=== PATIENT | male | born 1950 | race African-American/Black ===

== ENCOUNTER 2019-10-22 22:23 | Emergency (ER) | payer MEDICARE, OTHER ==
[~2019-10-22] VITALS: Ht 188 cm; Wt 74.8 kg
[2019-10-22 22:50] VITALS: BP 155/96
[2019-10-22] MEDS ORDERED: metFORMIN 500mg tab ORAL ONE (23:45)
[2019-10-22] MEDS ORDERED: Phenytoin 100mg cap ORAL ONE (23:45)
[2019-10-22 23:58] LABS: BASOPHILS % (AUTO) 1.6 % (0.0-2.0); EOSINOPHILS % (AUTO) 0.2 % (0.0-3.0); HEMATOCRIT 40.6 % (42.0-52.0); HEMOGLOBIN 14.1 G/DL (14.2-18.0); LYMPHOCYTES % (AUTO) 37.8 % (20.0-45.0); MEAN CORPUSCULAR VOLUME 85 FL (80-99); MONOCYTES % (AUTO) 6.7 % (1.0-10.0); NEUTROPHILS % (AUTO) 53.9 % (45.0-75.0); PLATELET COUNT 260 K/UL (150-450); RED BLOOD COUNT 4.79 M/UL (4.70-6.10); RED CELL DISTRIBUTION WIDTH 13.4 % (11.6-14.8); WHITE BLOOD COUNT 9.5 K/UL (4.8-10.8)
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
[2019-10-23 00:09] LABS: ANION GAP 9 mmol/L (5-15); BLOOD UREA NITROGEN 21 mg/dL (7-18); CALCIUM 9.2 MG/DL (8.5-10.1); CARBON DIOXIDE 27 MMOL/L (21-32); CHLORIDE 100 MMOL/L (98-107); CREATININE 1.1 MG/DL (0.55-1.30); POTASSIUM 4.9 MMOL/L (3.5-5.1); SODIUM 136 MMOL/L (136-145)
[2019-10-23 00:13] LABS: ALANINE AMINOTRANSFERASE 80 U/L (12-78); ALBUMIN 2.9 G/DL (3.4-5.0); ALBUMIN/GLOBULIN RATIO 0.5 (1.0-2.7); ALKALINE PHOSPHATASE 147 U/L (46-116); ASPARTATE AMINO TRANSFERASE 65 U/L (15-37); BILIRUBIN,TOTAL 0.2 MG/DL (0.2-1.0)
[2019-10-23 00:15] VITALS: BP 158/98
[2019-10-23] MEDS ORDERED: HYDROXYZINE HCL10 M1 PO (00:30)
[2019-10-23] MEDS ORDERED: TRAZODONE HCL50 MG ORAL (00:30)
[2019-10-23] MEDS ORDERED: AMLODIPINE BESY10 MG ORAL (00:30)
[2019-10-23] MEDS ORDERED: PROAIR HFA8.5 GM INH (00:30)
[2019-10-23] MEDS ORDERED: NOVOLIN R100 UNIT/1 SUBQ (00:30)
[2019-10-23] MEDS ORDERED: JANUVIA25 MG ORAL (00:30)
[2019-10-23] MEDS ORDERED: ATORVASTATIN CA20 MG ORAL (00:30)
[2019-10-23] MEDS ORDERED: METFORMIN HCL1000 M1 ORAL (00:30)
[2019-10-23] MEDS ORDERED: KEPPRA500 M4 ORAL (00:30)
[2019-10-23] MEDS ORDERED: BENAZEPRIL HCL20 MG ORAL (00:30)
[2019-10-23] MEDS ORDERED: HALOPERIDOL2 MG/1 ML PO (00:30)
[2019-10-23] MEDS ORDERED: BACLOFEN10 MG ORAL (00:30)
[2019-10-23] MEDS ORDERED: GLIPIZIDE5 MG ORAL (00:30)
[2019-10-23] MEDS ORDERED: DILANTIN100 MG ORAL (00:30)
[2019-10-23] MEDS ORDERED: FLOMAX0.4 MG ORAL (00:30)
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
[2019-10-23 02:33] VITALS: BP 157/89
[2019-10-23 03:34] VITALS: BP 165/88
--- NOTE | 2019-10-23 16:29 | Diagnostic Imaging Report ---
Indication: Right leg pain after falling Technique: 2 views of the right tibia and fibula Comparison: none Findings: No acute fractures. No dislocations. Joint spaces are preserved. There are vascular and superficial calcification Impression: No acute process
== END 2019-10-23 03:34 | disposition home or self-care (01) ==
LOC: EMR 23:01
DX: S80.811A Abrasion, right lower leg, initial encounter (principal); I10 Essential (primary) hypertension; J44.9 Chronic obstructive pulmonary disease, unspecified; E11.9 Type 2 diabetes mellitus without complications; F32.9 Major depressive disorder, single episode, unspecified; F03.90 Unspecified dementia, unspecified severity, without behavioral disturbance, psychotic disturbance, mood disturbance, and anxiety; Z88.6 Allergy status to analgesic agent; W19.XXXA Unspecified fall, initial encounter; Y92.9 Unspecified place or not applicable
CPT/HCPCS: 36415; 74176; 80053; 80185; 80299; 85025; 99284

== ENCOUNTER 2019-11-07 22:43 | Inpatient (IN) | payer MEDICARE, OTHER ==
[~2019-11-07] VITALS: Ht 180.3 cm; Wt 70.3 kg
[~2019-11-07 22:43] MED LIST: AMLODIPINE BESY10 MG ORAL; ATORVASTATIN CA20 MG ORAL; BACLOFEN10 MG ORAL; BENAZEPRIL HCL20 MG ORAL; DILANTIN100 MG ORAL; FLOMAX0.4 MG ORAL; GLIPIZIDE5 MG ORAL; HALOPERIDOL2 MG/1 ML PO; HYDROXYZINE HCL10 M1 PO; JANUVIA25 MG ORAL; KEPPRA500 M4 ORAL; METFORMIN HCL1000 M1 ORAL; NOVOLIN R100 UNIT/1 SUBQ; PROAIR HFA8.5 GM INH; TRAZODONE HCL50 MG ORAL
--- NOTE | 2019-11-07 22:50 | NUR ---
ED Nurse Note: PT CHARLES Coy[A 216 FROM [facility] C/P LRQ ABD PAIN [id number] BUT WORSE TODAY. PT DENIES NVD, VSS, NAD, ABD NON DISTENDED. ERMD AT BEDSIDE. WILL CONTINUE TO MONITOR PATIENT.
--- NOTE | 2019-11-07 22:55 | NUR ---
ED Nurse Note: BLOOD AND URINE COLLECTED AND SENT TO LAB.
[2019-11-07] MEDS ORDERED: Omnipaque-300 100ml vial INJ PRN (23:00)
[2019-11-07 23:18] LABS: BASOPHILS % (AUTO) 2.8 % (0.0-2.0); EOSINOPHILS % (AUTO) 0.7 % (0.0-3.0); HEMATOCRIT 37.1 % (42.0-52.0); HEMOGLOBIN 12.5 G/DL (14.2-18.0); LYMPHOCYTES % (AUTO) 51.1 % (20.0-45.0); MEAN CORPUSCULAR VOLUME 87 FL (80-99); MONOCYTES % (AUTO) 13.8 % (1.0-10.0); NEUTROPHILS % (AUTO) 31.6 % (45.0-75.0); PLATELET COUNT 196 K/UL (150-450); RED BLOOD COUNT 4.29 M/UL (4.70-6.10); WHITE BLOOD COUNT 6.7 K/UL (4.8-10.8)
[2019-11-07 23:40] LABS: ANION GAP 8 mmol/L (5-15); BLOOD UREA NITROGEN 14 mg/dL (7-18); CALCIUM 8.7 MG/DL (8.5-10.1); CARBON DIOXIDE 27 MMOL/L (21-32); CHLORIDE 104 MMOL/L (98-107); CREATININE 0.9 MG/DL (0.55-1.30); POTASSIUM 3.7 MMOL/L (3.5-5.1); SODIUM 139 MMOL/L (136-145)
[2019-11-07 23:46] LABS: ALANINE AMINOTRANSFERASE 72 U/L (12-78); ALBUMIN 2.3 G/DL (3.4-5.0); ALBUMIN/GLOBULIN RATIO 0.5 (1.0-2.7); ALKALINE PHOSPHATASE 127 U/L (46-116); ASPARTATE AMINO TRANSFERASE 47 U/L (15-37); BILIRUBIN,TOTAL 0.1 MG/DL (0.2-1.0)
[2019-11-07 23:54] VITALS: BP 168/82
[2019-11-07 23:57] LABS: APPEARANCE,URINE CLEAR; BILIRUBIN, URINE NEGATIVE (NEGATIVE); GLUCOSE, URINE (UA) NEGATIVE (NEGATIVE); KETONES,URINE NEGATIVE (NEGATIVE); LEUKOCYTE ESTERASE ,URINE NEGATIVE (NEGATIVE); NITRITE,URINE NEGATIVE (NEGATIVE); PH,URINE 6.5 (4.5-8.0); PROTEIN,URINE 4+ (NEGATIVE); UROBILINOGEN,URINE NORMAL MG/DL (0.0-1.0)
[2019-11-07 23:58] LABS: COLOR,URINE YELLOW
[2019-11-08] VITALS (7 sets, daily range): BP systolic 140–166; BP diastolic 68–98
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
[2019-11-08] MEDS ORDERED: ACETAMINOPHEN325 M1 ORAL (01:38)
[2019-11-08] MEDS ORDERED: ROBITUSSIN COU118 M1 ORAL (01:38)
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
--- NOTE | 2019-11-08 03:15 | NUR ---
ED Nurse Note: GAVE REPORT TO ANGELINE DUBON
--- NOTE | 2019-11-08 03:40 | NUR ---
NURSE NOTES: Patient arrived on unit. Patient is a/o x 2-3 and NO c/o pain or any distress at this time. Breathing is even and unlabored on room air. IV site is intact and patent. Belonging checked with patient and signed by patient. Patient refused his theodore to send to hospital's safe and signed on belonging paper. Patient refused side rail pads for seizures. he stated I had seizure long time ago and I don't want seizure pads. Bed is on alarm, locked, and lowest position. Call light within reach. Will continue to monitor.
--- NOTE | 2019-11-08 03:40 | NUR ---
TRANSFER TO FLOOR: Patient transferred to [facility] via gurney accompanied by rn in stable condition as ordered, per dr. Bronson . Report given to Sandra DUBON. Belongings sent with patient.
--- NOTE | 2019-11-08 04:44 | NUR ---
NURSE NOTES: Called to Dr. Bronson and left message regarding admission order.
--- NOTE | 2019-11-08 04:50 | NUR ---
NURSE NOTES: Dr. Marrero is covering Dr. Bronson. Called to Dr. Marrero regarding admission order.
--- NOTE | 2019-11-08 05:20 | NUR ---
NURSE NOTES: Called to Dr. Marrero 2nd regarding admission order and left message.
--- NOTE | 2019-11-08 06:32 | NUR ---
NURSE NOTES: Called to Dr. Marrero 3rd regarding admission order and left message. Notified to Charge nurse, Moshe DUBON.
--- NOTE | 2019-11-08 07:30 | NUR ---
NURSE NOTES: Received patient A/A/Ox3 in bed. appeared villagomez/grumpy. NPO. No c/o pain or any distress at this time. Breathing is even and unlabored on room air. IV site is intact and patent. patient is able to ambulate with assistance. call light is within reach. bed is in the lowest position. Bed is on alarm, locked, and lowest position.Will continue to monitor.
--- NOTE | 2019-11-08 07:30 | NUR ---
HAND-OFF: Report given to Niharika FIRE APPARATUS SPRINKLER INSPECTOR. Patient in stable condition.
[2019-11-08] MEDS: Tamsulosin 0.4mg cap ORAL SCH (09:05)
--- NOTE | 2019-11-08 09:30 | NUR ---
NURSE NOTES: diet ordered received and patient consumed 100%. tolerating food intake well. will cont to monitor.
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
--- NOTE | 2019-11-08 12:28 | NUR ---
NURSE NOTES: sent urine sample for drug screen.
--- NOTE | 2019-11-08 12:36 | NUR ---
NURSE NOTES: patient refused to keep his money in the safe and refused for me to count. Able to pad his siderails for seizure precautions. will cont to monitor.
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
[2019-11-08] MEDS: Acetaminophen 500mg (ES) tab ORAL PRN ×2 (16:09→23:17)
[2019-11-08] MEDS ORDERED: 1/2 NS 1000ml IV ONE (16:13)
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
--- NOTE | 2019-11-08 19:03 | NUR ---
HAND-OFF: Report given to Daly.
[2019-11-08] MEDS: TraZODone 50mg tab ORAL SCH (21:05)
[2019-11-08] MEDS: Phenytoin 100mg cap ORAL SCH (21:06)
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
[2019-11-09] VITALS (8 sets, daily range): BP systolic 125–191; BP diastolic 58–110
--- NOTE | 2019-11-09 06:34 | NUR ---
nurse's notes: at 0327 am patient slipped and fell on his buttocks after slipping on his own urine; patient was trying to get out the room however, eloisa morriosn for 303-2 tried to stop mr. jane from getting out of the room as he is considered a fall risk. DIRECTOR OF DESIGN called for a witnessed fall; fall protocol; no loss of consciousness or any visible s/s of pain, shortness of breath or distress. patient was verbally aggressive, and uncooperative to the female nurses. vital signs was taken and BP noted to be 191/110 and was rechecked with a SBP 213. catapres 0.01 mg given as ordered. dr. oglesby informed of fall at 0405 but was advised that dr. moore is ironmolder for him until this evening. daughter kaleb jane was also called around 0410 but did not continuous pickling line pickler; left voice mail. by this time patient has gone back to bed. Dr. Venegas came at around 0422 and was informed of his confusion and fall; risperdal was ordered. at this time patient is calmer, in bed, does not complain of any pain or distress; fall protocol initiated; will continue to monitor.
[2019-11-09 07:35] LABS: ALANINE AMINOTRANSFERASE 79 U/L (12-78); ALBUMIN 2.2 G/DL (3.4-5.0); ALBUMIN/GLOBULIN RATIO 0.5 (1.0-2.7); ALKALINE PHOSPHATASE 122 U/L (46-116); AMYLASE 312 U/L (25-115); ANION GAP 4 mmol/L (5-15); ASPARTATE AMINO TRANSFERASE 51 U/L (15-37); BILIRUBIN,TOTAL 0.1 MG/DL (0.2-1.0); BLOOD UREA NITROGEN 19 mg/dL (7-18); CALCIUM 8.7 MG/DL (8.5-10.1); CARBON DIOXIDE 29 MMOL/L (21-32); CHLORIDE 102 MMOL/L (98-107); CREATININE 1.1 MG/DL (0.55-1.30); POTASSIUM 4.1 MMOL/L (3.5-5.1); SODIUM 135 MMOL/L (136-145)
--- NOTE | 2019-11-09 07:37 | NUR ---
NURSE'S NOTES: LEFT VOICE MAIL FOR DR. GOODRICH WHO IS COVERING FOR DR. DIAMOND UNTIL THIS EVENING.
[2019-11-09 07:41] LABS: BASOPHILS % (AUTO) 1.2 % (0.0-2.0); EOSINOPHILS % (AUTO) 0.7 % (0.0-3.0); HEMATOCRIT 36.1 % (42.0-52.0); HEMOGLOBIN 12.4 G/DL (14.2-18.0); IRON 93 ug/dL (50-175); LYMPHOCYTES % (AUTO) 47.2 % (20.0-45.0); MEAN CORPUSCULAR VOLUME 86 FL (80-99); MONOCYTES % (AUTO) 17.8 % (1.0-10.0); NEUTROPHILS % (AUTO) 33.1 % (45.0-75.0); PLATELET COUNT 179 K/UL (150-450); RED BLOOD COUNT 4.21 M/UL (4.70-6.10); RED CELL DISTRIBUTION WIDTH 13.9 % (11.6-14.8); TOTAL IRON BINDING CAPACITY 209 ug/dL (250-450); WHITE BLOOD COUNT 5.9 K/UL (4.8-10.8)
--- NOTE | 2019-11-09 07:45 | NUR ---
NURSE NOTES: Pt lying in bed w/bed in lowest position and call light within reach. Pt A&Ox2, VSS, and in no apparent distress. IV site intact/asymptomatic & H/L'd and skin intact. Pt has no complaints of abdominal pain at this time. Pt NPO in preparation for abdominal US this morning. Will continue to monitor.
[2019-11-09 07:52] LABS: % IRON SATURATION 44 % (15-50)
[2019-11-09] MEDS: DULoxetine 30mg cap ORAL SCH (08:56)
[2019-11-09] MEDS: Tamsulosin 0.4mg cap ORAL SCH (08:56)
--- NOTE | 2019-11-09 11:00 | General Progress Note ---
Assessment/Plan Problem List: (1) Pancreatitis ICD Codes: K85.90 - Acute pancreatitis without necrosis or infection, unspecified SNOMED: 05765896 (2) Abdominal pain ICD Codes: R10.9 - Unspecified abdominal pain SNOMED: 79154368 (3) Seizure disorder ICD Codes: G40.909 - Epilepsy, unspecified, not intractable, without status epilepticus SNOMED: 540492929, 163628300 Status: progressing Assessment/Plan: abdominal pain w/u per gi dr afebrile pain is improving reviewed chart Subjective ROS Limited/Unobtainable: Yes Allergies: Coded Allergies: IBUPROFEN (Verified Allergy, Unknown, 10/22/19) Uncoded Allergies: PCN (Allergy, Unknown, 11/07/19) Objective Last 24 Hour Vital Signs Date Time Temp Pulse Resp B/P (MAP) Pulse Ox O2 Delivery O2 Flow Rate FiO2 11/09/19 09:00 Room Air 11/09/19 08:56 78 154/58 11/09/19 08:00 97.5 78 18 154/58 (90) 95 11/09/19 06:48 97.4 82 17 125/78 (94) 97 11/09/19 04:00 20 191/110 (137) 11/09/19 03:30 97.8 95 Room Air 11/09/19 00:00 97.3 78 18 162/93 (116) 98 11/08/19 21:00 Room Air 11/08/19 20:00 98.0 86 20 159/95 (116) 97 11/08/19 16:39 97.9 11/08/19 16:05 149/68 (95) 11/08/19 16:00 98.4 88 22 166/98 (120) 93 11/08/19 12:00 97.9 84 20 140/81 (100) 93 Intake and Output 11/08/19 11/09/19 19:00 07:00 Intake Total 1035 ml 990 ml Output Total 900 ml 500 ml Balance 135 ml 490 ml Intake Oral 360 ml 240 ml IV Total 675 ml 750 ml Output Urine Total 900 ml 500 ml Laboratory Tests 11/08/19 11:30: Urine Opiates Screen Negative, Urine Barbiturates Screen Negative, Phencyclidine (PCP) Screen Negative, Urine Amphetamines Screen Negative, Urine Benzodiazepines Screen Negative, Urine Cocaine Screen Negative, Urine Marijuana (THC) Screen Negative 11/09/19 04:50: White Blood Count 5.9, Red Blood Count 4.21L, Hemoglobin 12.4L, Hematocrit 36.1L , Mean Corpuscular Volume 86, Mean Corpuscular Hemoglobin 29.5, Mean Corpuscular Hemoglobin Concent 34.4, Red Cell Distribution Width 13.9, Platelet Count 179, Mean Platelet Volume 8.3, Neutrophils (%) (Auto) 33.1L, Lymphocytes ( %) (Auto) 47.2H, Monocytes (%) (Auto) 17.8H, Eosinophils (%) (Auto) 0.7, Basophils (%) (Auto) 1.2, Sodium Level 135L, Potassium Level 4.1, Chloride Level 102, Carbon Dioxide Level 29, Anion Gap 4L, Blood Urea Nitrogen 19H, Creatinine 1.1, Estimat Glomerular Filtration Rate > 60, Glucose Level 154H, Calcium Level 8.7, Iron Level 93, Total Iron Binding Capacity 209L, Percent Iron Saturation 44, Unsaturated Iron Binding 116, Total Bilirubin 0.1L, Aspartate Amino Transf (AST/SGOT) 51H, Alanine Aminotransferase (ALT/SGPT) 79H, Alkaline Phosphatase 122H, Total Protein 6.6, Albumin 2.2L, Globulin 4.4, Albumin/Globulin Ratio 0.5L, Amylase Level 312H, Lipase 683H, Hepatitis A IgM Antibody [Pending], Hepatitis B Surface Antigen [Pending], Hepatitis B Core IgM Antibody [Pending], Hepatitis C Antibody [Pending] Height (Feet): 5 Height (Inches): 11.00 Weight (Pounds): 165 Cardiovascular: regular rhythm Respiratory/Chest: lungs clear Abdomen: soft Dulce Marrero MD Nov 09, 2019 11:00
--- NOTE | 2019-11-09 11:19 | Diagnostic Imaging Report ---
Indication: Abdominal pain Technique: Grayscale and duplex Doppler imaging of the abdomen performed. Comparison: None Findings: The liver is unremarkable. Doppler interrogation of the main portal vein shows patency with hepatopedal, monophasic flow. There is no biliary ductal dilatation identified. Gallbladder is unremarkable. CBD is 5.8 mm in diameter. There demonstrated part of the pancreas and IVC show no definite abnormalities. Aorta is calcified and partially obscured. There are echogenic lesions within the spleen nonspecific. These could be vascular or parenchymal calcifications. Both kidneys notable for multiple small bilateral renal cysts. There is no hydronephrosis. IMPRESSION: No acute findings. Bilateral renal cysts. Echogenic lesions within the spleen probably calcifications such as granulomata.
--- NOTE | 2019-11-09 11:21 | GI Progress Note ---
Assessment/Plan Problems: (1) Abdominal pain ICD Codes: R10.9 - Unspecified abdominal pain SNOMED: 68686303 (2) Pancreatitis ICD Codes: K85.90 - Acute pancreatitis without necrosis or infection, unspecified SNOMED: 32472595 Status: unchanged Status Narrative Discussed with Dr. Washington Assessment/Plan Elevated lipase levels, pending abdominal ultrasound History of pancreatitis Follow-up abdominal ultrasound Advance diet as tolerated Anemia work-up -No iron deficiency Occult blood stool to rule out any GI bleed PPI GI procedures if needed repeat labs The patient was seen and examined at bedside and all new and available data was reviewed in the patients chart. I agree with the above findings, impression and plan. (Patient seen earlier today. Signature stamp does not reflect patient encounter time.). - Chris Washington MD Subjective Subjective Still has complaints of abdominal pain Denies any diarrhea Objective Last 24 Hour Vital Signs Date Time Temp Pulse Resp B/P (MAP) Pulse Ox O2 Delivery O2 Flow Rate FiO2 11/09/19 09:00 Room Air 11/09/19 08:56 78 154/58 11/09/19 08:00 97.5 78 18 154/58 (90) 95 11/09/19 06:48 97.4 82 17 125/78 (94) 97 11/09/19 04:00 20 191/110 (137) 11/09/19 03:30 97.8 95 Room Air 11/09/19 00:00 97.3 78 18 162/93 (116) 98 11/08/19 21:00 Room Air 11/08/19 20:00 98.0 86 20 159/95 (116) 97 11/08/19 16:39 97.9 11/08/19 16:05 149/68 (95) 11/08/19 16:00 98.4 88 22 166/98 (120) 93 11/08/19 12:00 97.9 84 20 140/81 (100) 93 Intake and Output 11/08/19 11/09/19 19:00 07:00 Intake Total 1035 ml 990 ml Output Total 900 ml 500 ml Balance 135 ml 490 ml Intake Oral 360 ml 240 ml IV Total 675 ml 750 ml Output Urine Total 900 ml 500 ml Laboratory Tests Test 11/08/19 11:30 11/09/19 04:50 Urine Opiates Screen Negative (NEGATIVE) Urine Barbiturates Screen Negative (NEGATIVE) Phencyclidine (PCP) Screen Negative (NEGATIVE) Urine Amphetamines Screen Negative (NEGATIVE) Urine Benzodiazepines Screen Negative (NEGATIVE) Urine Cocaine Screen Negative (NEGATIVE) Urine Marijuana (THC) Screen Negative (NEGATIVE) White Blood Count 5.9 K/UL (4.8-10.8) Red Blood Count 4.21 M/UL (4.70-6.10) L Hemoglobin 12.4 G/DL (14.2-18.0) L Hematocrit 36.1 % (42.0-52.0) L Mean Corpuscular Volume 86 FL (80-99) Mean Corpuscular Hemoglobin 29.5 PG (27.0-31.0) Mean Corpuscular Hemoglobin Concent 34.4 G/DL (32.0-36.0) Red Cell Distribution Width 13.9 % (11.6-14.8) Platelet Count 179 K/UL (150-450) Mean Platelet Volume 8.3 FL (6.5-10.1) Neutrophils (%) (Auto) 33.1 % (45.0-75.0) L Lymphocytes (%) (Auto) 47.2 % (20.0-45.0) H Monocytes (%) (Auto) 17.8 % (1.0-10.0) H Eosinophils (%) (Auto) 0.7 % (0.0-3.0) Basophils (%) (Auto) 1.2 % (0.0-2.0) Sodium Level 135 MMOL/L (136-145) L Potassium Level 4.1 MMOL/L (3.5-5.1) Chloride Level 102 MMOL/L (98-107) Carbon Dioxide Level 29 MMOL/L (21-32) Anion Gap 4 mmol/L (5-15) L Blood Urea Nitrogen 19 mg/dL (7-18) H Creatinine 1.1 MG/DL (0.55-1.30) Estimat Glomerular Filtration Rate > 60 mL/min (>60) Glucose Level 154 MG/DL (74-106) H Calcium Level 8.7 MG/DL (8.5-10.1) Iron Level 93 ug/dL (50-175) Total Iron Binding Capacity 209 ug/dL (250-450) L Percent Iron Saturation 44 % (15-50) Unsaturated Iron Binding 116 ug/dL (112-346) Total Bilirubin 0.1 MG/DL (0.2-1.0) L Aspartate Amino Transf (AST/SGOT) 51 U/L (15-37) H Alanine Aminotransferase (ALT/SGPT) 79 U/L (12-78) H Alkaline Phosphatase 122 U/L (46-116) H Total Protein 6.6 G/DL (6.4-8.2) Albumin 2.2 G/DL (3.4-5.0) L Globulin 4.4 g/dL Albumin/Globulin Ratio 0.5 (1.0-2.7) L Amylase Level 312 U/L (25-115) H Lipase 683 U/L (73-393) H Hepatitis A IgM Antibody Pending Hepatitis B Surface Antigen Pending Hepatitis B Core IgM Antibody Pending Hepatitis C Antibody Pending Height (Feet): 5 Height (Inches): 11.00 Weight (Pounds): 165 General Appearance: WD/WN, no apparent distress, alert Cardiovascular: normal rate Respiratory/Chest: normal breath sounds, no respiratory distress Abdominal Exam: normal bowel sounds, non tender, soft Extremities: normal range of motion, non-tender Jonny Carroll YARN WEIGHER Nov 09, 2019 11:21
--- NOTE | 2019-11-09 12:30 | NUR ---
NURSE NOTES: Pt pulled out IV access and is refusing another IV; will attempt to start new IV at a later time.
[2019-11-09] MEDS ORDERED: 1/2 NS 1000ml IV ONE (15:18)
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
--- NOTE | 2019-11-09 17:01 | NUR ---
*-* INSURANCE *-* ALL AVAILABLE CLINICALS HAVE BEEN FAXED TO: [facility] rf# yet # [phone]
--- NOTE | 2019-11-09 20:00 | NUR ---
nurse's notes; received patient awake, alert, oriented to self and place only, confused and disoriented; re-oriented patient to purpose and time; denies any pain, shortness of breath or any distress; bed alarm on at all times; 2 upper rails padded secondary to a hx of seizures; plan of care discussed with patient but no evidence of learning; needs constant reinforcement. will continue to monitor
[2019-11-09] MEDS: TraZODone 50mg tab ORAL SCH (20:42)
[2019-11-09] MEDS: Phenytoin 100mg cap ORAL SCH (20:43)
[2019-11-09] MEDS: Acetaminophen 500mg (ES) tab ORAL PRN (20:46)
[2019-11-09] MEDS: NovoLOG Insulin Flexpen SUBQ SCH (20:48)
[2019-11-09] MEDS: LORazepam 1mg tab ORAL PRN (23:22)
[2019-11-10] VITALS: BP 178/89
[2019-11-10] MEDS: Acetaminophen 500mg (ES) tab ORAL PRN ×2 (03:37→17:48)
[2019-11-10 04:00] VITALS: BP 169/95
[2019-11-10] MEDS: NovoLOG Insulin Flexpen SUBQ SCH ×4 (05:52→22:30)
--- NOTE | 2019-11-10 06:20 | NUR ---
nurse's notes: no significant changes noted this shift; continues to be confused and forgetful but more easily redirected and re-oriented today; more cooperative to staff; pain managed well with ordered medication with good results; no incidents of falls, injuries, trauma or skin issues noted; bed alarm on at all times; no s/s of hyper or hypoglycemia; VS noted; SBP between 160s-170s; clonidine PRN parameter noted at SBP >180; AM sponge bath done; soiled clothes in bedside cabinet; patient has $26 in notes inside his white sock; coins in the pocket of his jacket; slept well during the night; will continue to monitor.
[2019-11-10 06:34] LABS: BASOPHILS % (AUTO) 1.4 % (0.0-2.0); EOSINOPHILS % (AUTO) 0.6 % (0.0-3.0); HEMATOCRIT 34.9 % (42.0-52.0); HEMOGLOBIN 11.9 G/DL (14.2-18.0); MEAN CORPUSCULAR VOLUME 86 FL (80-99); MONOCYTES % (AUTO) 19.8 % (1.0-10.0); NEUTROPHILS % (AUTO) 31.3 % (45.0-75.0); PLATELET COUNT 180 K/UL (150-450); RED BLOOD COUNT 4.06 M/UL (4.70-6.10); RED CELL DISTRIBUTION WIDTH 13.7 % (11.6-14.8); WHITE BLOOD COUNT 6.4 K/UL (4.8-10.8)
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
--- NOTE | 2019-11-10 07:45 | NUR ---
NURSE NOTES: Pt lying in bed w/bed in lowest position, bed alarm on, and call light within reach. Pt A&Ox2, VSS, and in no apparent distress. IV site intact/asymptomatic & H/L'd and skin intact. Pt resting and has no concerns or complaints at this time. Will continue to monitor.
[2019-11-10 07:52] LABS: ANION GAP 9 mmol/L (5-15); BLOOD UREA NITROGEN 17 mg/dL (7-18); CALCIUM 8.4 MG/DL (8.5-10.1); CARBON DIOXIDE 27 MMOL/L (21-32); CHLORIDE 102 MMOL/L (98-107); CREATININE 0.9 MG/DL (0.55-1.30); SODIUM 137 MMOL/L (136-145)
[2019-11-10 08:00] VITALS: BP 121/66
[2019-11-10] MEDS: DULoxetine 30mg cap ORAL SCH (08:39)
[2019-11-10] MEDS: Tamsulosin 0.4mg cap ORAL SCH (08:40)
--- NOTE | 2019-11-10 10:30 | NUR ---
*-* INSURANCE *-* UDPATED CLINICALS HAVE BEEN FAXED TO: [facility] rf# yet # [phone]
--- NOTE | 2019-11-10 11:56 | General Progress Note ---
Assessment/Plan Assessment/Plan: 1. History of seizure disorder. 2. Hypertension. 3. COPD. 4. GERD. 5. Pancreatitis. 6. Diabetes. 7. Schizophrenia. 8. Depression. 9. Anemia abd us reviewed elevated lipase but asymptomatic tolerating diet needs out patient fu for EGD and colonoscopy Subjective ROS Limited/Unobtainable: Yes Allergies: Coded Allergies: IBUPROFEN (Verified Allergy, Unknown, 10/22/19) Uncoded Allergies: PCN (Allergy, Unknown, 11/07/19) Objective Last 24 Hour Vital Signs Date Time Temp Pulse Resp B/P (MAP) Pulse Ox O2 Delivery O2 Flow Rate FiO2 11/10/19 09:00 Room Air 11/10/19 08:39 76 121/66 11/10/19 08:00 97.1 76 18 121/66 (84) 95 11/10/19 04:00 97.7 83 16 169/95 (119) 95 11/10/19 00:00 98.1 88 15 178/89 (118) 95 11/09/19 21:00 Room Air 11/09/19 20:00 97.3 87 18 168/91 (116) 95 11/09/19 16:00 97.6 85 18 166/78 (107) 98 11/09/19 12:00 97.3 83 18 138/77 (97) 97 Intake and Output 11/09/19 11/10/19 19:00 07:00 Intake Total 1050 ml Balance 1050 ml Intake Oral 300 ml IV Total 750 ml # Voids 3 Laboratory Tests 11/10/19 04:50: White Blood Count 6.4, Red Blood Count 4.06L, Hemoglobin 11.9L, Hematocrit 34.9L , Mean Corpuscular Volume 86, Mean Corpuscular Hemoglobin 29.3, Mean Corpuscular Hemoglobin Concent 34.1, Red Cell Distribution Width 13.7, Platelet Count 180, Mean Platelet Volume 8.0, Neutrophils (%) (Auto) 31.3L, Lymphocytes ( %) (Auto) 47.0H, Monocytes (%) (Auto) 19.8H, Eosinophils (%) (Auto) 0.6, Basophils (%) (Auto) 1.4, Sodium Level 137, Potassium Level 4.0, Chloride Level 102, Carbon Dioxide Level 27, Anion Gap 9, Blood Urea Nitrogen 17, Creatinine 0.9, Estimat Glomerular Filtration Rate > 60, Glucose Level 202H, Hemoglobin A1c 7.9H, Calcium Level 8.4L, Lipase 534H Height (Feet): 5 Height (Inches): 11.00 Weight (Pounds): 165 General Appearance: no apparent distress EENT: normal ENT inspection Neck: supple Cardiovascular: normal rate Respiratory/Chest: decreased breath sounds Abdomen: normal bowel sounds, non tender, soft Extremities: non-tender Chris Washington MD Nov 10, 2019 11:56
[2019-11-10 12:00] VITALS: BP 150/88
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
--- NOTE | 2019-11-10 14:46 | General Progress Note ---
Assessment/Plan Problem List: (1) COPD (chronic obstructive pulmonary disease) ICD Codes: J44.9 - Chronic obstructive pulmonary disease, unspecified SNOMED: 57708327 (2) HTN (hypertension) ICD Codes: I10 - Essential (primary) hypertension SNOMED: 62088688 (3) Fall ICD Codes: W19.XXXA - Unspecified fall, initial encounter SNOMED: 6471765, 184194184 (4) Leg abrasion ICD Codes: S80.819A - Abrasion, unspecified lower leg, initial encounter SNOMED: 051879403, 272346961 (5) Seizure disorder ICD Codes: G40.909 - Epilepsy, unspecified, not intractable, without status epilepticus SNOMED: 067867242, 296948858 (6) Abdominal pain ICD Codes: R10.9 - Unspecified abdominal pain SNOMED: 10083092 Status: stable, progressing Assessment/Plan: pt diet cbc bmp am dc if clear Subjective Constitutional: Reports: weakness Allergies: Coded Allergies: IBUPROFEN (Verified Allergy, Unknown, 10/22/19) Uncoded Allergies: PCN (Allergy, Unknown, 11/07/19) All Systems: reviewed and negative except above Subjective calm in bed Objective Last 24 Hour Vital Signs Date Time Temp Pulse Resp B/P (MAP) Pulse Ox O2 Delivery O2 Flow Rate FiO2 11/10/19 12:00 98.2 86 20 150/88 (108) 95 11/10/19 09:00 Room Air 11/10/19 08:39 76 121/66 11/10/19 08:00 97.1 76 18 121/66 (84) 95 11/10/19 04:00 97.7 83 16 169/95 (119) 95 11/10/19 00:00 98.1 88 15 178/89 (118) 95 11/09/19 21:00 Room Air 11/09/19 20:00 97.3 87 18 168/91 (116) 95 11/09/19 16:00 97.6 85 18 166/78 (107) 98 Intake and Output 11/09/19 11/10/19 19:00 07:00 Intake Total 1050 ml Balance 1050 ml Intake Oral 300 ml IV Total 750 ml # Voids 3 Laboratory Tests 11/10/19 04:50: White Blood Count 6.4, Red Blood Count 4.06L, Hemoglobin 11.9L, Hematocrit 34.9L , Mean Corpuscular Volume 86, Mean Corpuscular Hemoglobin 29.3, Mean Corpuscular Hemoglobin Concent 34.1, Red Cell Distribution Width 13.7, Platelet Count 180, Mean Platelet Volume 8.0, Neutrophils (%) (Auto) 31.3L, Lymphocytes ( %) (Auto) 47.0H, Monocytes (%) (Auto) 19.8H, Eosinophils (%) (Auto) 0.6, Basophils (%) (Auto) 1.4, Sodium Level 137, Potassium Level 4.0, Chloride Level 102, Carbon Dioxide Level 27, Anion Gap 9, Blood Urea Nitrogen 17, Creatinine 0.9, Estimat Glomerular Filtration Rate > 60, Glucose Level 202H, Hemoglobin A1c 7.9H, Calcium Level 8.4L, Lipase 534H Height (Feet): 5 Height (Inches): 11.00 Weight (Pounds): 165 General Appearance: lethargic EENT: normal ENT inspection Neck: normal alignment Cardiovascular: normal peripheral pulses, normal rate, regular rhythm Respiratory/Chest: chest wall non-tender, lungs clear, normal breath sounds Abdomen: normal bowel sounds, non tender, soft Extremities: normal inspection Edema: no edema noted Arm (L), no edema noted Arm (R), no edema noted Leg (L), no edema noted Leg (R), no edema noted Pedal (L), no edema noted Pedal (R), no edema noted Generalized Neurologic: motor weakness Skin: normal pigmentation, warm/dry Keyur Bronson DO Nov 10, 2019 14:45
[2019-11-10] MEDS ORDERED: 1/2 NS 1000ml IV ONE (15:19)
[2019-11-10] MEDS ORDERED: Bisacodyl EC 5mg tab ORAL PRN (15:59)
[2019-11-10 16:00] VITALS: BP 161/97
--- NOTE | 2019-11-10 16:45 | Progress Note ---
DATE: 11/10/2019 SUBJECTIVE: This is a 69-year-old male patient who came into the hospital. The patient continues to have some confusion, disorganized thought process, and mood lability. He is currently in the hospital because of abdominal pain, but he still has some mood lability, confused, and disorganized thought process. That is why attending has requested daily psychiatric consultation. MENTAL STATUS EXAMINATION: This is a 69-year-old male. Appearance is disheveled. Attitude, irritable and agitated. Affect, guarded and restricted. Intellect, poor. Mood, depressed and anxious. Motor activity, psychomotor agitation. Attention span is poor. Orientation x2. Speech is pressured. Thought process is disorganized and illogical. Insight and judgment is poor. DIAGNOSIS: Major depressive disorder, severe, recurrent; rule out dementia with psychosis. PLAN: Plan for this patient is to treat him with a medication regimen consisting of trazodone 50 mg nightly, Risperdal 0.5 mg twice a day, Ativan 1 mg every 6 hours p.r.n. anxiety and agitation, and Neurontin 100 mg three times a day. Chart reviewed. Discussed with staff. Seen and assessed at bedside. Ariela Venegas M.D. DR: IGOR JOB#: [id number] CC:
[2019-11-10] MEDS: Docusate 100mg cap ORAL SCH (17:44)
[2019-11-10] MEDS: Benazepril 10mg tab ORAL SCH (17:46)
--- NOTE | 2019-11-10 19:37 | NUR ---
HAND-OFF: Report given to JAGDISH Soriano.
--- NOTE | 2019-11-10 20:08 | NUR ---
NURSES NOTE: Pt in bed, A/OX2, denies pain at this time. Hand rails padded. No outward s/s of distress noted. Breathing pattern is even and unlabored on RA. No fluids running. Stool to be collected. Bed at lowest level, call light within reach. Pt will continue to be monitored.
[2019-11-10] MEDS ORDERED: Miralax 17gm pkt ORAL SCH (21:00)
[2019-11-10] MEDS: Phenytoin 100mg cap ORAL SCH (22:31)
[2019-11-10] MEDS: TraZODone 50mg tab ORAL SCH (22:31)
[2019-11-11] VITALS: BP 159/89
[2019-11-11] MEDS: LORazepam 1mg tab ORAL PRN (01:13)
[2019-11-11 04:00] VITALS: BP 154/95
[2019-11-11] MEDS: NovoLOG Insulin Flexpen SUBQ SCH ×3 (07:01→17:10)
[2019-11-11 08:00] VITALS: BP 159/85
--- NOTE | 2019-11-11 08:00 | NUR ---
NURSE NOTES: Received report from Sarah DUBON. Patient is asleep during rounds, no acute distress noted, RR even and unlabored, no IV access noted, per report from supervisor ski production nurse MD is aware patient has no IV access. Seizure and fall precautions maintained, side rails padded x2, side rails upx3, bed low and locked, call light within reach, bed alarm is armed.
--- NOTE | 2019-11-11 08:03 | NUR ---
HAND OFF: Report given to JAGDISH Dean. Patient in stable condition.
[2019-11-11 08:32] LABS: BASOPHILS % (AUTO) 2.2 % (0.0-2.0); EOSINOPHILS % (AUTO) 0.6 % (0.0-3.0); HEMATOCRIT 35.6 % (42.0-52.0); HEMOGLOBIN 12.2 G/DL (14.2-18.0); LYMPHOCYTES % (AUTO) 52.6 % (20.0-45.0); MEAN CORPUSCULAR VOLUME 86 FL (80-99); NEUTROPHILS % (AUTO) 29.7 % (45.0-75.0); PLATELET COUNT 171 K/UL (150-450); RED BLOOD COUNT 4.12 M/UL (4.70-6.10); RED CELL DISTRIBUTION WIDTH 13.8 % (11.6-14.8); WHITE BLOOD COUNT 5.6 K/UL (4.8-10.8)
[2019-11-11 08:43] LABS: AMYLASE 254 U/L (25-115); ANION GAP 9 mmol/L (5-15); BLOOD UREA NITROGEN 20 mg/dL (7-18); CALCIUM 8.7 MG/DL (8.5-10.1); CARBON DIOXIDE 26 MMOL/L (21-32); CHLORIDE 104 MMOL/L (98-107); CREATININE 0.9 MG/DL (0.55-1.30); POTASSIUM 4.1 MMOL/L (3.5-5.1); SODIUM 139 MMOL/L (136-145)
[2019-11-11 08:45] LABS: % IRON SATURATION 53 % (15-50); IRON 115 ug/dL (50-175); TOTAL IRON BINDING CAPACITY 218 ug/dL (250-450)
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
[2019-11-11] MEDS: Benazepril 10mg tab ORAL SCH ×2 (09:31→17:35)
[2019-11-11] MEDS: Docusate 100mg cap ORAL SCH ×3 (09:31→17:34)
[2019-11-11] MEDS: Tamsulosin 0.4mg cap ORAL SCH (09:31)
[2019-11-11] MEDS: DULoxetine 30mg cap ORAL SCH (09:31)
--- NOTE | 2019-11-11 09:57 | NUR ---
DISCHARGE PLANNING PATIENT REFERRED BACK TO [facility] T:[id number] F:[phone]
--- NOTE | 2019-11-11 10:38 | GI Progress Note ---
Assessment/Plan Problems: (1) Abdominal pain ICD Codes: R10.9 - Unspecified abdominal pain SNOMED: 45084995 (2) Pancreatitis ICD Codes: K85.90 - Acute pancreatitis without necrosis or infection, unspecified SNOMED: 03523921 Status: stable, unchanged Status Narrative Discussed with Dr. Washingtno. Assessment/Plan 1. History of seizure disorder. 2. Hypertension. 3. COPD. 4. GERD. 5. Pancreatitis. 6. Diabetes. 7. Schizophrenia. 8. Depression. 9. Anemia abd us reviewed elevated lipase but asymptomatic tolerating diet needs out patient fu for EGD and colonoscopy dc planning The patient was seen and examined at bedside and all new and available data was reviewed in the patients chart. I agree with the above findings, impression and plan. (Patient seen earlier today. Signature stamp does not reflect patient encounter time.). - Chris Washington MD Subjective Gastrointestinal/Abdominal: Reports: no symptoms Objective Last 24 Hour Vital Signs Date Time Temp Pulse Resp B/P (MAP) Pulse Ox O2 Delivery O2 Flow Rate FiO2 11/11/19 09:31 159/85 11/11/19 09:31 94 159/85 11/11/19 08:00 99.2 94 20 159/85 (109) 96 11/11/19 04:00 97.9 78 20 154/95 (114) 98 11/11/19 00:00 98.2 78 16 159/89 (112) 97 11/10/19 22:41 164/95 11/10/19 21:00 Room Air 11/10/19 17:46 161/97 11/10/19 16:00 98.6 71 20 161/97 (118) 97 11/10/19 12:00 98.2 86 20 150/88 (108) 95 Intake and Output 11/10/19 11/11/19 19:00 07:00 Intake Total 720 ml 780 ml Output Total 800 ml Balance -80 ml 780 ml Intake Oral 720 ml 780 ml Output Urine Total 800 ml # Voids 2 5 Laboratory Tests Test 11/11/19 08:00 White Blood Count 5.6 K/UL (4.8-10.8) Red Blood Count 4.12 M/UL (4.70-6.10) L Hemoglobin 12.2 G/DL (14.2-18.0) L Hematocrit 35.6 % (42.0-52.0) L Mean Corpuscular Volume 86 FL (80-99) Mean Corpuscular Hemoglobin 29.5 PG (27.0-31.0) Mean Corpuscular Hemoglobin Concent 34.2 G/DL (32.0-36.0) Red Cell Distribution Width 13.8 % (11.6-14.8) Platelet Count 171 K/UL (150-450) Mean Platelet Volume 7.5 FL (6.5-10.1) Neutrophils (%) (Auto) 29.7 % (45.0-75.0) L Lymphocytes (%) (Auto) 52.6 % (20.0-45.0) H Monocytes (%) (Auto) 15.0 % (1.0-10.0) H Eosinophils (%) (Auto) 0.6 % (0.0-3.0) Basophils (%) (Auto) 2.2 % (0.0-2.0) H Sodium Level 139 MMOL/L (136-145) Potassium Level 4.1 MMOL/L (3.5-5.1) Chloride Level 104 MMOL/L (98-107) Carbon Dioxide Level 26 MMOL/L (21-32) Anion Gap 9 mmol/L (5-15) Blood Urea Nitrogen 20 mg/dL (7-18) H Creatinine 0.9 MG/DL (0.55-1.30) Estimat Glomerular Filtration Rate > 60 mL/min (>60) Glucose Level 237 MG/DL (74-106) H Calcium Level 8.7 MG/DL (8.5-10.1) Iron Level 115 ug/dL (50-175) Total Iron Binding Capacity 218 ug/dL (250-450) L Percent Iron Saturation 53 % (15-50) H Unsaturated Iron Binding 103 ug/dL (112-346) L Amylase Level 254 U/L (25-115) H Lipase 463 U/L (73-393) H Height (Feet): 5 Height (Inches): 11.00 Weight (Pounds): 155 General Appearance: WD/WN, no apparent distress, alert Cardiovascular: normal rate Respiratory/Chest: normal breath sounds, no respiratory distress Abdominal Exam: normal bowel sounds, non tender, soft Extremities: normal range of motion, non-tender Jonny Carroll [employer] Nov 11, 2019 10:38
--- NOTE | 2019-11-11 13:59 | General Progress Note ---
Assessment/Plan Problem List: (1) COPD (chronic obstructive pulmonary disease) ICD Codes: J44.9 - Chronic obstructive pulmonary disease, unspecified SNOMED: 82018842 (2) HTN (hypertension) ICD Codes: I10 - Essential (primary) hypertension SNOMED: 60365225 (3) Fall ICD Codes: W19.XXXA - Unspecified fall, initial encounter SNOMED: 4579904, 294475025 (4) Leg abrasion ICD Codes: S80.819A - Abrasion, unspecified lower leg, initial encounter SNOMED: 695710607, 452780152 (5) Seizure disorder ICD Codes: G40.909 - Epilepsy, unspecified, not intractable, without status epilepticus SNOMED: 139686730, 300003012 (6) Abdominal pain ICD Codes: R10.9 - Unspecified abdominal pain SNOMED: 31638652 Status: stable, progressing Assessment/Plan: pt diet cbc bmp am dc if clear by gi Subjective Allergies: Coded Allergies: IBUPROFEN (Verified Allergy, Unknown, 10/22/19) Uncoded Allergies: PCN (Allergy, Unknown, 11/07/19) All Systems: reviewed and negative except above Subjective calm in bed Objective Last 24 Hour Vital Signs Date Time Temp Pulse Resp B/P (MAP) Pulse Ox O2 Delivery O2 Flow Rate FiO2 11/11/19 09:31 159/85 11/11/19 09:31 94 159/85 11/11/19 09:00 Room Air 11/11/19 08:00 99.2 94 20 159/85 (109) 96 11/11/19 04:00 97.9 78 20 154/95 (114) 98 11/11/19 00:00 98.2 78 16 159/89 (112) 97 11/10/19 22:41 164/95 11/10/19 21:00 Room Air 11/10/19 17:46 161/97 11/10/19 16:00 98.6 71 20 161/97 (118) 97 Intake and Output 11/10/19 11/11/19 19:00 07:00 Intake Total 720 ml 780 ml Output Total 800 ml Balance -80 ml 780 ml Intake Oral 720 ml 780 ml Output Urine Total 800 ml # Voids 2 5 Laboratory Tests 11/11/19 08:00: White Blood Count 5.6, Red Blood Count 4.12L, Hemoglobin 12.2L, Hematocrit 35.6L , Mean Corpuscular Volume 86, Mean Corpuscular Hemoglobin 29.5, Mean Corpuscular Hemoglobin Concent 34.2, Red Cell Distribution Width 13.8, Platelet Count 171, Mean Platelet Volume 7.5, Neutrophils (%) (Auto) 29.7L, Lymphocytes ( %) (Auto) 52.6H, Monocytes (%) (Auto) 15.0H, Eosinophils (%) (Auto) 0.6, Basophils (%) (Auto) 2.2H, Sodium Level 139, Potassium Level 4.1, Chloride Level 104, Carbon Dioxide Level 26, Anion Gap 9, Blood Urea Nitrogen 20H, Creatinine 0.9, Estimat Glomerular Filtration Rate > 60, Glucose Level 237H, Calcium Level 8.7, Iron Level 115, Total Iron Binding Capacity 218L, Percent Iron Saturation 53H, Unsaturated Iron Binding 103L, Amylase Level 254H, Lipase 463H Height (Feet): 5 Height (Inches): 11.00 Weight (Pounds): 155 General Appearance: lethargic EENT: normal ENT inspection Neck: normal alignment Cardiovascular: normal peripheral pulses, normal rate, regular rhythm Respiratory/Chest: chest wall non-tender, lungs clear, normal breath sounds Abdomen: normal bowel sounds, non tender, soft Extremities: normal inspection Edema: no edema noted Arm (L), no edema noted Arm (R), no edema noted Leg (L), no edema noted Leg (R), no edema noted Pedal (L), no edema noted Pedal (R), no edema noted Generalized Neurologic: motor weakness Skin: normal pigmentation, warm/dry Keyur Bronson DO Nov 11, 2019 13:59
--- NOTE | 2019-11-11 14:14 | NUR ---
P.T Note: P.T evaluation completed and tx initiated. Please refer to P.T evaluation for current functional status.
--- NOTE | 2019-11-11 15:18 | NUR ---
NURSE NOTES: Received call from Dr. Washington. MD called to review medication reconciliation for discharge. Reviewed all home medications with MD and MD gave order to continue all home medications. Orders entered.
[2019-11-11 16:00] VITALS: BP 165/94
--- NOTE | 2019-11-11 16:15 | Progress Note ---
DATE: 11/11/2019 SUBJECTIVE: This is a 69-year-old male patient. The patient has seizure disorder, abdominal pain, pancreatitis, COPD, status post fall, hypertension, leg abrasion. He has mood lability, confusion, disorganized thought process, altered mental status, and decline in cognition below his baseline. That is why, his attending has requested daily psychiatric consultation. MENTAL STATUS EXAMINATION: This is a 69-year-old male. Appearance is disheveled. Attitude, irritable and agitated. Affect, guarded and restricted. Intellect poor. Mood, depressed and anxious. Motor activity, psychomotor agitation. Attention span is poor. Orientation x2. Speech is low volume, slurred. Thought process, disorganized and illogical. Insight and judgment is poor. DIAGNOSIS: Major depressive disorder, severe, recurrent, rule out dementia with psychosis. PLAN: Treat him with Risperdal 0.5 twice a day, Ativan 1 every 6 hours p.r.n. anxiety and agitation, Neurontin 100 mg 3 times a day, trazodone 50 mg at bedtime. 20 minutes of cognitive behavioral therapy to help him identify his automatic negative thoughts and help him convert his negative thoughts to more positive thoughts to reduce depression, anxiety, mood lability. A 20 minutes of cognitive behavioral therapy. Chart reviewed. Discussed with staff. Seen and assessed in his room. Ariela Venegas M.D. DR: MILAN JOB#: [id number] CC:
--- NOTE | 2019-11-11 17:11 | NUR ---
*-* INSURANCE *-* UDPATED CLINICALS HAVE BEEN FAXED TO: MARK goodson rf# yet # [phone]
[2019-11-11 17:32] VITALS: BP 163/97
[2019-11-11 18:33] VITALS: BP 140/89
--- NOTE | 2019-11-11 18:53 | NUR ---
NURSE NOTES: Called and gave report to nurse Hwang at [facility].
--- NOTE | 2019-11-11 19:10 | NUR ---
NURSE NOTES: Patient discharged without distress. No acute distress noted on discharge. Patient transferred safely to [facility] ambulance [facility]. All patient's belongings given to [facility] ambulance crew. Patient transported off unit.
--- NOTE | 2019-11-12 12:52 | NUR ---
*-* INSURANCE *-* NO DISCHARGE SUMMARY IN THE SYSTEM UNABLE TO SEND.
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
--- NOTE | 2019-11-16 15:17 | NUR ---
*-* INSURANCE *-* DISCHARGE SUMMARY HAS BEEN FAXED TO: MARK melvin# yet # [phone]
== END 2019-11-11 19:10 | DRG 282 ==
LOC: EDBD 22:43 → EMR 22:55 → 3E 11-08 01:13 → EDBEDREQ 11-08 01:50 → 3E 11-08 04:22
DX: K85.90 Acute pancreatitis without necrosis or infection, unspecified (principal); G62.9 Polyneuropathy, unspecified; I10 Essential (primary) hypertension; N40.0 Benign prostatic hyperplasia without lower urinary tract symptoms; G40.909 Epilepsy, unspecified, not intractable, without status epilepticus; F33.3 Major depressive disorder, recurrent, severe with psychotic symptoms; J44.9 Chronic obstructive pulmonary disease, unspecified; Z88.6 Allergy status to analgesic agent; Z88.0 Allergy status to penicillin; E11.9 Type 2 diabetes mellitus without complications; F20.9 Schizophrenia, unspecified; K21.9 Gastro-esophageal reflux disease without esophagitis; D64.9 Anemia, unspecified; W34.00XS Accidental discharge from unspecified firearms or gun, sequela; F33.2 Major depressive disorder, recurrent severe without psychotic features; F17.200 Nicotine dependence, unspecified, uncomplicated; S80.819A Abrasion, unspecified lower leg, initial encounter; W19.XXXA Unspecified fall, initial encounter
CPT/HCPCS: 36415; 74018; 76700; 80048; 80053; 80299; 80307; 81003; 82150; 82962; 83036; 83540; 83550; 83690; 85025; 85610; 85730; 86705; 86709; 86803; 86850; 86900; 86901; 87081; 87340; 93005; 96374; 99285; J1815; J2405

== ENCOUNTER 2019-11-12 23:44 | Emergency (ER) | payer MEDICARE, OTHER ==
[~2019-11-12] VITALS: Ht 182.9 cm; Wt 74.8 kg
[~2019-11-12 23:44] MED LIST changes: +ACETAMINOPHEN325 M1 ORAL; +ROBITUSSIN COU118 M1 ORAL
--- NOTE | 2019-11-12 23:55 | NUR ---
ED Nurse Note: PT BIBA FROM SNF C/O ABD PAIN X3DAYS. PT WAS SEEN HERE AND DC RECENTLY. PAIN 8/. PT DENIES FEVER OR NAUSEA. ERMD AT BEDSIDE. AAOX, AMBULATORY
[2019-11-13] VITALS: BP 186/103
--- NOTE | 2019-11-13 | NUR ---
ED Nurse Note: BLOOD AND URINE COLLECTED AND SENT TO LAB
[2019-11-13 00:42] LABS: ANION GAP 6 mmol/L (5-15); BASOPHILS % (AUTO) 1.8 % (0.0-2.0); BLOOD UREA NITROGEN 20 mg/dL (7-18); CALCIUM 8.9 MG/DL (8.5-10.1); CARBON DIOXIDE 30 MMOL/L (21-32); CHLORIDE 100 MMOL/L (98-107); EOSINOPHILS % (AUTO) 0.3 % (0.0-3.0); HEMOGLOBIN 13.6 G/DL (14.2-18.0); LYMPHOCYTES % (AUTO) 44.2 % (20.0-45.0); MEAN CORPUSCULAR VOLUME 86 FL (80-99); MONOCYTES % (AUTO) 18.5 % (1.0-10.0); NEUTROPHILS % (AUTO) 35.2 % (45.0-75.0); PLATELET COUNT 205 K/UL (150-450); POTASSIUM 4.1 MMOL/L (3.5-5.1); RED BLOOD COUNT 4.63 M/UL (4.70-6.10); RED CELL DISTRIBUTION WIDTH 13.5 % (11.6-14.8); SODIUM 136 MMOL/L (136-145); WHITE BLOOD COUNT 7.7 K/UL (4.8-10.8)
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
[2019-11-13 00:46] LABS: ALANINE AMINOTRANSFERASE 84 U/L (12-78); ALBUMIN 2.6 G/DL (3.4-5.0); ALBUMIN/GLOBULIN RATIO 0.5 (1.0-2.7); ALKALINE PHOSPHATASE 162 U/L (46-116); ASPARTATE AMINO TRANSFERASE 56 U/L (15-37); BILIRUBIN,TOTAL 0.1 MG/DL (0.2-1.0)
[2019-11-13] MEDS ORDERED: Tylenol #3 tab (300mg/30mg) ORAL ONE (01:00)
[2019-11-13 01:41] LABS: APPEARANCE,URINE CLEAR; BILIRUBIN, URINE NEGATIVE (NEGATIVE); COLOR,URINE PALE YELLOW; GLUCOSE, URINE (UA) 2+ (NEGATIVE); KETONES,URINE NEGATIVE (NEGATIVE); LEUKOCYTE ESTERASE ,URINE NEGATIVE (NEGATIVE); NITRITE,URINE NEGATIVE (NEGATIVE); PH,URINE 6.5 (4.5-8.0); PROTEIN,URINE 4+ (NEGATIVE); UROBILINOGEN,URINE NORMAL MG/DL (0.0-1.0)
--- NOTE | 2019-11-13 01:55 | NUR ---
ED Nurse Note: XR AT BEDSIDE
[2019-11-13 02:10] VITALS: BP 194/101
[2019-11-13] MEDS ORDERED: Insulin Human Regular 100units/ml 3ml IV ONE (02:30)
--- NOTE | 2019-11-13 05:00 | NUR ---
Note aparna in EDM - 11/13/19 at 0508 by [email or web address] ED Nurse Note: Pt c/o 06/11 bilat knee pain. ermd made aware. will carry out order
[2019-11-13 05:08] VITALS: BP 172/82
--- NOTE | 2019-11-13 05:41 | NUR ---
ED Nurse Note: Gave report to Valerie DUBON at facility
[2019-11-13 06:53] VITALS: BP 145/72
[2019-11-13 08:09] VITALS: BP 145/72
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
--- NOTE | 2019-11-13 11:48 | Diagnostic Imaging Report ---
Indications: Right hip pain Findings: Two views of the right hip were obtained. No fracture or malalignment identified. There is narrowing of the right hip joint. Enthesophytes noted at the lateral margin of the ileum as well as ischium. IMPRESSION: No acute injury identified. Enthesopathy
== END 2019-11-13 08:15 ==
LOC: EDBD 23:44 → EDUNIT# 23:44 → EMR 23:58
DX: I10 Essential (primary) hypertension (principal); E11.65 Type 2 diabetes mellitus with hyperglycemia; M25.551 Pain in right hip; M77.9 Enthesopathy, unspecified; J44.9 Chronic obstructive pulmonary disease, unspecified; F03.90 Unspecified dementia, unspecified severity, without behavioral disturbance, psychotic disturbance, mood disturbance, and anxiety; Z88.6 Allergy status to analgesic agent; Z88.0 Allergy status to penicillin; G40.909 Epilepsy, unspecified, not intractable, without status epilepticus; F20.9 Schizophrenia, unspecified
CPT/HCPCS: 36415; 73502; 80053; 81003; 83690; 85025; 96361; 96374; 96375; 96376; 99284; J0360; J1815; J7030

== ENCOUNTER 2020-02-10 09:18 | Inpatient (IN) | payer MEDICARE, OTHER ==
[~2020-02-10] VITALS: Ht 185.4 cm; Wt 77.1 kg
[2020-02-10] MEDS ORDERED: ACETAMINOPHEN325 M1 ORAL (09:30)
[2020-02-10] MEDS ORDERED: CATAPRES0.1 MG ORAL (09:30)
--- NOTE | 2020-02-10 09:31 | NUR ---
ED Nurse Note: Patient was brought in by ambulance from [facility] due to unwitnessed fall around 0600; patient was found on the floor, c/o left hip. Patient denies any head injury, but hx of dementia. Patient presented calm, AAO x3, VSS at this time, skin is warm to touch.
[2020-02-10] MEDS ORDERED: NOVOLIN R100 UNIT/1 SUBQ (09:32)
[2020-02-10] MEDS ORDERED: LANTUS SOL100 UNIT/1 SUBQ (09:32)
[2020-02-10 09:38] VITALS: BP 150/87
--- NOTE | 2020-02-10 09:44 | Emergency Room Report ---
History of Present Illness General Chief Complaint: Multiple Trauma/Fall Source: Medical Record Present Illness HPI 69-year-old male presents from SNF due to left hip pain. He states he was walking slipped fell onto his left hip. Now complaining of left hip pain 10 out of 10 worse with movement. Denies any other injuries. Patient denies any head or neck pain. Denies hitting his head or loss of consciousness. Ambulates with a walker at baseline. 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 COVID-19 Screening: Negative COVID-19 COVID-19 Testing Source: Unknown Patient History Reviewed Nursing Documentation: PMH: Agreed; PSxH: Agreed Nursing Documentation-PMH Past Medical History: No History, Except For Hx Cardiac Problems: Yes - Hyponatremia Hx Hypertension: Yes Hx COPD: Yes - Bronchitis Hx Diabetes: Yes Hx Cancer: No Hx Gastrointestinal Problems: Yes - GERD History Of Psychiatric Problem: Yes - Major depression, Schizophreia, Anxiety, Insomnia Hx Neurological Problems: Yes - Dementia Hx Dementia: Yes Hx Seizures: Yes Review of Systems All Other Systems: negative except mentioned in HPI Physical Exam Vital Signs Date Time Temp Pulse Resp B/P (MAP) Pulse Ox O2 Delivery O2 Flow Rate FiO2 02/10/20 09:23 97.7 80 14 150/87 (108) 93 Room Air Sp02 EP Interpretation: reviewed, normal General Appearance: well appearing, no apparent distress Head: normocephalic, atraumatic Eyes: bilateral eye PERRL, bilateral eye EOMI ENT: hearing grossly normal, moist mucus membranes Neck: full range of motion, supple, other - No midline tenderness Respiratory: lungs clear, normal breath sounds, no rhonchi, no respiratory distress, no retraction, no wheezing Cardiovascular #1: normal peripheral pulses, regular rate, rhythm, no murmur Gastrointestinal: non tender, soft, non-distended, no guarding Musculoskeletal: other - Decreased range of motion of left hip due to pain, 2+ pulses distally, 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 Clinical course-IV inserted pain control ordered. CT scan of the pelvis ordered and demonstrated left intertrochanteric hip fracture patient will require admission to hospital for orthopedic consultation.. She will be admitted under Dr. Bronson. Orthopedics consulted. Labs - Laboratory Tests Test 02/10/20 10:15 White Blood Count 6.7 K/UL (4.8-10.8) Red Blood Count 4.50 M/UL (4.70-6.10) L Hemoglobin 13.0 G/DL (14.2-18.0) L Hematocrit 37.4 % (42.0-52.0) L Mean Corpuscular Volume 83 FL (80-99) Mean Corpuscular Hemoglobin 28.8 PG (27.0-31.0) Mean Corpuscular Hemoglobin Concent 34.7 G/DL (32.0-36.0) Red Cell Distribution Width 13.1 % (11.6-14.8) Platelet Count 188 K/UL (150-450) Mean Platelet Volume 8.4 FL (6.5-10.1) Neutrophils (%) (Auto) 56.4 % (45.0-75.0) Lymphocytes (%) (Auto) 32.2 % (20.0-45.0) Monocytes (%) (Auto) 9.9 % (1.0-10.0) Eosinophils (%) (Auto) 0.3 % (0.0-3.0) Basophils (%) (Auto) 1.2 % (0.0-2.0) Prothrombin Time 11.1 SEC (9.30-11.50) Prothrombin Time INR 1.0 (0.9-1.1) Activated Partial Thromboplast Time 27 SEC (23-33) Sodium Level 136 MMOL/L (136-145) Potassium Level 3.9 MMOL/L (3.5-5.1) Chloride Level 101 MMOL/L (98-107) Carbon Dioxide Level 30 MMOL/L (21-32) Anion Gap 5 mmol/L (5-15) Blood Urea Nitrogen 15 mg/dL (7-18) Creatinine 1.3 MG/DL (0.55-1.30) Estimated Glomerular Filtration Rate > 60 mL/min (>60) Glucose Level 195 MG/DL (74-106) H Calcium Level 8.1 MG/DL (8.5-10.1) L Total Bilirubin 0.2 MG/DL (0.2-1.0) Aspartate Amino Transferase (AST) 45 U/L (15-37) H Alanine Aminotransferase (ALT) 48 U/L (12-78) Alkaline Phosphatase 147 U/L (46-116) H Total Protein 6.5 G/DL (6.4-8.2) Albumin 1.8 G/DL (3.4-5.0) L Globulin 4.7 g/dL Albumin/Globulin Ratio 0.4 (1.0-2.7) L On reevaluation: Pain controlled Plan-admission to the medical floor CT/MRI/US Diagnostic Results CT/MRI/US Diagnostic Results : Imaging Test Ordered: CT scan of the pelvis Impression IMPRESSION: NONDISPLACED FRACTURE THROUGH THE TROCHANTERIC AREA OF THE LEFT HIP. DEGENERATIVE CHANGES BILATERAL HIPS. Last Vital Signs Date Time Temp Pulse Resp B/P (MAP) Pulse Ox O2 Delivery O2 Flow Rate FiO2 02/10/20 09:38 80 14 Room Air 02/10/20 09:38 97.7 150/87 93 Disposition: ADMITTED INPATIENT Condition: Serious Turner Salazar M.D. Feb 10, 2020 09:44
[2020-02-10] MEDS ORDERED: Morphine Sulfate 4mg/ml Inj (IV USE ONLY) IVP ONE (09:45)
--- NOTE | 2020-02-10 10:24 | NUR ---
ED Nurse Note: IV access was established on right wrist 22ga, blood sent
[2020-02-10 10:26] LABS: BASOPHILS % (AUTO) 1.2 % (0.0-2.0); EOSINOPHILS % (AUTO) 0.3 % (0.0-3.0); HEMATOCRIT 37.4 % (42.0-52.0); LYMPHOCYTES % (AUTO) 32.2 % (20.0-45.0); MEAN CORPUSCULAR VOLUME 83 FL (80-99); MONOCYTES % (AUTO) 9.9 % (1.0-10.0); NEUTROPHILS % (AUTO) 56.4 % (45.0-75.0); PLATELET COUNT 188 K/UL (150-450); RED CELL DISTRIBUTION WIDTH 13.1 % (11.6-14.8); WHITE BLOOD COUNT 6.7 K/UL (4.8-10.8)
[2020-02-10 10:39] LABS: ANION GAP 5 mmol/L (5-15); BLOOD UREA NITROGEN 15 mg/dL (7-18); CALCIUM 8.1 MG/DL (8.5-10.1); CARBON DIOXIDE 30 MMOL/L (21-32); CHLORIDE 101 MMOL/L (98-107); CREATININE 1.3 MG/DL (0.55-1.30); POTASSIUM 3.9 MMOL/L (3.5-5.1); SODIUM 136 MMOL/L (136-145)
[2020-02-10 10:44] LABS: ALANINE AMINOTRANSFERASE 48 U/L (12-78); ALBUMIN 1.8 G/DL (3.4-5.0); ALBUMIN/GLOBULIN RATIO 0.4 (1.0-2.7); ALKALINE PHOSPHATASE 147 U/L (46-116); ASPARTATE AMINO TRANSFERASE 45 U/L (15-37); BILIRUBIN,TOTAL 0.2 MG/DL (0.2-1.0)
--- NOTE | 2020-02-10 11:06 | Diagnostic Imaging Report ---
EXAM: CT CT Pelvis no Contrast INDICATION: Status post fall with left hip pain. COMPARISON: None TECHNIQUE: Axial images were obtained through the pelvis without intravenous contrast. Sagittal and coronal reformats are generated. All CT scans at this facility are performed using dose modulation techniques as appropriate to a performed exam including the following: automated exposure control with adjustment of the mA and/or kV according to patient size. RADIATION DOSE: CTDIvol: 5.8 mGy DLP: 214.3 mGy-cm Dose information generated by the CT scanner is available in PACS. FINDINGS: There is a nondisplaced fracture noted through the trochanteric area of the left hip. There is no displacement or angulation. The femoral head remains normally articulated with the acetabulum. Moderate degenerative changes noted in both hips with joint space narrowing and osteophyte formation. The rest of the bony pelvis is intact. SI joints and pubic symphysis are congruent. Degenerative changes noted at the lumbosacral junction. Small bowel loops are nondistended. The colon is also nondistended with average amount of stool. The appendix is not visualized. There is no free fluid or free air. No pathologic adenopathy demonstrated. Urinary bladder appears unremarkable. IMPRESSION: NONDISPLACED FRACTURE THROUGH THE TROCHANTERIC AREA OF THE LEFT HIP. DEGENERATIVE CHANGES BILATERAL HIPS.
[2020-02-10 12:49] VITALS: BP 148/86
--- NOTE | 2020-02-10 12:50 | NUR ---
ED Nurse Note: urine sent down
[2020-02-10 12:56] LABS: APPEARANCE,URINE CLEAR; BILIRUBIN, URINE NEGATIVE (NEGATIVE); COLOR,URINE PALE YELLOW; GLUCOSE, URINE (UA) 2+ (NEGATIVE); KETONES,URINE NEGATIVE (NEGATIVE); LEUKOCYTE ESTERASE ,URINE NEGATIVE (NEGATIVE); NITRITE,URINE NEGATIVE (NEGATIVE); PH,URINE 6.5 (4.5-8.0); PROTEIN,URINE 4+ (NEGATIVE); UROBILINOGEN,URINE NORMAL MG/DL (0.0-1.0)
--- NOTE | 2020-02-10 14:00 | NUR ---
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 report given to JAGDISH Berman. belonging list signed off.
--- NOTE | 2020-02-10 14:15 | NUR ---
NURSE NOTES: Received patient into room 421 bed 2,patient is awake and alert and oriented,respirations unlabored from report,patient fracture left hip,pedal pulses strong,bilateral feet warm. skiin intact except note small amount of bleeding between patient 3rd and 4th toe,area cleaned noted small open area. Dressing applied. .Saline lock to the right wrist intact ,will notify DR for orders.Bed alarm on,call light within reach
--- NOTE | 2020-02-10 15:15 | History and Physical Report ---
DATE OF ADMISSION: 02/10/2020 TIME SEEN: Approximate time is 9 a.m. CHIEF COMPLAINT: Fall with left hip pain. BRIEF HISTORY: This is a 69-year-old male from [facility]. Apparently, he had a fall and complained of left hip pain, was unable to stand, therefore the patient was brought to [facility] being seen in the ER currently, awaiting scan. Currently, slightly anxious in bed, slight hip pain. No complaint. REVIEW OF SYSTEMS: No chest pain. No shortness of breath. No nausea, vomiting, or diarrhea. PAST MEDICAL HISTORY: Includes COPD, hypertension, pancreatitis. PAST SURGICAL HISTORY: Left big toe. ALLERGIES: Motrin and penicillin. SOCIAL HISTORY: Positive smoking. No alcohol. No intravenous drug abuse. FAMILY HISTORY: Noncontributory. PHYSICAL EXAMINATION: GENERAL: Slightly anxious in bed, oriented x2, in no acute distress. VITAL SIGNS: Temperature 97, pulse 80, respirations 14, blood pressure 150/87. HEENT: Normocephalic and atraumatic. NECK: Trachea midline. CARDIOVASCULAR: No peripheral edema. LUNGS: Breathing comfortably on room air. ABDOMEN: No apparent wounds. EXTREMITIES: Show no cyanosis or clubbing. Knee and hips flexed about 90 degrees, slight left hip decreased range of motion. LABORATORY DATA: Laboratories are pending. MEDICATIONS: We will obtain list shortly. ASSESSMENT: 1. Fall. 2. Left hip pain. 3. Diabetes. 4. Hypertension. 5. Chronic obstructive pulmonary disease. 6. Seizure. 7. History of pancreatitis. PLAN: 1. Resume home medications. 2. Blood pressure, blood sugar, seizure, and pain control. 3. Dietary followup. 4. Awaiting scan. 5. We will continue to follow this patient. 6. PT and dietary evaluation. 7. CBC and BMP in the morning. 8. We will consult Jacquie christy. Keyur Bronson D.O. DR: YONY JOB#: [id number] CC:
--- NOTE | 2020-02-10 16:00 | NUR ---
NURSE NOTES: RN received partial admission orders from Dr. Bronson and He told RN to call Dr. Estrada and Dr. Ford for further orders.
--- NOTE | 2020-02-10 16:21 | NUR ---
NURSE NOTES: RN spoke to Dr. Ford and informed new consult, no new order received. Will decide if patient needs surgery after he sees the patient.Dr. Ford wants RN to call the primary doctor for DVT prophylaxis.
[2020-02-10 16:30] VITALS: BP 159/85
[2020-02-10] MEDS: D5 1/2NS 1,000 ML IV SCH (17:00)
[2020-02-10] MEDS: Levemir Flexpen SUBQ SCH (18:00)
--- NOTE | 2020-02-10 19:40 | NUR ---
HAND-OFF: Report given to Naina DUBON,aware of fall risk..
--- NOTE | 2020-02-10 19:45 | NUR ---
NURSE NOTES Patient refusing IV and refusing pain medi cation.Call light within reach,bed alarm.
--- NOTE | 2020-02-10 19:46 | NUR ---
NURSE NOTES: Received patient in no apparent distress. A&OX2, confused. IV site patent and intact. Bed in lowest position. Call light within reach. Will continue to monitor.
[2020-02-10 20:00] VITALS: BP 158/92
[2020-02-10] MEDS: TraZODone 50mg tab ORAL SCH ×2 (20:30→21:00)
[2020-02-10] MEDS: Phenytoin 100mg cap ORAL SCH ×2 (20:30→21:00)
--- NOTE | 2020-02-10 20:37 | Cardiology Progress Note ---
Assessment/Plan Assessment/Plan pt refused evaluation at this time did now allow me to examine him i will retry t o examine him tomorrow evening if he allows in mean time ekg an echo will be ordred if pt dose not allow evaluation i will not be able to assess preop risks [id number] Objective Last 24 Hour Vital Signs Date Time Temp Pulse Resp B/P (MAP) Pulse Ox O2 Delivery O2 Flow Rate FiO2 02/10/20 20:30 159/85 02/10/20 16:33 Room Air 02/10/20 16:30 97.9 73 18 159/85 (109) 95 02/10/20 14:00 98.0 88 19 129/80 97 Room Air 02/10/20 12:49 97.7 72 16 148/86 94 Room Air 02/10/20 10:38 97.7 02/10/20 09:38 80 14 Room Air 02/10/20 09:38 97.7 14 150/87 93 Room Air 02/10/20 09:23 97.7 80 14 150/87 (108) 93 Room Air Laboratory Tests Test 02/10/20 10:15 02/10/20 12:40 White Blood Count 6.7 K/UL (4.8-10.8) Red Blood Count 4.50 M/UL (4.70-6.10) L Hemoglobin 13.0 G/DL (14.2-18.0) L Hematocrit 37.4 % (42.0-52.0) L Mean Corpuscular Volume 83 FL (80-99) Mean Corpuscular Hemoglobin 28.8 PG (27.0-31.0) Mean Corpuscular Hemoglobin Concent 34.7 G/DL (32.0-36.0) Red Cell Distribution Width 13.1 % (11.6-14.8) Platelet Count 188 K/UL (150-450) Mean Platelet Volume 8.4 FL (6.5-10.1) Neutrophils (%) (Auto) 56.4 % (45.0-75.0) Lymphocytes (%) (Auto) 32.2 % (20.0-45.0) Monocytes (%) (Auto) 9.9 % (1.0-10.0) Eosinophils (%) (Auto) 0.3 % (0.0-3.0) Basophils (%) (Auto) 1.2 % (0.0-2.0) Prothrombin Time 11.1 SEC (9.30-11.50) Prothromb Time International Ratio 1.0 (0.9-1.1) Activated Partial Thromboplast Time 27 SEC (23-33) Sodium Level 136 MMOL/L (136-145) Potassium Level 3.9 MMOL/L (3.5-5.1) Chloride Level 101 MMOL/L (98-107) Carbon Dioxide Level 30 MMOL/L (21-32) Anion Gap 5 mmol/L (5-15) Blood Urea Nitrogen 15 mg/dL (7-18) Creatinine 1.3 MG/DL (0.55-1.30) Estimat Glomerular Filtration Rate > 60 mL/min (>60) Glucose Level 195 MG/DL (74-106) H Calcium Level 8.1 MG/DL (8.5-10.1) L Total Bilirubin 0.2 MG/DL (0.2-1.0) Aspartate Amino Transf (AST/SGOT) 45 U/L (15-37) H Alanine Aminotransferase (ALT/SGPT) 48 U/L (12-78) Alkaline Phosphatase 147 U/L (46-116) H Total Protein 6.5 G/DL (6.4-8.2) Albumin 1.8 G/DL (3.4-5.0) L Globulin 4.7 g/dL Albumin/Globulin Ratio 0.4 (1.0-2.7) L Urine Color Pale yellow Urine Appearance Clear Urine pH 6.5 (4.5-8.0) Urine Specific [place] 1.010 (1.005-1.035) Urine Protein 4+ (NEGATIVE) H Urine Glucose (UA) 2+ (NEGATIVE) H Urine Ketones Negative (NEGATIVE) Urine Blood 2+ (NEGATIVE) H Urine Nitrite Negative (NEGATIVE) Urine Bilirubin Negative (NEGATIVE) Urine Urobilinogen Normal MG/DL (0.0-1.0) Urine Leukocyte Esterase Negative (NEGATIVE) Urine RBC 2-4 /HPF (0 - 0) H Urine WBC 0-2 /HPF (0 - 0) Urine Squamous Epithelial Cells Few /LPF (NONE/OCC) Urine Bacteria Occasional /HPF (NONE) Microbiology Date/Time Source Procedure Growth Status 02/10/20 12:40 Rectum Received Baldemar Estrada MD Feb 10, 2020 20:37
[2020-02-10] MEDS: NovoLOG Insulin Flexpen SUBQ SCH (21:00)
--- NOTE | 2020-02-10 21:02 | NUR ---
NURSE NOTES: Patient refused to connect IV fluid, check blood sugar, Dr. Estrada assessment. Explained risk and benefit but still refused. Patient says "Get the fuck out of here!"
[2020-02-10] MEDS: Morphine Sulfate 2mg/ml Inj(IV/IM USE ONLY) IVP PRN (22:01)
--- NOTE | 2020-02-10 22:11 | NUR ---
NURSE NOTES: Obtained Heparin 5000 unit BID subq order for DVT prophylaxis from Dr. Bronson.
[2020-02-11 00:45] VITALS: BP 168/95
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
[2020-02-11] MEDS: Morphine Sulfate 2mg/ml Inj(IV/IM USE ONLY) IVP PRN ×3 (01:56→12:10)
[2020-02-11] MEDS: TraZODone 50mg tab ORAL SCH (03:44)
[2020-02-11] MEDS: Phenytoin 100mg cap ORAL SCH (03:45)
[2020-02-11 04:00] VITALS: BP 167/99
[2020-02-11] MEDS: NovoLOG Insulin Flexpen SUBQ SCH ×4 (06:30→21:06)
[2020-02-11 06:37] LABS: BASOPHILS % (AUTO) 4.5 % (0.0-2.0); EOSINOPHILS % (AUTO) 0.1 % (0.0-3.0); HEMATOCRIT 43.2 % (42.0-52.0); HEMOGLOBIN 14.8 G/DL (14.2-18.0); LYMPHOCYTES % (AUTO) 26.3 % (20.0-45.0); MEAN CORPUSCULAR VOLUME 84 FL (80-99); MONOCYTES % (AUTO) 15.1 % (1.0-10.0); NEUTROPHILS % (AUTO) 54.1 % (45.0-75.0); PLATELET COUNT 205 K/UL (150-450); RED BLOOD COUNT 5.15 M/UL (4.70-6.10); RED CELL DISTRIBUTION WIDTH 13.5 % (11.6-14.8)
[2020-02-11 07:13] LABS: ALANINE AMINOTRANSFERASE 55 U/L (12-78); ALBUMIN 2.1 G/DL (3.4-5.0); ALBUMIN/GLOBULIN RATIO 0.4 (1.0-2.7); ALKALINE PHOSPHATASE 164 U/L (46-116); ANION GAP 8 mmol/L (5-15); ASPARTATE AMINO TRANSFERASE 46 U/L (15-37); BILIRUBIN,TOTAL 0.4 MG/DL (0.2-1.0); BLOOD UREA NITROGEN 14 mg/dL (7-18); CALCIUM 8.6 MG/DL (8.5-10.1); CARBON DIOXIDE 26 MMOL/L (21-32); CHLORIDE 100 MMOL/L (98-107); CREATININE 1.3 MG/DL (0.55-1.30); SODIUM 134 MMOL/L (136-145)
--- NOTE | 2020-02-11 07:30 | NUR ---
NURSE NOTES: Received pt lying in hospital bed on his right side. Pt is AAO x 2-3, confused, irritable, easily agitated, on RA with no s/s of respiratory distress with c/o pain to L hip at 10/10 per FLACC scale. Pt states he needs to walk to the kitchen. Reoriented pt to time and place. Safety precautions and fall precautions implemented. Pt is incontinent to both bowel and bladder fx. LBM on 02/09/20. pIV to R hand 22 g saline lock disconnected from IV fluids as per patient refusal per previous shift. Pt is holding a roll of theodore in his hand and when nurse pointed out theodore he started yelling asking RN to leave room. Reported to charge nurse. Bed in lowest position, call light within reach, and bed alarm on. Will continue POC.
--- NOTE | 2020-02-11 07:33 | NUR ---
HAND-OFF: Report given to Agus DUBON. Endorse fall risk precaution. Bed alarm on. Call light within reach. Will continue to monitor.
[2020-02-11 08:00] VITALS: BP 143/97
--- NOTE | 2020-02-11 08:09 | Consultation ---
Consult Note Consult Note 69 yo male with fall and left hip pain CT shows non displaced left IT fx pt states he is independent with ambulation. very difficult to examine due to pain. appears n/v intact. wiggling toes. tenderness when left hip/leg palpated plan for left hip ORIF with Gamma nail tomorrow Eliza Pompa Feb 11, 2020 08:09
[2020-02-11] MEDS ORDERED: Lisinopril 20mg tab ORAL SCH ×2 (09:00→21:30)
--- NOTE | 2020-02-11 09:05 | Anethesia Preoperative Eval ---
Anesthesia Pre-op PMH/ROS General Date of Evaluation: Feb 11, 2020 Time of Evaluation: 06:31 Anesthesiologist: Jeimy ASA Score: ASA 4 Mallampati Score Class I : Soft palate, uvula, fauces, pillars visible Class II: Soft palate, uvula, fauces visible Class III: Soft palate, base of uvula visible Class IV: Only hard plate visible Mallampati Classification: Class III Surgeon: Liliana Diagnosis: Left Hip Pain Surgical Procedure: ORIF L Hip Anesthesia History: none Family History: no anesthesia problems Allergies: Coded Allergies: IBUPROFEN (Verified Allergy, Unknown, 10/22/19) PENICILLINS (Unverified Allergy, Unknown, 02/10/20) Uncoded Allergies: PCN (Allergy, Unknown, 11/07/19) Medications: see eMAR Patient NPO?: Yes Past Medical History Cardiovascular: Reports: HTN Pulmonary: Reports: COPD, other - Bronchitis Gastrointestinal/Genitourinary: Reports: ESRD, other - Pancreatitis, BPH Neurologic/Psychiatric: Reports: dementia, depression/anxiety, other - Seizures , Schizophrenia Endocrine: Reports: DM Anesthesia Pre-op Phys. Exam Physician Exam Last Vital Signs Date Time Temp Pulse Resp B/P (MAP) Pulse Ox O2 Delivery O2 Flow Rate FiO2 02/11/20 04:00 98.6 104 20 167/99 (121) 96 02/10/20 21:00 Room Air Constitutional: NAD Neurologic: CN 2-12 intact Cardiovascular: RRR Respiratory: CTA Gastrointestinal: S/NT/ND Airway Exam Mallampati Score: Class III MO: limited ROM: limited Teeth: missing Anesthesia Pre-op A/P Labs Hematology Test 02/10/20 10:15 02/11/20 06:15 White Blood Count 6.7 K/UL (4.8-10.8) 7.0 K/UL (4.8-10.8) Red Blood Count 4.50 M/UL (4.70-6.10) L 5.15 M/UL (4.70-6.10) Hemoglobin 13.0 G/DL (14.2-18.0) L 14.8 G/DL (14.2-18.0) Hematocrit 37.4 % (42.0-52.0) L 43.2 % (42.0-52.0) Mean Corpuscular Volume 83 FL (80-99) 84 FL (80-99) Mean Corpuscular Hemoglobin 28.8 PG (27.0-31.0) 28.8 PG (27.0-31.0) Mean Corpuscular Hemoglobin Concent 34.7 G/DL (32.0-36.0) 34.3 G/DL (32.0-36.0) Red Cell Distribution Width 13.1 % (11.6-14.8) 13.5 % (11.6-14.8) Platelet Count 188 K/UL (150-450) 205 K/UL (150-450) Mean Platelet Volume 8.4 FL (6.5-10.1) 7.7 FL (6.5-10.1) Neutrophils (%) (Auto) 56.4 % (45.0-75.0) 54.1 % (45.0-75.0) Lymphocytes (%) (Auto) 32.2 % (20.0-45.0) 26.3 % (20.0-45.0) Monocytes (%) (Auto) 9.9 % (1.0-10.0) 15.1 % (1.0-10.0) H Eosinophils (%) (Auto) 0.3 % (0.0-3.0) 0.1 % (0.0-3.0) Basophils (%) (Auto) 1.2 % (0.0-2.0) 4.5 % (0.0-2.0) H Coagulation Test 02/10/20 10:15 Prothrombin Time 11.1 SEC (9.30-11.50) Prothromb Time International Ratio 1.0 (0.9-1.1) Activated Partial Thromboplast Time 27 SEC (23-33) Chemistry Test 02/10/20 10:15 02/11/20 06:15 Sodium Level 136 MMOL/L (136-145) 134 MMOL/L (136-145) L Potassium Level 3.9 MMOL/L (3.5-5.1) 4.0 MMOL/L (3.5-5.1) Chloride Level 101 MMOL/L (98-107) 100 MMOL/L (98-107) Carbon Dioxide Level 30 MMOL/L (21-32) 26 MMOL/L (21-32) Anion Gap 5 mmol/L (5-15) 8 mmol/L (5-15) Blood Urea Nitrogen 15 mg/dL (7-18) 14 mg/dL (7-18) Creatinine 1.3 MG/DL (0.55-1.30) 1.3 MG/DL (0.55-1.30) Estimat Glomerular Filtration Rate > 60 mL/min (>60) > 60 mL/min (>60) Glucose Level 195 MG/DL (74-106) H 328 MG/DL (74-106) #H Calcium Level 8.1 MG/DL (8.5-10.1) L 8.6 MG/DL (8.5-10.1) Total Bilirubin 0.2 MG/DL (0.2-1.0) 0.4 MG/DL (0.2-1.0) Aspartate Amino Transf (AST/SGOT) 45 U/L (15-37) H 46 U/L (15-37) H Alanine Aminotransferase (ALT/SGPT) 48 U/L (12-78) 55 U/L (12-78) Alkaline Phosphatase 147 U/L (46-116) H 164 U/L (46-116) H Total Protein 6.5 G/DL (6.4-8.2) 7.8 G/DL (6.4-8.2) Albumin 1.8 G/DL (3.4-5.0) L 2.1 G/DL (3.4-5.0) L Globulin 4.7 g/dL 5.7 g/dL Albumin/Globulin Ratio 0.4 (1.0-2.7) L 0.4 (1.0-2.7) L Hemoglobin A1c 11.3 % (4.3-6.0) H Risk Assessment & Plan Assessment: GA Plan: GA Status Change Before Surgery: No Pre-Antibiotics Drug: Xavier Mcdonough MD Feb 11, 2020 09:05
[2020-02-11] MEDS: D5 1/2NS 1,000 ML IV SCH (09:40)
--- NOTE | 2020-02-11 09:42 | NUR ---
CARDIOLOGY Pt refused 2D Echo - witnessed by JAGDISH Teixeira.
--- NOTE | 2020-02-11 09:57 | NUR ---
PT NOTE Received MD order for PT evaluation. Patient with L hip fracture, plan is for L hip fx ORIF per ortho. Will wait for new MD order post op for PT. Discussed with Agus DUBON, will follow.
[2020-02-11] MEDS: Tamsulosin 0.4mg cap ORAL SCH (10:28)
[2020-02-11] MEDS: Levemir Flexpen SUBQ SCH ×2 (10:41→21:04)
[2020-02-11] MEDS: Heparin 5000 units/ml inj SUBQ SCH ×2 (10:43→21:00)
--- NOTE | 2020-02-11 12:15 | Consultation ---
DATE OF CONSULTATION: 02/11/2020 CONSULTING PHYSICIAN: Madhav Ford MD. REFERRING PHYSICIAN: Keyur Bronson DO. REASON FOR CONSULTATION: Consult was called for left hip pain after a fall. HISTORY OF PRESENT ILLNESS: The patient is a 69-year-old gentleman who lives in [facility]. He had a trip and fall complaining of left hip pain and difficulty standing and walking. He was brought to [facility] where he was seen and evaluated and CT scan was done noting a nondisplaced left hip intertrochanteric fracture. Orthopedics consult has been called. The patient is seen at bedside and complaining of pain. He indicates that he ambulates independently at baseline. He says he does not use a walker and does not use a wheelchair. However, he has been unable to get up since this fall happened. PAST MEDICAL HISTORY: COPD, hypertension, pancreatitis, history of schizophrenia and seizures. PAST SURGICAL HISTORY: He has had left foot surgery in the past. ALLERGIES: To ibuprofen and penicillin. SOCIAL HISTORY: He does not smoke or drink. He is a intermediate resident. He indicates he is independent with ambulation at baseline. PHYSICAL EXAMINATION: He is having the pain and very difficult to examine this morning. He has tenderness to any palpation of the left lower extremity. He does appear to be neurovascularly intact, wiggling his toes and he does feel sensation to touch. There is no obvious signs of swelling or skin breakdown. IMAGING: CT scan is reviewed. There is a nondisplaced left hip intertrochanteric fracture. IMPRESSION: Left hip nondisplaced intertrochanteric fracture. DISCUSSION: At this time, I discussed with the patient my findings. He wants to get his hip fixed. He wants to be able to walk and we talked about treatment surgery versus non-surgery. He understands that if we leave this alone, he will not be able to weight-bear for six to eight weeks, although this is nonhealing. He understands there is concern for possible displacement of this fracture and worsening pain long-term. He therefore wants to get this stabilized and fixed, which I do recommend. We will go forward with left hip open reduction and internal fixation with short gamma nail tomorrow. He understands after surgery he will be able to get up and walk and work with physical therapy. The fracture will be nicely stabilized with a gamma nail to prevent displacement. Risks of surgery including nerve injury, vessel injury, risk of infection, bleeding was present, and risk of DVT, PE, as well as risk of morbidity and mortality were discussed. He does understand. He asks appropriate questions regarding surgery and does verbalize understanding of what is being recommended. We will await medical clearance and get him set up for surgery tomorrow. Madhav Ford M.D. Randal Mckenzie DR: LUZ JOB#: [id number] CC:
--- NOTE | 2020-02-11 12:15 | NUR ---
NURSE NOTES: Dr. Bronson notified re patient's pain not relieved by Morphine PRN. Per Dr. Diez, call Dr. Zeng.
--- NOTE | 2020-02-11 12:40 | NUR ---
NURSE NOTES: Pt educated re IV fluids. Pt now agrees to have IV fluid started as ordered. IVF D5 1/2 NS 60 ml/hr started as ordered.
--- NOTE | 2020-02-11 13:25 | NUR ---
NURSE NOTES: Contacted patient's daughter, Belinda Powers, kancahn patient's planned procedure tomorrow (Left hip ORIF). Consent obtained over the phone with JAGDISH Garciacharge preparation technician nurse as witness. Consent filed into patient's chart.
--- NOTE | 2020-02-11 13:40 | NUR ---
NURSE NOTES: Pt asked for IVF to be stopped. Pt is agitated and irritable. Disconnected pt per his request.
--- NOTE | 2020-02-11 13:48 | NUR ---
CASE MANAGEMENT:INITIAL REVIEW 69 YR OLD MALE BIBA FROM [facility] CC;MULTIPLE TRAUMA/FALL SI;LEFT HIP FRACTURE 97.7 80 14 150/87 93% ON RA BG 195 CA 8.1 ASST 147 ALB 1.8 UA+ ~ PROTEIN, GLUCOSE, BLOOD, RBC PELVIS CT W/O CONTRAST ~ NONDISPLACED FRACTURE THROUGH THE TROCHANTERIC AREA OF THE LEFT HIP. IS;MORPHINE IV ONCE ADMITTED TO MED SURG MED SURG STATUS DCP;PATIENT IS FROM [facility]
--- NOTE | 2020-02-11 14:52 | General Progress Note ---
Assessment/Plan Problem List: (1) COPD (chronic obstructive pulmonary disease) ICD Codes: J44.9 - Chronic obstructive pulmonary disease, unspecified SNOMED: 37278554 (2) Fall ICD Codes: W19.XXXA - Unspecified fall, initial encounter SNOMED: 0539845, 930529512 (3) HTN (hypertension) ICD Codes: I10 - Essential (primary) hypertension SNOMED: 98238008 (4) Seizure disorder ICD Codes: G40.909 - Epilepsy, unspecified, not intractable, without status epilepticus SNOMED: 763351080, 581840969 (5) Pancreatitis ICD Codes: K85.90 - Acute pancreatitis without necrosis or infection, unspecified SNOMED: 61820230 (6) Hip pain ICD Codes: M25.559 - Pain in unspecified hip SNOMED: 42334385 (7) Closed left hip fracture ICD Codes: S72.002A - Fracture of unspecified part of neck of left femur, initial encounter for closed fracture SNOMED: 763058612 (8) Hypertension ICD Codes: I10 - Essential (primary) hypertension SNOMED: 49614258 Status: unchanged Assessment/Plan: pt diet pain control cbc bmp am pending sx Subjective Constitutional: Reports: weakness Allergies: Coded Allergies: IBUPROFEN (Verified Allergy, Unknown, 10/22/19) PENICILLINS (Unverified Allergy, Unknown, 02/10/20) Uncoded Allergies: PCN (Allergy, Unknown, 11/07/19) All Systems: reviewed and negative except above Subjective calm in bed Objective Last 24 Hour Vital Signs Date Time Temp Pulse Resp B/P (MAP) Pulse Ox O2 Delivery O2 Flow Rate FiO2 02/11/20 12:20 98.4 02/11/20 10:42 111 143/97 02/11/20 10:33 143/97 02/11/20 09:00 Room Air 02/11/20 08:00 98.4 111 20 143/97 (112) 95 02/11/20 04:00 98.6 104 20 167/99 (121) 96 02/11/20 01:55 168/95 02/11/20 00:45 99.3 102 20 168/95 (119) 95 02/10/20 21:00 Room Air 02/10/20 20:00 99.0 98 20 158/92 (114) 95 02/10/20 16:33 Room Air 02/10/20 16:30 97.9 73 18 159/85 (109) 95 02/10/20 16:00 Room Air Intake and Output 02/10/20 02/11/20 19:00 07:00 Intake Total 240 ml 360 ml Balance 240 ml 360 ml Intake Oral 240 ml Other 360 ml # Voids 5 Laboratory Tests 02/11/20 06:15: White Blood Count 7.0, Red Blood Count 5.15, Hemoglobin 14.8, Hematocrit 43.2, Mean Corpuscular Volume 84, Mean Corpuscular Hemoglobin 28.8, Mean Corpuscular Hemoglobin Concent 34.3, Red Cell Distribution Width 13.5, Platelet Count 205, Mean Platelet Volume 7.7, Neutrophils (%) (Auto) 54.1, Lymphocytes (%) (Auto) 26.3, Monocytes (%) (Auto) 15.1H, Eosinophils (%) (Auto) 0.1, Basophils (%) ( Auto) 4.5H, Sodium Level 134L, Potassium Level 4.0, Chloride Level 100, Carbon Dioxide Level 26, Anion Gap 8, Blood Urea Nitrogen 14, Creatinine 1.3, Estimat Glomerular Filtration Rate > 60, Glucose Level 328#H, Hemoglobin A1c 11.3H, Calcium Level 8.6, Total Bilirubin 0.4, Aspartate Amino Transf (AST/SGOT) 46H, Alanine Aminotransferase (ALT/SGPT) 55, Alkaline Phosphatase 164H, Total Protein 7.8, Albumin 2.1L, Globulin 5.7, Albumin/Globulin Ratio 0.4L Height (Feet): 6 Height (Inches): 1.00 Weight (Pounds): 170 General Appearance: lethargic EENT: normal ENT inspection Neck: normal alignment Cardiovascular: normal peripheral pulses, normal rate, regular rhythm Respiratory/Chest: chest wall non-tender, lungs clear, normal breath sounds Abdomen: normal bowel sounds, non tender, soft Extremities: normal inspection Edema: no edema noted Arm (L), no edema noted Arm (R), no edema noted Leg (L), no edema noted Leg (R), no edema noted Pedal (L), no edema noted Pedal (R), no edema noted Generalized Neurologic: motor weakness Skin: normal pigmentation, warm/dry Keyru Bronson DO Feb 11, 2020 14:52
[2020-02-11 16:00] VITALS: BP 148/100
--- NOTE | 2020-02-11 17:45 | NUR ---
NURSE NOTES: COVID-19 swab done. Collected specimen brought to lab.
--- NOTE | 2020-02-11 19:30 | NUR ---
HAND-OFF: Report given to JAGDISH Chew. POC endorsed.
[2020-02-11 20:00] VITALS: BP 155/95
--- NOTE | 2020-02-11 21:28 | Cardiology Progress Note ---
Assessment/Plan Assessment/Plan 1. Intertrochanteric hip fracture. 2. Nonsyncopal fall. 3. History of hypertension. 4. History of COPD. 5. History of diabetes mellitus. 6. History of schizophrenia. 7. History of seizures. ekg sinus non specific t wave changes pt refused echo orderd for today he denies any cp or sob nor pnd pt refused evaluation at this time did now allow me to examine him he will have pinning but not terrence replacement since he declined testing i will nto be fully abl eto assess riskc however the proposed surgery is not considered high risk and shoudl be tolerated he has no sig heart problem per report Subjective Cardiovascular: Denies: chest pain, lightheadedness, palpitations Respiratory: Denies: cough, shortness of breath Gastrointestinal/Abdominal: Denies: abdominal pain Genitourinary: Denies: burning Objective Last 24 Hour Vital Signs Date Time Temp Pulse Resp B/P (MAP) Pulse Ox O2 Delivery O2 Flow Rate FiO2 02/11/20 20:00 98.6 94 20 155/95 (115) 95 02/11/20 19:10 98.6 02/11/20 18:38 149/100 02/11/20 16:00 100.4 100 18 148/100 (116) 95 02/11/20 10:42 111 143/97 02/11/20 10:33 143/97 02/11/20 09:00 Room Air 02/11/20 08:00 98.4 111 20 143/97 (112) 95 02/11/20 04:00 98.6 104 20 167/99 (121) 96 02/11/20 01:55 168/95 02/11/20 00:45 99.3 102 20 168/95 (119) 95 General Appearance: no apparent distress, alert Neck: supple Cardiovascular: normal rate Respiratory/Chest: lungs clear Abdomen: normal bowel sounds, non tender, soft Extremities: no swelling Intake and Output 02/10/20 02/11/20 19:00 07:00 Intake Total 240 ml 360 ml Balance 240 ml 360 ml Intake Oral 240 ml Other 360 ml # Voids 5 Laboratory Tests Test 02/11/20 06:15 White Blood Count 7.0 K/UL (4.8-10.8) Red Blood Count 5.15 M/UL (4.70-6.10) Hemoglobin 14.8 G/DL (14.2-18.0) Hematocrit 43.2 % (42.0-52.0) Mean Corpuscular Volume 84 FL (80-99) Mean Corpuscular Hemoglobin 28.8 PG (27.0-31.0) Mean Corpuscular Hemoglobin Concent 34.3 G/DL (32.0-36.0) Red Cell Distribution Width 13.5 % (11.6-14.8) Platelet Count 205 K/UL (150-450) Mean Platelet Volume 7.7 FL (6.5-10.1) Neutrophils (%) (Auto) 54.1 % (45.0-75.0) Lymphocytes (%) (Auto) 26.3 % (20.0-45.0) Monocytes (%) (Auto) 15.1 % (1.0-10.0) H Eosinophils (%) (Auto) 0.1 % (0.0-3.0) Basophils (%) (Auto) 4.5 % (0.0-2.0) H Sodium Level 134 MMOL/L (136-145) L Potassium Level 4.0 MMOL/L (3.5-5.1) Chloride Level 100 MMOL/L (98-107) Carbon Dioxide Level 26 MMOL/L (21-32) Anion Gap 8 mmol/L (5-15) Blood Urea Nitrogen 14 mg/dL (7-18) Creatinine 1.3 MG/DL (0.55-1.30) Estimat Glomerular Filtration Rate > 60 mL/min (>60) Glucose Level 328 MG/DL (74-106) #H Hemoglobin A1c 11.3 % (4.3-6.0) H Calcium Level 8.6 MG/DL (8.5-10.1) Total Bilirubin 0.4 MG/DL (0.2-1.0) Aspartate Amino Transf (AST/SGOT) 46 U/L (15-37) H Alanine Aminotransferase (ALT/SGPT) 55 U/L (12-78) Alkaline Phosphatase 164 U/L (46-116) H Total Protein 7.8 G/DL (6.4-8.2) Albumin 2.1 G/DL (3.4-5.0) L Globulin 5.7 g/dL Albumin/Globulin Ratio 0.4 (1.0-2.7) L Microbiology Date/Time Source Procedure Growth Status 02/11/20 17:45 Nasopharynx SARS-CoV-2 RdRp Gene Assay - Final Complete 02/10/20 12:40 Rectum Received Baldemar Estrada MD Feb 11, 2020 21:28
--- NOTE | 2020-02-11 23:30 | Consultation ---
DATE OF CONSULTATION: 02/11/2020 CONSULTING PHYSICIAN: Ariela Venegas M.D. HISTORY OF PRESENT ILLNESS: This is a 69-year-old male patient who is very confused and disorganized. Anyway, this patient came into the hospital originally because he came in with fall with the left hip pain. He came from [facility], apparently with left hip pain. He was unable to stand. He was brought into [facility]. He is anxious and has been depressed because of the current medical problems that he has, but he denies any current suicidal or homicidal thoughts. MEDICAL HISTORY: History of COPD, hypertension, and pancreatitis. ALLERGIES: Motrin and penicillin. PSYCHOTROPIC MEDICATIONS ON ADMISSION: This patient is on trazodone 50 mg nightly. SUBSTANCE ABUSE HISTORY: The patient denies any use of any drug or alcohol use. FAMILY PSYCHIATRIC HISTORY: Denies. PAIN ASSESSMENT: 11/09 pain. DEVELOPMENTAL PROBLEMS: Denies. SOCIAL HISTORY: The patient lives in a halfway. He is financially supported by [employer] and Medicare. STRENGTHS: He is motivated to get better and he is healthy. WEAKNESSES AND LIABILITIES: He is impulsive and has minimal support system. MENTAL STATUS EXAMINATION: This is a 69-year-old male. His appearance is disheveled. Attitude, irritable and agitated. Affect, labile. Intellect, poor because he does not know current events and does not know last four presidents. Mood, depressed and anxious. Motor activity, psychomotor agitation. His attention span is poor because he cannot do serial sevens and spell 'world' backwards. Orientation x2 to person, place, not time or situation. Speech is low volume, slurred. Thought process, disorganized and illogical. Thought content, some paranoid delusions. Perception is poor due to paranoid delusions. Abstract reasoning is poor because he does not understand proverbs, only has concrete thinking. Insight is poor because he does not recognize severity of his mood disorder. Judgment is poor because he does not accept consequences for his actions. He denies any current suicidal or homicidal ideation. Short-term memory, 3/3 word recall after 5 minutes delay with good short-term memory. Long-term memory is intact based on the knowledge of long-term events in his life such as the high school that he went to. His gait is normal. No abnormal movements. There is no history of abuse. There is no current abuse. PLAN OF CARE: Plan for this patient includes I am going to continue this patient on trazodone 50 mg nightly. I am also going to add . Ativan 1 mg every 6 hours p.r.n. anxiety and agitation. Twenty minutes of reality-based supportive psychotherapy provided. Encouraged him to interact appropriately with staff and other patients. He will continue to be followed by Psychiatry throughout the hospital course. Chart was reviewed. Discussed with staff. Seen and assessed at bedside. Ariela Venegas M.D. DR: ALLAN JOB#: [id number] CC:
[2020-02-12] VITALS (12 sets, daily range): BP systolic 112–170; BP diastolic 44–110
[2020-02-12] MEDS: D5 1/2NS 1,000 ML IV SCH (02:20)
[2020-02-12] MEDS: NovoLOG Insulin Flexpen SUBQ SCH ×7 (06:24→20:53)
--- NOTE | 2020-02-12 06:44 | NUR ---
NURSE NOTES: Patient off the unit for surgery.
[2020-02-12] MEDS ORDERED: cloNIDine 1000mcg/10ml inj ONE (06:55)
[2020-02-12] MEDS ORDERED: Bupivacaine 0.5% Inj 30 ml vial INJ ONE ×2 (06:55→06:57)
[2020-02-12] MEDS ORDERED: EPINEPHrine 1mg/1ml Amp ONE (06:55)
[2020-02-12] MEDS ORDERED: Bupivacaine w/Epi 0.5% 30ml Vial INJ ONE (06:57)
[2020-02-12] MEDS ORDERED: Ropivacaine 5mg/ml Vial 20ml INJ ONE (06:57)
[2020-02-12] MEDS ORDERED: Bacitracin 50000 Units Vial ONE (06:57)
[2020-02-12] MEDS ORDERED: NeoSporin Gu Irrig 1ml Amp IRRIG ONE (06:57)
[2020-02-12] MEDS ORDERED: Ketamine 500mg/10ml vial ONE (06:58)
[2020-02-12] MEDS ORDERED: Lidocaine 1% Plain 30 ml INJ ONE (06:59)
[2020-02-12] MEDS ORDERED: LR 1000ml ONE (07:00)
[2020-02-12] MEDS ORDERED: NS Irrig 1000ml ONE (07:00)
[2020-02-12] MEDS ORDERED: Sterile Water Irrig 1000ml IRRIG ONE (07:00)
[2020-02-12] MEDS ORDERED: Sodium Chloride 10ml vial INJ ONE (07:00)
[2020-02-12] MEDS ORDERED: D5 1/2NS w/KCl 20mEq 1,000 ML IV SCH (07:02)
--- NOTE | 2020-02-12 07:02 | Pre-Procedure Note/Attestation ---
Pre-Procedure Note/Attestation Complete Prior to Procedure Planned Procedure: left Procedure Narrative: left hip ORIF Indications for Procedure Pre-Operative Diagnosis: left hip IT fracture Attestation I attest that I discussed the nature of the procedure; its benefits; risks and complications; and alternatives (and the risks and benefits of such alternatives ), prior to the procedure, with the patient (or the patient's legal risk control representative). I attest that, if there was a reasonable possibility of needing a blood transfusion, the patient (or the patient's legal risk control representative) was given the [facility] standardized written summary, pursuant to the [place] Deanna Blood Safety Act ([place] Health and Safety Code # 1645, as amended). I attest that I re-evaluated the patient just prior to the surgery and that there has been no change in the patient's H&P, except as documented below: NONE Madhav Ford MD Feb 12, 2020 07:02
--- NOTE | 2020-02-12 07:02 | General Progress Note ---
Assessment/Plan Problem List: (1) Diabetes mellitus out of control ICD Codes: E11.65 - Type 2 diabetes mellitus with hyperglycemia SNOMED: 42522319, 806619305 (2) Closed left hip fracture ICD Codes: S72.002A - Fracture of unspecified part of neck of left femur, initial encounter for closed fracture SNOMED: 695527012 (3) Hyperglycemia ICD Codes: R73.9 - Hyperglycemia, unspecified SNOMED: 80081994 Status: unchanged Assessment/Plan: continue Levemir 8 units bid continue Novolog 4 units ac tid - hold for NPO status continue Novolog sliding scale ac / hs hypoglycemia protocol in order Subjective Allergies: Coded Allergies: IBUPROFEN (Verified Allergy, Unknown, 10/22/19) PENICILLINS (Unverified Allergy, Unknown, 02/10/20) Uncoded Allergies: PCN (Allergy, Unknown, 11/07/19) All Systems: reviewed and negative except above Subjective events noted interval notes reviewed fasting glucose improved NPO Item Value Date Time Bedside Blood Glucose 167 mg/dl H 02/12/20 0625 Bedside Blood Glucose 270 mg/dl H 02/11/20 2106 Bedside Blood Glucose 246 mg/dl H 02/11/20 1736 Bedside Blood Glucose 423 mg/dl H 02/11/20 1202 Bedside Blood Glucose 446 mg/dl H 02/11/20 1041 Objective Last 24 Hour Vital Signs Date Time Temp Pulse Resp B/P (MAP) Pulse Ox O2 Delivery O2 Flow Rate FiO2 02/12/20 04:00 20 02/12/20 00:00 99.9 86 20 128/44 (72) 95 02/11/20 21:58 155/95 02/11/20 21:00 Room Air 02/11/20 20:00 98.6 94 20 155/95 (115) 95 02/11/20 19:10 98.6 02/11/20 18:38 149/100 02/11/20 16:00 100.4 100 18 148/100 (116) 95 02/11/20 10:42 111 143/97 02/11/20 10:33 143/97 02/11/20 09:00 Room Air 02/11/20 08:00 98.4 111 20 143/97 (112) 95 Intake and Output 02/11/20 02/12/20 19:00 07:00 Intake Total 860 ml 1840 ml Output Total 300 ml 256 ml Balance 560 ml 1584 ml Intake Oral 860 ml 240 ml Other 1600 ml Output Urine Total 300 ml 256 ml # Voids 9 2 Laboratory Tests 02/12/20 05:50: White Blood Count [Pending], Red Blood Count [Pending], Hemoglobin [Pending], Hematocrit [Pending], Mean Corpuscular Volume [Pending], Mean Corpuscular Hemoglobin [Pending], Mean Corpuscular Hemoglobin Concent [Pending], Red Cell Distribution Width [Pending], Platelet Count [Pending], Mean Platelet Volume [ Pending], Neutrophils (%) (Auto) [Pending], Lymphocytes (%) (Auto) [Pending], Monocytes (%) (Auto) [Pending], Eosinophils (%) (Auto) [Pending], Basophils (%) (Auto) [Pending], Sodium Level [Pending], Potassium Level [Pending], Chloride Level [Pending], Carbon Dioxide Level [Pending], Blood Urea Nitrogen [Pending], Creatinine [Pending], Estimat Glomerular Filtration Rate [Pending], Glucose Level [Pending], Calcium Level [Pending] Height (Feet): 6 Height (Inches): 1.00 Weight (Pounds): 170 General Appearance: no apparent distress Neck: normal alignment Cardiovascular: normal rate Respiratory/Chest: lungs clear Abdomen: normal bowel sounds Objective Current Medications Medications (Trade) Dose Ordered Sig/Jennifer Route PRN Reason Start Time Stop Time Status Last Admin Dose Admin Acetaminophen (Tylenol) 650 mg Q4H PRN ORAL Mild Pain (Pain Scale 1-3) 02/10/20 16:30 03/11/20 16:29 02/11/20 18:40 Amlodipine Besylate (Norvasc) 10 mg DAILY ORAL 02/11/20 09:00 03/12/20 08:59 02/11/20 10:42 Clonidine HCl (Catapres Tab) 0.1 mg BID ORAL 02/10/20 18:00 05/10/20 17:59 02/11/20 18:38 Dextrose (Dextrose 50%) 25 ml Q30M PRN IV Hypoglycemia 02/10/20 16:30 05/10/20 16:29 Dextrose (Dextrose 50%) 25 ml Q30M PRN IV Hypoglycemia 02/11/20 20:00 05/11/20 19:59 Dextrose (Dextrose 50%) 50 ml Q30M PRN IV Hypoglycemia 02/10/20 16:30 05/10/20 16:29 Dextrose (Dextrose 50%) 50 ml Q30M PRN IV Hypoglycemia 02/11/20 20:00 05/11/20 19:59 Dextrose/Sodium Chloride 1,000 ml @ 60 mls/hr [id number] IV 02/10/20 17:00 03/11/20 16:59 Heparin Sodium (Porcine) (Heparin 5000 units/ml) 5,000 units EVERY 12 HOURS SUBQ 02/11/20 09:00 03/27/20 08:59 02/11/20 10:43 Insulin Aspart (NovoLOG) BEFORE MEALS AND HS SUBQ 02/10/20 21:00 05/10/20 20:59 02/11/20 21:06 Insulin Aspart (NovoLOG) 4 units NOVOTIAC SUBQ 02/12/20 06:30 05/12/20 06:29 Insulin Detemir (Levemir) 8 units Q12HR SUBQ 02/11/20 21:00 05/11/20 20:59 02/11/20 21:04 Levetiracetam (Keppra) 500 mg EVERY 12 HOURS ORAL 02/10/20 21:00 03/11/20 20:59 02/11/20 21:01 Lisinopril (PriniviL) 20 mg BID ORAL 02/12/20 09:00 03/13/20 08:59 Lorazepam (Ativan) 1 mg Q6H PRN ORAL For Anxiety 02/11/20 15:30 02/18/20 15:29 Morphine Sulfate (Morphine Sulfate) 2 mg Q4H PRN IVP pain level 4-10 02/10/20 15:50 02/17/20 15:49 02/11/20 12:10 Phenytoin (Dilantin) 300 mg BEDTIME ORAL 02/10/20 21:00 03/11/20 20:59 02/11/20 03:45 Tamsulosin HCl (Flomax) 0.4 mg DAILY ORAL 02/11/20 09:00 03/12/20 08:59 02/11/20 10:28 Trazodone HCl (Desyrel) 50 mg BEDTIME ORAL 02/10/20 21:00 03/11/20 20:59 02/11/20 03:44 Aaron Rueda MD Feb 12, 2020 07:02
[2020-02-12] MEDS ORDERED: HYDROmorphone 1mg/ml Carpuject SUBQ PRN (07:15)
[2020-02-12] MEDS ORDERED: HYDROcodone/Acetamin 7.5/325 tab ORAL PRN ×2 (07:15→08:00)
[2020-02-12] MEDS ORDERED: Milk of Magnesia 30ml Ud ORAL PRN (07:15)
--- NOTE | 2020-02-12 07:22 | NUR ---
HAND-OFF: Report given to Agus DUBON.
--- NOTE | 2020-02-12 07:30 | NUR ---
NURSE NOTES: Received report from JAGDISH Chew. Pt is currently off unit for L hip ORIF scheduled this am at 0700. Will continue POC as soon as patient returns.
[2020-02-12 07:31] LABS: HEMATOCRIT 42.9 % (42.0-52.0); HEMOGLOBIN 13.9 G/DL (14.2-18.0); MEAN CORPUSCULAR VOLUME 90 FL (80-99); PLATELET COUNT 164 K/UL (150-450); RED BLOOD COUNT 4.77 M/UL (4.70-6.10); RED CELL DISTRIBUTION WIDTH 13.3 % (11.6-14.8); WHITE BLOOD COUNT 8.7 K/UL (4.8-10.8)
[2020-02-12 07:41] LABS: ANION GAP 8 mmol/L (5-15); BLOOD UREA NITROGEN 18 mg/dL (7-18); CALCIUM 8.1 MG/DL (8.5-10.1); CARBON DIOXIDE 27 MMOL/L (21-32); CHLORIDE 99 MMOL/L (98-107); CREATININE 1.3 MG/DL (0.55-1.30); POTASSIUM 4.7 MMOL/L (3.5-5.1); SODIUM 134 MMOL/L (136-145)
[2020-02-12] MEDS ORDERED: LR 1000ml 1,000 ML IVLG SCH (07:47)
--- NOTE | 2020-02-12 07:54 | Immediate Post-Op Evaluation ---
Immediate Post-Op Evalulation Immediate Post-Op Evalulation Procedure: ORIF L Hip Date of Evaluation: Feb 12, 2020 Time of Evaluation: 08:47 IV Fluids: 200 LR Blood Products: 0 Estimated Blood Loss: 50 Urinary Output: 200 Blood Pressure Systolic: 112 Blood Pressure Diastolic: 79 Pulse Rate: 81 Respiratory Rate: 16 O2 Sat by Pulse Oximetry: 100 Temperature (Fahrenheit): 97.3 Pain Score (1-10): 0 Nausea: No Vomiting: No Complications 0 Patient Status: awake, reacts, patent, none Hydration Status: adequate Dru Gram Ancef IV Given Within 1 Hr of Incision: Yes Time Given: 07:16 Xavier Munson MD Feb 12, 2020 07:54
--- NOTE | 2020-02-12 07:55 | 48 Hour Post Anesthesia Eval ---
Post Anesthesia Evaluation Procedure: ORIF L Hip Date of Evaluation: Feb 12, 2020 Time of Evaluation: 11:52 Blood Pressure Systolic: 121 0: 89 Pulse Rate: 83 Respiratory Rate: 18 Temperature (Fahrenheit): 98 O2 Sat by Pulse Oximetry: 100 Airway: patent Nausea: No Vomiting: No Pain Intensity: 0 Hydration Status: adequate Cardiopulmonary Status: Stable Mental Status/LOC: patient returned to baseline Follow-up Care/Observations: 0 Post-Anesthesia Complications: 0 Follow-up care needed: N/A Xavier Munson MD Feb 12, 2020 07:55
[2020-02-12] MEDS ORDERED: fentaNYL 100 mcg/2 mL IV PRN (08:00)
[2020-02-12] MEDS ORDERED: Metoclopramide 10mg/2ml Inj IVP PRN (08:00)
[2020-02-12] MEDS ORDERED: LORazepam Inj 2mg/ml 1ml IV PRN (08:00)
[2020-02-12] MEDS ORDERED: Midazolam 2mg/2ml Inj IVP PRN (08:00)
[2020-02-12] MEDS ORDERED: Hydromorphone 0.5mg/0.5ml inj IVP PRN (08:00)
[2020-02-12] MEDS ORDERED: Atropine Sulfate 0.4mg/ml inj IVP PRN (08:00)
[2020-02-12] MEDS ORDERED: DiphenhydrAMINE 50mg/ml Inj IVP PRN (08:00)
[2020-02-12] MEDS ORDERED: Meperidine 25mg/0.5ml Inj (FOR RIGORS ONLY) IV PRN (08:00)
[2020-02-12] MEDS ORDERED: oxyCODONE HCL/Acetaminophen 5/325mg ORAL PRN (08:00)
[2020-02-12] MEDS ORDERED: HYDROcodone/Acetamin 5/325 tab ORAL PRN (08:00)
--- NOTE | 2020-02-12 08:09 | Brief Operative Note ---
Immediate Post Operative Note Operative Note Pre-op Diagnosis: left hip IT fracture Procedure: left hip ORIf with short gamma nail Post-op Diagnosis: same as pre-op Surgeon: kyrie Inside Wirer: Peña Anesthesiologist: Alireza Anesthesia: regional Specimen: none Complications: none Condition: stable Fluids: 100cc Estimated Blood Loss: volume - 50cc Implant(s) used?: Yes - mishel short 125 degree gamma with 100mm compression screw Madhav Ford MD Feb 12, 2020 08:09
[2020-02-12] MEDS: Tamsulosin 0.4mg cap ORAL SCH ×2 (09:00→12:33)
[2020-02-12] MEDS: Heparin 5000 units/ml inj SUBQ SCH ×2 (09:00→20:45)
[2020-02-12] MEDS: Levemir Flexpen SUBQ SCH ×2 (09:00→20:52)
[2020-02-12] MEDS ORDERED: Docusate 100mg cap ORAL SCH (09:00)
[2020-02-12] MEDS ORDERED: Aspirin Baby 81mg ORAL SCH (09:00)
[2020-02-12] MEDS: Lisinopril 20mg tab ORAL SCH ×3 (09:00→17:50)
--- NOTE | 2020-02-12 09:31 | General Progress Note ---
Assessment/Plan Problem List: (1) COPD (chronic obstructive pulmonary disease) ICD Codes: J44.9 - Chronic obstructive pulmonary disease, unspecified SNOMED: 01511616 (2) Fall ICD Codes: W19.XXXA - Unspecified fall, initial encounter SNOMED: 9689853, 044256736 (3) HTN (hypertension) ICD Codes: I10 - Essential (primary) hypertension SNOMED: 48309810 (4) Seizure disorder ICD Codes: G40.909 - Epilepsy, unspecified, not intractable, without status epilepticus SNOMED: 553313457, 518245361 (5) Pancreatitis ICD Codes: K85.90 - Acute pancreatitis without necrosis or infection, unspecified SNOMED: 93902833 (6) Hip pain ICD Codes: M25.559 - Pain in unspecified hip SNOMED: 02768488 (7) Closed left hip fracture ICD Codes: S72.002A - Fracture of unspecified part of neck of left femur, initial encounter for closed fracture SNOMED: 245529911 (8) Hypertension ICD Codes: I10 - Essential (primary) hypertension SNOMED: 68421275 Status: unchanged Assessment/Plan: pt diet pain control cbc bmp am pending sx Subjective Constitutional: Reports: weakness Allergies: Coded Allergies: IBUPROFEN (Verified Allergy, Unknown, 10/22/19) PENICILLINS (Unverified Allergy, Unknown, 02/10/20) Uncoded Allergies: PCN (Allergy, Unknown, 11/07/19) All Systems: reviewed and negative except above Subjective calm awaiting sx Objective Last 24 Hour Vital Signs Date Time Temp Pulse Resp B/P (MAP) Pulse Ox O2 Delivery O2 Flow Rate FiO2 02/12/20 09:20 76 14 129/78 98 Room Air 02/12/20 09:10 77 12 124/73 100 Simple Mask 6 02/12/20 09:00 75 13 131/77 100 Simple Mask 6 02/12/20 08:50 81 13 131/80 100 Simple Mask 6 02/12/20 08:40 82 13 127/86 100 Simple Mask 6 02/12/20 08:35 82 15 124/82 100 Simple Mask 6 02/12/20 08:32 83 18 100 02/12/20 08:31 81 16 100 02/12/20 08:30 97.3 81 12 112/79 100 Simple Mask 6 02/12/20 04:00 20 02/12/20 00:00 99.9 86 20 128/44 (72) 95 02/11/20 21:58 155/95 02/11/20 21:00 Room Air 02/11/20 20:00 98.6 94 20 155/95 (115) 95 02/11/20 19:10 98.6 02/11/20 18:38 149/100 02/11/20 16:00 100.4 100 18 148/100 (116) 95 02/11/20 10:42 111 143/97 02/11/20 10:33 143/97 Intake and Output 02/11/20 02/12/20 19:00 07:00 Intake Total 860 ml 1840 ml Output Total 300 ml 256 ml Balance 560 ml 1584 ml Intake Oral 860 ml 240 ml Other 1600 ml Output Urine Total 300 ml 256 ml # Voids 9 2 Laboratory Tests 02/12/20 05:50: White Blood Count 8.7, Red Blood Count 4.77, Hemoglobin 13.9L, Hematocrit 42.9, Mean Corpuscular Volume 90, Mean Corpuscular Hemoglobin 29.2, Mean Corpuscular Hemoglobin Concent 32.4, Red Cell Distribution Width 13.3, Platelet Count 164, Mean Platelet Volume 10.2H, Neutrophils (%) (Auto) , Lymphocytes (%) (Auto) , Monocytes (%) (Auto) , Eosinophils (%) (Auto) , Basophils (%) (Auto) , Neutrophils % (Manual) [Pending], Lymphocytes % (Manual) [Pending], Platelet Estimate [Pending], Platelet Morphology [Pending], Sodium Level 134L, Potassium Level 4.7, Chloride Level 99, Carbon Dioxide Level 27, Anion Gap 8, Blood Urea Nitrogen 18, Creatinine 1.3, Estimat Glomerular Filtration Rate > 60, Glucose Level 166#H, Calcium Level 8.1L Height (Feet): 6 Height (Inches): 1.00 Weight (Pounds): 170 General Appearance: lethargic EENT: normal ENT inspection Neck: normal alignment Cardiovascular: normal peripheral pulses, normal rate, regular rhythm Respiratory/Chest: chest wall non-tender, lungs clear, normal breath sounds Abdomen: normal bowel sounds, non tender, soft Extremities: normal inspection Edema: no edema noted Arm (L), no edema noted Arm (R), no edema noted Leg (L), no edema noted Leg (R), no edema noted Pedal (L), no edema noted Pedal (R), no edema noted Generalized Neurologic: motor weakness Skin: normal pigmentation, warm/dry Keyur Bronson DO Feb 12, 2020 09:31
--- NOTE | 2020-02-12 09:36 | NUR ---
*-*DISCHARGE PLANNING*-* PATIENT HAS BEEN REFERRED BACK TO: [facility] P: [phone] F: [phone] Addendum: 02/12/20 at 1046 by BEBETO FRANCO CM *-*DISCHARGE PLANNING*-* PATIENT HAS BEEN REFERRED BACK TO: [facility] P: [phone] S/W MARTHA, UTE IN A MEETING, CALL BACK
--- NOTE | 2020-02-12 09:45 | Progress Note ---
DATE: 02/12/2020 SUBJECTIVE: This is a 69-year-old male patient who came to the hospital. He has left hip fracture and some confusion, disorganized thought process, and does have decline in cognition below his baseline. The patient has a left hip fracture. This caused him to have altered mental status and mood lability. MENTAL STATUS EXAMINATION: This is a 69-year-old male. Appearance is disheveled. Attitude, irritable and agitated. Affect, guarded and restricted. Intellect, poor. Mood, depressed and anxious. Motor activity, psychomotor agitation. Insight and judgment is poor. DIAGNOSIS: Major depressive disorder, mild, recurrent with psychotic features. PLAN: Treat the patient with trazodone 50 mg nightly and Ativan 1 mg every 6 hours p.r.n. anxiety and agitation. A 20 minutes of reality-based supportive psychotherapy. Encouraged him to interact appropriately with staff and other patients. Chart reviewed. Discussed with staff. Seen and assessed at bedside. Ariela Venegas M.D. DR: GUILLERMO JOB#: [id number] CC:
--- NOTE | 2020-02-12 09:45 | NUR ---
NURSE NOTES: Received patient and report from Vivi Kincaid RN back from OR s/p L hip ORIF. pt is asleep, in stable condition, VSS, L hip dressing clean, dry, and intact on RA with no s/s of distress at this time. pIV remains on L wrist 20g. Dressing change planned for Post-op Day 2 per surgeon. New orders received. Will continue POC.
--- NOTE | 2020-02-12 10:01 | Diagnostic Imaging Report ---
Indication: Postoperative for left hip fracture Technique: One view of the pelvis Comparison: 02/10/[address] Findings: Interim placement of medullary magalys and compression screw for treatment of previously reported left hip intertrochanteric fracture. Retained air from the surgical exposure is seen within the soft tissues. Hardware and bones appear well aligned. Impression: Postoperative left hip. No unusual features
--- NOTE | 2020-02-12 11:31 | NUR ---
PATIENT HAS BEEN REFERRED BACK TO: [facility] P: [phone] S/W PEPE, ADMISSIONS NOT ANSWERING, CALL BACK
--- NOTE | 2020-02-12 11:33 | NUR ---
*-*DISCHARGE PLANNING*-* PATIENT HAS BEEN REFERRED BACK TO: [facility] P: [phone] S/W PEPE, ADMISSIONS NOT ANSWERING, CALL BACK
--- NOTE | 2020-02-12 11:36 | NUR ---
CASE MANAGEMENT:REVIEW SI;LEFT HIP ORIF TODAY 97.2 81 12 131/80 98% ON RA NA 134 BG 166 CA 8.1 IS;LEFT HIP ORIF CLINDAMYCIN IV LISINOPRIL PO FEOSOL PO ASA PO PROTONIX PO MED SURG STATUS DCP;PATIENT IS FROM [facility]
--- NOTE | 2020-02-12 11:54 | Diagnostic Imaging Report ---
INDICATION: Pain, intraoperative TECHNIQUE: Intraoperative imaging Fluoroscopy time: 43.4 seconds Total dose: 0.85611 mGym2 Total number of images: 5 COMPARISON: CT pelvis 02/10/2020 FINDINGS: Intraoperative images document surgical repair of previously reported intertrochanteric fracture IMPRESSION: Intraoperative imaging, as described
--- NOTE | 2020-02-12 12:30 | NUR ---
Pt's BP is 170/109. Will administer BP medications as ordered.
--- NOTE | 2020-02-12 13:10 | NUR ---
NURSE NOTES: Rechecked BP: 151/89. Will continue to monitor.
--- NOTE | 2020-02-12 13:15 | Consultation ---
DATE OF CONSULTATION: 02/11/2020 ENDOCRINOLOGY CONSULTATION CONSULTING PHYSICIAN: Aaron Rueda MD. REFERRING PHYSICIAN: Keyur Bronson DO. REASON FOR CONSULTATION: Diabetes management. HISTORY OF PRESENT ILLNESS: The patient is a 69-year-old male with past medical history of diabetes who presented to the hospital with closed hip fracture. Endocrinology was consulted in order to assist in the management of diabetes. The patient is confused and disorganized, coming from [facility]. PAST MEDICAL HISTORY: 1. COPD. 2. Hypertension. 3. Pancreatitis. 4. Diabetes. FAMILY HISTORY: Noncontributory. SOCIAL HISTORY: Lives in a retirement. No smoking, alcohol, or drug use. REVIEW OF SYSTEMS: Difficult to obtain. ALLERGIES: Motrin and penicillin. LABORATORY VALUES: WBC 7, hemoglobin 14, hematocrit 43.3, platelets of 205,000. Sodium 134, potassium 4, chloride 100, bicarbonate 26, BUN 14, creatinine 1.3, glucose of 320. PHYSICAL EXAMINATION: VITAL SIGNS: Blood pressure 128/44, pulse 86, temperature 99.9. HEENT: Pupils are reactive to light. Sclerae are anicteric. NECK: No JVD. HEART: Regular. LUNGS: Clear. ABDOMEN: Positive bowel sounds. EXTREMITIES: No clubbing or cyanosis. Trace edema. DIAGNOSES: 1. Hip fracture. 2. Diabetes, out of control. 3. COPD. PLAN: 1. Increase Levemir to 8 units b.i.d. 2. Add NovoLog 4 units before each meal. 3. NovoLog sliding scale before meals and at bedtime. 4. Hypoglycemia protocol is in order. 5. Further adjustment according to blood glucose values. Thank you, Dr. Bronson, for the courtesy of this consultation. Aaron Rueda M.D. DR: JONATHAN JOB#: [id number] CC: DONNA
--- NOTE | 2020-02-12 13:36 | NUR ---
*-* INSURANCE *-* ALL AVAILABLE CLINICALS HAVE BEEN FAXED TO: [facility] F: [phone]
--- NOTE | 2020-02-12 13:55 | NUR ---
PT EVALUATION NOTE Patient seen for initial evaluation. Patient presents with pain and impaired functional mobility s/p ORIF L hip fracture. Patient requires mod/max assist of 2 for bed mobility tasks and requires min assist to maintain sitting at the EOB. Mobility limited by pain L hip rated at 10/10. Patient declined to attempt transfers. Patient will benefit from skilled inpatient PT intervention to address strength and balance for improved level of functional mobility and safety. Recommend discharge to SNF once medically cleared by MD for further rehab. Recommend FWW for ambulation. Addendum: 02/12/20 at 1425 by LUNA JONES PT Amended: Links added.
--- NOTE | 2020-02-12 13:55 | NUR ---
*-*DISCHARGE PLANNING*-* PATIENT HAS BEEN REFERRED BACK TO: [facility] P: [phone] S/W JEN, CALL BACK AFTER REVIEW
[2020-02-12] MEDS: D5 1/2NS w/KCl 20mEq 1,000 ML IV SCH (15:00)
[2020-02-12] MEDS: Morphine Sulfate 2mg/ml Inj(IV/IM USE ONLY) IVP PRN (15:30)
[2020-02-12] MEDS: LORazepam 1mg tab ORAL PRN (15:30)
--- NOTE | 2020-02-12 15:45 | NUR ---
NURSE NOTES: Pt ate lunch and has been drinking fluids with no issues. IV fluid held as per parameter.
[2020-02-12] MEDS: Clindamycin 600mg 50 ML IV SCH ×2 (15:49→20:45)
[2020-02-12] MEDS: Aspirin Baby 81mg ORAL SCH (17:42)
[2020-02-12] MEDS: Docusate 100mg cap ORAL SCH (17:49)
--- NOTE | 2020-02-12 19:10 | NUR ---
NURSE NOTES: RECEIVED PATIENT FROM JAGDISH MAX. PATIENT IS AWAKE, AAOX2, ON ROOM AIR, NO RESPIRATORY DISTRESS NOTED. PT C/O 10/10 PAIN ON LEFT HIP. WILL FOLLOW UP WITH PAIN MEDS. LEFT HIP SURGICAL DRESSINGS INTACT AND DRY, NO BLEEDING NOTED. PIV ON RIGHT WRIST INTACT AND PATENT. PATIENT IS A HIGH FALL RISK, D/T HISTORY OF FALL. ROOM IS CLOSE TO NURSING STATION, YELLOW SOCKS, YELLOW GOWN, YELLOW ARMBAND IMPLEMENTED. BED IS LOCKED AND LOW, BED ALARMS ACTIVE, SIDE RAILS UP X2 AND PADDED FOR SEIZURE PRECAUTION. CALL LIGHT IS WITHIN REACH, REINFORCED TEACHING CLINICAL DENTAL TECHNICIAN LIGHT USE. COMMUNICATED WITH STAFF TO PERFORM FREQUENT ROUNDING. WILL CONTINUE TO MONITOR.
--- NOTE | 2020-02-12 19:15 | Cardiology Progress Note ---
Assessment/Plan Assessment/Plan 1. Intertrochanteric hip fracture. 2. Nonsyncopal fall. 3. History of hypertension. 4. History of COPD. 5. History of diabetes mellitus. 6. History of schizophrenia. 7. History of seizures. ekg sinus non specific t wave changes pt refused echo orderd for today he denies any cp or sob nor pnd tolerted pinning bp was elevated in pinky after noon improved with resumptio of meds Subjective Cardiovascular: Denies: chest pain, lightheadedness, palpitations Respiratory: Denies: shortness of breath Gastrointestinal/Abdominal: Denies: abdominal pain Genitourinary: Denies: burning Objective Last 24 Hour Vital Signs Date Time Temp Pulse Resp B/P (MAP) Pulse Ox O2 Delivery O2 Flow Rate FiO2 02/12/20 17:50 135/95 02/12/20 17:43 135/95 02/12/20 16:00 98.2 105 20 136/95 (109) 93 02/12/20 16:00 98.7 02/12/20 15:17 98.7 02/12/20 12:33 170/109 02/12/20 12:33 170/109 02/12/20 12:33 79 170/109 02/12/20 12:00 98.7 79 18 170/109 (129) 98 02/12/20 09:30 97.2 81 15 116/75 99 Room Air 02/12/20 09:20 76 14 129/78 98 Room Air 02/12/20 09:10 77 12 124/73 100 Simple Mask 6 02/12/20 09:00 75 13 131/77 100 Simple Mask 6 02/12/20 09:00 Room Air 02/12/20 08:50 81 13 131/80 100 Simple Mask 6 02/12/20 08:40 82 13 127/86 100 Simple Mask 6 02/12/20 08:35 82 15 124/82 100 Simple Mask 6 02/12/20 08:32 83 18 100 02/12/20 08:31 81 16 100 02/12/20 08:30 97.3 81 12 112/79 100 Simple Mask 6 02/12/20 04:00 20 02/12/20 00:00 99.9 86 20 128/44 (72) 95 02/11/20 21:58 155/95 02/11/20 21:00 Room Air 02/11/20 20:00 98.6 94 20 155/95 (115) 95 General Appearance: no apparent distress, alert Neck: supple Cardiovascular: normal rate Respiratory/Chest: lungs clear Abdomen: normal bowel sounds, non tender, soft Extremities: no swelling Intake and Output 02/11/20 02/12/20 19:00 07:00 Intake Total 860 ml 1840 ml Output Total 300 ml 256 ml Balance 560 ml 1584 ml Intake Oral 860 ml 240 ml Other 1600 ml Output Urine Total 300 ml 256 ml # Voids 9 2 Laboratory Tests Test 02/12/20 05:50 White Blood Count 8.7 K/UL (4.8-10.8) Red Blood Count 4.77 M/UL (4.70-6.10) Hemoglobin 13.9 G/DL (14.2-18.0) L Hematocrit 42.9 % (42.0-52.0) Mean Corpuscular Volume 90 FL (80-99) Mean Corpuscular Hemoglobin 29.2 PG (27.0-31.0) Mean Corpuscular Hemoglobin Concent 32.4 G/DL (32.0-36.0) Red Cell Distribution Width 13.3 % (11.6-14.8) Platelet Count 164 K/UL (150-450) Mean Platelet Volume 10.2 FL (6.5-10.1) H Neutrophils (%) (Auto) % (45.0-75.0) Lymphocytes (%) (Auto) % (20.0-45.0) Monocytes (%) (Auto) % (1.0-10.0) Eosinophils (%) (Auto) % (0.0-3.0) Basophils (%) (Auto) % (0.0-2.0) Differential Total Cells Counted 100 Neutrophils % (Manual) 25 % (45-75) L Lymphocytes % (Manual) 50 % (20-45) H Monocytes % (Manual) 25 % (1-10) H Eosinophils % (Manual) 0 % (0-3) Basophils % (Manual) 0 % (0-2) Band Neutrophils 0 % (0-8) Platelet Estimate Adequate Platelet Morphology Normal Red Blood Cell Morphology Normal Sodium Level 134 MMOL/L (136-145) L Potassium Level 4.7 MMOL/L (3.5-5.1) Chloride Level 99 MMOL/L (98-107) Carbon Dioxide Level 27 MMOL/L (21-32) Anion Gap 8 mmol/L (5-15) Blood Urea Nitrogen 18 mg/dL (7-18) Creatinine 1.3 MG/DL (0.55-1.30) Estimat Glomerular Filtration Rate > 60 mL/min (>60) Glucose Level 166 MG/DL (74-106) #H Calcium Level 8.1 MG/DL (8.5-10.1) L Microbiology Date/Time Source Procedure Growth Status 02/11/20 17:45 Nasopharynx SARS-CoV-2 RdRp Gene Assay - Final Complete 02/10/20 12:40 Nasal Nares MRSA Culture - Final NO METHICILLIN RESISTANT STAPH AUREUS... Complete 02/10/20 12:40 Rectum VRE Culture - Final NO VANCOMYCIN RESISTANT ENTEROCOCCUS ... Complete Baldemar Estrada MD Feb 12, 2020 19:15
--- NOTE | 2020-02-12 19:30 | NUR ---
HAND-OFF: Report given to JAGDISH Su. Endorsed POC.
--- NOTE | 2020-02-12 19:30 | Operative Note - Dictated ---
DATE OF OPERATION: 02/12/2020 PREOPERATIVE DIAGNOSIS: Left hip intertrochanteric fracture, nondisplaced. POSTOPERATIVE DIAGNOSIS: Left hip intertrochanteric fracture, nondisplaced. PROCEDURE: Left hip open reduction and internal fixation using a short 125-degree gamma nail with 100-mm compression screw. SURGEON: Madhav Ford MD. EARTHMOVING LABOURER: Eliza Pompa PA-C. Stock Associate was present during the actual operative portion of the case and was important and essential part of the operation. During the operation, the chemist assistant held and operated the arthroscopic camera for visualization, assisted by manipulating the arm to help with visualization, and helped with essential parts of the repair process as necessary such as operating surgical instruments under surgeon supervision, suture management, and wound closures. ANESTHESIOLOGIST: Xavier Munson MD. ANESTHESIA: Spinal anesthesia. ESTIMATED BLOOD LOSS: Less than 50 mL. COMPLICATIONS: None. BRIEF HISTORY: The patient is a very pleasant 69-year-old gentleman, who sustained a mechanical fall. Initial x-ray of the hip did not show a fracture; however, CT scan showed a clear fracture through the intertrochanteric region. After full discussion of risks and benefits of the surgery and complications associated with it including infection, bleeding, neurovascular complication, possibility of hardware failure, possibility of need for further surgery, and other complication as well as nonsurgical options including toe-touch weightbearing and possibility of displacement, and other complication that may arise, he opted for surgical treatment at this time. OPERATIVE PROCEDURE: The patient was brought to the operating table and was placed supine. All pressure points were well padded. Spinal anesthesia was induced. The patient was placed on the fracture table. The left leg was placed in traction. The right leg was placed in well-leg nieves. All pressure points were well padded. The left leg was prepped and draped in usual sterile fashion. An image intensifier was brought in and fracture reduction was checked on AP and lateral. At this point, an incision was made approximately 2 cm proximal to the greater trochanter extending about 3 cm. The incision was taken through subcutaneous tissue and gluteal fascia was opened. Trochanter was palpated. A guidewire was placed through the trochanter into the metaphyseal and down toward diaphyseal region of the femur. The position was checked on AP and lateral, and appeared to be satisfactory. Entry reamer was used and proximal reaming was performed. Subsequently, using a short 10 mm with 125-degree gamma nail, the nail was placed in without any complication. At this point, a guidewire was shot through the lateral cortex of the femur into the nail, into the neck, and into the head. It was positioned in center position on AP and had to be slightly superior and lateral due to the fact that the nail was rotated slightly posteriorly. The position appeared to be satisfactory and there was good bone purchase in that area. At this point, measurements were made and 100 mm lag screw appeared to be the right size. After step-drilling was performed, 100 mm lag screw was placed without any complication. The set screw was then locked on and then backed off by half a turn to allow for compression. At this point, all wounds were thoroughly irrigated. Distal fixation was not performed due to the fact the fracture was in stable configuration and the lag screw was holding rotational stability. The wounds were thoroughly irrigated using copious amount of fluid. The gluteal fascia was closed using #1 Vicryl suture. Subcutaneous tissue was closed using 2-0 Vicryl suture. Skin was closed using 3-0 Monocryl suture. Steri-Strips were applied. The patient was taken to recovery room in stable condition. All lap counts and instrument counts were correct. Madhav Ford M.D. DR: LIN JOB#: [id number] CC: DONNA
[2020-02-12] MEDS: Phenytoin 100mg cap ORAL SCH (20:44)
[2020-02-12] MEDS: TraZODone 50mg tab ORAL SCH (20:44)
[2020-02-12] MEDS: HYDROcodone/Acetamin 5/325 tab ORAL PRN (20:49)
[2020-02-13] VITALS: BP 148/81
[2020-02-13] MEDS: Morphine Sulfate 2mg/ml Inj(IV/IM USE ONLY) IVP PRN ×4 (01:54→19:57)
[2020-02-13] MEDS: Clindamycin 600mg 50 ML IV SCH ×2 (03:02→08:54)
[2020-02-13 04:00] VITALS: BP 159/94
[2020-02-13] MEDS: D5 1/2NS w/KCl 20mEq 1,000 ML IV SCH ×2 (04:20→17:40)
[2020-02-13] MEDS: NovoLOG Insulin Flexpen SUBQ SCH ×7 (06:52→20:26)
[2020-02-13 06:56] LABS: ANION GAP 4 mmol/L (5-15); BLOOD UREA NITROGEN 23 mg/dL (7-18); CARBON DIOXIDE 30 MMOL/L (21-32); CHLORIDE 99 MMOL/L (98-107); CREATININE 1.5 MG/DL (0.55-1.30); POTASSIUM 4.2 MMOL/L (3.5-5.1); SODIUM 132 MMOL/L (136-145)
[2020-02-13 07:18] LABS: HEMATOCRIT 39.7 % (42.0-52.0); HEMOGLOBIN 12.9 G/DL (14.2-18.0); MEAN CORPUSCULAR VOLUME 89 FL (80-99); PLATELET COUNT 126 K/UL (150-450); RED BLOOD COUNT 4.47 M/UL (4.70-6.10); RED CELL DISTRIBUTION WIDTH 13.2 % (11.6-14.8); WHITE BLOOD COUNT 12.5 K/UL (4.8-10.8)
--- NOTE | 2020-02-13 07:52 | NUR ---
NURSE NOTES: Patient awake and alert,respirations unlabored.Left hip dressing clean and intact,pedal pulse strong.Patient ate breakfast.Bed alarm on,call light within reach.
--- NOTE | 2020-02-13 08:08 | NUR ---
HAND-OFF: Report given to JAGDISH Hoover. Patient is in stable condition, endorsed POC.
[2020-02-13 08:20] VITALS: BP 138/85
[2020-02-13] MEDS: Aspirin Baby 81mg ORAL SCH ×2 (08:30→18:00)
[2020-02-13] MEDS: Docusate 100mg cap ORAL SCH ×3 (08:31→18:00)
[2020-02-13] MEDS: Tamsulosin 0.4mg cap ORAL SCH (08:31)
[2020-02-13] MEDS: Lisinopril 20mg tab ORAL SCH ×2 (08:32→18:00)
[2020-02-13] MEDS: Levemir Flexpen SUBQ SCH ×2 (08:37→20:26)
[2020-02-13] MEDS: Heparin 5000 units/ml inj SUBQ SCH ×2 (09:00→20:25)
--- NOTE | 2020-02-13 09:11 | NUR ---
RD ASSESSMENT & RECOMMENDATIONS SEE CARE ACTIVITY FOR COMPLETE ASSESSMENT DAILY ESTIMATED NEEDS: Needs based on DM/ 72kg 25-30 kcals/kg 2617-3135 total kcals 1-1.3 g protein/kg 72-94 g total protein 25-30 mL/kg 6625-3026 total fluid mLs NUTRITION DIAGNOSIS: * Altered nutrition related lab values R/T diabetes as evidenced by elev A1C 11.3 w/ elev POC glu (308 338 179 161 270). * Chewing difficulty R/T edentulous status as evidenced by pt requesting soft easy chew texture at this time. CURRENT DIET:REGULAR PO DIET RECOMMENDATIONS: CCHO MED, soft easy chew or texture as tolerated ADDITIONAL RECOMMENDATIONS: * Calibrated bedscale wt * Monitor BGs closely: endo following, on levemir + TIAC novolog + SSI -> monitor for hypoglycemia w/ insulin regimen (no episode of hypoglycemia noted at this time) * MVI x 1 as supplement
--- NOTE | 2020-02-13 10:08 | General Progress Note ---
Assessment/Plan Problem List: (1) COPD (chronic obstructive pulmonary disease) ICD Codes: J44.9 - Chronic obstructive pulmonary disease, unspecified SNOMED: 71159293 (2) Fall ICD Codes: W19.XXXA - Unspecified fall, initial encounter SNOMED: 0239409, 826290174 (3) HTN (hypertension) ICD Codes: I10 - Essential (primary) hypertension SNOMED: 48270937 (4) Seizure disorder ICD Codes: G40.909 - Epilepsy, unspecified, not intractable, without status epilepticus SNOMED: 331559138, 145047826 (5) Pancreatitis ICD Codes: K85.90 - Acute pancreatitis without necrosis or infection, unspecified SNOMED: 33235142 (6) Hip pain ICD Codes: M25.559 - Pain in unspecified hip SNOMED: 54717041 (7) Closed left hip fracture ICD Codes: S72.002A - Fracture of unspecified part of neck of left femur, initial encounter for closed fracture SNOMED: 196421273 (8) Hypertension ICD Codes: I10 - Essential (primary) hypertension SNOMED: 81735540 Status: unchanged Assessment/Plan: pt diet pain control cbc bmp am id eval Subjective Constitutional: Reports: weakness Allergies: Coded Allergies: IBUPROFEN (Verified Allergy, Unknown, 10/22/19) PENICILLINS (Unverified Allergy, Unknown, 02/10/20) Uncoded Allergies: PCN (Allergy, Unknown, 11/07/19) All Systems: reviewed and negative except above Subjective calm sleepy Objective Last 24 Hour Vital Signs Date Time Temp Pulse Resp B/P (MAP) Pulse Ox O2 Delivery O2 Flow Rate FiO2 02/13/20 08:39 93 138/85 02/13/20 08:32 138/85 02/13/20 08:31 138/85 02/13/20 08:20 98.1 93 20 138/85 (102) 96 02/13/20 04:00 98.1 86 20 159/94 (115) 98 02/13/20 00:00 98.3 87 20 148/81 (103) 95 02/12/20 21:00 Room Air 02/12/20 20:00 97.5 101 20 151/110 (124) 96 02/12/20 17:50 135/95 02/12/20 17:43 135/95 02/12/20 16:00 98.2 105 20 136/95 (109) 93 02/12/20 16:00 98.7 02/12/20 15:17 98.7 02/12/20 12:33 170/109 02/12/20 12:33 170/109 02/12/20 12:33 79 170/109 02/12/20 12:00 98.7 79 18 170/109 (129) 98 Intake and Output 02/12/20 02/13/20 19:00 07:00 Intake Total 500 ml 100 ml Output Total 1100 ml Balance -600 ml 100 ml IV Total 500 ml 100 ml Output Urine Total 1050 ml Estimated Blood Loss 50 ml # Voids 1 2 Laboratory Tests 02/13/20 06:30: White Blood Count 12.5H, Red Blood Count 4.47L, Hemoglobin 12.9L, Hematocrit 39.7L, Mean Corpuscular Volume 89, Mean Corpuscular Hemoglobin 29.0, Mean Corpuscular Hemoglobin Concent 32.6, Red Cell Distribution Width 13.2, Platelet Count 126L, Mean Platelet Volume 9.0, Neutrophils (%) (Auto) , Lymphocytes (%) ( Auto) , Monocytes (%) (Auto) , Eosinophils (%) (Auto) , Basophils (%) (Auto) , Neutrophils % (Manual) [Pending], Lymphocytes % (Manual) [Pending], Platelet Estimate [Pending], Platelet Morphology [Pending], Sodium Level 132L, Potassium Level 4.2, Chloride Level 99, Carbon Dioxide Level 30, Anion Gap 4L, Blood Urea Nitrogen 23H, Creatinine 1.5H, Estimat Glomerular Filtration Rate 56.4, Glucose Level 182H, Calcium Level 8.0L Height (Feet): 6 Height (Inches): 1.00 Weight (Pounds): 170 General Appearance: lethargic EENT: normal ENT inspection Neck: normal alignment Cardiovascular: normal peripheral pulses, normal rate, regular rhythm Respiratory/Chest: chest wall non-tender, lungs clear, normal breath sounds Abdomen: normal bowel sounds, non tender, soft Extremities: normal inspection Edema: no edema noted Arm (L), no edema noted Arm (R), no edema noted Leg (L), no edema noted Leg (R), no edema noted Pedal (L), no edema noted Pedal (R), no edema noted Generalized Neurologic: motor weakness Skin: normal pigmentation, warm/dry Keyur Bronson DO Feb 13, 2020 10:08
--- NOTE | 2020-02-13 11:03 | Orthopedic Progress Note ---
Orthopedic - Progress Note Subjective Symptoms: improved Objective Laboratory Tests Test 02/13/20 06:30 White Blood Count 12.5 K/UL (4.8-10.8) H Red Blood Count 4.47 M/UL (4.70-6.10) L Hemoglobin 12.9 G/DL (14.2-18.0) L Hematocrit 39.7 % (42.0-52.0) L Mean Corpuscular Volume 89 FL (80-99) Mean Corpuscular Hemoglobin 29.0 PG (27.0-31.0) Mean Corpuscular Hemoglobin Concent 32.6 G/DL (32.0-36.0) Red Cell Distribution Width 13.2 % (11.6-14.8) Platelet Count 126 K/UL (150-450) L Mean Platelet Volume 9.0 FL (6.5-10.1) Neutrophils (%) (Auto) % (45.0-75.0) Lymphocytes (%) (Auto) % (20.0-45.0) Monocytes (%) (Auto) % (1.0-10.0) Eosinophils (%) (Auto) % (0.0-3.0) Basophils (%) (Auto) % (0.0-2.0) Differential Total Cells Counted 100 Neutrophils % (Manual) 38 % (45-75) L Lymphocytes % (Manual) 43 % (20-45) Monocytes % (Manual) 18 % (1-10) H Eosinophils % (Manual) 1 % (0-3) Basophils % (Manual) 0 % (0-2) Band Neutrophils 0 % (0-8) Platelet Estimate Decreased L Platelet Morphology Normal Red Blood Cell Morphology Normal Sodium Level 132 MMOL/L (136-145) L Potassium Level 4.2 MMOL/L (3.5-5.1) Chloride Level 99 MMOL/L (98-107) Carbon Dioxide Level 30 MMOL/L (21-32) Anion Gap 4 mmol/L (5-15) L Blood Urea Nitrogen 23 mg/dL (7-18) H Creatinine 1.5 MG/DL (0.55-1.30) H Estimat Glomerular Filtration Rate 56.4 mL/min (>60) Glucose Level 182 MG/DL (74-106) H Calcium Level 8.0 MG/DL (8.5-10.1) L Last 24 Hour Vital Signs Date Time Temp Pulse Resp B/P (MAP) Pulse Ox O2 Delivery O2 Flow Rate FiO2 02/13/20 08:39 93 138/85 02/13/20 08:32 138/85 02/13/20 08:31 138/85 02/13/20 08:20 98.1 93 20 138/85 (102) 96 02/13/20 04:00 98.1 86 20 159/94 (115) 98 02/13/20 00:00 98.3 87 20 148/81 (103) 95 02/12/20 21:00 Room Air 02/12/20 20:00 97.5 101 20 151/110 (124) 96 02/12/20 17:50 135/95 02/12/20 17:43 135/95 02/12/20 16:00 98.2 105 20 136/95 (109) 93 02/12/20 16:00 98.7 02/12/20 15:17 98.7 02/12/20 12:33 170/109 02/12/20 12:33 170/109 02/12/20 12:33 79 170/109 02/12/20 12:00 98.7 79 18 170/109 (129) 98 Intake and Output 02/12/20 02/13/20 19:00 07:00 Intake Total 500 ml 100 ml Output Total 1100 ml Balance -600 ml 100 ml IV Total 500 ml 100 ml Output Urine Total 1050 ml Estimated Blood Loss 50 ml # Voids 1 2 Laboratory Tests Test 02/13/20 06:30 White Blood Count 12.5 K/UL (4.8-10.8) H Red Blood Count 4.47 M/UL (4.70-6.10) L Hemoglobin 12.9 G/DL (14.2-18.0) L Hematocrit 39.7 % (42.0-52.0) L Mean Corpuscular Volume 89 FL (80-99) Mean Corpuscular Hemoglobin 29.0 PG (27.0-31.0) Mean Corpuscular Hemoglobin Concent 32.6 G/DL (32.0-36.0) Red Cell Distribution Width 13.2 % (11.6-14.8) Platelet Count 126 K/UL (150-450) L Mean Platelet Volume 9.0 FL (6.5-10.1) Neutrophils (%) (Auto) % (45.0-75.0) Lymphocytes (%) (Auto) % (20.0-45.0) Monocytes (%) (Auto) % (1.0-10.0) Eosinophils (%) (Auto) % (0.0-3.0) Basophils (%) (Auto) % (0.0-2.0) Differential Total Cells Counted 100 Neutrophils % (Manual) 38 % (45-75) L Lymphocytes % (Manual) 43 % (20-45) Monocytes % (Manual) 18 % (1-10) H Eosinophils % (Manual) 1 % (0-3) Basophils % (Manual) 0 % (0-2) Band Neutrophils 0 % (0-8) Platelet Estimate Decreased L Platelet Morphology Normal Red Blood Cell Morphology Normal Sodium Level 132 MMOL/L (136-145) L Potassium Level 4.2 MMOL/L (3.5-5.1) Chloride Level 99 MMOL/L (98-107) Carbon Dioxide Level 30 MMOL/L (21-32) Anion Gap 4 mmol/L (5-15) L Blood Urea Nitrogen 23 mg/dL (7-18) H Creatinine 1.5 MG/DL (0.55-1.30) H Estimat Glomerular Filtration Rate 56.4 mL/min (>60) Glucose Level 182 MG/DL (74-106) H Calcium Level 8.0 MG/DL (8.5-10.1) L Additional Comments xray reviewed. excellent placement of nail. fx stabilized Assessment Post-op Diagnosis POD 1 Procedure Performed left hip ORIF Plan Plan: PT, pain management, discharge plan - back to facility once stable per med team. f/u Dr. Ford 2 weeks after d/c Eliza Pompa Feb 13, 2020 11:02
--- NOTE | 2020-02-13 11:17 | Consultation ---
History of Present Illness General Date patient seen: Feb 13, 2020 Chief Complaint: Multiple Trauma/Fall Reason for Consultation: Leukocytosis Present Illness HPI Mr. Powers is a 69 yo male with PMHx of COPD, HTN, Pancreatitis who presented to the ED on 02/10/20 with left hip fx. The patient was feeling well prior to fall but now has hip pain. He has had no fever and is on RA. On presentation he and no leukocytosis. ID was called for Post op leukocytosis of 12. PAST MEDICAL HISTORY: COPD Hypertension Pancreatitis. PAST SURGICAL HISTORY: Left big toe. SOCIAL HISTORY: Positive smoking. No alcohol. No intravenous drug abuse. FAMILY HISTORY: Noncontributory. Allergies: Coded Allergies: IBUPROFEN (Verified Allergy, Unknown, 10/22/19) PENICILLINS (Unverified Allergy, Unknown, 02/10/20) Uncoded Allergies: PCN (Allergy, Unknown, 11/07/19) Medication History Scheduled Amlodipine Besylate* (Amlodipine Besylate*), 10 MG ORAL DAILY, (Reported) Benazepril Hcl* (Benazepril Hcl*), 20 MG ORAL EVERY 12 HOURS, (Reported) Clonidine Hcl* (Catapres*), 0.1 MG ORAL BID, (Reported) Insulin Glargine (Lantus), 8 UNITS SUBQ morning, (Reported) Levetiracetam (Keppra), 500 MG ORAL EVERY 12 HOURS, (Reported) Phenytoin Sodium Extended* (Dilantin*), 100 MG ORAL BEDTIME, (Reported) Tamsulosin HCl (Flomax), 0.4 MG ORAL DAILY, (Reported) Trazodone Hcl* (Desyrel*), 50 MG ORAL BEDTIME, (Reported) Scheduled PRN Acetaminophen* (Acetaminophen 325MG Tablet*), 650 MG ORAL Q4H PRN for For Pain, (Reported) Insulin Regular, Human* (Novolin R*), 0 SUBQ AC+HS PRN for Sliding Scale, ( Reported) Patient History Healthcare decision maker Resuscitation status Advanced Directive on File Review of Systems All Other Systems: negative except mentioned in HPI Physical Exam Last 24 Hour Vital Signs Date Time Temp Pulse Resp B/P (MAP) Pulse Ox O2 Delivery O2 Flow Rate FiO2 02/13/20 08:39 93 138/85 02/13/20 08:32 138/85 02/13/20 08:31 138/85 02/13/20 08:20 98.1 93 20 138/85 (102) 96 02/13/20 04:00 98.1 86 20 159/94 (115) 98 02/13/20 00:00 98.3 87 20 148/81 (103) 95 02/12/20 21:00 Room Air 02/12/20 20:00 97.5 101 20 151/110 (124) 96 02/12/20 17:50 135/95 02/12/20 17:43 135/95 02/12/20 16:00 98.2 105 20 136/95 (109) 93 02/12/20 16:00 98.7 02/12/20 15:17 98.7 02/12/20 12:33 170/109 02/12/20 12:33 170/109 02/12/20 12:33 79 170/109 02/12/20 12:00 98.7 79 18 170/109 (129) 98 Intake and Output 02/12/20 02/13/20 19:00 07:00 Intake Total 500 ml 100 ml Output Total 1100 ml Balance -600 ml 100 ml IV Total 500 ml 100 ml Output Urine Total 1050 ml Estimated Blood Loss 50 ml # Voids 1 2 Laboratory Tests Test 02/13/20 06:30 White Blood Count 12.5 K/UL (4.8-10.8) H Red Blood Count 4.47 M/UL (4.70-6.10) L Hemoglobin 12.9 G/DL (14.2-18.0) L Hematocrit 39.7 % (42.0-52.0) L Mean Corpuscular Volume 89 FL (80-99) Mean Corpuscular Hemoglobin 29.0 PG (27.0-31.0) Mean Corpuscular Hemoglobin Concent 32.6 G/DL (32.0-36.0) Red Cell Distribution Width 13.2 % (11.6-14.8) Platelet Count 126 K/UL (150-450) L Mean Platelet Volume 9.0 FL (6.5-10.1) Neutrophils (%) (Auto) % (45.0-75.0) Lymphocytes (%) (Auto) % (20.0-45.0) Monocytes (%) (Auto) % (1.0-10.0) Eosinophils (%) (Auto) % (0.0-3.0) Basophils (%) (Auto) % (0.0-2.0) Differential Total Cells Counted 100 Neutrophils % (Manual) 38 % (45-75) L Lymphocytes % (Manual) 43 % (20-45) Monocytes % (Manual) 18 % (1-10) H Eosinophils % (Manual) 1 % (0-3) Basophils % (Manual) 0 % (0-2) Band Neutrophils 0 % (0-8) Platelet Estimate Decreased L Platelet Morphology Normal Red Blood Cell Morphology Normal Sodium Level 132 MMOL/L (136-145) L Potassium Level 4.2 MMOL/L (3.5-5.1) Chloride Level 99 MMOL/L (98-107) Carbon Dioxide Level 30 MMOL/L (21-32) Anion Gap 4 mmol/L (5-15) L Blood Urea Nitrogen 23 mg/dL (7-18) H Creatinine 1.5 MG/DL (0.55-1.30) H Estimat Glomerular Filtration Rate 56.4 mL/min (>60) Glucose Level 182 MG/DL (74-106) H Calcium Level 8.0 MG/DL (8.5-10.1) L Height (Feet): 6 Height (Inches): 1.00 Weight (Pounds): 170 Medications Current Medications Medications (Trade) Dose Ordered Sig/Jennifer Route PRN Reason Start Time Stop Time Status Last Admin Dose Admin Acetaminophen (Tylenol) 650 mg Q4H PRN ORAL Mild Pain (Pain Scale 1-3) 02/12/20 07:15 03/13/20 07:14 Acetaminophen (Tylenol) 650 mg Q4H PRN ORAL Temp >100.5 02/12/20 07:15 03/13/20 07:14 Acetaminophen/ Hydrocodone Bitart ([place] 5/325) 2 tab Q6H PRN ORAL Severe Pain (Pain Scale 7-10) 02/12/20 07:15 02/19/20 07:14 02/12/20 20:49 Acetaminophen/ Hydrocodone Bitart ([place] 7.5/325) 1 tab Q4H PRN ORAL Moderate Pain (Pain Scale 4-6) 02/12/20 07:15 02/19/20 07:14 Amlodipine Besylate (Norvasc) 10 mg DAILY ORAL 02/11/20 09:00 03/12/20 08:59 02/13/20 08:39 Aspirin (ASA) 81 mg BID ORAL 02/12/20 18:00 03/28/20 17:59 02/13/20 08:30 Bisacodyl (Dulcolax) 10 mg Q12H PRN RECTAL Constipation 02/12/20 07:15 05/12/20 07:14 Clonidine HCl (Catapres Tab) 0.1 mg BID ORAL 02/10/20 18:00 05/10/20 17:59 02/13/20 08:31 Dextrose (Dextrose 50%) 25 ml Q30M PRN IV Hypoglycemia 02/10/20 16:30 05/10/20 16:29 Dextrose (Dextrose 50%) 25 ml Q30M PRN IV Hypoglycemia 02/11/20 20:00 05/11/20 19:59 Dextrose (Dextrose 50%) 50 ml Q30M PRN IV Hypoglycemia 02/10/20 16:30 05/10/20 16:29 Dextrose (Dextrose 50%) 50 ml Q30M PRN IV Hypoglycemia 02/11/20 20:00 05/11/20 19:59 Dextrose/ Electrolytes 1,000 ml @ 75 mls/hr [id number] IV 02/12/20 15:00 03/13/20 14:59 Docusate Sodium (Colace) 100 mg THREE TIMES A DAY ORAL 02/12/20 18:00 03/13/20 17:59 02/13/20 08:31 Ferrous Sulfate (Feosol) 325 mg THREE TIMES A DAY ORAL 02/12/20 18:00 05/12/20 17:59 02/13/20 08:31 Heparin Sodium (Porcine) (Heparin 5000 units/ml) 5,000 units EVERY 12 HOURS SUBQ 02/11/20 09:00 03/27/20 08:59 02/12/20 20:45 Hydromorphone HCl (Dilaudid) 1 mg Q4H PRN SUBQ Mild Pain (Pain Scale 1-3) 02/12/20 07:15 02/19/20 07:14 02/12/20 14:47 Insulin Aspart (NovoLOG) BEFORE MEALS AND HS SUBQ 02/10/20 21:00 05/10/20 20:59 02/13/20 06:52 Insulin Aspart (NovoLOG) 4 units NOVOTIAC SUBQ 02/12/20 06:30 05/12/20 06:29 02/13/20 06:52 Insulin Detemir (Levemir) 8 units Q12HR SUBQ 02/11/20 21:00 05/11/20 20:59 02/13/20 08:37 Levetiracetam (Keppra) 500 mg EVERY 12 HOURS ORAL 02/10/20 21:00 03/11/20 20:59 02/13/20 08:32 Lisinopril (PriniviL) 20 mg BID ORAL 02/12/20 09:00 03/13/20 08:59 02/13/20 08:32 Lorazepam (Ativan) 1 mg Q6H PRN ORAL For Anxiety 02/11/20 15:30 02/18/20 15:29 02/12/20 15:30 Magnesium Hydroxide (Mom) 30 ml DAILYPRN PRN ORAL Constipation 02/12/20 07:15 03/13/20 07:14 Morphine Sulfate (Morphine Sulfate) 2 mg Q4H PRN IVP pain level 4-10 02/10/20 15:50 02/17/20 15:49 02/13/20 08:43 Pantoprazole (Protonix) 40 mg BID ORAL 02/12/20 09:00 03/13/20 08:59 02/13/20 08:34 Phenytoin (Dilantin) 300 mg BEDTIME ORAL 02/10/20 21:00 03/11/20 20:59 02/12/20 20:44 Tamsulosin HCl (Flomax) 0.4 mg DAILY ORAL 02/11/20 09:00 03/12/20 08:59 02/13/20 08:31 Trazodone HCl (Desyrel) 50 mg BEDTIME ORAL 02/10/20 21:00 03/11/20 20:59 02/12/20 20:44 Objective Narrative GENERAL: NAD, HEENT: Normocephalic and atraumatic. MMM, EOMI Neck: Supple, No LAD, NO JVD CARDIOVASCULAR: RRR, S1, S2 LUNGS: Breathing comfortably on room air., No W/C ABDOMEN: Soft NT, ND, +BS EXTREMITIES: Left hip with bandage in place. Moving toes NEURO: A/O x 4, Moving arms and legs Assessment/Plan Assessment/Plan: 69 yo male with PMHx of COPD, HTN, Pancreatitis who presented to the ED on with left hip fx. Leukocytosis Most likely not infection rather post op leukocytosis from trauma No fever Left Hip Fx CT pelvis 02/10/20 - NONDISPLACED FRACTURE THROUGH THE TROCHANTERIC AREA OF THE LEFT HIP. DEGENERATIVE CHANGES BILATERAL HIPS S/P ORIF 02/12/20 with nailing COPD Hypertension Pancreatitis. Plan - Continue to monitor off abx - Monitor CBC and Temps Thank you for this consult. [facility] will continue to follow Mr. Powers with you. Elliot Llamas MD Feb 13, 2020 11:17
--- NOTE | 2020-02-13 11:48 | NUR ---
*-*DISCHARGE PLANNING*-* PATIENT HAS BEEN ACCEPTED BACK TO: [facility] P: [phone] S[facility] ROOM# 1030.B SN[facility] ~~~~NEED DISCHARGE ORDER~~~~
[2020-02-13 12:00] VITALS: BP 162/97
--- NOTE | 2020-02-13 13:52 | NUR ---
CHARGE NURSE NOTE: wants to discharge patient to ARU facil. No discharge order to send pt to [facility]. HILARY Carl notified.
--- NOTE | 2020-02-13 15:21 | NUR ---
*-*DISCHARGE PLANNING*-* PATIENT HAS BEEN REFERRED TO [facility] @ 10:30 AM. S/W [facility] NEED AUTHORIZATION FROM INSURANCE.
[2020-02-13 16:00] VITALS: BP 164/87
--- NOTE | 2020-02-13 18:35 | NUR ---
NURSE NOTES: Patient refusing routine medication as ordered.Patient becoming belligerent,using foul language,charge Nurse in to assist and patient state to get out of his room.
--- NOTE | 2020-02-13 19:20 | NUR ---
HAND-OFF: Report given to Connie DUBON.
--- NOTE | 2020-02-13 19:30 | NUR ---
NURSE NOTES: Received report from JAGDISH Hoover. AAO x 2, on room air. Pt confused and restless, trying to get out of bed. Wants to wear his red athletic shoes. IV site intact. Dressing on L hip d/c/i. High fall risk and will monitor closely. No labored breathing. Bed locked, lowest position, alarm on, side rails up, call light within reach. Will continue to monitor.
[2020-02-13] MEDS: LORazepam 1mg tab ORAL PRN (19:56)
[2020-02-13 20:00] VITALS: BP 140/88
[2020-02-13] MEDS: TraZODone 50mg tab ORAL SCH (20:24)
[2020-02-13] MEDS: Phenytoin 100mg cap ORAL SCH (20:24)
--- NOTE | 2020-02-13 21:08 | Cardiology Progress Note ---
Assessment/Plan Assessment/Plan HTn suboptimally controlled, the patient is asymptomatic Subjective Subjective The patient is sleeping, when aroused alert. Denies chest pain, feels better, denies headache Objective Last 24 Hour Vital Signs Date Time Temp Pulse Resp B/P (MAP) Pulse Ox O2 Delivery O2 Flow Rate FiO2 02/13/20 16:00 98.2 89 20 164/87 (112) 96 02/13/20 12:00 98.2 89 20 162/97 (118) 95 02/13/20 09:00 Room Air 02/13/20 08:39 93 138/85 02/13/20 08:32 138/85 02/13/20 08:31 138/85 02/13/20 08:20 98.1 93 20 138/85 (102) 96 02/13/20 04:00 98.1 86 20 159/94 (115) 98 02/13/20 00:00 98.3 87 20 148/81 (103) 95 General Appearance: lethargic EENT: PERRL/EOMI Neck: no JVD Rhythm: NSR Cardiovascular: regular rhythm, systolic murmur Respiratory/Chest: rhonchi - bilaterally Abdomen: soft Extremities: moderate edema Intake and Output 02/12/20 02/13/20 19:00 07:00 Intake Total 500 ml 100 ml Output Total 1100 ml Balance -600 ml 100 ml IV Total 500 ml 100 ml Output Urine Total 1050 ml Estimated Blood Loss 50 ml # Voids 1 2 Laboratory Tests Test 02/13/20 06:30 White Blood Count 12.5 K/UL (4.8-10.8) H Red Blood Count 4.47 M/UL (4.70-6.10) L Hemoglobin 12.9 G/DL (14.2-18.0) L Hematocrit 39.7 % (42.0-52.0) L Mean Corpuscular Volume 89 FL (80-99) Mean Corpuscular Hemoglobin 29.0 PG (27.0-31.0) Mean Corpuscular Hemoglobin Concent 32.6 G/DL (32.0-36.0) Red Cell Distribution Width 13.2 % (11.6-14.8) Platelet Count 126 K/UL (150-450) L Mean Platelet Volume 9.0 FL (6.5-10.1) Neutrophils (%) (Auto) % (45.0-75.0) Lymphocytes (%) (Auto) % (20.0-45.0) Monocytes (%) (Auto) % (1.0-10.0) Eosinophils (%) (Auto) % (0.0-3.0) Basophils (%) (Auto) % (0.0-2.0) Differential Total Cells Counted 100 Neutrophils % (Manual) 38 % (45-75) L Lymphocytes % (Manual) 43 % (20-45) Monocytes % (Manual) 18 % (1-10) H Eosinophils % (Manual) 1 % (0-3) Basophils % (Manual) 0 % (0-2) Band Neutrophils 0 % (0-8) Platelet Estimate Decreased L Platelet Morphology Normal Red Blood Cell Morphology Normal Sodium Level 132 MMOL/L (136-145) L Potassium Level 4.2 MMOL/L (3.5-5.1) Chloride Level 99 MMOL/L (98-107) Carbon Dioxide Level 30 MMOL/L (21-32) Anion Gap 4 mmol/L (5-15) L Blood Urea Nitrogen 23 mg/dL (7-18) H Creatinine 1.5 MG/DL (0.55-1.30) H Estimat Glomerular Filtration Rate 56.4 mL/min (>60) Glucose Level 182 MG/DL (74-106) H Calcium Level 8.0 MG/DL (8.5-10.1) L Microbiology Date/Time Source Procedure Growth Status 02/11/20 17:45 Nasopharynx SARS-CoV-2 RdRp Gene Assay - Final Complete Aixa Rubio MD Feb 13, 2020 21:08
--- NOTE | 2020-02-13 22:45 | Progress Note ---
DATE: 02/13/2020 SUBJECTIVE: This is a 69-year-old male patient. The patient had left hip fracture. He has some confusion and disorganized thought process, decline in cognition below his baseline. The patient came in with different altered mental status and mood lability. That is why, he does require acute psychiatric inpatient treatment at this time. MENTAL STATUS EXAMINATION: This is a 69-year-old male. Appearance is disheveled. Attitude, irritable and agitated. Affect, guarded and restricted. Intellect poor. Mood, depressed and anxious. Motor activity, psychomotor agitation. Attention span is poor. Orientation x2. Speech is pressured. Thought process, disorganized and illogical. Insight and judgement is poor. DIAGNOSIS: Major depressive disorder, mild, recurrent with psychotic features. PLAN: Treat him with trazodone 50 mg at bedtime, Ativan 1 every 6 hours p.r.n. anxiety and agitation. Twenty minutes of reality-based supportive psychotherapy provided. Encourage him to interact appropriately with staff and other patients. Chart reviewed. Discussed with staff. Seen and assessed at bedside. Ariela Venegas M.D. DR: ELSI JOB#: [id number] CC:
[2020-02-14] VITALS: BP 144/92
[2020-02-14] MEDS: Morphine Sulfate 2mg/ml Inj(IV/IM USE ONLY) IVP PRN (00:23)
[2020-02-14] MEDS: LORazepam 1mg tab ORAL PRN (02:34)
[2020-02-14 04:00] VITALS: BP 150/92
[2020-02-14] MEDS: NovoLOG Insulin Flexpen SUBQ SCH ×7 (06:06→20:37)
--- NOTE | 2020-02-14 07:22 | NUR ---
HAND-OFF: Report given to JAGDISH Hoover.
[2020-02-14 07:48] LABS: HEMATOCRIT 42.2 % (42.0-52.0); HEMOGLOBIN 13.2 G/DL (14.2-18.0); MEAN CORPUSCULAR VOLUME 93 FL (80-99); PLATELET COUNT 143 K/UL (150-450); RED BLOOD COUNT 4.56 M/UL (4.70-6.10); RED CELL DISTRIBUTION WIDTH 14.3 % (11.6-14.8); WHITE BLOOD COUNT 11.8 K/UL (4.8-10.8)
[2020-02-14 07:49] LABS: ANION GAP 8 mmol/L (5-15); BLOOD UREA NITROGEN 19 mg/dL (7-18); CARBON DIOXIDE 28 MMOL/L (21-32); CHLORIDE 101 MMOL/L (98-107); CREATININE 1.5 MG/DL (0.55-1.30); POTASSIUM 3.5 MMOL/L (3.5-5.1); SODIUM 137 MMOL/L (136-145)
--- NOTE | 2020-02-14 07:57 | NUR ---
NURSE NOTES: Patient alert to name,respiration unlabored.left hip dressing changed,dressing was soiled .patient incontinent of urine,skin care given.Pedal pulse present.Bed alarm on,call light within reach.
[2020-02-14 08:00] VITALS: BP 153/110
[2020-02-14] MEDS: Aspirin Baby 81mg ORAL SCH ×2 (08:18→18:16)
[2020-02-14] MEDS: Tamsulosin 0.4mg cap ORAL SCH (08:18)
[2020-02-14] MEDS: Docusate 100mg cap ORAL SCH ×3 (08:18→18:16)
[2020-02-14] MEDS: Lisinopril 20mg tab ORAL SCH ×2 (08:19→18:17)
[2020-02-14] MEDS: Levemir Flexpen SUBQ SCH (08:22)
[2020-02-14] MEDS: Heparin 5000 units/ml inj SUBQ SCH ×2 (09:00→20:42)
--- NOTE | 2020-02-14 09:07 | General Progress Note ---
Assessment/Plan Problem List: (1) COPD (chronic obstructive pulmonary disease) ICD Codes: J44.9 - Chronic obstructive pulmonary disease, unspecified SNOMED: 69252191 (2) Fall ICD Codes: W19.XXXA - Unspecified fall, initial encounter SNOMED: 7286106, 884508712 (3) HTN (hypertension) ICD Codes: I10 - Essential (primary) hypertension SNOMED: 98524593 (4) Seizure disorder ICD Codes: G40.909 - Epilepsy, unspecified, not intractable, without status epilepticus SNOMED: 432714415, 654211870 (5) Pancreatitis ICD Codes: K85.90 - Acute pancreatitis without necrosis or infection, unspecified SNOMED: 76200535 (6) Hip pain ICD Codes: M25.559 - Pain in unspecified hip SNOMED: 88489057 (7) Closed left hip fracture ICD Codes: S72.002A - Fracture of unspecified part of neck of left femur, initial encounter for closed fracture SNOMED: 569367778 (8) Hypertension ICD Codes: I10 - Essential (primary) hypertension SNOMED: 87373530 Status: unchanged Assessment/Plan: pt diet pain control cbc bmp am id eval aru eval Subjective Constitutional: Reports: weakness Allergies: Coded Allergies: IBUPROFEN (Verified Allergy, Unknown, 10/22/19) PENICILLINS (Unverified Allergy, Unknown, 02/10/20) Uncoded Allergies: PCN (Allergy, Unknown, 11/07/19) All Systems: reviewed and negative except above Subjective calm sleepy Objective Last 24 Hour Vital Signs Date Time Temp Pulse Resp B/P (MAP) Pulse Ox O2 Delivery O2 Flow Rate FiO2 02/14/20 08:19 153/110 02/14/20 08:19 116 153/110 02/14/20 08:18 153/110 02/14/20 08:00 99.0 116 18 153/110 (124) 94 02/14/20 04:00 97.9 94 18 150/92 (111) 94 02/14/20 00:00 97.5 99 20 144/92 (109) 94 02/13/20 21:00 Room Air 02/13/20 20:00 98.0 96 20 140/88 (105) 94 02/13/20 16:00 98.2 89 20 164/87 (112) 96 02/13/20 12:00 98.2 89 20 162/97 (118) 95 Intake and Output 02/13/20 02/14/20 19:00 07:00 Intake Total 720 ml 360 ml Output Total 775 ml Balance -55 ml 360 ml Intake Oral 720 ml 360 ml Output Urine Total 775 ml # Voids 3 Laboratory Tests 02/14/20 07:00: White Blood Count 11.8H, Red Blood Count 4.56L, Hemoglobin 13.2L, Hematocrit 42.2, Mean Corpuscular Volume 93, Mean Corpuscular Hemoglobin 28.9, Mean Corpuscular Hemoglobin Concent 31.2L, Red Cell Distribution Width 14.3, Platelet Count 143L, Mean Platelet Volume 9.3, Neutrophils (%) (Auto) , Lymphocytes (%) (Auto) , Monocytes (%) (Auto) , Eosinophils (%) (Auto) , Basophils (%) (Auto) , Neutrophils % (Manual) [Pending], Lymphocytes % (Manual) [Pending], Platelet Estimate [Pending], Platelet Morphology [Pending], Sodium Level 137, Potassium Level 3.5, Chloride Level 101, Carbon Dioxide Level 28, Anion Gap 8, Blood Urea Nitrogen 19H, Creatinine 1.5H, Estimat Glomerular Filtration Rate 56.4, Glucose Level 165H, Calcium Level 8.0L Height (Feet): 6 Height (Inches): 1.00 Weight (Pounds): 170 General Appearance: lethargic EENT: normal ENT inspection Neck: normal alignment Cardiovascular: normal peripheral pulses, normal rate, regular rhythm Respiratory/Chest: chest wall non-tender, lungs clear, normal breath sounds Abdomen: normal bowel sounds, non tender, soft Extremities: normal inspection Edema: no edema noted Arm (L), no edema noted Arm (R), no edema noted Leg (L), no edema noted Leg (R), no edema noted Pedal (L), no edema noted Pedal (R), no edema noted Generalized Neurologic: motor weakness Skin: normal pigmentation, warm/dry Keyur Bronson DO Feb 14, 2020 09:07
--- NOTE | 2020-02-14 09:54 | General Progress Note ---
Assessment/Plan Problem List: (1) Diabetes mellitus out of control ICD Codes: E11.65 - Type 2 diabetes mellitus with hyperglycemia SNOMED: 53724674, 368351079 (2) Closed left hip fracture ICD Codes: S72.002A - Fracture of unspecified part of neck of left femur, initial encounter for closed fracture SNOMED: 847799395 (3) Hyperglycemia ICD Codes: R73.9 - Hyperglycemia, unspecified SNOMED: 57315049 Status: unchanged Assessment/Plan: increase Levemir to 10 units bid continue Novolog 4 units ac tid continue Novolog sliding scale ac / hs hypoglycemia protocol in order Subjective Allergies: Coded Allergies: IBUPROFEN (Verified Allergy, Unknown, 10/22/19) PENICILLINS (Unverified Allergy, Unknown, 02/10/20) Uncoded Allergies: PCN (Allergy, Unknown, 11/07/19) Subjective events noted interval notes reviewed fasting glucose is elevated Item Value Date Time Bedside Blood Glucose 224 mg/dl H 02/14/20 0822 Bedside Blood Glucose 224 mg/dl H 02/14/20 0607 Bedside Blood Glucose 226 mg/dl H 02/13/20 2026 Bedside Blood Glucose 195 mg/dl H 02/13/20 1733 Bedside Blood Glucose 208 mg/dl H 02/13/20 1204 Bedside Blood Glucose 179 mg/dl H 02/13/20 0837 Bedside Blood Glucose 179 mg/dl H 02/13/20 0652 Objective Last 24 Hour Vital Signs Date Time Temp Pulse Resp B/P (MAP) Pulse Ox O2 Delivery O2 Flow Rate FiO2 02/14/20 08:19 153/110 02/14/20 08:19 116 153/110 02/14/20 08:18 153/110 02/14/20 08:00 99.0 116 18 153/110 (124) 94 02/14/20 04:00 97.9 94 18 150/92 (111) 94 02/14/20 00:00 97.5 99 20 144/92 (109) 94 02/13/20 21:00 Room Air 02/13/20 20:00 98.0 96 20 140/88 (105) 94 02/13/20 16:00 98.2 89 20 164/87 (112) 96 02/13/20 12:00 98.2 89 20 162/97 (118) 95 Intake and Output 02/13/20 02/14/20 19:00 07:00 Intake Total 720 ml 360 ml Output Total 775 ml Balance -55 ml 360 ml Intake Oral 720 ml 360 ml Output Urine Total 775 ml # Voids 3 Laboratory Tests 02/14/20 07:00: White Blood Count 11.8H, Red Blood Count 4.56L, Hemoglobin 13.2L, Hematocrit 42.2, Mean Corpuscular Volume 93, Mean Corpuscular Hemoglobin 28.9, Mean Corpuscular Hemoglobin Concent 31.2L, Red Cell Distribution Width 14.3, Platelet Count 143L, Mean Platelet Volume 9.3, Neutrophils (%) (Auto) , Lymphocytes (%) (Auto) , Monocytes (%) (Auto) , Eosinophils (%) (Auto) , Basophils (%) (Auto) , Differential Total Cells Counted 100, Neutrophils % ( Manual) 46, Lymphocytes % (Manual) 35, Monocytes % (Manual) 19H, Eosinophils % ( Manual) 0, Basophils % (Manual) 0, Band Neutrophils 0, Platelet Estimate DecreasedL, Platelet Morphology Normal, Anisocytosis 1+, Sodium Level 137, Potassium Level 3.5, Chloride Level 101, Carbon Dioxide Level 28, Anion Gap 8, Blood Urea Nitrogen 19H, Creatinine 1.5H, Estimat Glomerular Filtration Rate 56.4, Glucose Level 165H, Calcium Level 8.0L Height (Feet): 6 Height (Inches): 1.00 Weight (Pounds): 170 General Appearance: no apparent distress Neck: normal alignment Cardiovascular: normal rate Respiratory/Chest: lungs clear Abdomen: normal bowel sounds Pelvis: normal external exam Objective Current Medications Medications (Trade) Dose Ordered Sig/Jennifer Route PRN Reason Start Time Stop Time Status Last Admin Dose Admin Acetaminophen (Tylenol) 650 mg Q4H PRN ORAL Mild Pain (Pain Scale 1-3) 02/12/20 07:15 03/13/20 07:14 Acetaminophen (Tylenol) 650 mg Q4H PRN ORAL Temp >100.5 02/12/20 07:15 03/13/20 07:14 Acetaminophen/ Hydrocodone Bitart ([place] 5/325) 2 tab Q6H PRN ORAL Severe Pain (Pain Scale 7-10) 02/12/20 07:15 02/19/20 07:14 02/12/20 20:49 Acetaminophen/ Hydrocodone Bitart ([place] 7.5/325) 1 tab Q4H PRN ORAL Moderate Pain (Pain Scale 4-6) 02/12/20 07:15 02/19/20 07:14 Amlodipine Besylate (Norvasc) 10 mg DAILY ORAL 02/11/20 09:00 03/12/20 08:59 02/14/20 08:19 Aspirin (ASA) 81 mg BID ORAL 02/12/20 18:00 03/28/20 17:59 02/14/20 08:18 Bisacodyl (Dulcolax) 10 mg Q12H PRN RECTAL Constipation 02/12/20 07:15 05/12/20 07:14 Clonidine HCl (Catapres Tab) 0.1 mg BID ORAL 02/10/20 18:00 05/10/20 17:59 02/14/20 08:18 Dextrose (Dextrose 50%) 25 ml Q30M PRN IV Hypoglycemia 02/10/20 16:30 05/10/20 16:29 Dextrose (Dextrose 50%) 25 ml Q30M PRN IV Hypoglycemia 02/11/20 20:00 05/11/20 19:59 Dextrose (Dextrose 50%) 50 ml Q30M PRN IV Hypoglycemia 02/10/20 16:30 05/10/20 16:29 Dextrose (Dextrose 50%) 50 ml Q30M PRN IV Hypoglycemia 02/11/20 20:00 05/11/20 19:59 Docusate Sodium (Colace) 100 mg THREE TIMES A DAY ORAL 02/12/20 18:00 03/13/20 17:59 02/14/20 08:18 Ferrous Sulfate (Feosol) 325 mg THREE TIMES A DAY ORAL 02/12/20 18:00 05/12/20 17:59 02/14/20 08:18 Heparin Sodium (Porcine) (Heparin 5000 units/ml) 5,000 units EVERY 12 HOURS SUBQ 02/14/20 09:00 03/27/20 08:59 Hydromorphone HCl (Dilaudid) 1 mg Q4H PRN SUBQ Mild Pain (Pain Scale 1-3) 02/12/20 07:15 02/19/20 07:14 02/12/20 14:47 Insulin Aspart (NovoLOG) BEFORE MEALS AND HS SUBQ 02/10/20 21:00 05/10/20 20:59 02/14/20 06:06 Insulin Aspart (NovoLOG) 4 units NOVOTIAC SUBQ 02/12/20 06:30 05/12/20 06:29 02/14/20 06:07 Insulin Detemir (Levemir) 8 units Q12HR SUBQ 02/11/20 21:00 05/11/20 20:59 02/14/20 08:22 Levetiracetam (Keppra) 500 mg EVERY 12 HOURS ORAL 02/10/20 21:00 03/11/20 20:59 02/14/20 08:19 Lisinopril (PriniviL) 20 mg BID ORAL 02/12/20 09:00 03/13/20 08:59 02/14/20 08:19 Lorazepam (Ativan) 1 mg Q6H PRN ORAL For Anxiety 02/11/20 15:30 02/18/20 15:29 02/14/20 02:34 Magnesium Hydroxide (Mom) 30 ml DAILYPRN PRN ORAL Constipation 02/12/20 07:15 03/13/20 07:14 Morphine Sulfate (Morphine Sulfate) 2 mg Q4H PRN IVP pain level 4-10 02/10/20 15:50 02/17/20 15:49 02/14/20 00:23 Pantoprazole (Protonix) 40 mg BID ORAL 02/12/20 09:00 03/13/20 08:59 02/14/20 08:20 Phenytoin (Dilantin) 300 mg BEDTIME ORAL 02/10/20 21:00 03/11/20 20:59 02/13/20 20:24 Tamsulosin HCl (Flomax) 0.4 mg DAILY ORAL 02/11/20 09:00 03/12/20 08:59 02/14/20 08:18 Trazodone HCl (Desyrel) 50 mg BEDTIME ORAL 02/10/20 21:00 03/11/20 20:59 02/13/20 20:24 Aaron Rueda MD Feb 14, 2020 09:54
[2020-02-14 12:00] VITALS: BP 140/82
[2020-02-14] MEDS: HYDROcodone/Acetamin 5/325 tab ORAL PRN ×2 (12:00→23:40)
[2020-02-14 16:00] VITALS: BP 142/77
--- NOTE | 2020-02-14 16:30 | Progress Note ---
DATE: 02/14/2020 SUBJECTIVE: He is a 69-year-old male with left hip fracture. He is confused, disorganized. He has altered mental status, confusion. Cognition has declined below the baseline. MENTAL STATUS EXAMINATION: This is a 69-year-old male. Appearance is disheveled. Attitude, irritable and agitated. Affect, guarded and restricted. Intellect poor. Mood, depressed and anxious. Motor activity, psychomotor agitation. Attention span is poor. Orientation x2. Speech is low volume, slurred. Thought process, disorganized and illogical. Insight and judgment is poor. DIAGNOSIS: Major depressive disorder, mild, recurrent with psychotic features rule out dementia with psychosis. PLAN: To continue current psychiatric medications to stabilize his mood. Twenty minutes of reality-based supportive psychotherapy. Encouraged him to interact appropriately with staff and other patients. Twenty minutes of cognitive behavioral therapy to help him identify his automatic negative thoughts and help him convert his negative thoughts to more positive thoughts to reduce depression, anxiety, suicidality. Chart reviewed. Discussed with staff. Seen and assessed at the bedside. Ariela Venegas M.D. DR: MILAN JOB#: [id number] CC:
--- NOTE | 2020-02-14 19:06 | NUR ---
NURSE NOTES: Patient resting,incontinent of urine,skin care give.Left hip dressing remains in tact.Bed alarm is on,call light within reach.
--- NOTE | 2020-02-14 19:39 | NUR ---
HAND-OFF: Report given to Arlette MALDONADO,aware of fall risk..
[2020-02-14 20:00] VITALS: BP 152/97
--- NOTE | 2020-02-14 20:00 | NUR ---
NURSE NOTES: RECEIVED PATIENT LYING IN BED, EYES CLOSED, AWAKENED TO NAME, VERBALLY AGGRESSIVE, CURSING. NEGATIVE COVID X1, STANDARD PRECAUTIONS OBSERVED. NO SIGNS AND SYMPTOMS OF ACUTE CARDIO RESPIRATORY DISTRESS/SHORTNESS OF BREATH, NO PERIPHERAL EDEMA NOTED. IV INTACT TO RIGHT WRIST/GAUGE 22/SALINE LOCK, NO REDNESS/SWELLING NOTED TO SITE. ABDOMEN SOFT/NON TENDER, NO FACIAL GRIMACING WHEN PALPATED/AUDIBLE BOWEL SOUNDS, NO BOWEL MOVEMENT, URINAL AT BEDSIDE. FALL PRECAUTIONS OBSERVED AT ALL TIMES, SIDE RAILS UP X3/PADDED FOR SEIZURE PRECAUTIONS, BED IN LOWEST POSITION FOR SAFETY, BED ALARM ACTIVATED. CONTINUE WITH CURRENT PLAN OF CARE. NAD.
[2020-02-14] MEDS: TraZODone 50mg tab ORAL SCH (20:36)
[2020-02-14] MEDS: Phenytoin 100mg cap ORAL SCH (20:37)
[2020-02-14] MEDS ORDERED: Levemir Flexpen SUBQ SCH (21:00)
--- NOTE | 2020-02-14 21:18 | Cardiology Progress Note ---
Assessment/Plan Assessment/Plan stable from cardiac standpoint Subjective Subjective The patient is resting in bed, he reported feeling well, Objective Last 24 Hour Vital Signs Date Time Temp Pulse Resp B/P (MAP) Pulse Ox O2 Delivery O2 Flow Rate FiO2 02/14/20 18:17 141/80 02/14/20 18:16 141/80 02/14/20 16:00 99.3 88 18 142/77 (98) 96 02/14/20 12:00 98.2 102 20 140/82 (101) 98 02/14/20 09:00 Room Air 02/14/20 08:19 153/110 02/14/20 08:19 116 153/110 02/14/20 08:18 153/110 02/14/20 08:00 99.0 116 18 153/110 (124) 94 02/14/20 04:00 97.9 94 18 150/92 (111) 94 02/14/20 00:00 97.5 99 20 144/92 (109) 94 EENT: PERRL/EOMI Neck: normal alignment Rhythm: NSR Cardiovascular: normal rate Respiratory/Chest: normal breath sounds Extremities: normal range of motion 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 Intake and Output 02/13/20 02/14/20 19:00 07:00 Intake Total 720 ml 360 ml Output Total 775 ml Balance -55 ml 360 ml Intake Oral 720 ml 360 ml Output Urine Total 775 ml # Voids 3 Laboratory Tests Test 02/14/20 07:00 White Blood Count 11.8 K/UL (4.8-10.8) H Red Blood Count 4.56 M/UL (4.70-6.10) L Hemoglobin 13.2 G/DL (14.2-18.0) L Hematocrit 42.2 % (42.0-52.0) Mean Corpuscular Volume 93 FL (80-99) Mean Corpuscular Hemoglobin 28.9 PG (27.0-31.0) Mean Corpuscular Hemoglobin Concent 31.2 G/DL (32.0-36.0) L Red Cell Distribution Width 14.3 % (11.6-14.8) Platelet Count 143 K/UL (150-450) L Mean Platelet Volume 9.3 FL (6.5-10.1) Neutrophils (%) (Auto) % (45.0-75.0) Lymphocytes (%) (Auto) % (20.0-45.0) Monocytes (%) (Auto) % (1.0-10.0) Eosinophils (%) (Auto) % (0.0-3.0) Basophils (%) (Auto) % (0.0-2.0) Differential Total Cells Counted 100 Neutrophils % (Manual) 46 % (45-75) Lymphocytes % (Manual) 35 % (20-45) Monocytes % (Manual) 19 % (1-10) H Eosinophils % (Manual) 0 % (0-3) Basophils % (Manual) 0 % (0-2) Band Neutrophils 0 % (0-8) Platelet Estimate Decreased L Platelet Morphology Normal Anisocytosis 1+ Sodium Level 137 MMOL/L (136-145) Potassium Level 3.5 MMOL/L (3.5-5.1) Chloride Level 101 MMOL/L (98-107) Carbon Dioxide Level 28 MMOL/L (21-32) Anion Gap 8 mmol/L (5-15) Blood Urea Nitrogen 19 mg/dL (7-18) H Creatinine 1.5 MG/DL (0.55-1.30) H Estimat Glomerular Filtration Rate 56.4 mL/min (>60) Glucose Level 165 MG/DL (74-106) H Calcium Level 8.0 MG/DL (8.5-10.1) L Aixa Rubio MD Feb 14, 2020 21:18
[2020-02-15] VITALS: BP 148/90
[2020-02-15] MEDS: LORazepam 1mg tab ORAL PRN ×3 (00:24→17:16)
[2020-02-15 04:00] VITALS: BP 143/80
--- NOTE | 2020-02-15 06:15 | NUR ---
NURSE NOTES: RESTED WELL, NO SIGNIFICANT CHANGE OF CONDITION NOTED THROUGHOUT THE NIGHT. SAFETY MAINTAINED. NAD.
--- NOTE | 2020-02-15 06:16 | NUR ---
NURSE NOTES: BLOOD GLUCOSE MONITORED VIA GLUCOMETER WITH RESULT 85/MG/DL, ASSESSED FOR SIGNS AND SYMPTOMS OF HYPOGLYCEMIA, NONE NOTED. NO INSULIN SS COVERAGE. NAD.
[2020-02-15] MEDS: NovoLOG Insulin Flexpen SUBQ SCH ×7 (06:18→21:00)
--- NOTE | 2020-02-15 06:44 | General Progress Note ---
Assessment/Plan Problem List: (1) Diabetes mellitus out of control ICD Codes: E11.65 - Type 2 diabetes mellitus with hyperglycemia SNOMED: 88094441, 211111792 (2) Closed left hip fracture ICD Codes: S72.002A - Fracture of unspecified part of neck of left femur, initial encounter for closed fracture SNOMED: 755047640 (3) Hyperglycemia ICD Codes: R73.9 - Hyperglycemia, unspecified SNOMED: 34422085 Status: unchanged Assessment/Plan: reduce Levemir to 8 units bid continue Novolog 4 units ac tid continue Novolog sliding scale ac / hs hypoglycemia protocol in order Subjective Allergies: Coded Allergies: IBUPROFEN (Verified Allergy, Unknown, 10/22/19) PENICILLINS (Unverified Allergy, Unknown, 02/10/20) Uncoded Allergies: PCN (Allergy, Unknown, 11/07/19) Subjective events noted interval notes reviewed better glucose values Item Value Date Time Bedside Blood Glucose 85 mg/dl 02/15/20 0618 Bedside Blood Glucose 121 mg/dl H 02/14/20 2050 Bedside Blood Glucose 198 mg/dl H 02/14/20 1717 Bedside Blood Glucose 183 mg/dl H 02/14/20 1212 Bedside Blood Glucose 224 mg/dl H 02/14/20 0822 Bedside Blood Glucose 224 mg/dl H 02/14/20 0607 Objective Last 24 Hour Vital Signs Date Time Temp Pulse Resp B/P (MAP) Pulse Ox O2 Delivery O2 Flow Rate FiO2 02/15/20 04:00 97.7 87 22 143/80 (101) 96 02/15/20 00:10 97.2 02/15/20 00:00 98.1 89 22 148/90 (109) 97 02/14/20 21:00 Room Air 02/14/20 20:00 97.2 89 22 152/97 (115) 96 02/14/20 18:17 141/80 02/14/20 18:16 141/80 02/14/20 16:00 99.3 88 18 142/77 (98) 96 02/14/20 12:00 98.2 102 20 140/82 (101) 98 02/14/20 09:00 Room Air 02/14/20 08:19 153/110 02/14/20 08:19 116 153/110 02/14/20 08:18 153/110 02/14/20 08:00 99.0 116 18 153/110 (124) 94 Intake and Output 02/14/20 02/15/20 19:00 07:00 Intake Total 840 ml 420 ml Balance 840 ml 420 ml Intake Oral 840 ml 420 ml # Voids 2 3 Laboratory Tests 02/14/20 07:00: White Blood Count 11.8H, Red Blood Count 4.56L, Hemoglobin 13.2L, Hematocrit 42.2, Mean Corpuscular Volume 93, Mean Corpuscular Hemoglobin 28.9, Mean Corpuscular Hemoglobin Concent 31.2L, Red Cell Distribution Width 14.3, Platelet Count 143L, Mean Platelet Volume 9.3, Neutrophils (%) (Auto) , Lymphocytes (%) (Auto) , Monocytes (%) (Auto) , Eosinophils (%) (Auto) , Basophils (%) (Auto) , Differential Total Cells Counted 100, Neutrophils % ( Manual) 46, Lymphocytes % (Manual) 35, Monocytes % (Manual) 19H, Eosinophils % ( Manual) 0, Basophils % (Manual) 0, Band Neutrophils 0, Platelet Estimate DecreasedL, Platelet Morphology Normal, Anisocytosis 1+, Sodium Level 137, Potassium Level 3.5, Chloride Level 101, Carbon Dioxide Level 28, Anion Gap 8, Blood Urea Nitrogen 19H, Creatinine 1.5H, Estimat Glomerular Filtration Rate 56.4, Glucose Level 165H, Calcium Level 8.0L Height (Feet): 6 Height (Inches): 1.00 Weight (Pounds): 170 General Appearance: no apparent distress Neck: normal alignment Cardiovascular: normal rate Respiratory/Chest: lungs clear, respiratory distress Pelvis: normal external exam Objective Current Medications Medications (Trade) Dose Ordered Sig/Jennifer Route PRN Reason Start Time Stop Time Status Last Admin Dose Admin Acetaminophen (Tylenol) 650 mg Q4H PRN ORAL Mild Pain (Pain Scale 1-3) 02/12/20 07:15 03/13/20 07:14 Acetaminophen (Tylenol) 650 mg Q4H PRN ORAL Temp >100.5 02/12/20 07:15 03/13/20 07:14 Acetaminophen/ Hydrocodone Bitart ([place] 5/325) 2 tab Q6H PRN ORAL Severe Pain (Pain Scale 7-10) 02/12/20 07:15 02/19/20 07:14 02/14/20 23:40 Acetaminophen/ Hydrocodone Bitart ([place] 7.5/325) 1 tab Q4H PRN ORAL Moderate Pain (Pain Scale 4-6) 02/12/20 07:15 02/19/20 07:14 Amlodipine Besylate (Norvasc) 10 mg DAILY ORAL 02/11/20 09:00 03/12/20 08:59 02/14/20 08:19 Aspirin (ASA) 81 mg BID ORAL 02/12/20 18:00 03/28/20 17:59 02/14/20 18:16 Bisacodyl (Dulcolax) 10 mg Q12H PRN RECTAL Constipation 02/12/20 07:15 05/12/20 07:14 Clonidine HCl (Catapres Tab) 0.1 mg BID ORAL 02/10/20 18:00 05/10/20 17:59 02/14/20 18:16 Dextrose (Dextrose 50%) 25 ml Q30M PRN IV Hypoglycemia 02/10/20 16:30 05/10/20 16:29 Dextrose (Dextrose 50%) 25 ml Q30M PRN IV Hypoglycemia 02/11/20 20:00 05/11/20 19:59 Dextrose (Dextrose 50%) 50 ml Q30M PRN IV Hypoglycemia 02/10/20 16:30 05/10/20 16:29 Dextrose (Dextrose 50%) 50 ml Q30M PRN IV Hypoglycemia 02/11/20 20:00 05/11/20 19:59 Docusate Sodium (Colace) 100 mg THREE TIMES A DAY ORAL 02/12/20 18:00 03/13/20 17:59 02/14/20 18:16 Ferrous Sulfate (Feosol) 325 mg THREE TIMES A DAY ORAL 02/12/20 18:00 05/12/20 17:59 02/14/20 18:16 Heparin Sodium (Porcine) (Heparin 5000 units/ml) 5,000 units EVERY 12 HOURS SUBQ 02/14/20 09:00 03/27/20 08:59 02/14/20 20:42 Hydromorphone HCl (Dilaudid) 1 mg Q4H PRN SUBQ Mild Pain (Pain Scale 1-3) 02/12/20 07:15 02/19/20 07:14 02/12/20 14:47 Insulin Aspart (NovoLOG) BEFORE MEALS AND HS SUBQ 02/10/20 21:00 05/10/20 20:59 02/14/20 17:16 Insulin Aspart (NovoLOG) 4 units NOVOTIAC SUBQ 02/12/20 06:30 05/12/20 06:29 02/14/20 17:17 Insulin Detemir (Levemir) 10 units Q12HR SUBQ 02/14/20 21:00 05/11/20 20:59 02/14/20 20:41 Levetiracetam (Keppra) 500 mg EVERY 12 HOURS ORAL 02/10/20 21:00 03/11/20 20:59 02/14/20 20:36 Lisinopril (PriniviL) 20 mg BID ORAL 02/12/20 09:00 03/13/20 08:59 02/14/20 18:17 Lorazepam (Ativan) 1 mg Q6H PRN ORAL For Anxiety 02/11/20 15:30 02/18/20 15:29 02/15/20 00:24 Magnesium Hydroxide (Mom) 30 ml DAILYPRN PRN ORAL Constipation 02/12/20 07:15 03/13/20 07:14 Morphine Sulfate (Morphine Sulfate) 2 mg Q4H PRN IVP pain level 4-10 02/10/20 15:50 02/17/20 15:49 02/14/20 00:23 Pantoprazole (Protonix) 40 mg BID ORAL 02/12/20 09:00 03/13/20 08:59 02/14/20 18:17 Phenytoin (Dilantin) 300 mg BEDTIME ORAL 02/10/20 21:00 03/11/20 20:59 02/14/20 20:37 Tamsulosin HCl (Flomax) 0.4 mg DAILY ORAL 02/11/20 09:00 03/12/20 08:59 02/14/20 08:18 Trazodone HCl (Desyrel) 50 mg BEDTIME ORAL 02/10/20 21:00 03/11/20 20:59 02/14/20 20:36 Aaron Rueda MD Feb 15, 2020 06:44
[2020-02-15 07:17] LABS: HEMATOCRIT 37.7 % (42.0-52.0); HEMOGLOBIN 11.8 G/DL (14.2-18.0); MEAN CORPUSCULAR VOLUME 93 FL (80-99); PLATELET COUNT 147 K/UL (150-450); RED BLOOD COUNT 4.06 M/UL (4.70-6.10); RED CELL DISTRIBUTION WIDTH 15.3 % (11.6-14.8); WHITE BLOOD COUNT 9.5 K/UL (4.8-10.8)
--- NOTE | 2020-02-15 07:23 | NUR ---
HAND-OFF: Report given to JAGDISH TOMPKINS.
[2020-02-15 07:49] LABS: ANION GAP 7 mmol/L (5-15); BLOOD UREA NITROGEN 22 mg/dL (7-18); CALCIUM 7.9 MG/DL (8.5-10.1); CARBON DIOXIDE 27 MMOL/L (21-32); CHLORIDE 107 MMOL/L (98-107); CREATININE 1.5 MG/DL (0.55-1.30); POTASSIUM 3.6 MMOL/L (3.5-5.1); SODIUM 141 MMOL/L (136-145)
[2020-02-15 08:00] VITALS: BP 149/82
--- NOTE | 2020-02-15 08:17 | General Progress Note ---
Assessment/Plan Problem List: (1) COPD (chronic obstructive pulmonary disease) ICD Codes: J44.9 - Chronic obstructive pulmonary disease, unspecified SNOMED: 14260520 (2) Fall ICD Codes: W19.XXXA - Unspecified fall, initial encounter SNOMED: 1715828, 272340863 (3) HTN (hypertension) ICD Codes: I10 - Essential (primary) hypertension SNOMED: 77852061 (4) Seizure disorder ICD Codes: G40.909 - Epilepsy, unspecified, not intractable, without status epilepticus SNOMED: 212481722, 249387690 (5) Pancreatitis ICD Codes: K85.90 - Acute pancreatitis without necrosis or infection, unspecified SNOMED: 13862171 (6) Hip pain ICD Codes: M25.559 - Pain in unspecified hip SNOMED: 38049450 (7) Closed left hip fracture ICD Codes: S72.002A - Fracture of unspecified part of neck of left femur, initial encounter for closed fracture SNOMED: 532267063 (8) Hypertension ICD Codes: I10 - Essential (primary) hypertension SNOMED: 92685181 Status: unchanged Assessment/Plan: pt diet pain control cbc bmp am id eval aru eval Subjective Allergies: Coded Allergies: IBUPROFEN (Verified Allergy, Unknown, 10/22/19) PENICILLINS (Unverified Allergy, Unknown, 02/10/20) Uncoded Allergies: PCN (Allergy, Unknown, 11/07/19) All Systems: reviewed and negative except above Subjective calm sleepy Objective Last 24 Hour Vital Signs Date Time Temp Pulse Resp B/P (MAP) Pulse Ox O2 Delivery O2 Flow Rate FiO2 02/15/20 04:00 97.7 87 22 143/80 (101) 96 02/15/20 00:10 97.2 02/15/20 00:00 98.1 89 22 148/90 (109) 97 02/14/20 21:00 Room Air 02/14/20 20:00 97.2 89 22 152/97 (115) 96 02/14/20 18:17 141/80 02/14/20 18:16 141/80 02/14/20 16:00 99.3 88 18 142/77 (98) 96 02/14/20 12:00 98.2 102 20 140/82 (101) 98 6/14/20 09:00 Room Air 02/14/20 08:19 153/110 02/14/20 08:19 116 153/110 02/14/20 08:18 153/110 Intake and Output 02/14/20 02/15/20 19:00 07:00 Intake Total 840 ml 420 ml Balance 840 ml 420 ml Intake Oral 840 ml 420 ml # Voids 2 3 Laboratory Tests 02/15/20 06:00: White Blood Count 9.5, Red Blood Count 4.06L, Hemoglobin 11.8L, Hematocrit 37.7L , Mean Corpuscular Volume 93, Mean Corpuscular Hemoglobin 29.2, Mean Corpuscular Hemoglobin Concent 31.4L, Red Cell Distribution Width 15.3H, Platelet Count 147L, Mean Platelet Volume 9.6, Neutrophils (%) (Auto) , Lymphocytes (%) (Auto) , Monocytes (%) (Auto) , Eosinophils (%) (Auto) , Basophils (%) (Auto) , Neutrophils % (Manual) [Pending], Lymphocytes % (Manual) [Pending], Platelet Estimate [Pending], Platelet Morphology [Pending], Sodium Level 141, Potassium Level 3.6, Chloride Level 107, Carbon Dioxide Level 27, Anion Gap 7, Blood Urea Nitrogen 22H, Creatinine 1.5H, Estimat Glomerular Filtration Rate 56.4, Glucose Level 71L, Calcium Level 7.9L Height (Feet): 6 Height (Inches): 1.00 Weight (Pounds): 170 General Appearance: lethargic EENT: normal ENT inspection Neck: normal alignment Cardiovascular: normal peripheral pulses, normal rate, regular rhythm Respiratory/Chest: chest wall non-tender, lungs clear, normal breath sounds Abdomen: normal bowel sounds, non tender, soft Extremities: normal inspection Edema: no edema noted Arm (L), no edema noted Arm (R), no edema noted Leg (L), no edema noted Leg (R), no edema noted Pedal (L), no edema noted Pedal (R), no edema noted Generalized Neurologic: motor weakness Skin: normal pigmentation, warm/dry Keyur Bronson DO Feb 15, 2020 08:17
[2020-02-15] MEDS: Lisinopril 20mg tab ORAL SCH ×2 (09:27→17:16)
[2020-02-15] MEDS: Aspirin Baby 81mg ORAL SCH ×2 (09:27→17:16)
[2020-02-15] MEDS: Docusate 100mg cap ORAL SCH ×3 (09:27→17:17)
[2020-02-15] MEDS: Tamsulosin 0.4mg cap ORAL SCH (09:27)
[2020-02-15] MEDS: Heparin 5000 units/ml inj SUBQ SCH ×2 (09:38→21:00)
[2020-02-15] MEDS: Levemir Flexpen SUBQ SCH ×2 (09:38→22:03)
--- NOTE | 2020-02-15 11:20 | NUR ---
NURSE NOTES: PT SCREAMS INTERMITTENTLY FOR WATER. PT IS AXOX1. PT DOES NOT LIKE TO BE MOVED, DUE TO LEFT HIP PAIN. PT CURSES AND PUSHES STAFF AWAY WHEN PHYSICAL THERAPY ATTEMPTS TO WORK WITH PT. PT IN NO APPARENT DISTRESS WHEN IN BED. IN NO APPARENT DISTRESS AT THIS TIME. BEDSIDE RAILS X3 RAISED. BED IN LOWEST POSITION WITH BED ALARM ON. CALL LIGHT WITHIN REACH. WILL CONTINUE TO MONITOR.
[2020-02-15 12:00] VITALS: BP 129/93
[2020-02-15] MEDS: HYDROcodone/Acetamin 5/325 tab ORAL PRN ×2 (12:08→21:56)
--- NOTE | 2020-02-15 13:34 | NUR ---
DISCHARGE PLANNING DR DIAMOND INFORMED THAT PATIENT WAS DENIED FOR ATU. DR DIAMOND GAVE T/O TO DC TO SNF IF CLEAR BY ALL. NOTED AND CARRIED OUT. RN INFORMED.
--- NOTE | 2020-02-15 13:37 | NUR ---
*-* INSURANCE *-* UPDATED CLINICALS HAVE BEEN FAXED TO: [facility] F: [phone]
--- NOTE | 2020-02-15 13:44 | NUR ---
*-*DISCHARGE PLANNING*-* PATIENT HAS BEEN REFERRED BACK TO: [facility] P: [phone]
[2020-02-15 16:00] VITALS: BP 155/81
--- NOTE | 2020-02-15 16:25 | NUR ---
NURSE NOTES: RN LEFT SECOND MESSAGE FOR DR VERDE REGARDING CLEARANCE FOR DISCHARGE.
--- NOTE | 2020-02-15 16:27 | NUR ---
*-*DISCHARGE PLANNING*-* PATIENT HAS BEEN REFERRED BACK TO: [facility] P: [phone] FOR NURSE TO NURSE REPORT [facility] TRAN[facility] SET FOR WILL CALL S/W RAIN [id number]
--- NOTE | 2020-02-15 16:33 | Infectious Diseases Prog Note ---
Assessment/Plan Assessment/Plan Assessment/Plan: 69 yo male with PMHx of COPD, HTN, Pancreatitis who presented to the ED on with left hip fx. COVID neg x1 -02/10 rapid covid testing neg Leukocytosis- SP Most likely not infection rather post op leukocytosis from trauma No fever Left Hip Fx CT pelvis 02/10/20 - NONDISPLACED FRACTURE THROUGH THE TROCHANTERIC AREA OF THE LEFT HIP. DEGENERATIVE CHANGES BILATERAL HIPS S/P ORIF 02/12/20 with nailing COPD Hypertension Pancreatitis. Plan - Continue to monitor off abx - Monitor CBC and Temps Thank you for this consult. [facility] will continue to follow Mr. Powers with you. Subjective Allergies: Coded Allergies: IBUPROFEN (Verified Allergy, Unknown, 10/22/19) PENICILLINS (Unverified Allergy, Unknown, 02/10/20) Uncoded Allergies: PCN (Allergy, Unknown, 11/07/19) Subjective afebrile leukocytosis resolved rapid covid test neg Objective Vital Signs Last 24 Hour Vital Signs Date Time Temp Pulse Resp B/P (MAP) Pulse Ox O2 Delivery O2 Flow Rate FiO2 02/15/20 16:00 97.9 85 20 155/81 (105) 97 02/15/20 12:00 98.1 87 20 129/93 (105) 94 02/15/20 09:27 149/82 02/15/20 09:26 86 149/82 02/15/20 09:00 149/82 02/15/20 09:00 Room Air 02/15/20 08:00 98.1 86 20 149/82 (104) 95 02/15/20 04:00 97.7 87 22 143/80 (101) 96 02/15/20 00:10 97.2 02/15/20 00:00 98.1 89 22 148/90 (109) 97 02/14/20 21:00 Room Air 02/14/20 20:00 97.2 89 22 152/97 (115) 96 02/14/20 18:17 141/80 02/14/20 18:16 141/80 Height (Feet): 6 Height (Inches): 1.00 Weight (Pounds): 170 Objective GENERAL: NAD, HEENT: Normocephalic and atraumatic. MMM, EOMI Neck: Supple, No LAD, NO JVD CARDIOVASCULAR: RRR, S1, S2 LUNGS: Breathing comfortably on room air., No W/C ABDOMEN: Soft NT, ND, +BS EXTREMITIES: Left hip with bandage in place. Moving toes NEURO: A/O x 4, Moving arms and legs Laboratory Tests Test 02/15/20 06:00 White Blood Count 9.5 K/UL (4.8-10.8) Red Blood Count 4.06 M/UL (4.70-6.10) L Hemoglobin 11.8 G/DL (14.2-18.0) L Hematocrit 37.7 % (42.0-52.0) L Mean Corpuscular Volume 93 FL (80-99) Mean Corpuscular Hemoglobin 29.2 PG (27.0-31.0) Mean Corpuscular Hemoglobin Concent 31.4 G/DL (32.0-36.0) L Red Cell Distribution Width 15.3 % (11.6-14.8) H Platelet Count 147 K/UL (150-450) L Mean Platelet Volume 9.6 FL (6.5-10.1) Neutrophils (%) (Auto) % (45.0-75.0) Lymphocytes (%) (Auto) % (20.0-45.0) Monocytes (%) (Auto) % (1.0-10.0) Eosinophils (%) (Auto) % (0.0-3.0) Basophils (%) (Auto) % (0.0-2.0) Differential Total Cells Counted 100 Neutrophils % (Manual) 44 % (45-75) L Lymphocytes % (Manual) 38 % (20-45) Monocytes % (Manual) 18 % (1-10) H Eosinophils % (Manual) 0 % (0-3) Basophils % (Manual) 0 % (0-2) Band Neutrophils 0 % (0-8) Platelet Estimate Decreased L Platelet Morphology Normal Anisocytosis 1+ Sodium Level 141 MMOL/L (136-145) Potassium Level 3.6 MMOL/L (3.5-5.1) Chloride Level 107 MMOL/L (98-107) Carbon Dioxide Level 27 MMOL/L (21-32) Anion Gap 7 mmol/L (5-15) Blood Urea Nitrogen 22 mg/dL (7-18) H Creatinine 1.5 MG/DL (0.55-1.30) H Estimat Glomerular Filtration Rate 56.4 mL/min (>60) Glucose Level 71 MG/DL (74-106) L Calcium Level 7.9 MG/DL (8.5-10.1) L Current Medications Medications (Trade) Dose Ordered Sig/Jennifer Route PRN Reason Start Time Stop Time Status Last Admin Dose Admin Acetaminophen (Tylenol) 650 mg Q4H PRN ORAL Mild Pain (Pain Scale 1-3) 02/12/20 07:15 03/13/20 07:14 Acetaminophen (Tylenol) 650 mg Q4H PRN ORAL Temp >100.5 02/12/20 07:15 03/13/20 07:14 Acetaminophen/ Hydrocodone Bitart (Raysal 5/325) 2 tab Q6H PRN ORAL Severe Pain (Pain Scale 7-10) 02/12/20 07:15 02/19/20 07:14 02/15/20 12:08 Acetaminophen/ Hydrocodone Bitart (Raysal 7.5/325) 1 tab Q4H PRN ORAL Moderate Pain (Pain Scale 4-6) 02/12/20 07:15 02/19/20 07:14 Amlodipine Besylate (Norvasc) 10 mg DAILY ORAL 02/11/20 09:00 03/12/20 08:59 02/15/20 09:26 Aspirin (ASA) 81 mg BID ORAL 02/12/20 18:00 03/28/20 17:59 02/15/20 09:27 Bisacodyl (Dulcolax) 10 mg Q12H PRN RECTAL Constipation 02/12/20 07:15 05/12/20 07:14 Clonidine HCl (Catapres Tab) 0.1 mg BID ORAL 02/10/20 18:00 05/10/20 17:59 02/14/20 18:16 Dextrose (Dextrose 50%) 25 ml Q30M PRN IV Hypoglycemia 02/10/20 16:30 05/10/20 16:29 Dextrose (Dextrose 50%) 25 ml Q30M PRN IV Hypoglycemia 02/11/20 20:00 05/11/20 19:59 Dextrose (Dextrose 50%) 50 ml Q30M PRN IV Hypoglycemia 02/10/20 16:30 05/10/20 16:29 Dextrose (Dextrose 50%) 50 ml Q30M PRN IV Hypoglycemia 02/11/20 20:00 05/11/20 19:59 Docusate Sodium (Colace) 100 mg THREE TIMES A DAY ORAL 02/12/20 18:00 03/13/20 17:59 02/15/20 12:07 Ferrous Sulfate (Feosol) 325 mg THREE TIMES A DAY ORAL 02/12/20 18:00 05/12/20 17:59 02/15/20 12:07 Heparin Sodium (Porcine) (Heparin 5000 units/ml) 5,000 units EVERY 12 HOURS SUBQ 02/14/20 09:00 03/27/20 08:59 02/14/20 20:42 Hydromorphone HCl (Dilaudid) 1 mg Q4H PRN SUBQ Mild Pain (Pain Scale 1-3) 02/12/20 07:15 02/19/20 07:14 02/12/20 14:47 Insulin Aspart (NovoLOG) BEFORE MEALS AND HS SUBQ 02/10/20 21:00 05/10/20 20:59 02/15/20 12:21 Insulin Aspart (NovoLOG) 4 units NOVOTIAC SUBQ 02/12/20 06:30 05/12/20 06:29 02/15/20 12:22 Insulin Detemir (Levemir) 8 units Q12HR SUBQ 02/15/20 09:00 05/11/20 20:59 02/15/20 09:38 Levetiracetam (Keppra) 500 mg EVERY 12 HOURS ORAL 02/10/20 21:00 03/11/20 20:59 02/15/20 09:26 Lisinopril (PriniviL) 20 mg BID ORAL 02/12/20 09:00 03/13/20 08:59 02/15/20 09:27 Lorazepam (Ativan) 1 mg Q6H PRN ORAL For Anxiety 02/11/20 15:30 02/18/20 15:29 02/15/20 09:26 Magnesium Hydroxide (Mom) 30 ml DAILYPRN PRN ORAL Constipation 02/12/20 07:15 03/13/20 07:14 Morphine Sulfate (Morphine Sulfate) 2 mg Q4H PRN IVP pain level 4-10 02/10/20 15:50 02/17/20 15:49 02/14/20 00:23 Pantoprazole (Protonix) 40 mg BID ORAL 02/12/20 09:00 03/13/20 08:59 02/15/20 09:26 Phenytoin (Dilantin) 300 mg BEDTIME ORAL 02/10/20 21:00 03/11/20 20:59 02/14/20 20:37 Tamsulosin HCl (Flomax) 0.4 mg DAILY ORAL 02/11/20 09:00 03/12/20 08:59 02/15/20 09:27 Trazodone HCl (Desyrel) 50 mg BEDTIME ORAL 02/10/20 21:00 03/11/20 20:59 02/14/20 20:36 Preethi Landrum M.D. Feb 15, 2020 16:33
--- NOTE | 2020-02-15 16:33 | NUR ---
*-*DISCHARGE PLANNING*-* PATIENT HAS BEEN REFERRED BACK TO: [facility] P: [phone] FOR NURSE TO NURSE REPORT ROOM# 130.[facility] TRANSPORT[facility] SET FOR WILL CALL S/W RAIN [id number]
[2020-02-15 17:17] VITALS: BP 155/81
[2020-02-15] MEDS ORDERED: AMLODIPINE BESY10 MG ORAL (18:20)
[2020-02-15] MEDS ORDERED: LEVEMIR FL100 UNIT/1 SUBQ (18:20)
[2020-02-15] MEDS ORDERED: KEPPRA500 M4 ORAL (18:20)
[2020-02-15] MEDS ORDERED: FLOMAX0.4 MG ORAL (18:21)
[2020-02-15] MEDS ORDERED: CLONIDINE0.1 MG GT (18:21)
[2020-02-15] MEDS ORDERED: PROTONIX40 MG ORAL (18:22)
[2020-02-15] MEDS ORDERED: LISINOPRIL20 MG ORAL (18:22)
[2020-02-15] MEDS ORDERED: FERROUS SULFAT325 MG ORAL (18:23)
[2020-02-15] MEDS ORDERED: COLACE100 MG ORAL (18:23)
[2020-02-15] MEDS ORDERED: ASPIRIN81 M3 PO (18:23)
[2020-02-15] MEDS ORDERED: NOVOLOG100 UNITS1 (18:24)
[2020-02-15] MEDS ORDERED: NOVOLOG100 UNITS1 SUBQ (18:24)
[2020-02-15] MEDS ORDERED: NORCO 7.5-3251 EACH ORAL (18:25)
[2020-02-15] MEDS ORDERED: NORCO 10-325 T1 EACH ORAL (18:25)
[2020-02-15] MEDS ORDERED: ATIVAN1 MG ORAL (18:26)
[2020-02-15] MEDS ORDERED: ACETAMINOPHEN325 M1 ORAL (18:27)
[2020-02-15] MEDS ORDERED: MILK OF MA400 MG/51 ORAL (18:30)
[2020-02-15] MEDS ORDERED: TRAZODONE HCL50 MG ORAL (18:30)
[2020-02-15] MEDS ORDERED: DILANTIN100 MG ORAL (18:31)
--- NOTE | 2020-02-15 18:33 | NUR ---
NURSE NOTES: NO REPLY FROM DR KRAFT. RN LEFT MESSAGE FOR DR DIAMOND, IF PT CAN BE DISCHARGED WITHOUT CARDIAC CLEARANCE.
--- NOTE | 2020-02-15 18:57 | NUR ---
NURSE NOTES: NO REPLY FROM DR DIAMOND. RN LEFT THIRD MESSAGE FOR DR VERDE.
--- NOTE | 2020-02-15 19:31 | NUR ---
HAND-OFF: Report given to Anibal AVILA RN.
--- NOTE | 2020-02-15 19:31 | NUR ---
NURSE NOTES: ENDORSED DISCHARGE TO Anibal AVILA RN
--- NOTE | 2020-02-15 20:15 | Progress Note ---
DATE: 02/15/2020 SUBJECTIVE: This is a 69-year-old male patient. He has left hip fracture. He has got altered mental status, confusion, decline in cognition below his baseline. That is why, his attending has requested daily psychiatric consultation at this time. MENTAL STATUS EXAMINATION: This is a 69-year-old male. Appearance is disheveled. Attitude, irritable and agitated. Affect, guarded and restricted. Intellect poor. Mood, depressed and anxious. Motor activity, psychomotor agitation. Insight and judgment is poor DIAGNOSIS: Major depressive disorder, mild, recurrent with psychotic features. PLAN: Treat this patient with medication regimen consisting of trazodone at a dose of 50 mg p.o. at bedtime, Ativan 1 mg every 6 hours p.r.n. anxiety and agitation, and 20 minutes of reality-based supportive psychotherapy provided. 20 minutes of cognitive behavioral therapy will help him identify his automatic negative thoughts, help him convert his negative thoughts to more positive thoughts to reduce depression, anxiety, mood lability. Chart reviewed. Discussed with staff. Seen and assessed at the bedside. Ariela Venegas M.D. DR: GUILLERMO JOB#: [id number] CC:
[2020-02-15] MEDS: TraZODone 50mg tab ORAL SCH (21:53)
[2020-02-15] MEDS: Phenytoin 100mg cap ORAL SCH (21:54)
--- NOTE | 2020-02-15 22:45 | NUR ---
NURSE NOTES: Charge nurse Tasia got an order from Dr. Estrada that patient can be discharge tonight. No additional orders for med. Called Belinda to inform her father's discharge. Report given to Tavo of [facility] and accepted the patient. Spoke to [facility] ETA is 10:30PM. Packet printed. Belongings checked and given to patient and transporter including cigarette, hat block bench hand and pair of shoes. Discharged patient and picked up by [facility] to be transported to [facility].
--- NOTE | 2020-02-16 08:49 | Discharge Summary ---
Discharge Summary Discharge Summary _ DATE OF ADMISSION: 02/10/2020 DATE OF DISCHARGE: 02/15/2020 DISCHARGED BY: Dr. Bronson REASON FOR ADMISSION: 69 years old male, resident of halfway facility, with past medical history of COPD, hypertension, psychiatric problem, dementia, seizure disorder, was sent for evaluation due to left hip pain. Patient apparently was walking, slipped and fell on his left hip. He complained of left hip pain, 10 out of 10, worse with movement. He denied any other injury. No head or neck pain. No loss of consciousness, no blackouts. Upon evaluation vital signs were stable. Laboratory work-up revealed no leukocytosis, stable hemoglobin, hematocrit and platelet count. Stable electrolytes. BUN 15, creatinine 1.3. Glucose 195. CT scan of the pelvis revealed nondisplaced fracture through the trochanteric area of the left hip. Degenerative changes bilateral hips noted as well. Patient received analgesic and admitted for further management to medical surgical floor . CONSULTANTS: crab butcher Dr. Estrada orthopedic surgeon Dr. Ford ID specialist Dr. Landrum fusing line inspector Dr. Rueda psychiatrist Dr. Venegas [facility] COURSE: Patient admitted to medical surgical floor. Orthopedic surgeon consulted. Patient required left hip open reduction internal fixation with gamma nail. Cardiology clearance was obtained. Patient declined echocardiogram. Patient denied any chest pain or shortness of breath. No paroxysmal nocturnal dyspnea. EKG revealed sinus rhythm with nonspecific T wave changes. Troponin negative. Since patient declined testing , crab butcher was not able to fully assess his risks. Per crab butcher, the proposed surgery was not considered to be a high risk and should be tolerated as patient had no significant heart problem per report. Patient was tested for COVID-19 prior to surgery by rapid gene assay on 02/10 which was negative . Patient subsequently undergone 02/11 open reduction internal fixation with a gamma nail Postoperative recovery was uneventful. Pain management was addressed. Patient was working with a physical therapist. Fall precaution maintained. Postoperative hip precaution maintain Incentive spirometry encouraged while in the bed. DVT prophylaxis provided. Bowel regimen instituted. Communications Maintainer seen patient for diabetes. Patient noted to have hyperglycemia. Hemoglobin A1c 11.3. Anti-glycemic regimen was optimized as per fusing line inspector. Blood sugar was managed with long-acting insulin, short acting insulin pre-meal , and sliding scale of insulin was used as needed. Hypoglycemia protocol was in order. Diabetic diet provided. Diabetic teaching enforced. Patient was encouraged compliance with diet and medication upon discharge. Patient also noted to have leukocytosis for 2 days after surgery, which resolved. No fevers. Per ID specialist leukocytosis was most likely postoperative. No evidence of infection was noted. Urinalysis was unremarkable. Patient was kept off antibiotic. Leukocytosis resolved as mentioned above. SNF medication continued. Blood pressure was managed with current medication regimen and remained stable. DVT prophylaxis provided. Seizure precaution maintained. Dilantin and Keppra continued. Psychiatrist seen and evaluated patient. Psychiatric medication regimen optimized. Cognitive behavioral therapy and reality based supportive psychotherapy provided. Patient clinically stabilized and was ready for transfer back to halfway facility for continuation of care FINAL DIAGNOSES: Left hip intertrochanteric fracture, nondisplaced due to mechanical fall Status post left hip open reduction internal fixation with gamma knife Diabetes mellitus [id number] with hyperglycemia COPD Hypertension Seizure disorder Major depressive disorder, mild, recurrent with psychotic features DISCHARGE MEDICATIONS: See Medication Reconciliation list. DISCHARGE INSTRUCTIONS: Patient was discharged to the halfway facility. Follow up with medical doctor at the facility. 69 years old male I have been assigned to dictate discharge summary for this account. I was not involved in the patient's management. Adriana Schilling NP Feb 16, 2020 08:49
--- NOTE | 2020-02-16 16:21 | NUR ---
*-* INSURANCE *-* DISCHARGE SUMMARY HAS BEEN FAXED: [facility] F: [phone]
== END 2020-02-15 22:45 | DRG 308 ==
LOC: EDBD 09:18 → EDUNIT# 09:18 → EMR 09:40 → 4E 11:08 → EDBEDREQ 11:32 → 4E 02-11 03:46
PROC: 0QS704Z Reposition Left Upper Femur with Internal Fixation Device, Open Approach (ICD-10-PCS; principal; 2020-02-12 07:00)
DX: S72.145A Nondisplaced intertrochanteric fracture of left femur, initial encounter for closed fracture (principal); I10 Essential (primary) hypertension; J44.9 Chronic obstructive pulmonary disease, unspecified; E11.65 Type 2 diabetes mellitus with hyperglycemia; W01.0XXA Fall on same level from slipping, tripping and stumbling without subsequent striking against object, initial encounter; Y92.129 Unspecified place in nursing home as the place of occurrence of the external cause; G40.909 Epilepsy, unspecified, not intractable, without status epilepticus; Z88.6 Allergy status to analgesic agent; Z88.0 Allergy status to penicillin; F03.90 Unspecified dementia, unspecified severity, without behavioral disturbance, psychotic disturbance, mood disturbance, and anxiety; F33.0 Major depressive disorder, recurrent, mild; F20.9 Schizophrenia, unspecified; K85.90 Acute pancreatitis without necrosis or infection, unspecified
CPT/HCPCS: 36415; 72170; 72192; 76000; 80048; 80053; 81003; 82962; 83036; 85007; 85025; 85610; 85730; 87081; 93005; 94003; 94150; 96374; 97803; 99285; J1815; J2795; S0077; S5561

== ENCOUNTER 2020-04-03 17:49 | Inpatient (IN) | payer MEDICARE, OTHER ==
[~2020-04-03] VITALS: Ht 172.7 cm; Wt 80.8 kg
[~2020-04-03 17:49] MED LIST changes: +ASPIRIN81 M3 PO; +ATIVAN1 MG ORAL; +CATAPRES0.1 MG ORAL; +CLONIDINE0.1 MG GT; +COLACE100 MG ORAL; +FERROUS SULFAT325 MG ORAL; +LANTUS SOL100 UNIT/1 SUBQ; +LEVEMIR FL100 UNIT/1 SUBQ; +LISINOPRIL20 MG ORAL; +MILK OF MA400 MG/51 ORAL; +NORCO 10-325 T1 EACH ORAL; +NORCO 7.5-3251 EACH ORAL; +NOVOLOG100 UNITS1; +NOVOLOG100 UNITS1 SUBQ; +PROTONIX40 MG ORAL
--- NOTE | 2020-04-03 17:51 | NUR ---
ED Nurse Note: Patient CHARLES RA 59 c/o right sided abdominal pain, 06/11. Patient states pain is chronic. Denies n/v/d. No s/s of acute distress. Addendum: 04/03/20 at 1811 by [facility] ED Nurse Note: Per patient, pain is currently 3/10, pain is 10/10 at worst, intermittenly when trying to situp in bed.
[2020-04-03] MEDS ORDERED: METFORMIN HCL500 M1 ORAL (17:55)
[2020-04-03] MEDS ORDERED: GLYBURIDE1.25 MG PO (17:55)
[2020-04-03] MEDS ORDERED: PHENYTOIN50 MG BC (17:55)
[2020-04-03 18:07] VITALS: BP 142/70
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
--- NOTE | 2020-04-03 18:41 | Diagnostic Imaging Report ---
EXAM: XR Abdomen, 2 Views CLINICAL HISTORY: ABD PAIN TECHNIQUE: Frontal view of the abdomen/pelvis with upright view of the abdomen. COMPARISON: Radiographs dated 11/08/2019 FINDINGS: Lower thorax: Stable elevation of the right hemidiaphragm. Intraperitoneal space: No free air. Gastrointestinal tract: Unremarkable. No dilation. Bones/joints: Interval placement of left femoral intramedullary magalys with femoral head neck traversing screw. Degenerative changes of the visualized spine. Soft tissues: Stable-appearing innumerable metallic radiopaque densities overlying the abdomen. IMPRESSION: 1. Nonobstructive bowel gas pattern. 2. Interval surgical changes of the left femur. 3. Additional chronic findings as above.
--- NOTE | 2020-04-03 18:44 | NUR ---
ED Nurse Note: 22 g IV started in right hand. blood collected and sent to lab along with urine.
[2020-04-03 18:59] LABS: BASOPHILS % (AUTO) 2.8 % (0.0-2.0); EOSINOPHILS % (AUTO) 0.3 % (0.0-3.0); HEMATOCRIT 39.9 % (42.0-52.0); HEMOGLOBIN 12.8 G/DL (14.2-18.0); LYMPHOCYTES % (AUTO) 35.4 % (20.0-45.0); MEAN CORPUSCULAR VOLUME 88 FL (80-99); MONOCYTES % (AUTO) 14.2 % (1.0-10.0); NEUTROPHILS % (AUTO) 47.3 % (45.0-75.0); PLATELET COUNT 171 K/UL (150-450); RED BLOOD COUNT 4.55 M/UL (4.70-6.10); RED CELL DISTRIBUTION WIDTH 14.3 % (11.6-14.8); WHITE BLOOD COUNT 5.7 K/UL (4.8-10.8)
[2020-04-03 19:04] LABS: APPEARANCE,URINE SLIGHTLY CLOUDY; BILIRUBIN, URINE NEGATIVE (NEGATIVE); COLOR,URINE PALE YELLOW; GLUCOSE, URINE (UA) 1+ (NEGATIVE); KETONES,URINE NEGATIVE (NEGATIVE); LEUKOCYTE ESTERASE ,URINE NEGATIVE (NEGATIVE); NITRITE,URINE NEGATIVE (NEGATIVE); PH,URINE 6 (4.5-8.0); PROTEIN,URINE 4+ (NEGATIVE); UROBILINOGEN,URINE NORMAL MG/DL (0.0-1.0)
--- NOTE | 2020-04-03 19:06 | NUR ---
HAND-OFF: Report given to Vishal DUBON.
[2020-04-03 19:07] VITALS: BP 146/81
--- NOTE | 2020-04-03 19:07 | NUR ---
ED Nurse Note: Received report from Declan DUBON. Pt AAOx3, verbally responsive. Breathing even and unlabored. No SOB, on room air. Safety and comfort provided. Will cont to monitor.
[2020-04-03 19:28] LABS: ANION GAP 5 mmol/L (5-15); BLOOD UREA NITROGEN 14 mg/dL (7-18); CALCIUM 8.6 MG/DL (8.5-10.1); CARBON DIOXIDE 29 MMOL/L (21-32); CHLORIDE 101 MMOL/L (98-107); CREATININE 1.7 MG/DL (0.55-1.30); POTASSIUM 3.8 MMOL/L (3.5-5.1); SODIUM 135 MMOL/L (136-145)
[2020-04-03 19:32] LABS: ALANINE AMINOTRANSFERASE 81 U/L (12-78); ALBUMIN/GLOBULIN RATIO 0.4 (1.0-2.7); ALKALINE PHOSPHATASE 225 U/L (46-116); ASPARTATE AMINO TRANSFERASE 70 U/L (15-37); BILIRUBIN,TOTAL 0.2 MG/DL (0.2-1.0)
[2020-04-03] MEDS ORDERED: CEPHALEXIN500 MG ORAL (19:56)
--- NOTE | 2020-04-03 19:59 | NUR ---
Spoke with Devika at [facility] to advise that patient will be going back-when I asked if she is a nurse to start giving report-Devika got aggressive telling me that I am questioning her. Not very professional. Devika called back wants to speak with ER supervisor central supply, when I told her that I am in charge-she replied that SHE DOES NOT CARE.
[2020-04-03] MEDS ORDERED: cefTRIAXone 1 GM in NS 55 ML IVPB ONE (20:00)
[2020-04-03] MEDS ORDERED: Insulin Human Regular 100units/ml 3ml SUBQ ONE (20:00)
[2020-04-03] MEDS ORDERED: Morphine Sulfate 2mg/ml Inj(IV/IM USE ONLY) IVP PRN (22:00)
[2020-04-03 22:04] VITALS: BP 142/89
--- NOTE | 2020-04-03 22:13 | NUR ---
ED Nurse Note: Pt seen sleeping in bed. Breathing even and unlabored. Safety and comfort provided. Will cont to monitor.
--- NOTE | 2020-04-03 22:39 | NUR ---
ED Nurse Note: Report given to Rambo DUBON.
--- NOTE | 2020-04-03 22:46 | NUR ---
TRANSFER TO FLOOR: Patient transferred to [facility] via gurney accompanied by a rocio. Report given to Rambo DUBON. Pt AAOX3, verbally responsive. No SOB, on room air. IV line on left hand 22g patent and intact. Swabs are sent. Med recon done. All belongings sent with the patient.
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
--- NOTE | 2020-04-04 | NUR ---
NURSE NOTES: Patient in bed, awake, aox4. Refuses to have bed rails padded. noted saying " what do i need this for", educated patient, refuses. Will reassess.
[2020-04-04] MEDS ORDERED: ATIVAN1 MG ORAL (01:32)
[2020-04-04] MEDS ORDERED: HYDRALAZINE HCL25 M1 ORAL (02:13)
[2020-04-04] MEDS ORDERED: LOPERAMIDE2 M1 PO (02:13)
[2020-04-04] MEDS ORDERED: NORCO 7.5-3251 EACH ORAL (02:23)
[2020-04-04] MEDS ORDERED: LEVEMIR FL100 UNIT/1 SUBQ (02:23)
[2020-04-04] MEDS ORDERED: NORCO 10-325 T1 EACH ORAL (02:23)
[2020-04-04] MEDS ORDERED: HYDROcodone/Acetamin 10/325 tab ORAL PRN (02:30)
[2020-04-04] MEDS ORDERED: Milk of Magnesia 30ml Ud ORAL PRN (02:30)
[2020-04-04] MEDS ORDERED: HydrALAZINE 25mg tab ORAL PRN ×3 (02:30→11:00)
[2020-04-04] MEDS ORDERED: HYDROcodone/Acetamin 7.5/325 tab ORAL PRN (02:30)
[2020-04-04 04:00] VITALS: BP 156/73
[2020-04-04] MEDS: NovoLOG Insulin Flexpen SUBQ SCH ×5 (05:48→20:32)
--- NOTE | 2020-04-04 05:51 | NUR ---
NURSE NOTES: Patient refused Blood draw, educated patient regarding the matter, still refuse. Will inform MD.
--- NOTE | 2020-04-04 05:53 | NUR ---
NURSE NOTES: Iv site out, patient refuses reinsertion, educated patient, still refuses. Will inform MD.
--- NOTE | 2020-04-04 07:32 | NUR ---
NURSE NOTES: Patient awake and alert to name,respirations unlabored.Patient sitting up and eating breakfast.Call light within reach.
[2020-04-04 08:16] VITALS: BP 162/93
[2020-04-04] MEDS: Aspirin Baby 81mg ORAL SCH (08:24)
[2020-04-04] MEDS: Docusate 100mg cap ORAL SCH ×3 (08:24→18:56)
[2020-04-04] MEDS: Levemir Flexpen SUBQ SCH ×2 (08:27→20:32)
[2020-04-04] MEDS: Enoxaparin 40mg Inj SUBQ SCH (08:28)
[2020-04-04] MEDS ORDERED: Lisinopril 20mg tab ORAL SCH (09:00)
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
[2020-04-04] MEDS ORDERED: traMADol 50mg tab ORAL PRN (09:45)
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
[2020-04-04 12:09] VITALS: BP 153/105
--- NOTE | 2020-04-04 14:05 | NUR ---
CASE MANAGEMENT:Note Patient met observation status for interqual
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
--- NOTE | 2020-04-04 15:01 | NUR ---
CASE MANAGEMENT:INITIAL REVIEW 69 YR OLD MALE BIBA FROM [facility] CC;ABDOMINAL PAIN SI;UTI. ABDOMINAL PAIN. HEMATURIA. 97.9 110 18 142/70 97% ON RA NA 135 CR 1.7 BG 308 AST 70 A;T 81 ALK PHOS 225 ALB 2.0 UA (+) PROTEIN, GLUCOSE, RBC, AMORPHOUS SEDIMENT, BACTERIA ABD X-RAY ~ 1. Nonobstructive bowel gas pattern. 2. Interval surgical changes of the left femur. 3. Additional chronic findings as above. IS;ROCEPHIN IV INSULIN HUMAN SUBQ ADMITTED TO MED SURG FOR OBSERVATION 04/03/20 @ 2238 OBSERVATION STATUS:MED SURG 4E DCP;FROM [facility]
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
[2020-04-04 16:48] VITALS: BP 137/73
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
[2020-04-04] MEDS: Lisinopril 20mg tab ORAL SCH (18:58)
[2020-04-04] MEDS: Tamsulosin 0.4mg cap ORAL SCH (18:59)
--- NOTE | 2020-04-04 19:04 | NUR ---
NURSE NOTES: Patient aware that we need a urine sample today.Patient resting.Call light within reach,bed alarm is on.
--- NOTE | 2020-04-04 19:43 | NUR ---
HAND-OFF: Report given to Levy DUBON,aware of fall risk..
[2020-04-04 20:00] VITALS: BP 145/88
--- NOTE | 2020-04-04 20:00 | NUR ---
NURSE NOTES: Patient provided ordered urine, sent to lab. Patient AOx3, forgetful. Bed low and locked, patient still refusing IV access.
[2020-04-04] MEDS: TraZODone 50mg tab ORAL SCH (20:23)
[2020-04-04] MEDS: Phenytoin 100mg cap ORAL SCH (20:24)
[2020-04-04] MEDS ORDERED: Tamsulosin 0.4mg cap ORAL SCH (21:00)
[2020-04-05] VITALS: BP 142/90
[2020-04-05] MEDS: LORazepam 1mg tab ORAL PRN (02:25)
[2020-04-05 04:00] VITALS: BP 137/84
[2020-04-05] MEDS: NovoLOG Insulin Flexpen SUBQ SCH ×4 (05:52→20:26)
--- NOTE | 2020-04-05 07:29 | NUR ---
HAND-OFF: Report given to Ayanna Hoover.
[2020-04-05 08:00] VITALS: BP 147/93
--- NOTE | 2020-04-05 08:00 | NUR ---
NURSE NOTES: Patient resting awake when name called,respirations unlabored.patient ate breakfast,will will be NPO due to Abdominal Ultrasound order.Bed alarm on,call light within reach.
[2020-04-05 08:34] LABS: BASOPHILS % (AUTO) 1.6 % (0.0-2.0); EOSINOPHILS % (AUTO) 0.6 % (0.0-3.0); HEMATOCRIT 39.2 % (42.0-52.0); HEMOGLOBIN 12.7 G/DL (14.2-18.0); LYMPHOCYTES % (AUTO) 53.5 % (20.0-45.0); MEAN CORPUSCULAR VOLUME 88 FL (80-99); MONOCYTES % (AUTO) 16.4 % (1.0-10.0); NEUTROPHILS % (AUTO) 27.9 % (45.0-75.0); PLATELET COUNT 183 K/UL (150-450); RED BLOOD COUNT 4.44 M/UL (4.70-6.10); RED CELL DISTRIBUTION WIDTH 14.2 % (11.6-14.8); WHITE BLOOD COUNT 6.1 K/UL (4.8-10.8)
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
[2020-04-05 08:50] LABS: AMYLASE 227 U/L (25-115)
[2020-04-05] MEDS: Enoxaparin 40mg Inj SUBQ SCH (09:00)
[2020-04-05 09:09] LABS: ALANINE AMINOTRANSFERASE 87 U/L (12-78); ALBUMIN 1.8 G/DL (3.4-5.0); ALBUMIN/GLOBULIN RATIO 0.4 (1.0-2.7); ALKALINE PHOSPHATASE 193 U/L (46-116); ANION GAP 4 mmol/L (5-15); ASPARTATE AMINO TRANSFERASE 92 U/L (15-37); BILIRUBIN,TOTAL 0.3 MG/DL (0.2-1.0); BLOOD UREA NITROGEN 14 mg/dL (7-18); CALCIUM 8.2 MG/DL (8.5-10.1); CARBON DIOXIDE 30 MMOL/L (21-32); CHLORIDE 104 MMOL/L (98-107); CHOLESTEROL 170 MG/DL (< 200); CREATININE 1.3 MG/DL (0.55-1.30); FERRITIN 110 NG/ML (8-388); GAMMA GLUTAMYL TRANSPEPTIDASE 309 U/L (5-85); HDL CHOLESTEROL 63 MG/DL (40-60); PHOSPHORUS 3.6 MG/DL (2.5-4.9); POTASSIUM 3.9 MMOL/L (3.5-5.1); SODIUM 138 MMOL/L (136-145); TRIGLYCERIDES 79 MG/DL (30-150)
[2020-04-05] MEDS: Docusate 100mg cap ORAL SCH ×3 (09:22→18:17)
[2020-04-05] MEDS: Tamsulosin 0.4mg cap ORAL SCH ×2 (09:22→18:17)
[2020-04-05] MEDS: Aspirin Baby 81mg ORAL SCH (09:22)
[2020-04-05 09:27] LABS: % IRON SATURATION 76 % (15-50); IRON 129 ug/dL (50-175); TOTAL IRON BINDING CAPACITY 170 ug/dL (250-450)
[2020-04-05] MEDS: Lisinopril 20mg tab ORAL SCH ×2 (09:28→18:17)
--- NOTE | 2020-04-05 09:28 | Nephrology Progress Note ---
Assessment/Plan Problem List: (1) ALYCIA (acute kidney injury) (2) HTN (hypertension) (3) Diabetes mellitus out of control (4) UTI (urinary tract infection) (5) Seizure disorder (6) Anemia Assessment ALYCIA UTI, hematuria Hyperglycemia, diabetes mellitus Abdominal pain History of hypertension History of seizure disorder History of schizophrenia History of pancreatitis Status post ORIF left hip Anemia Hepatitis B surface antigen positive, chronic in nature Plan Serum creatinine now lowered Magnesium sulfate IV given Adjust blood pressure medication with parameters Blood sugar control Avoid nephrotoxic's Urine studies Anemia work-up pending Psychiatric med adjustments per psychiatrist Subjective ROS Limited/Unobtainable: No Constitutional: Reports: malaise Objective Objective Last 24 Hour Vital Signs Date Time Temp Pulse Resp B/P (MAP) Pulse Ox O2 Delivery O2 Flow Rate FiO2 04/05/20 05:23 137/84 04/05/20 04:00 98.2 68 20 137/84 (101) 96 04/05/20 00:00 98.1 80 20 142/90 (107) 96 04/04/20 21:53 Room Air 04/04/20 20:23 163/100 04/04/20 20:00 98.2 76 20 145/88 (107) 99 04/04/20 18:58 163/100 04/04/20 16:48 98.2 70 20 137/73 (94) 99 04/04/20 14:00 121/82 04/04/20 12:09 97.3 82 20 153/105 (121) 99 04/04/20 09:28 Room Air Intake and Output 04/04/20 04/05/20 19:00 07:00 Intake Total 720 ml 480 ml Balance 720 ml 480 ml Intake Oral 720 ml 480 ml # Voids 2 Laboratory Tests 04/04/20 11:40: POC Whole Blood Glucose 280H 04/04/20 19:30: Urine Random Sodium < 20L 04/05/20 07:50: White Blood Count 6.1, Red Blood Count 4.44L, Hemoglobin 12.7L, Hematocrit 39.2L , Mean Corpuscular Volume 88, Mean Corpuscular Hemoglobin 28.6, Mean Corpuscular Hemoglobin Concent 32.4, Red Cell Distribution Width 14.2, Platelet Count 183, Mean Platelet Volume 8.7, Neutrophils (%) (Auto) 27.9L, Lymphocytes ( %) (Auto) 53.5H, Monocytes (%) (Auto) 16.4H, Eosinophils (%) (Auto) 0.6, Basophils (%) (Auto) 1.6, Sodium Level 138, Potassium Level 3.9, Chloride Level 104, Carbon Dioxide Level 30, Anion Gap 4L, Blood Urea Nitrogen 14, Creatinine 1.3, Estimat Glomerular Filtration Rate > 60, Glucose Level 98, Hemoglobin A1c 10.2H, Uric Acid 4.5, Calcium Level 8.2L, Phosphorus Level 3.6, Magnesium Level 1.7L, Iron Level [Pending], Unsaturated Iron Binding [Pending], Ferritin 110, Total Bilirubin 0.3, Gamma Glutamyl Transpeptidase 309H, Aspartate Amino Transf (AST/SGOT) 92H, Alanine Aminotransferase (ALT/SGPT) 87H, Alkaline Phosphatase 193H, C-Reactive Protein, Quantitative < 0.4, Pro-B-Type Natriuretic Peptide 5038H, Total Protein 6.5, Albumin 1.8L, Globulin 4.7, Albumin/Globulin Ratio 0.4L, Triglycerides Level 79, Cholesterol Level 170, LDL Cholesterol 90, HDL Cholesterol 63H, Cholesterol/HDL Ratio 2.7L, Amylase Level 227H, Lipase 124, Alpha Fetoprotein [Pending], Vitamin B12 Level [Pending], Folate [Pending], Thyroid Stimulating Hormone (TSH) 0.587, Hepatitis B DNA (IU/mL) [Pending], Hepatitis Be Antibody [Pending], Hepatitis Be Antigen [Pending], Hepatitis C Antibody [Pending], HIV (1&2) Antibody Rapid [Pending] Height (Feet): 5 Height (Inches): 8.00 Weight (Pounds): 180 General Appearance: no apparent distress Cardiovascular: normal rate Respiratory/Chest: decreased breath sounds Abdomen: soft Joo Contreras MD Apr 05, 2020 09:28
[2020-04-05] MEDS: Levemir Flexpen SUBQ SCH ×2 (09:34→20:27)
--- NOTE | 2020-04-05 09:54 | General Progress Note ---
Assessment/Plan Assessment/Plan: 1. History of renal insufficiency. 2. Hepatitis C with abnormal liver function tests. 3. Hypertension. 4. Diabetes. 5. COPD. 6. Schizophrenia. 7. Seizure disorder. 8. Pancreatitis. 9. Depression. 10. hep B fu abd us fu AFP fu hep serology needs out patient fu Subjective ROS Limited/Unobtainable: Yes Allergies: Coded Allergies: IBUPROFEN (Verified Allergy, Unknown, 10/22/19) PENICILLINS (Unverified Allergy, Unknown, 04/04/20) tolerated ceftriaxone Uncoded Allergies: PCN (Allergy, Unknown, 11/07/19) Objective Last 24 Hour Vital Signs Date Time Temp Pulse Resp B/P (MAP) Pulse Ox O2 Delivery O2 Flow Rate FiO2 04/05/20 09:28 157/83 04/05/20 09:28 79 157/83 04/05/20 05:23 137/84 04/05/20 04:00 98.2 68 20 137/84 (101) 96 04/05/20 00:00 98.1 80 20 142/90 (107) 96 04/04/20 21:53 Room Air 04/04/20 20:23 163/100 04/04/20 20:00 98.2 76 20 145/88 (107) 99 04/04/20 18:58 163/100 04/04/20 16:48 98.2 70 20 137/73 (94) 99 04/04/20 14:00 121/82 04/04/20 12:09 97.3 82 20 153/105 (121) 99 Intake and Output 04/04/20 04/05/20 19:00 07:00 Intake Total 720 ml 480 ml Balance 720 ml 480 ml Intake Oral 720 ml 480 ml # Voids 2 Laboratory Tests 04/04/20 11:40: POC Whole Blood Glucose 280H 04/04/20 19:30: Urine Random Sodium < 20L 04/05/20 07:50: White Blood Count 6.1, Red Blood Count 4.44L, Hemoglobin 12.7L, Hematocrit 39.2L , Mean Corpuscular Volume 88, Mean Corpuscular Hemoglobin 28.6, Mean Corpuscular Hemoglobin Concent 32.4, Red Cell Distribution Width 14.2, Platelet Count 183, Mean Platelet Volume 8.7, Neutrophils (%) (Auto) 27.9L, Lymphocytes ( %) (Auto) 53.5H, Monocytes (%) (Auto) 16.4H, Eosinophils (%) (Auto) 0.6, Basophils (%) (Auto) 1.6, Sodium Level 138, Potassium Level 3.9, Chloride Level 104, Carbon Dioxide Level 30, Anion Gap 4L, Blood Urea Nitrogen 14, Creatinine 1.3, Estimat Glomerular Filtration Rate > 60, Glucose Level 98, Hemoglobin A1c 10.2H, Uric Acid 4.5, Calcium Level 8.2L, Phosphorus Level 3.6, Magnesium Level 1.7L, Iron Level 129, Total Iron Binding Capacity 170L, Percent Iron Saturation 76H, Unsaturated Iron Binding 41L, Ferritin 110, Total Bilirubin 0.3, Gamma Glutamyl Transpeptidase 309H, Aspartate Amino Transf (AST/SGOT) 92H, Alanine Aminotransferase (ALT/SGPT) 87H, Alkaline Phosphatase 193H, C-Reactive Protein, Quantitative < 0.4, Pro-B-Type Natriuretic Peptide 5038H, Total Protein 6.5, Albumin 1.8L, Globulin 4.7, Albumin/Globulin Ratio 0.4L, Triglycerides Level 79 , Cholesterol Level 170, LDL Cholesterol 90, HDL Cholesterol 63H, Cholesterol/ HDL Ratio 2.7L, Amylase Level 227H, Lipase 124, Alpha Fetoprotein [Pending], Vitamin B12 Level 1896H, Folate 13.9, Thyroid Stimulating Hormone (TSH) 0.587, Hepatitis B DNA (IU/mL) [Pending], Hepatitis Be Antibody [Pending], Hepatitis Be Antigen [Pending], Hepatitis C Antibody [Pending], HIV (1&2) Antibody Rapid Negative Height (Feet): 5 Height (Inches): 8.00 Weight (Pounds): 180 General Appearance: alert EENT: normal ENT inspection Neck: normal alignment Cardiovascular: normal rate Respiratory/Chest: lungs clear Abdomen: normal bowel sounds, non tender, soft Extremities: non-tender Chris Washington MD Apr 05, 2020 09:54
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
[2020-04-05 12:00] VITALS: BP 134/80
--- NOTE | 2020-04-05 12:22 | NUR ---
CASE MANAGEMENT:REVIEW SI;ALYCIA. UTI W/HEMATURIA. ABNORMAL LFT. HEP C. HEP B. HYPERGLYCEMIA. 98.4 81 20 157/83 96% ON RA MAG 1.7 TIBC 170 GGT 309 AST 92 ALT 87 ALK PHOS 193 BNP 5038 ALB 1.8 AMYLASE 227 IS;IV MAG SULFATE NORVASC PO LISINOPRIL PO FLOMAX PO LOVENOX SUBQ QD ASA PO KEPPRA PO Q12 PROTONIX PO BID INSULIN NOVOLOG SUBQ INSULIN LEVEMIR SUBQ ATIVAN PO OBSERVATION STATUS ON MED SURG DCP;FROM [facility]
--- NOTE | 2020-04-05 12:38 | NUR ---
INSURANCE ALL AVAILABLE CLINICALS HAVE BEEN FAXED TO [facility] P: [phone] F: [phone] REF# [id number]
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
--- NOTE | 2020-04-05 14:22 | Diagnostic Imaging Report ---
EXAM: ULTRASOUND US ABD Complete CLINICAL HISTORY: Reason For Exam: ABD PAIN. COMPARISON: None TECHNIQUE: Ultrasound examination of the abdomen includes grayscale images, and color and spectral doppler analysis. FINDINGS: The liver and spleen are homogeneous. The gallbladder is without sludge or stone. Common bile duct measures 6 mm. Pancreas is poorly visualized. Both kidneys are slightly echogenic likely reflecting medical renal disease. There are small cysts but no obstructive uropathy. Aorta and cava are within normal limits. IMPRESSION: ECHOGENIC KIDNEYS WITH SMALL CYSTS. NO OBSTRUCTIVE UROPATHY. PANCREAS POORLY VISUALIZED.
[2020-04-05 16:00] VITALS: BP 147/73
--- NOTE | 2020-04-05 18:30 | NUR ---
NURSE NOTES: Patient tolerating diet, no complaints at this time,bed alarm on,call light within reach.
--- NOTE | 2020-04-05 19:25 | NUR ---
HAND-OFF: Report given to jacy DUBON,aware of fall risk.
[2020-04-05 20:00] VITALS: BP 140/78
--- NOTE | 2020-04-05 20:00 | NUR ---
NURSE NOTES: Received patient awake in bed, able to verbalize needs, no s/s of acute distress. Patient refusing to change into hospital gown at this time. Bed low and locked. Urinal emptied.
[2020-04-05] MEDS: TraZODone 50mg tab ORAL SCH (20:24)
[2020-04-05] MEDS: Phenytoin 100mg cap ORAL SCH (20:26)
[2020-04-06] VITALS: BP 144/80
[2020-04-06] MEDS: LORazepam 1mg tab ORAL PRN (01:27)
[2020-04-06 04:00] VITALS: BP 137/79
[2020-04-06] MEDS: NovoLOG Insulin Flexpen SUBQ SCH ×4 (05:55→20:21)
--- NOTE | 2020-04-06 07:09 | NUR ---
HAND-OFF: Report given to JAGDISH Duran. Patient awake in bed.
--- NOTE | 2020-04-06 07:18 | NUR ---
NURSE NOTES: Report received from JAGDISH Black. Patient received awake in bed, alert and oriented x 2-3, no SOB, bed in lowest position with breaks engaged and alarm on, denies any pain or discomfort at this time, will continue to monitor and proceed with plan of care. Call light within reach. Addendum: 04/06/20 at 1056 by Renee Herrera RN Per NOC shift endorsement, patient had $21 inside his socks, pt refused for socks to be checked earlier, per PT Marquise, pt is looking for his money, RN went to check belongings but money was not found.
[2020-04-06 07:35] LABS: BASOPHILS % (AUTO) 2.3 % (0.0-2.0); EOSINOPHILS % (AUTO) 0.9 % (0.0-3.0); HEMATOCRIT 38.9 % (42.0-52.0); HEMOGLOBIN 12.6 G/DL (14.2-18.0); LYMPHOCYTES % (AUTO) 54.3 % (20.0-45.0); MEAN CORPUSCULAR VOLUME 89 FL (80-99); MONOCYTES % (AUTO) 19.5 % (1.0-10.0); PLATELET COUNT 142 K/UL (150-450); RED BLOOD COUNT 4.39 M/UL (4.70-6.10); RED CELL DISTRIBUTION WIDTH 14.6 % (11.6-14.8); WHITE BLOOD COUNT 5.4 K/UL (4.8-10.8)
--- NOTE | 2020-04-06 07:58 | General Progress Note ---
Assessment/Plan Assessment/Plan: 1. History of renal insufficiency. 2. Hepatitis B with abnormal liver function tests. 3. Hypertension. 4. Diabetes. 5. COPD. 6. Schizophrenia. 7. Seizure disorder. 8. Pancreatitis. 9. Depression. fu abd us>>reviewed fu AFP>>pending fu hep serology>> HBeAG positive needs out patient fu for hep B treatment fu hep B DNA Subjective ROS Limited/Unobtainable: Yes Allergies: Coded Allergies: IBUPROFEN (Verified Allergy, Unknown, 10/22/19) PENICILLINS (Unverified Allergy, Unknown, 04/04/20) tolerated ceftriaxone Uncoded Allergies: PCN (Allergy, Unknown, 11/07/19) Objective Last 24 Hour Vital Signs Date Time Temp Pulse Resp B/P (MAP) Pulse Ox O2 Delivery O2 Flow Rate FiO2 04/06/20 05:13 137/79 04/06/20 04:00 98.0 72 19 137/79 (98) 96 04/06/20 00:00 98.1 70 19 144/80 (101) 96 04/05/20 21:42 Room Air 04/05/20 21:28 154/95 04/05/20 20:00 97.8 74 19 140/78 (98) 96 04/05/20 18:17 154/95 04/05/20 16:00 98.2 70 19 147/73 (97) 96 04/05/20 14:18 144/82 04/05/20 12:00 97.7 69 18 134/80 (98) 96 04/05/20 09:28 157/83 04/05/20 09:28 79 157/83 04/05/20 09:00 Room Air 04/05/20 08:00 98.4 81 19 147/93 (111) 96 Intake and Output 04/05/20 04/06/20 19:00 07:00 Intake Total 360 ml Output Total 400 ml Balance -400 ml 360 ml Intake Oral 360 ml Output Urine Total 400 ml # Voids 3 Laboratory Tests 04/06/20 04:53: White Blood Count 5.4, Red Blood Count 4.39L, Hemoglobin 12.6L, Hematocrit 38.9L , Mean Corpuscular Volume 89, Mean Corpuscular Hemoglobin 28.7, Mean Corpuscular Hemoglobin Concent 32.4, Red Cell Distribution Width 14.6, Platelet Count 142L, Mean Platelet Volume 9.4, Neutrophils (%) (Auto) 23.0L, Lymphocytes (%) (Auto) 54.3H, Monocytes (%) (Auto) 19.5H, Eosinophils (%) (Auto) 0.9, Basophils (%) (Auto) 2.3H Height (Feet): 5 Height (Inches): 8.00 Weight (Pounds): 178 General Appearance: alert EENT: normal ENT inspection Neck: normal alignment Cardiovascular: normal rate Respiratory/Chest: decreased breath sounds Abdomen: soft, hypoactive bowel sounds Extremities: non-tender Chris Washington MD Apr 06, 2020 07:58
[2020-04-06 08:00] VITALS: BP 144/87
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
[2020-04-06] MEDS: Lisinopril 20mg tab ORAL SCH ×2 (08:31→17:24)
[2020-04-06] MEDS: Docusate 100mg cap ORAL SCH ×3 (08:31→17:24)
[2020-04-06] MEDS: Tamsulosin 0.4mg cap ORAL SCH ×2 (08:31→17:24)
[2020-04-06] MEDS: Aspirin Baby 81mg ORAL SCH (08:31)
[2020-04-06] MEDS: Levemir Flexpen SUBQ SCH ×2 (08:32→20:22)
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
[2020-04-06] MEDS: Enoxaparin 40mg Inj SUBQ SCH (08:57)
--- NOTE | 2020-04-06 09:06 | General Progress Note ---
Assessment/Plan Problem List: (1) UTI (urinary tract infection) ICD Codes: N39.0 - Urinary tract infection, site not specified SNOMED: 93459352 (2) HTN (hypertension) ICD Codes: I10 - Essential (primary) hypertension SNOMED: 74297398 (3) Seizure disorder ICD Codes: G40.909 - Epilepsy, unspecified, not intractable, without status epilepticus SNOMED: 183453481, 146966865 (4) COPD (chronic obstructive pulmonary disease) ICD Codes: J44.9 - Chronic obstructive pulmonary disease, unspecified SNOMED: 74692602 Status: unchanged Assessment/Plan: pt diet abx gi f/u cbc bmp am Subjective Constitutional: Reports: weakness Allergies: Coded Allergies: IBUPROFEN (Verified Allergy, Unknown, 10/22/19) PENICILLINS (Unverified Allergy, Unknown, 04/04/20) tolerated ceftriaxone Uncoded Allergies: PCN (Allergy, Unknown, 11/07/19) All Systems: reviewed and negative except above Subjective sleepy calm Objective Last 24 Hour Vital Signs Date Time Temp Pulse Resp B/P (MAP) Pulse Ox O2 Delivery O2 Flow Rate FiO2 04/06/20 08:32 78 144/87 04/06/20 08:31 144/87 04/06/20 08:00 97.7 78 19 144/87 (106) 95 04/06/20 05:13 137/79 04/06/20 04:00 98.0 72 19 137/79 (98) 96 04/06/20 00:00 98.1 70 19 144/80 (101) 96 04/05/20 21:42 Room Air 04/05/20 21:28 154/95 04/05/20 20:00 97.8 74 19 140/78 (98) 96 04/05/20 18:17 154/95 04/05/20 16:00 98.2 70 19 147/73 (97) 96 04/05/20 14:18 144/82 04/05/20 12:00 97.7 69 18 134/80 (98) 96 04/05/20 09:28 157/83 04/05/20 09:28 79 157/83 04/05/20 09:00 Room Air Intake and Output 04/05/20 04/06/20 19:00 07:00 Intake Total 360 ml Output Total 400 ml Balance -400 ml 360 ml Intake Oral 360 ml Output Urine Total 400 ml # Voids 3 Laboratory Tests 04/06/20 04:53: White Blood Count 5.4, Red Blood Count 4.39L, Hemoglobin 12.6L, Hematocrit 38.9L , Mean Corpuscular Volume 89, Mean Corpuscular Hemoglobin 28.7, Mean Corpuscular Hemoglobin Concent 32.4, Red Cell Distribution Width 14.6, Platelet Count 142L, Mean Platelet Volume 9.4, Neutrophils (%) (Auto) 23.0L, Lymphocytes (%) (Auto) 54.3H, Monocytes (%) (Auto) 19.5H, Eosinophils (%) (Auto) 0.9, Basophils (%) (Auto) 2.3H Height (Feet): 5 Height (Inches): 8.00 Weight (Pounds): 178 General Appearance: lethargic EENT: normal ENT inspection Neck: normal alignment Cardiovascular: normal peripheral pulses, normal rate, regular rhythm Respiratory/Chest: chest wall non-tender, lungs clear, normal breath sounds Abdomen: normal bowel sounds, non tender, soft Extremities: normal inspection Edema: no edema noted Arm (L), no edema noted Arm (R), no edema noted Leg (L), no edema noted Leg (R), no edema noted Pedal (L), no edema noted Pedal (R), no edema noted Generalized Neurologic: motor weakness Skin: normal pigmentation, warm/dry Keyur Bronson DO Apr 06, 2020 09:06
[2020-04-06 10:11] LABS: ALANINE AMINOTRANSFERASE 89 U/L (12-78); ALBUMIN 1.6 G/DL (3.4-5.0); ALBUMIN/GLOBULIN RATIO 0.3 (1.0-2.7); ALKALINE PHOSPHATASE 185 U/L (46-116); ANION GAP 3 mmol/L (5-15); ASPARTATE AMINO TRANSFERASE 93 U/L (15-37); BILIRUBIN,TOTAL 0.2 MG/DL (0.2-1.0); BLOOD UREA NITROGEN 18 mg/dL (7-18); CALCIUM 7.7 MG/DL (8.5-10.1); CARBON DIOXIDE 29 MMOL/L (21-32); CHLORIDE 104 MMOL/L (98-107); CREATININE 1.5 MG/DL (0.55-1.30); SODIUM 136 MMOL/L (136-145)
--- NOTE | 2020-04-06 10:28 | NUR ---
NURSE NOTES: Per devante Stanford to give morning dose of Lovenox. Related most recent plt count 142.
--- NOTE | 2020-04-06 10:47 | NUR ---
HANDYMAN NOTE FOLLOWED UP WITH MD IN RE TO DC PLAN. PATIENT MET OBSERVATION IN [facility]. AWAITING CALL BACK.
[2020-04-06 12:00] VITALS: BP 143/71
--- NOTE | 2020-04-06 12:37 | Nephrology Progress Note ---
Assessment/Plan Problem List: (1) ALYCIA (acute kidney injury) Assessment: Serum creatinine on admission 1.7 (2) HTN (hypertension) (3) Diabetes mellitus out of control (4) UTI (urinary tract infection) (5) Seizure disorder (6) Anemia Assessment ALYCIA UTI, hematuria Hyperglycemia, diabetes mellitus Abdominal pain History of hypertension History of seizure disorder History of schizophrenia History of pancreatitis Status post ORIF left hip Anemia Hepatitis B surface antigen positive, chronic in nature Plan April 06: Serum creatinine again elo to 1.5. Continue per consultants. Continue to monitor renal parameters. previously: Magnesium sulfate IV given Adjust blood pressure medication with parameters Blood sugar control Avoid nephrotoxic's Urine studies Anemia work-up pending Psychiatric med adjustments per psychiatrist Subjective ROS Limited/Unobtainable: No Constitutional: Reports: malaise, weakness Objective Objective Last 24 Hour Vital Signs Date Time Temp Pulse Resp B/P (MAP) Pulse Ox O2 Delivery O2 Flow Rate FiO2 04/06/20 12:00 97.5 68 20 143/71 (95) 98 04/06/20 09:00 Room Air 04/06/20 08:32 78 144/87 04/06/20 08:31 144/87 04/06/20 08:00 97.7 78 19 144/87 (106) 95 04/06/20 05:13 137/79 04/06/20 04:00 98.0 72 19 137/79 (98) 96 04/06/20 00:00 98.1 70 19 144/80 (101) 96 04/05/20 21:42 Room Air 04/05/20 21:28 154/95 04/05/20 20:00 97.8 74 19 140/78 (98) 96 04/05/20 18:17 154/95 04/05/20 16:00 98.2 70 19 147/73 (97) 96 04/05/20 14:18 144/82 Intake and Output 04/05/20 04/06/20 19:00 07:00 Intake Total 360 ml Output Total 400 ml Balance -400 ml 360 ml Intake Oral 360 ml Output Urine Total 400 ml # Voids 3 Current Medications Medications (Trade) Dose Ordered Sig/Jennifer Route PRN Reason Start Time Stop Time Status Last Admin Dose Admin Acetaminophen (Tylenol) 650 mg Q4H PRN ORAL MILD PAIN 04/04/20 02:30 05/04/20 02:29 Acetaminophen (Tylenol) 650 mg Q4H PRN ORAL Temp >100.5 04/04/20 02:30 05/04/20 02:29 Amlodipine Besylate (Norvasc) 10 mg DAILY ORAL 04/05/20 09:00 05/04/20 08:59 04/06/20 08:32 Aspirin (ASA) 81 mg DAILY ORAL 04/04/20 09:00 05/19/20 08:59 04/06/20 08:31 Clonidine HCl (Catapres Tab) 0.1 mg Q8HR ORAL 04/04/20 14:00 07/03/20 08:59 04/06/20 12:43 Dextrose (Dextrose 50%) 25 ml Q30M PRN IV Hypoglycemia 04/04/20 02:45 07/03/20 02:44 Dextrose (Dextrose 50%) 50 ml Q30M PRN IV Hypoglycemia 04/04/20 02:45 07/03/20 02:44 Docusate Sodium (Colace) 100 mg THREE TIMES A DAY ORAL 04/04/20 09:00 05/04/20 08:59 04/06/20 17:24 Enoxaparin Sodium (Lovenox) 40 mg DAILY SUBQ 04/04/20 09:00 07/03/20 08:59 04/06/20 08:57 Gabapentin (Neurontin) 300 mg THREE TIMES A DAY ORAL 04/04/20 09:45 05/04/20 09:44 04/06/20 12:43 Hydralazine HCl (Apresoline) 25 mg Q4H PRN ORAL For High Blood Pressure 04/04/20 11:00 07/03/20 02:29 Insulin Aspart (NovoLOG) BEFORE MEALS AND HS SUBQ 04/04/20 06:30 07/03/20 06:29 04/05/20 20:26 Insulin Detemir (Levemir) 12 units Q12HR SUBQ 04/04/20 09:00 07/03/20 08:59 04/06/20 08:32 Levetiracetam (Keppra) 500 mg EVERY 12 HOURS ORAL 04/04/20 09:00 05/04/20 08:59 04/06/20 08:31 Lisinopril (PriniviL) 20 mg BID ORAL 04/04/20 18:00 05/04/20 08:59 04/06/20 17:24 Loperamide HCl (Imodium) 2 mg QID PRN ORAL Diarrhea 04/04/20 02:30 05/04/20 02:29 Lorazepam (Ativan) 1 mg Q6H PRN ORAL For Anxiety 04/04/20 02:30 04/11/20 02:29 04/06/20 01:27 Magnesium Hydroxide (Mom) 30 ml DAILY PRN ORAL CONSTIPATION 04/04/20 02:30 05/04/20 02:29 Ondansetron HCl (Zofran) 4 mg Q6H PRN IVP Nausea & Vomiting 04/04/20 02:30 05/04/20 02:29 Pantoprazole (Protonix) 40 mg Q12HR ORAL 04/04/20 09:00 05/04/20 08:59 04/06/20 08:31 Phenytoin (Dilantin) 300 mg BEDTIME ORAL 04/04/20 21:00 05/04/20 20:59 04/05/20 20:26 Tamsulosin HCl (Flomax) 0.4 mg BID ORAL 04/04/20 18:00 05/04/20 20:59 04/06/20 17:24 Tramadol HCl (Ultram) 50 mg Q4H PRN ORAL severe pain 04/04/20 09:45 04/11/20 09:44 Trazodone HCl (Desyrel) 50 mg BEDTIME ORAL 04/04/20 21:00 05/04/20 20:59 04/05/20 20:24 Laboratory Tests 04/06/20 04:53: White Blood Count 5.4, Red Blood Count 4.39L, Hemoglobin 12.6L, Hematocrit 38.9L , Mean Corpuscular Volume 89, Mean Corpuscular Hemoglobin 28.7, Mean Corpuscular Hemoglobin Concent 32.4, Red Cell Distribution Width 14.6, Platelet Count 142L, Mean Platelet Volume 9.4, Neutrophils (%) (Auto) 23.0L, Lymphocytes (%) (Auto) 54.3H, Monocytes (%) (Auto) 19.5H, Eosinophils (%) (Auto) 0.9, Basophils (%) (Auto) 2.3H 04/06/20 09:25: Sodium Level 136, Potassium Level 4.0, Chloride Level 104, Carbon Dioxide Level 29, Anion Gap 3L, Blood Urea Nitrogen 18, Creatinine 1.5H, Estimat Glomerular Filtration Rate 56.4, Glucose Level 198#H, Calcium Level 7.7L, Total Bilirubin 0.2, Aspartate Amino Transf (AST/SGOT) 93H, Alanine Aminotransferase (ALT/SGPT) 89H, Alkaline Phosphatase 185H, Total Protein 6.2L, Albumin 1.6L, Globulin 4.6, Albumin/Globulin Ratio 0.3L Height (Feet): 5 Height (Inches): 8.00 Weight (Pounds): 178 General Appearance: no apparent distress, lethargic Cardiovascular: other - Variable rate Respiratory/Chest: decreased breath sounds Abdomen: distended Joo Contreras MD Apr 06, 2020 12:37
--- NOTE | 2020-04-06 13:06 | NUR ---
CASE MANAGEMENT:REVIEW SI;ACUTE KIDNEY INJURY. UTI. HEMATURIA. 98.1 78 20 144/87 95% ON RA H/H 12.6/38.9 CR 1.5 BG 198 AST 93 AST 89 ALK PHOS 185 ALB 1.6 IS;LOVENOX SUBQ QD ASA PO QD KEPPRA PO Q12 PROTONIX PO Q12 HYDRALAZINE PO FLOMAX PO BID DILANTIN PO NORVASC PO LISINOPRIL PO MED SURG STATUS DCP;FROM [place] PLAN; PT EVALUATION
--- NOTE | 2020-04-06 13:33 | NUR ---
INSURANCE ALL AVAILABLE CLINICALS HAVE BEEN FAXED TO [facility] P: [phone] F: [phone] REF# [id number]
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
--- NOTE | 2020-04-06 14:09 | NUR ---
PJusticeT. Note P.T. evaluation completed and tx initiated. Please refer to P.T evaluation for full report. Addendum: 04/06/20 at 1434 by Renee Herrera RN Correction: Please disregard above notes. Wrong entry by PT.
--- NOTE | 2020-04-06 14:15 | NUR ---
[employer] OPERATIONS SUPERVISOR NOTE PER DR DARA DC WITH HOSPITAL MEDS IF CLEAR BY ID AND GI DR GARCES (GI) CLEARED PATIENT DR BEE (ID) CLEARED PATIENT
--- NOTE | 2020-04-06 14:20 | NUR ---
DISCHARGE PLANNING 3 PATIENT HAS BEEN REFERRED BACK TO [facility] P: [phone] F: [phone]
--- NOTE | 2020-04-06 14:21 | NUR ---
P.T. Note P.T. evaluation completed and tx initiated. Please refer to P.T evaluation for full report.
[2020-04-06] MEDS ORDERED: CATAPRES0.1 MG ORAL (14:41)
[2020-04-06] MEDS ORDERED: LOVENOX10 M4 SUBQ (14:43)
[2020-04-06] MEDS ORDERED: GABAPENTIN100 MG ORAL (14:44)
[2020-04-06] MEDS ORDERED: HYDRALAZINE HCL25 M1 ORAL (14:45)
[2020-04-06] MEDS ORDERED: ULTRAM50 MG ORAL (14:50)
[2020-04-06] MEDS ORDERED: TRAZODONE HCL50 MG ORAL (14:50)
--- NOTE | 2020-04-06 15:14 | NUR ---
NURSE NOTES: Called RP, daughter, Belinda Powers and informed her regarding discharge back to [facility] and the missing $21 in patient's socks, she verbalized understanding and was grateful of the information. Called [facility] and spoke with ERICA Langston and gave report.
[2020-04-06 16:00] VITALS: BP 143/84
--- NOTE | 2020-04-06 17:08 | NUR ---
INDUSTRY ANALYST NOTE CALL RECEIVED FROM JAGDISH ENGLE TO INFORM CM PATIENTS RAPID COVID RESULT OBTAINED AND IS NEGATIVE. CALL MADE TO [facility]. ADMISSIONS NOT AVAILABLE. REQUESTED CALL BACK.
--- NOTE | 2020-04-06 19:20 | NUR ---
NURSE NOTES: Received report from artemio alcala. patient is sitting on bed, confused. on room air. no sob. with walker on the bedside. irritated. per artemio alcala " patient is upset about the missing $21. patient is for discharge, per CM that admissions not available to the snf today and might discharge tomorrow back to SNF. no iv line, md is aware. reiterated to call and ask for assistance. call light and light button within easy reach. bed locked and in lowest position. will continue plan of care.
--- NOTE | 2020-04-06 19:30 | NUR ---
HAND-OFF: Report given to JAGDISH Kruse.
[2020-04-06 20:00] VITALS: BP 143/88
[2020-04-06] MEDS: TraZODone 50mg tab ORAL SCH (20:20)
[2020-04-06] MEDS: Phenytoin 100mg cap ORAL SCH (20:20)
[2020-04-07] VITALS: BP 138/79
[2020-04-07 04:00] VITALS: BP 145/82
[2020-04-07] MEDS: NovoLOG Insulin Flexpen SUBQ SCH ×2 (05:44→11:30)
[2020-04-07 06:25] LABS: BASOPHILS % (AUTO) 1.7 % (0.0-2.0); EOSINOPHILS % (AUTO) 0.8 % (0.0-3.0); HEMATOCRIT 36.4 % (42.0-52.0); HEMOGLOBIN 11.7 G/DL (14.2-18.0); LYMPHOCYTES % (AUTO) 51.4 % (20.0-45.0); MEAN CORPUSCULAR VOLUME 89 FL (80-99); MONOCYTES % (AUTO) 16.3 % (1.0-10.0); NEUTROPHILS % (AUTO) 29.8 % (45.0-75.0); PLATELET COUNT 162 K/UL (150-450); RED BLOOD COUNT 4.12 M/UL (4.70-6.10); RED CELL DISTRIBUTION WIDTH 14.1 % (11.6-14.8); WHITE BLOOD COUNT 6.8 K/UL (4.8-10.8)
--- NOTE | 2020-04-07 06:48 | General Progress Note ---
Assessment/Plan Status: unchanged Assessment/Plan: 1. History of renal insufficiency. 2. Hepatitis B with abnormal liver function tests. 3. Hypertension. 4. Diabetes. 5. COPD. 6. Schizophrenia. 7. Seizure disorder. 8. Pancreatitis. 9. Depression. fu abd us>>reviewed fu AFP>>pending fu hep serology>> HBeAG positive needs out patient fu for hep B treatment fu hep B DNA Subjective Allergies: Coded Allergies: IBUPROFEN (Verified Allergy, Unknown, 10/22/19) PENICILLINS (Unverified Allergy, Unknown, 04/04/20) tolerated ceftriaxone Uncoded Allergies: PCN (Allergy, Unknown, 11/07/19) Objective Last 24 Hour Vital Signs Date Time Temp Pulse Resp B/P (MAP) Pulse Ox O2 Delivery O2 Flow Rate FiO2 04/07/20 05:44 148/86 04/07/20 04:00 98.5 73 20 145/82 (103) 98 04/07/20 00:00 97.2 77 20 138/79 (98) 97 04/06/20 22:01 157/94 04/06/20 21:00 Room Air 04/06/20 20:00 97.9 89 20 143/88 (106) 96 04/06/20 17:24 143/84 04/06/20 16:00 97.6 88 20 143/84 (103) 95 04/06/20 12:43 143/71 04/06/20 12:00 97.5 68 20 143/71 (95) 98 04/06/20 09:00 Room Air 04/06/20 08:32 78 144/87 04/06/20 08:31 144/87 04/06/20 08:00 97.7 78 19 144/87 (106) 95 Intake and Output 04/06/20 04/07/20 19:00 07:00 Intake Total 680 ml 900 ml Balance 680 ml 900 ml Intake Oral 680 ml 900 ml # Voids 3 4 Laboratory Tests 04/06/20 09:25: Sodium Level 136, Potassium Level 4.0, Chloride Level 104, Carbon Dioxide Level 29, Anion Gap 3L, Blood Urea Nitrogen 18, Creatinine 1.5H, Estimat Glomerular Filtration Rate 56.4, Glucose Level 198#H, Calcium Level 7.7L, Total Bilirubin 0.2, Aspartate Amino Transf (AST/SGOT) 93H, Alanine Aminotransferase (ALT/SGPT) 89H, Alkaline Phosphatase 185H, Total Protein 6.2L, Albumin 1.6L, Globulin 4.6, Albumin/Globulin Ratio 0.3L 04/07/20 04:37: Sodium Level [Pending], Potassium Level [Pending], Chloride Level [Pending], Carbon Dioxide Level [Pending], Blood Urea Nitrogen [Pending], Creatinine [ Pending], Estimat Glomerular Filtration Rate [Pending], Glucose Level [Pending] , Calcium Level [Pending], Total Bilirubin [Pending], Aspartate Amino Transf ( AST/SGOT) [Pending], Alanine Aminotransferase (ALT/SGPT) [Pending], Alkaline Phosphatase [Pending], Total Protein [Pending], Albumin [Pending], Globulin [ Pending], White Blood Count 6.8, Red Blood Count 4.12L, Hemoglobin 11.7L, Hematocrit 36.4L, Mean Corpuscular Volume 89, Mean Corpuscular Hemoglobin 28.4, Mean Corpuscular Hemoglobin Concent 32.1, Red Cell Distribution Width 14.1, Platelet Count 162, Mean Platelet Volume 9.3, Neutrophils (%) (Auto) 29.8L, Lymphocytes (%) (Auto) 51.4H, Monocytes (%) (Auto) 16.3H, Eosinophils (%) (Auto ) 0.8, Basophils (%) (Auto) 1.7 Height (Feet): 5 Height (Inches): 8.00 Weight (Pounds): 178 General Appearance: alert EENT: normal ENT inspection Neck: supple Cardiovascular: normal rate Respiratory/Chest: decreased breath sounds Abdomen: hypoactive bowel sounds Extremities: non-tender Chris Washington MD Apr 07, 2020 06:48
[2020-04-07 06:58] LABS: ALANINE AMINOTRANSFERASE 92 U/L (12-78); ALBUMIN 1.8 G/DL (3.4-5.0); ALBUMIN/GLOBULIN RATIO 0.4 (1.0-2.7); ALKALINE PHOSPHATASE 214 U/L (46-116); ANION GAP 4 mmol/L (5-15); ASPARTATE AMINO TRANSFERASE 92 U/L (15-37); BILIRUBIN,TOTAL 0.1 MG/DL (0.2-1.0); BLOOD UREA NITROGEN 19 mg/dL (7-18); CALCIUM 8.2 MG/DL (8.5-10.1); CARBON DIOXIDE 29 MMOL/L (21-32); CHLORIDE 101 MMOL/L (98-107); CREATININE 1.4 MG/DL (0.55-1.30); POTASSIUM 3.7 MMOL/L (3.5-5.1); SODIUM 134 MMOL/L (136-145)
--- NOTE | 2020-04-07 07:06 | NUR ---
HAND-OFF: Report given to cari. patient is asleep. POC endorsed. call light and light button within easy reach. bed locked and in lowest posiiton.
--- NOTE | 2020-04-07 07:09 | NUR ---
NURSE NOTES: Report received from JAGDISH Kruse. Patient received awake in bed, alert and oriented x 2-3, no SOB, bed in lowest position with breaks engaged and alarm on, no IV line, aware, patient refused IV insertion at this time, explained risk and benefits, denies any pain or discomfort, will continue to monitor and proceed with plan of care. Call light within reach
--- NOTE | 2020-04-07 07:50 | NUR ---
NURSE NOTES: Received a call from lab at around 0740 regarding positive result of ESBL urine for the patient. Dr. Van made aware and MD stated he will inform Dr. Landrum and will let RN know. Will continue to monitor. Contact precaution initiated.
[2020-04-07 08:00] VITALS: BP 122/80
[2020-04-07] MEDS: Lisinopril 20mg tab ORAL SCH (08:47)
[2020-04-07] MEDS: Tamsulosin 0.4mg cap ORAL SCH (08:47)
[2020-04-07] MEDS: Docusate 100mg cap ORAL SCH (08:47)
[2020-04-07] MEDS: Aspirin Baby 81mg ORAL SCH (08:48)
[2020-04-07] MEDS: Levemir Flexpen SUBQ SCH (08:49)
[2020-04-07] MEDS: Enoxaparin 40mg Inj SUBQ SCH (08:50)
--- NOTE | 2020-04-07 10:20 | Nephrology Progress Note ---
Assessment/Plan Problem List: (1) ALYCIA (acute kidney injury) Assessment: Serum creatinine on admission 1.7 (2) HTN (hypertension) (3) Diabetes mellitus out of control (4) UTI (urinary tract infection) (5) Seizure disorder (6) Anemia Assessment ALYCIA UTI, hematuria Hyperglycemia, diabetes mellitus Abdominal pain History of hypertension History of seizure disorder History of schizophrenia History of pancreatitis Status post ORIF left hip Anemia Hepatitis B surface antigen positive, chronic in nature Plan April 07: Serum creatinine 1.4. Will check Dilantin level tomorrow. Serum sodium 134. Will observe. Clonidine dose adjusted. April 06: Serum creatinine again elo to 1.5. Continue per consultants. Continue to monitor renal parameters. previously: Magnesium sulfate IV given Adjust blood pressure medication with parameters Blood sugar control Avoid nephrotoxic's Urine studies Anemia work-up pending Psychiatric med adjustments per psychiatrist Subjective ROS Limited/Unobtainable: No Constitutional: Reports: malaise Objective Objective Last 24 Hour Vital Signs Date Time Temp Pulse Resp B/P (MAP) Pulse Ox O2 Delivery O2 Flow Rate FiO2 04/07/20 09:00 Room Air 04/07/20 08:47 122/80 04/07/20 08:47 75 122/80 04/07/20 08:00 97.9 75 17 122/80 (94) 98 04/07/20 05:44 148/86 04/07/20 04:00 98.5 73 20 145/82 (103) 98 04/07/20 00:00 97.2 77 20 138/79 (98) 97 04/06/20 22:01 157/94 04/06/20 21:00 Room Air 04/06/20 20:00 97.9 89 20 143/88 (106) 96 04/06/20 17:24 143/84 04/06/20 16:00 97.6 88 20 143/84 (103) 95 04/06/20 12:43 143/71 04/06/20 12:00 97.5 68 20 143/71 (95) 98 Intake and Output 04/06/20 04/07/20 19:00 07:00 Intake Total 680 ml 900 ml Balance 680 ml 900 ml Intake Oral 680 ml 900 ml # Voids 3 4 Laboratory Tests 04/07/20 04:37: White Blood Count 6.8, Red Blood Count 4.12L, Hemoglobin 11.7L, Hematocrit 36.4L , Mean Corpuscular Volume 89, Mean Corpuscular Hemoglobin 28.4, Mean Corpuscular Hemoglobin Concent 32.1, Red Cell Distribution Width 14.1, Platelet Count 162, Mean Platelet Volume 9.3, Neutrophils (%) (Auto) 29.8L, Lymphocytes ( %) (Auto) 51.4H, Monocytes (%) (Auto) 16.3H, Eosinophils (%) (Auto) 0.8, Basophils (%) (Auto) 1.7, Sodium Level 134L, Potassium Level 3.7, Chloride Level 101, Carbon Dioxide Level 29, Anion Gap 4L, Blood Urea Nitrogen 19H, Creatinine 1.4H, Estimat Glomerular Filtration Rate > 60, Glucose Level 157H, Calcium Level 8.2L, Total Bilirubin 0.1L, Aspartate Amino Transf (AST/SGOT) 92H , Alanine Aminotransferase (ALT/SGPT) 92H, Alkaline Phosphatase 214H, Total Protein 6.5, Albumin 1.8L, Globulin 4.7, Albumin/Globulin Ratio 0.4L Height (Feet): 5 Height (Inches): 8.00 Weight (Pounds): 178 General Appearance: no apparent distress Cardiovascular: normal rate Respiratory/Chest: decreased breath sounds Abdomen: soft Joo Contreras MD Apr 07, 2020 10:20
[2020-04-07 10:42] LABS: PHOSPHORUS 3.6 MG/DL (2.5-4.9)
--- NOTE | 2020-04-07 10:53 | NUR ---
DISCHARGE PLANNING S/W MARC[facility] AT [facility], CONFIRMED PATIENT ACCEPTED TO RETURN. ROOM 132 SKILLED BLS AMBULANCE TRANSPORTATION SCHEDULED WITH [facility] EXT 2615 WITH ETA @ 1230 PM PER CASSANDRA
--- NOTE | 2020-04-07 11:16 | NUR ---
Transmission Assembler: MD Landrum called back and stated ESBL colonized. Informed RN.
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
[2020-04-07 12:00] VITALS: BP 144/80
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
--- NOTE | 2020-04-07 12:41 | NUR ---
NURSE NOTES: Called [facility] and gave report to ERICA Langston.
--- NOTE | 2020-04-07 13:31 | General Progress Note ---
Assessment/Plan Problem List: (1) UTI (urinary tract infection) ICD Codes: N39.0 - Urinary tract infection, site not specified SNOMED: 26846593 (2) HTN (hypertension) ICD Codes: I10 - Essential (primary) hypertension SNOMED: 16513875 (3) Seizure disorder ICD Codes: G40.909 - Epilepsy, unspecified, not intractable, without status epilepticus SNOMED: 033321964, 479674935 (4) COPD (chronic obstructive pulmonary disease) ICD Codes: J44.9 - Chronic obstructive pulmonary disease, unspecified SNOMED: 22339905 Status: stable, progressing Assessment/Plan: pt diet abx gi f/u cbc bmp am dc if clear Subjective Constitutional: Reports: weakness Allergies: Coded Allergies: IBUPROFEN (Verified Allergy, Unknown, 10/22/19) PENICILLINS (Unverified Allergy, Unknown, 04/04/20) tolerated ceftriaxone Uncoded Allergies: PCN (Allergy, Unknown, 11/07/19) All Systems: reviewed and negative except above Subjective sleepy calm Objective Last 24 Hour Vital Signs Date Time Temp Pulse Resp B/P (MAP) Pulse Ox O2 Delivery O2 Flow Rate FiO2 04/07/20 12:00 98.1 70 17 144/80 (101) 96 04/07/20 09:00 Room Air 04/07/20 08:47 122/80 04/07/20 08:47 75 122/80 04/07/20 08:00 97.9 75 17 122/80 (94) 98 04/07/20 05:44 148/86 04/07/20 04:00 98.5 73 20 145/82 (103) 98 04/07/20 00:00 97.2 77 20 138/79 (98) 97 04/06/20 22:01 157/94 04/06/20 21:00 Room Air 04/06/20 20:00 97.9 89 20 143/88 (106) 96 04/06/20 17:24 143/84 04/06/20 16:00 97.6 88 20 143/84 (103) 95 Intake and Output 04/06/20 04/07/20 19:00 07:00 Intake Total 680 ml 900 ml Balance 680 ml 900 ml Intake Oral 680 ml 900 ml # Voids 3 4 Laboratory Tests 04/07/20 04:37: White Blood Count 6.8, Red Blood Count 4.12L, Hemoglobin 11.7L, Hematocrit 36.4L , Mean Corpuscular Volume 89, Mean Corpuscular Hemoglobin 28.4, Mean Corpuscular Hemoglobin Concent 32.1, Red Cell Distribution Width 14.1, Platelet Count 162, Mean Platelet Volume 9.3, Neutrophils (%) (Auto) 29.8L, Lymphocytes ( %) (Auto) 51.4H, Monocytes (%) (Auto) 16.3H, Eosinophils (%) (Auto) 0.8, Basophils (%) (Auto) 1.7, Sodium Level 134L, Potassium Level 3.7, Chloride Level 101, Carbon Dioxide Level 29, Anion Gap 4L, Blood Urea Nitrogen 19H, Creatinine 1.4H, Estimat Glomerular Filtration Rate > 60, Glucose Level 157H, Calcium Level 8.2L, Phosphorus Level 3.6, Magnesium Level 1.7L, Total Bilirubin 0.1L, Aspartate Amino Transf (AST/SGOT) 92H, Alanine Aminotransferase (ALT/SGPT ) 92H, Alkaline Phosphatase 214H, Total Protein 6.5, Albumin 1.8L, Globulin 4.7 , Albumin/Globulin Ratio 0.4L Height (Feet): 5 Height (Inches): 8.00 Weight (Pounds): 178 General Appearance: lethargic EENT: normal ENT inspection Neck: normal alignment Cardiovascular: normal peripheral pulses, normal rate, regular rhythm Respiratory/Chest: chest wall non-tender, lungs clear, normal breath sounds Abdomen: normal bowel sounds, non tender, soft Extremities: normal inspection Edema: no edema noted Arm (L), no edema noted Arm (R), no edema noted Leg (L), no edema noted Leg (R), no edema noted Pedal (L), no edema noted Pedal (R), no edema noted Generalized Neurologic: motor weakness Skin: normal pigmentation, warm/dry Keyur Bronson DO Apr 07, 2020 13:31
--- NOTE | 2020-04-07 13:46 | NUR ---
NURSE NOTES: Patient was discharged back to [facility], patient signed discharge paper works, denies any pain or discomfort upon discharge, all belongings taken except for $21 that patient lost during hospital stay. Patient refused for money to be put on a safe. IV line and ID band removed. RP and SNF aware of patient's arrival to [facility]. Pt left in stable condition accompanied by financial planning assistant at 1345.
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
== END 2020-04-07 14:15 | DRG 469 ==
LOC: EDBD 17:49 → EMR 20:03 → 4E 22:10 → EDBEDREQ 22:30
DX: N17.9 Acute kidney failure, unspecified (principal); Z88.0 Allergy status to penicillin; E11.9 Type 2 diabetes mellitus without complications; I10 Essential (primary) hypertension; G40.909 Epilepsy, unspecified, not intractable, without status epilepticus; F20.9 Schizophrenia, unspecified; J44.9 Chronic obstructive pulmonary disease, unspecified; E11.65 Type 2 diabetes mellitus with hyperglycemia; E86.0 Dehydration; Z79.82 Long term (current) use of aspirin; Z79.4 Long term (current) use of insulin; G62.9 Polyneuropathy, unspecified; R10.9 Unspecified abdominal pain; W34.00XS Accidental discharge from unspecified firearms or gun, sequela; B18.1 Chronic viral hepatitis B without delta-agent; R31.9 Hematuria, unspecified; D64.9 Anemia, unspecified; R79.89 Other specified abnormal findings of blood chemistry
CPT/HCPCS: 36415; 74018; 76700; 80053; 80061; 80307; 81003; 82105; 82150; 82607; 82728; 82746; 82962; 82977; 83036; 83540; 83550; 83690; 83735; 83880; 84100; 84300; 84443; 84550; 85025; 86140; 86703; 86707; 86803; 87081; 87086; 87181; 87350; 87516; 96365; 96372; 99285; G0480; J1815; S5561; U0002

== ENCOUNTER 2020-06-26 07:01 | Inpatient (IN) | payer MEDICARE, OTHER ==
[~2020-06-26] VITALS: Ht 180.3 cm; Wt 84.8 kg
[~2020-06-26 07:01] MED LIST changes: +CEPHALEXIN500 MG ORAL; +GABAPENTIN100 MG ORAL; +GLYBURIDE1.25 MG PO; +HYDRALAZINE HCL25 M1 ORAL; +LOPERAMIDE2 M1 PO; +LOVENOX10 M4 SUBQ; +METFORMIN HCL500 M1 ORAL; +PHENYTOIN50 MG BC; +ULTRAM50 MG ORAL
--- NOTE | 2020-06-26 07:05 | NUR ---
ED Nurse Note: Pt was brought in by SB from [facility] d/t altered level of consciousness and generalized weakness. EMT, pt has been noted to be weak and altered for almost a week now but got worsen today. Typically, pt was AOx4 but right now AOx2, verbally responsive. Pt was placed on bed, hooked to threat monitoring analyst, VSS, satting at 98% on 3LPM via NC. Initial accucheck taken with result 48mg/dl, ERMD notified. Safety measures in placed, doors kept closed at all times.
--- NOTE | 2020-06-26 07:10 | NUR ---
ED Nurse Note: Pt was taken to CT on stable condition.
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
--- NOTE | 2020-06-26 07:31 | Diagnostic Imaging Report ---
EXAM: CT Head Without Intravenous Contrast CLINICAL HISTORY: AMS TECHNIQUE: Axial computed tomography images of the head/brain without intravenous contrast. CTDI is 53.4 mGy and DLP is 1072.2 mGy-cm. One or more of the following dose reduction techniques were used: automated exposure control, adjustment of the mA and/or kV according to patient size, use of iterative reconstruction technique. COMPARISON: No previous studies. FINDINGS: Brain: There is a large area of encephalomalacia within the left frontal lobe. Cavum of septum pellucidum. Small vessel disease of aging. No abnormal extra-axial collection is noted. No hemorrhage. Ventricles: There is prominence of the ventricular system, cortical sulci, basilar cisterns compatible with age related atrophy. Bones/joints: Postsurgical changes of the calvarium are noted. No acute fracture. Soft tissues: Unremarkable. Sinuses: Unremarkable as visualized. No acute sinusitis. Mastoid air cells: Mastoid air cells are well pneumatized. Mastoid air cells are well pneumatized. IMPRESSION: 1. Extensive post surgical changes. 2. Area of encephalomalacia left frontal lobe. 3. Age-related atrophy and small vessel disease of aging. 4. No acute intracranial pathology is detected. 5. If there is concern for etiology such as early acute lacunar infarcts, magnetic resonance imaging of the brain with diffusion-weighted sequences should be performed.
[2020-06-26] MEDS ORDERED: RISPERIDONE3 MG ORAL (07:33)
[2020-06-26] MEDS ORDERED: NORCO 5-325 TA1 EAC1 ORAL (07:33)
[2020-06-26 08:40] LABS: ANION GAP 3 mmol/L (5-15); BLOOD UREA NITROGEN 30 mg/dL (7-18); CALCIUM 7.9 MG/DL (8.5-10.1); CARBON DIOXIDE 28 MMOL/L (21-32); CHLORIDE 108 MMOL/L (98-107); CREATININE 1.9 MG/DL (0.55-1.30); SODIUM 139 MMOL/L (136-145)
[2020-06-26 08:41] LABS: BASOPHILS % (AUTO) 1.2 % (0.0-2.0); EOSINOPHILS % (AUTO) 0.1 % (0.0-3.0); HEMATOCRIT 33.3 % (42.0-52.0); HEMOGLOBIN 10.5 G/DL (14.2-18.0); LYMPHOCYTES % (AUTO) 33.1 % (20.0-45.0); MEAN CORPUSCULAR VOLUME 90 FL (80-99); MONOCYTES % (AUTO) 11.4 % (1.0-10.0); NEUTROPHILS % (AUTO) 54.2 % (45.0-75.0); PLATELET COUNT 161 K/UL (150-450); RED CELL DISTRIBUTION WIDTH 16.2 % (11.6-14.8); WHITE BLOOD COUNT 11.4 K/UL (4.8-10.8)
[2020-06-26 08:45] LABS: INR 1.1 (0.9-1.1)
[2020-06-26] MEDS ORDERED: Azithromycin 500 MG in NS 275 ML IVPB ONE (08:45)
[2020-06-26] MEDS ORDERED: cefTRIAXone 1 GM in NS 55 ML IV ONE (08:45)
[2020-06-26 08:50] LABS: ALANINE AMINOTRANSFERASE 37 U/L (12-78); ALBUMIN 1.5 G/DL (3.4-5.0); ALBUMIN/GLOBULIN RATIO 0.3 (1.0-2.7); ALKALINE PHOSPHATASE 87 U/L (46-116); ASPARTATE AMINO TRANSFERASE 42 U/L (15-37); BILIRUBIN,TOTAL 0.2 MG/DL (0.2-1.0); CHOLESTEROL 102 MG/DL (< 200); CREATINE KINASE 54 U/L (26-308); HDL CHOLESTEROL 41 MG/DL (40-60); PHOSPHORUS 4.9 MG/DL (2.5-4.9); TRIGLYCERIDES 43 MG/DL (30-150)
--- NOTE | 2020-06-26 09:50 | NUR ---
ED Nurse Note: urine collected
[2020-06-26 10:05] LABS: APPEARANCE,URINE CLEAR; BILIRUBIN, URINE NEGATIVE (NEGATIVE); GLUCOSE, URINE (UA) NEGATIVE (NEGATIVE); KETONES,URINE NEGATIVE (NEGATIVE); LEUKOCYTE ESTERASE ,URINE NEGATIVE (NEGATIVE); NITRITE,URINE NEGATIVE (NEGATIVE); PH,URINE 5 (4.5-8.0); PROTEIN,URINE 4+ (NEGATIVE); UROBILINOGEN,URINE NORMAL MG/DL (0.0-1.0)
[2020-06-26 10:06] VITALS: BP 153/76
[2020-06-26 10:07] LABS: COLOR,URINE YELLOW
[2020-06-26] MEDS ORDERED: Albuterol/Ipratropium 3ml neb HHN PRN (10:30)
[2020-06-26] MEDS ORDERED: Miralax 17gm pkt ORAL PRN (10:30)
--- NOTE | 2020-06-26 10:30 | History and Physical Report ---
DATE OF ADMISSION: 06/26/2020 TIME SEEN: 9 a.m. CONSULTANTS: 1. Barrie Van MD. 2. Beatrice Wick MD. CHIEF COMPLAINT: Altered level of consciousness, COVID pneumonia, sepsis. BRIEF HISTORY: This is a 70-year-old male from [facility], presented with increased altered level of consciousness, was transferred to [facility], currently in ER being admitted for above-mentioned diagnosis. He sleeping in bed, O2 NC, not talking much. REVIEW OF SYSTEMS: Unavailable. PAST MEDICAL HISTORY: Includes diabetes, hypertension, anemia, seizures, COPD, ALYCIA. PAST SURGICAL HISTORY: Unknown. ALLERGIES: Ibuprofen and penicillin. MEDICATIONS: Include IV fluid, ceftriaxone, and azithromycin. SOCIAL HISTORY: Unable to obtain, as the patient is very lethargic and sleepy. OBJECTIVE: GENERAL: Lethargic, sleeping in bed, O2 NC, slightly short of breath. VITAL SIGNS: Temperature is 98 degrees, pulse 83, respirations 20, blood pressure 110/61. GENERAL: Calm in room. HEENT: Normocephalic and atraumatic. NECK: Trachea midline. CARDIOVASCULAR: No peripheral edema. LUNGS: Slightly short of breath, on O2 nasal cannula. ABDOMEN: No apparent wounds. EXTREMITIES: No cyanosis or clubbing. NEUROLOGIC: The patient is flaccid in bed, not following directions currently. LABORATORY AND DIAGNOSTIC DATA: Labs at this time show white count 11.4, H and H 10/30, platelets 161,000. BMP shows chloride 108, BUN and creatinine 30/1.9. Glucose 67. BNP is 2301. Albumin 1.5. Troponin 0.044. INR is 1.1. Urine tox . ASSESSMENT: 1. Altered level of consciousness. 2. Hypoglycemia. 3. Malnutrition. 4. COVID pneumonia. 5. Sepsis. 6. Diabetes. 7. Hypertension. 8. Anemia. 9. Seizures. 10. COPD. 11. ALYCIA. PLAN: 1. O2 and pulmonary treatment. 2. Antibiotics per Infectious Disease. 3. Resume home medications. 4. Blood pressure and blood sugar control. 5. Dietary followup. 6. PT and dietary evaluation. 7. CBC and BMP in the morning. Keyur Bronson D.O. DR: YONY JOB#: [id number] CC:
--- NOTE | 2020-06-26 10:37 | NUR ---
ED Nurse Note: Report given to JAGDISH Sandy in Telemetry Unit.
--- NOTE | 2020-06-26 11:00 | NUR ---
ED Nurse Note: Pt was transferred to Telemetry Unit under the care of Dr. Bronson. report was given to JAGDISH Sandy in Telemetry Unit. Pt was transferred on stable condition, covid-19 protocol for pt transfer observed. All belongings was sent with pt.
--- NOTE | 2020-06-26 11:15 | NUR ---
NURSE NOTES: Received pt from [facility], All admission assessments and instructions done. Pt is awake and confused, pt has NC 3LMP. pt has intact iv access LAC 20G SL. pt is on continues heart monitoring. Pt has Padilla cath in place is working well. pt has some skin tears on the penis and testicle area, took pictures and will upload. Dr Bronson is aware about admission, F/U. All needs attended, bed is locked and is in the lowest position, call light within easy reach. will continue to monitor. Addendum: 06/26/20 at 1213 by Vika Alston RN Pt has 29$, counted with LINETTE Hansen and because pt is confused will put in safe.
--- NOTE | 2020-06-26 11:29 | Consultation ---
History of Present Illness General Date patient seen: Jun 26, 2020 Time patient seen: 10:00 Chief Complaint: AMS Referring physician: Dr Bronson Reason for Consultation: COVID 19, prob PNA Present Illness HPI 70 years old male, [facility], with past medical history of COPD, hypertension, seizure disorder, diabetes mellitus, pancreatitis, hepatitis B, schizophrenia, history of prior intracranial surgery, was sent for evaluation due to altered mental status. Nursing staff noted that patient was confused in the morning. At the baseline patient apparently awake and alert x3, but this morning was found lethargic with right-sided facial droop. Last normal was not known. Per nursing staff patient's condition was slowly declining over the past several weeka. Facial drop was first noted droop was first noticed this morning about 5 AM . Patient arrived with Franco catheter . Upon evaluation vital signs were stable; patient required 2 L of supplemental oxygen saturating 97%. Laboratory work-up revealed mild leukocytosis WBC 11.4 anemia hemoglobin 10.5 hematocrit 33.3. ABG on 2 L NC was stable Chemistry demonstrated renal failure with BUN 30, creatinine 1.9. Patient was hypoglycemic with glucose of 67 Lactic acid was 1.3. Troponin negative, EKG revealed sinus rhythm , no acute ischemic changes , proBNP 2301 Albumin 1.5. LDH 218, CRP 0.7, ferritin 127 , D-dimer 8.09. Rapid COVID-[address] of the head revealed area of encephalomalacia left frontal lobe. No acute intracranial pathology. Patient received D50 in emergency department , blood sugar improved. Preliminary chest x-ray results showed mild consolidation, concerning for pneumonia . Patient received empiric ceftriaxone and azithromycin m a/coagulation, steroid, bronchodilator and subsequently admitted to telemetry floor for further management. Pulmonology consult was requested to assist in management of this patient. Allergies: Coded Allergies: IBUPROFEN (Verified Allergy, Unknown, 10/22/19) PENICILLINS (Unverified Allergy, Unknown, 04/04/20) tolerated ceftriaxone Uncoded Allergies: PCN (Allergy, Unknown, 11/07/19) Medication History Scheduled Amlodipine Besylate* (Amlodipine Besylate*), 10 MG ORAL DAILY, (Reported) Aspirin (Aspirin), 81 MG PO DAILY, (Reported) Cephalexin* (Keflex*), 500 MG ORAL EVERY 12 HOURS Clonidine Hcl* (Catapres*), 0.1 MG ORAL BID, (Reported) Clonidine Hcl* (Catapres*), 0.1 MG ORAL EVERY 8 HOURS, (Reported) Docusate Sodium* (Colace*), 100 MG ORAL THREE TIMES A DAY, (Reported) Enoxaparin* (Lovenox*), 40 MG SUBQ DAILY, (Reported) Ferrous Sulfate* (Ferrous Sulfate*), 325 MG ORAL THREE TIMES A DAY, (Reported) Gabapentin* (Gabapentin*), 300 MG ORAL THREE TIMES A DAY, (Reported) Insulin Detemir (Levemir Flexpen), 12 SUBQ Q12HR, (Reported) Levetiracetam (Keppra), 500 MG ORAL EVERY 12 HOURS, (Reported) Lisinopril (Lisinopril*), 20 MG ORAL BID, (Reported) Pantoprazole* (Protonix*), 40 MG ORAL BID, (Reported) Phenytoin Sodium Extended* (Dilantin*), 300 MG ORAL BEDTIME, (Reported) Risperidone (Risperidone), 3 MG ORAL BEDTIME, (Reported) Tamsulosin HCl (Flomax), 0.4 MG ORAL BEDTIME, (Reported) Trazodone Hcl* (Desyrel*), 50 MG ORAL BEDTIME, (Reported) Trazodone Hcl* (Desyrel*), 50 MG ORAL BEDTIME, (Reported) Scheduled PRN Acetaminophen* (Acetaminophen 325MG Tablet*), 650 MG ORAL Q4H PRN for For Pain, (Reported) Acetaminophen* (Acetaminophen 325MG Tablet*), 650 MG ORAL Q4H PRN for Temp >100.5, (Reported) Acetaminophen* (Acetaminophen 325MG Tablet*), 650 MG ORAL Q4H PRN for MILD PAIN, (Reported) Hydralazine Hcl* (Hydralazine Hcl*), 25 MG ORAL Q6HR PRN for For High Blood Pressure, (Reported) Hydralazine Hcl* (Hydralazine Hcl*), 25 MG ORAL Q4HR PRN for For High Blood Pressure, (Reported) Hydrocodone Bit/Acetaminophen 5-325* (Emigrant 5-325 Tablet*), 1 TAB ORAL DAILY PRN for For Pain, (Reported) Hydrocodone Bit/Acetaminophen 7.5-325* (Emigrant 7.5-325*), 1 TAB ORAL Q6H PRN for Moderate Pain (Pain Scale 4-6), (Reported) Loperamide Hcl (Loperamide), 2 MG PO FOUR TIMES A DAY PRN for Diarrhea, (Reported) Lorazepam* (Ativan*), 1 MG ORAL EVERY 6 HOURS PRN for For Anxiety, (Reported) Magnesium Hydroxide* (Milk Of Magnesia*), 30 ML ORAL DAILY PRN for CONSTIPATION, (Reported) Tramadol Hcl (Ultram*), 50 MG ORAL Q4H PRN for Severe Pain (Pain Scale 7-10), (Reported) Miscellaneous Medications Glyburide (Glyburide), Unknown Dose PO, (Reported) Metformin Hcl* (Metformin Hcl*), Unknown Dose ORAL, (Reported) Phenytoin (Phenytoin), Unknown Dose BC, (Reported) Patient History Healthcare decision maker N Resuscitation status full code Advanced Directive on File Past Medical/Surgical History Past Medical/Surgical History: (1) Hypertension (2) Anemia (3) COPD (chronic obstructive pulmonary disease) (4) HTN (hypertension) (5) Diabetes mellitus out of control (6) Seizure disorder Review of Systems ROS Narrative not available due to patient's medical condition Physical Exam General Appearance: no apparent distress, other - awake, poorly responsive, bedridden male Lines, tubes and drains: peripheral HEENT: atraumatic, other - O2 via NC Neck: other - trachea midline Respiratory/Chest: decreased breath sounds Cardiovascular/Chest: normal rate - SR on tele Abdomen: normal bowel sounds, non tender, soft Genitourinary/Rectal: franco Extremities: other - moves all extermities, with some spasticity LE Skin Exam: warm/dry Neurologic: abnormal gait, other - awake, eyes open, poorly responsive; facial asymmetry with left-sided nasolabial fold flattening Musculoskeletal: atrophy - BLE Last 24 Hour Vital Signs Date Time Temp Pulse Resp B/P (MAP) Pulse Ox O2 Delivery O2 Flow Rate FiO2 06/26/20 10:06 87 26 153/76 99 Nasal Cannula 3.0 06/26/20 06:55 98.8 83 20 110/61 (77) 97 Nasal Cannula 2.0 Laboratory Tests Test 06/26/20 07:21 06/26/20 07:40 06/26/20 08:27 06/26/20 09:30 Arterial Blood pH 7.406 (7.350-7.450) Arterial Blood Partial Pressure CO2 49.2 mmHg (35.0-45.0) H Arterial Blood Partial Pressure O2 81.4 mmHg (75.0-100.0) Arterial Blood HCO3 30.2 mmol/L (22.0-26.0) H Arterial Blood Oxygen Saturation 95.3 % (95-100) Arterial Blood Base Excess 4.7 (-2-2) H Andrez Test N/a White Blood Count 11.4 K/UL (4.8-10.8) H Red Blood Count 3.70 M/UL (4.70-6.10) L Hemoglobin 10.5 G/DL (14.2-18.0) L Hematocrit 33.3 % (42.0-52.0) L Mean Corpuscular Volume 90 FL (80-99) Mean Corpuscular Hemoglobin 28.5 PG (27.0-31.0) Mean Corpuscular Hemoglobin Concent 31.6 G/DL (32.0-36.0) L Red Cell Distribution Width 16.2 % (11.6-14.8) H Platelet Count 161 K/UL (150-450) Mean Platelet Volume 9.8 FL (6.5-10.1) Neutrophils (%) (Auto) 54.2 % (45.0-75.0) Lymphocytes (%) (Auto) 33.1 % (20.0-45.0) Monocytes (%) (Auto) 11.4 % (1.0-10.0) H Eosinophils (%) (Auto) 0.1 % (0.0-3.0) Basophils (%) (Auto) 1.2 % (0.0-2.0) Prothrombin Time 12.4 SEC (9.30-11.50) H Prothromb Time International Ratio 1.1 (0.9-1.1) Activated Partial Thromboplast Time 26 SEC (23-33) D-Dimer 8.09 mg/L FEU (0.00-0.49) H Sodium Level 139 MMOL/L (136-145) Potassium Level 5.0 MMOL/L (3.5-5.1) Chloride Level 108 MMOL/L (98-107) H Carbon Dioxide Level 28 MMOL/L (21-32) Anion Gap 3 mmol/L (5-15) L Blood Urea Nitrogen 30 mg/dL (7-18) H Creatinine 1.9 MG/DL (0.55-1.30) H Estimat Glomerular Filtration Rate 42.8 mL/min (>60) Glucose Level 67 MG/DL (74-106) L Lactic Acid Level 1.30 mmol/L (0.4-2.0) Calcium Level 7.9 MG/DL (8.5-10.1) L Phosphorus Level 4.9 MG/DL (2.5-4.9) Magnesium Level 2.2 MG/DL (1.8-2.4) Ferritin 127 NG/ML (8-388) Total Bilirubin 0.2 MG/DL (0.2-1.0) Aspartate Amino Transf (AST/SGOT) 42 U/L (15-37) H Alanine Aminotransferase (ALT/SGPT) 37 U/L (12-78) Alkaline Phosphatase 87 U/L (46-116) Lactate Dehydrogenase 218 U/L (81-234) Total Creatine Kinase 54 U/L (26-308) Troponin I 0.044 ng/mL (0.000-0.056) C-Reactive Protein, Quantitative 0.7 mg/dL (0.00-0.90) Pro-B-Type Natriuretic Peptide 2301 pg/mL (0-125) H Total Protein 6.6 G/DL (6.4-8.2) Albumin 1.5 G/DL (3.4-5.0) L Globulin 5.1 g/dL Albumin/Globulin Ratio 0.3 (1.0-2.7) L Triglycerides Level 43 MG/DL (30-150) Cholesterol Level 102 MG/DL (< 200) LDL Cholesterol 54 mg/dL (<100) HDL Cholesterol 41 MG/DL (40-60) Cholesterol/HDL Ratio 2.5 (3.3-4.4) L Lipase 75 U/L (73-393) Serum Alcohol < 3 mg/dL POC Whole Blood Glucose 146 MG/DL (74-106) H Urine Color Yellow Urine Appearance Clear Urine pH 5 (4.5-8.0) Urine Specific [place] 1.020 (1.005-1.035) Urine Protein 4+ (NEGATIVE) H Urine Glucose (UA) Negative (NEGATIVE) Urine Ketones Negative (NEGATIVE) Urine Blood 2+ (NEGATIVE) H Urine Nitrite Negative (NEGATIVE) Urine Bilirubin Negative (NEGATIVE) Urine Urobilinogen Normal MG/DL (0.0-1.0) Urine Leukocyte Esterase Negative (NEGATIVE) Urine RBC 10-15 /HPF (0 - 0) H Urine WBC 0-2 /HPF (0 - 0) Urine Squamous Epithelial Cells Occasional /LPF Urine Bacteria Occasional /HPF (NONE) Urine Opiates Screen Negative (NEGATIVE) Urine Barbiturates Screen Negative (NEGATIVE) Phencyclidine (PCP) Screen Negative (NEGATIVE) Urine Amphetamines Screen Negative (NEGATIVE) Urine Benzodiazepines Screen Negative (NEGATIVE) Urine Cocaine Screen Negative (NEGATIVE) Urine Marijuana (THC) Screen Negative (NEGATIVE) Microbiology Date/Time Source Procedure Growth Status 06/26/20 07:40 Nasopharynx SARS-CoV-2 RdRp Gene Assay - Final Complete Height (Feet): 5 Height (Inches): 11.00 Weight (Pounds): 180 Medications Current Medications Medications (Trade) Dose Ordered Sig/Jennifer Route PRN Reason Start Time Stop Time Status Last Admin Dose Admin Acetaminophen (Tylenol) 650 mg Q4H PRN ORAL FEVER 06/26/20 10:30 07/26/20 10:29 Albuterol/ Ipratropium (Albuterol/ Ipratropium) 3 ml EVERY 4 HOURS PRN HHN Shortness of Breath 06/26/20 10:30 07/01/20 10:29 Amlodipine Besylate (Norvasc) 10 mg DAILY ORAL 06/27/20 09:00 07/27/20 08:59 Aspirin (ASA) 81 mg DAILY ORAL 06/27/20 09:00 08/11/20 08:59 Azithromycin 250 mg/Dextrose 275 ml @ 275 mls/hr DAILY IV 06/27/20 09:00 07/02/20 08:59 Ceftriaxone Sodium 1 gm/ Dextrose 55 ml @ 110 mls/hr DAILY IVPB 06/27/20 09:00 07/04/20 08:59 Clonidine HCl (Catapres Tab) 0.1 mg BID ORAL 06/26/20 18:00 09/24/20 17:59 Dexamethasone (Decadron) 4 mg DAILY ORAL 06/27/20 09:00 07/27/20 08:59 Dextrose (Dextrose 50%) 25 ml Q30M PRN IV Hypoglycemia 06/26/20 10:30 09/24/20 10:29 Dextrose (Dextrose 50%) 50 ml Q30M PRN IV Hypoglycemia 06/26/20 10:30 09/24/20 10:29 Gabapentin (Neurontin) 300 mg THREE TIMES A DAY ORAL 06/26/20 13:00 07/26/20 12:59 Heparin Sodium (Porcine) (Heparin 5000 units/ml) 5,000 units EVERY 12 HOURS SUBQ 06/26/20 21:00 08/10/20 20:59 Hydralazine HCl (Apresoline) 25 mg Q4HR PRN ORAL For High Blood Pressure 06/26/20 10:15 09/24/20 10:14 UNV Insulin Aspart (NovoLOG) BEFORE MEALS AND HS SUBQ 06/26/20 11:30 09/24/20 11:29 Levetiracetam (Keppra) 500 mg EVERY 12 HOURS ORAL 06/26/20 21:00 07/26/20 20:59 Ondansetron HCl (Zofran) 4 mg Q6H PRN IVP Nausea & Vomiting 06/26/20 10:30 07/26/20 10:29 Polyethylene Glycol (Miralax) 17 gm DAILYPRN PRN ORAL Constipation 06/26/20 10:30 07/26/20 10:29 Promethazine HCl/ Codeine (Phenergan with Codeine) 5 ml EVERY 6 HOURS PRN ORAL cough 06/26/20 10:30 07/26/20 10:29 Tamsulosin HCl (Flomax) 0.4 mg BEDTIME ORAL 06/26/20 21:00 07/26/20 20:59 Trazodone HCl (Desyrel) 50 mg BEDTIME ORAL 06/26/20 21:00 07/26/20 20:59 Assessment/Plan Assessment/Plan: ASSESSMENT COVID-19 infection Probably pneumonia Acute encephalopathy ALYCIA on CKD Rule out CVA Hypoglycemia with history of diabetes Hypertension Seizure disorder Severe protein calorie malnutrition PLAN OF CARE tele isolation empiric abx /monitor closely - allergic to PCN ( unknown type of reaction, but tolerated Ceftriaxone in ED) steroids consider remdesivivr- per ID recs fup with SCX fup with CXR DVT prophylaxis Venous Duplex BLE a/tussive prn CT head negative consider MRI if can take COVID pt-ordered a/PLT with ASA lipid panel noted carotid Duplex BP management with CCB and prn meds for BP spikes monitor BS, hypoglycemia protocol in palce swallow eval in am PT eval prior abd US in with echogenic kidneys, c/w medical renal disease avoid nephrotoxics seizure precautions, continue Keppra supportive care case discussed and evaluated by supervising physician Adriana Schilling NP Jun 26, 2020 11:29
[2020-06-26 11:30] VITALS: BP 154/77
[2020-06-26] MEDS: NovoLOG Insulin Flexpen SUBQ SCH ×3 (11:30→21:41)
--- NOTE | 2020-06-26 14:00 | NUR ---
NURSE NOTES: called SNF and got information from SNF RN MARIA ANTONIA Hwang.
[2020-06-26] MEDS ORDERED: Varibar Thin Liquid powder 148gm MC PRN (14:45)
[2020-06-26] MEDS ORDERED: Varibar Pudding 230ml MC PRN (14:45)
[2020-06-26] MEDS ORDERED: Varibar Nectar 240ml MC PRN (14:45)
[2020-06-26] MEDS ORDERED: Varibar Honey 250ml MC PRN (14:45)
--- NOTE | 2020-06-26 15:08 | NUR ---
CASE MANAGEMENT: Faxed clinical info (face sheet / H&P/ ER MD notes / progress notes / lab and imaging reports ) to [facility] @ [phone].
[2020-06-26 15:41] VITALS: BP 155/57
[2020-06-26] MEDS: Promethazine/Codeine 5ml UD ORAL PRN (17:59)
--- NOTE | 2020-06-26 19:19 | NUR ---
NURSE HAND-OFF REPORT: Important Events on Shift: Patient Status: Diet: Pending Orders: Pending Results/Labs: Pending MD notification: Latest Vital Signs: Temperature 97.5 , Pulse 86 , B/P 155 /57 , Respiratory Rate 20 , O2 SAT 95 , Nasal Cannula, O2 Flow Rate 3.0 . Vital Sign Comment: EKG Rhythm: Sinus Rhythm Rhythm change?: N MD Notified?: - MD Response: Latest Stone Fall Score: 60 Fall Risk: High Risk Safety Measures: Call light Within Reach, Bed Alarm Zone 1, Side Rails Side Rails x3, Bed position Low and Locked. Fall Precautions: Yellow Socks Yellow Gown Door Sign Patient Fall Education Report given . Pt is awake and stable, no stress noted. Endorsed plan of care, endorsed to monitor coughing.
--- NOTE | 2020-06-26 19:25 | NUR ---
NURSE NOTES: Received report from Vika DUBON. Patient is in stable condition. Patient is A/O x0. No acute distress or pain noted. Patient IV is left A/C 20G S/L; patent and flushed. No bleeding noted. Patient has Padilla draining well to gravity. Patient is on NC 3 L sating at 95%. Patient is on seizure precaution. Side rails are padded x2. Patient is on fall precaution. Bed locked in lowest position with bed alarm on, and 3x side rails up. Call light with in reach patient educated to use call light for assistance. Will continue to monitor.
[2020-06-26 20:00] VITALS: BP 148/71
[2020-06-26] MEDS: Heparin 5000 units/ml inj SUBQ SCH (21:42)
[2020-06-26] MEDS: Tamsulosin 0.4mg cap ORAL SCH (21:42)
[2020-06-26] MEDS: TraZODone 50mg tab ORAL SCH (21:42)
[2020-06-27] VITALS (7 sets, daily range): BP systolic 144–182; BP diastolic 73–84
[2020-06-27] MEDS: HydrALAZINE 25mg tab ORAL PRN (00:22)
--- NOTE | 2020-06-27 00:22 | NUR ---
NURSE NOTES: Patient Blood Pressure was 182/84. Patient was given Hydalazine 25mg PO are ordered. Patient is in stable condition. Will continue to monitor.
[2020-06-27] MEDS: NovoLOG Insulin Flexpen SUBQ SCH ×4 (06:15→21:24)
[2020-06-27 06:53] LABS: HEMATOCRIT 33.1 % (42.0-52.0); HEMOGLOBIN 10.6 G/DL (14.2-18.0); MEAN CORPUSCULAR VOLUME 90 FL (80-99); PLATELET COUNT 172 K/UL (150-450); RED BLOOD COUNT 3.68 M/UL (4.70-6.10); RED CELL DISTRIBUTION WIDTH 15.9 % (11.6-14.8); WHITE BLOOD COUNT 15.5 K/UL (4.8-10.8)
[2020-06-27 07:05] LABS: CALCIUM 8.1 MG/DL (8.5-10.1); CREATININE 1.7 MG/DL (0.55-1.30); POTASSIUM 5.2 MMOL/L (3.5-5.1)
[2020-06-27 07:11] LABS: ALBUMIN 1.6 G/DL (3.4-5.0); ANION GAP 3 mmol/L (5-15); BLOOD UREA NITROGEN 28 mg/dL (7-18); CALCIUM 7.9 MG/DL (8.5-10.1); CARBON DIOXIDE 30 MMOL/L (21-32); CHLORIDE 110 MMOL/L (98-107); CREATININE 1.7 MG/DL (0.55-1.30); PHOSPHORUS 4.5 MG/DL (2.5-4.9); POTASSIUM 5.2 MMOL/L (3.5-5.1); SODIUM 143 MMOL/L (136-145)
--- NOTE | 2020-06-27 07:28 | NUR ---
NURSE HAND-OFF REPORT: Important Events on Shift:Patient Blood Pressure was 182/84. Patient was given Hydalazine 25mg PO are ordered. Patient is in stable condition. Will continue to monitor. Patient Status: Stable Diet: CCHO Med. Whole meds with apple sauce. Pending Orders: Pending Results/Labs: Pending MD notification: Latest Vital Signs: Temperature 97.9 , Pulse 86 , B/P 157 /78 , Respiratory Rate 20 , O2 SAT 94 , Nasal Cannula, O2 Flow Rate 2.0 . Vital Sign Comment: EKG Rhythm: Sinus Rhythm Rhythm change?: N MD Notified?: - MD Response: Latest Stone Fall Score: 60 Fall Risk: High Risk Safety Measures: Call light Within Reach, Bed Alarm Zone 2, Side Rails Side Rails x3, Bed position Low and Locked. Fall Precautions: Yellow Socks Yellow Gown Door Sign Patient Fall Education Report given to Kylee DUBON.
--- NOTE | 2020-06-27 07:45 | NUR ---
NURSE NOTES: Received report from JAGDISH Ascencio. Pt AOx1, to self, stable and resting in bed. Pt on 3LPM w/ no s/s or complaint of distress at this time. Pt has a L foot blister, and a scratch on the sacral going across. Pt seizure precautions, side rails padded and suction bedside. Pt bed low and locked, call light in reach and bed alarm on. Pt verbalized understanding to call for help. Addendum: 06/27/20 at 0749 by Kylee Rangel RN RN IV on LAC 20g, asymptomatic and intact.
--- NOTE | 2020-06-27 08:33 | Diagnostic Imaging Report ---
EXAM: XR Chest, 1 View CLINICAL HISTORY: AMS TECHNIQUE: Frontal view of the chest. COMPARISON: No relevant prior studies available. FINDINGS/IMPRESSION: Elevation of the right hemidiaphragm. Suspected, small right pleural effusion. Left midlung field atelectasis. Minimal vascular congestion. No pneumothorax. Cardiomegaly. Calcified aorta. Numerous metallic buckshots project over the upper abdomen.
--- NOTE | 2020-06-27 08:34 | NUR ---
NURSE NOTES: Skin/Wound assessment Left heel pressure ulcer stage 2 open blister 9.5x7.5x.2 pink tissue ,50 % of wound covered by skin ,draining moderate amount serosanguineous drainage.No s/s infection.Xeroform and Optifoam recommended and applied .Pillows for offloading purposes.Right heel skin intact Optifoam applied offloaded with pillow.All other bony prominences intact.Care discussed with RN taking care of the patient.
[2020-06-27] MEDS: Aspirin Baby 81mg ORAL SCH (09:02)
[2020-06-27] MEDS: cefTRIAXone 1 GM in D5W 55 ML IVPB SCH (09:03)
[2020-06-27] MEDS: Heparin 5000 units/ml inj SUBQ SCH ×2 (09:05→20:54)
--- NOTE | 2020-06-27 09:48 | NUR ---
NURSE NOTES: Pt can be resistive to care, confused and combative. Pt states "get the hell out of here, I don't need none of that" w/ NC. Removes NC on and off. Refused SpO2 monitoring at first. Third attempt, Pt is 97% on 3LPM and 90% on RA when coughing. Notified Dr Bronson of labs at rounds and of Pt behavior. Pyaugustina consult by Dr Venegas to be put i. Order acknowledged and carried out.
--- NOTE | 2020-06-27 09:57 | General Progress Note ---
Subjective Constitutional: Reports: weakness Allergies: Coded Allergies: IBUPROFEN (Verified Allergy, Unknown, 10/22/19) PENICILLINS (Unverified Allergy, Unknown, 04/04/20) tolerated ceftriaxone Uncoded Allergies: PCN (Allergy, Unknown, 11/07/19) All Systems: reviewed and negative except above Subjective o2nc calm Objective Last 24 Hour Vital Signs Date Time Temp Pulse Resp B/P (MAP) Pulse Ox O2 Delivery O2 Flow Rate FiO2 06/27/20 09:02 165/82 06/27/20 09:02 86 165/82 06/27/20 09:00 Nasal Cannula 3.0 06/27/20 08:00 97.7 86 20 165/82 (109) 95 06/27/20 08:00 83 06/27/20 04:00 86 06/27/20 04:00 97.9 86 20 157/78 (104) 94 06/27/20 02:45 173/73 (106) 06/27/20 00:22 182/86 06/27/20 00:00 85 06/27/20 00:00 97.9 79 20 182/84 (116) 95 06/26/20 21:00 Nasal Cannula 2.0 06/26/20 20:00 79 06/26/20 20:00 97.9 79 17 148/71 (96) 95 06/26/20 17:06 155/57 06/26/20 15:42 86 06/26/20 15:41 97.5 83 20 155/57 (89) 95 06/26/20 12:15 89 06/26/20 11:35 Nasal Cannula 3.0 06/26/20 11:30 96.8 85 20 154/77 (102) 100 06/26/20 11:30 Nasal Cannula 3.0 06/26/20 11:11 90 06/26/20 11:00 87 26 Nasal Cannula 3.0 06/26/20 11:00 98.7 84 25 160/86 100 Nasal Cannula 3.0 06/26/20 10:06 87 26 153/76 99 Nasal Cannula 3.0 Intake and Output 06/26/20 06/27/20 19:00 07:00 Intake Total 480 ml Output Total 1200 ml Balance 480 ml -1200 ml Intake Oral 480 ml Output Urine Total 1200 ml # Bowel Movements 1 Laboratory Tests 10/25/20 11:09: POC Whole Blood Glucose 113H 06/27/20 06:25: White Blood Count 15.5H, Red Blood Count 3.68L, Hemoglobin 10.6L, Hematocrit 33.1L, Mean Corpuscular Volume 90, Mean Corpuscular Hemoglobin 28.8, Mean Corpuscular Hemoglobin Concent 32.0, Red Cell Distribution Width 15.9H, Platelet Count 172, Mean Platelet Volume 9.2, Neutrophils (%) (Auto) , Lymphocytes (%) ( Auto) , Monocytes (%) (Auto) , Eosinophils (%) (Auto) , Basophils (%) (Auto) , Differential Total Cells Counted 100, Neutrophils % (Manual) 66, Lymphocytes % (Manual) 15L, Monocytes % (Manual) 19H, Eosinophils % (Manual) 0, Basophils % (Manual) 0, Band Neutrophils 0, Platelet Estimate Adequate, Platelet Morphology Normal, Anisocytosis 1+, Sodium Level 143, Potassium Level 5.2H, Chloride Level 110H, Carbon Dioxide Level 30, Anion Gap 3L, Blood Urea Nitrogen 28H, Creatinine 1.7H, Estimat Glomerular Filtration Rate 48.7, Glucose Level 196H, Calcium Level 7.9L, Phosphorus Level 4.5, Albumin 1.6L Height (Feet): 5 Height (Inches): 11.00 Weight (Pounds): 180 General Appearance: lethargic EENT: normal ENT inspection Neck: normal alignment Cardiovascular: normal peripheral pulses, normal rate, regular rhythm Respiratory/Chest: chest wall non-tender, lungs clear, normal breath sounds Abdomen: normal bowel sounds, non tender, soft Extremities: normal inspection Edema: no edema noted Arm (L), no edema noted Arm (R), no edema noted Leg (L), no edema noted Leg (R), no edema noted Pedal (L), no edema noted Pedal (R), no edema noted Generalized Neurologic: motor weakness Skin: normal pigmentation, warm/dry Assessment/Plan Problem List: (1) COPD (chronic obstructive pulmonary disease) ICD Codes: J44.9 - Chronic obstructive pulmonary disease, unspecified SNOMED: 80124216 (2) Anemia ICD Codes: D64.9 - Anemia, unspecified SNOMED: 628277812 (3) Seizure disorder ICD Codes: G40.909 - Epilepsy, unspecified, not intractable, without status epilepticus SNOMED: 093086317, 839207214 (4) Hypertension ICD Codes: I10 - Essential (primary) hypertension SNOMED: 57485257 (5) Pneumonia ICD Codes: J18.9 - Pneumonia, unspecified organism SNOMED: 638847450 (6) COVID-19 ICD Codes: U07.1 - COVID-19 SNOMED: 918399108 (7) Confused ICD Codes: R41.0 - Disorientation, unspecified SNOMED: 639751332 (8) Altered level of consciousness ICD Codes: R40.4 - Transient alteration of awareness SNOMED: 9544210 Status: unchanged Assessment/Plan: o2 pulm tx abx pt diet eval cbc bmp am Keyur Bronson DO Jun 27, 2020 09:57
--- NOTE | 2020-06-27 10:00 | NUR ---
NURSE NOTES: BP recheck 139/71. Pt on 3LPM NC 97% unlabored breathing. Coughing noted and cough medication given at this time. Pt appears more calm and obeys commands at this time. Pt repositioned, Pt tolerated well.
[2020-06-27] MEDS: Azithromycin 500 MG in D5W 275 ML IV SCH (10:16)
[2020-06-27] MEDS: Promethazine/Codeine 5ml UD ORAL PRN (10:16)
--- NOTE | 2020-06-27 13:41 | NUR ---
NURSE NOTES: Removed Hydralazine from Pyxis but when I went to give to Pt i rechecked BP, Pt BP was 127/70, and 130/67. Did not give at this time. Med discarded in med room because I already removed it from package and brought into covidroom.
--- NOTE | 2020-06-27 13:50 | NUR ---
CASE MANAGEMENT:REVIEW 70 YR OLD MALE BIBA FROM [facility] CC: ALOC SI: COVID PNA 98.7 83 26 110/61 97% on 3L/NC WBC+11.4 D-DIMER+8.09 BUN+30 CR+1.9 IS: IV D50W IV AZITHROMYCIN IV ROCEPHIN 1L NS BOLUS : TELEMETRY STATUS DCP: FROM [facility]
--- NOTE | 2020-06-27 14:01 | NUR ---
P.T Note: P.T evaluation completed and tx initiated. Pleaser refer to P.T evaluation for current functional status. Pt is alert, oriented to self, place but not to time, place and situation. Pt denied pain but becomes irritable upon providing encouragement and manual cues to initiate mobility. Pt needed MAX A X 1 to turn/roll and complete supine to/from sitting transitions. Pt declined to participate in transfers and standing balance activities. Pt will benefit from skilled P.T service during stay to improve his strength and activity tolerance to increase mobility independence and safety. Recommend return to prior living arrangement upon DC from this hospital. Thank you for this referral.
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
--- NOTE | 2020-06-27 19:10 | NUR ---
NURSE NOTES: RECEIVED REPORT FROM JAGDISH CALDERON. PATIENT ASLEEP, HOWEVER EASILY AROUSABLE AND OPENS EYES SPONTANEOUSLY, VERBALLY RESPONSIVE. NO S/SX OF PAIN OR DISCOMFORT AT THIS TIME. BREATHING IS EVEN AND UNLABORED ON 3LPM VIA NC, NO S/SX OF DISTRESS NOTED. IV SITE ON LAC PATENT, INTACT, ASYMPTOMATIC, WITH IVF RUNNING PRESCRIBED. CISNEROS CATHETER DRAINING WELL TO GRAVITY, URINE CLEAR AND DARK YELLOW IN COLOR. FALL, ASPIRATION, AND SEIZURE PRECAUTIONS IN PLACE. BED LOCKED AND IN LOWEST POSITION, SIDERAILS UP X 3. CONTACT/DROPLET ISOLATION IN PLACE. WILL CONTINUE TO MONITOR PER POC. Addendum: 06/27/20 at 2230 by Tawanna Woods RN IV SITE ADALGISA
--- NOTE | 2020-06-27 19:15 | NUR ---
NURSE HAND-OFF REPORT: Important Events on Shift: Patient Status: fc, stable Diet: ccho medium, puree moist Pending Orders: Pending Results/Labs: Pending MD notification: Latest Vital Signs: Temperature 97.9 , Pulse 74 , B/P 149 /77 , Respiratory Rate 20 , O2 SAT 95 , Nasal Cannula, O2 Flow Rate 3.0 . Vital Sign Comment: EKG Rhythm: Sinus Rhythm Rhythm change?: N MD Notified?: - MD Response: Latest Stone Fall Score: 60 Fall Risk: High Risk Safety Measures: Call light Within Reach, Bed Alarm Zone 2, Side Rails Side Rails x3, Bed position Low and Locked. Fall Precautions: Yellow Socks Yellow Gown Door Sign Patient Fall Education Report given to JAGDISH Stacy. Addendum: 06/27/20 at 1931 by Kylee Rangel RN RN PT CANNOT DO MRI D/T SH[facility]APNEL FROM [facility] IN PAST and COVKIM, let Shakir know
[2020-06-27] MEDS: Tamsulosin 0.4mg cap ORAL SCH (20:52)
[2020-06-27] MEDS: TraZODone 50mg tab ORAL SCH (20:52)
--- NOTE | 2020-06-27 21:05 | NUR ---
NURSE NOTES: UPON GIVING MEDICATIONS, PATIENT ABLE TO SAFELY AND SUCCESSFULLY TAKE MEDICATIONS CRUSHED WITH APPLE SAUCE. HOWEVER, AFTER ADMINISTRATION, PATIENT APPEARED LETHARGIC AND WAS DOZING OFF. PATIENT REMAINED VERBALLY RESPONSIVE, BUT HAD DIFFICULTY OPENING HIS EYES. BILATERAL PUPILS 2MM/SLUGGISH, NO FACIAL DROOPING NOTED, ABLE TO FOLLOW SIMPLE COMMANDS SUCH GRASPING HANDS, DENIED CHEST PAIN/DIZZINESS/NAUSEA. WILL CONTINUE TO MONITOR. V/S BP: 139/69, HR 67, RR 18, SAO2 99% ON ROOM AIR. Addendum: 06/27/20 at 2235 by Tawanna Woods RN SAO2 99% ON 3LPM VIA NASAL CANNULA. BS AT 2100 227, INSULIN GIVEN PER SS.
--- NOTE | 2020-06-27 21:36 | NUR ---
NURSE NOTES: INFORMED BY CASSIE FROM MICROBIOLOGY THAT BLOOD CX SHOWS GRAM POSITIVE COCCI IN CLUSTERS. RELAYED INFORMATION TO DR. DIAMOND WHO PLACED ORDER TO CONSULT WITH DR. WORLEY. CALLED DR. WORLEY AT [phone], S/W FITO; AWAITING CALL BACK,
--- NOTE | 2020-06-27 22:40 | NUR ---
NURSE NOTES: DR. BEE CALLED BACK WITH NEW ORDERS FOR VANCOMYCIN PHARMACY TO DOSE AND REPEAT BLOOD CX. NOTED AND CARRIED OUT.
[2020-06-27] MEDS: Vancomycin 1 GM in NS 275 ML IVPB SCH (23:29)
[2020-06-28] VITALS: BP 150/76
[2020-06-28] MEDS: Vancomycin 1 GM in NS 275 ML IVPB SCH (00:02)
--- NOTE | 2020-06-28 00:03 | NUR ---
NURSE NOTES: SCANNED VANCOMYCIN 1G AND NS 275 ML FOR 06/28 @ 0000 AT 2329, AND SAVED TRANSACTION. AT 0000 NOTICED MEDICATION WAS STILL RED, AND SAW THAT I SIGNED OFF FOR MEDICATION ON 06/27 AT 0000, BUT ORDER WAS PLACED AROUND 2200. I UNDID TRANSACTION AND MANUALLY SIGNED OFF FOR MEDICATION DUE AT 06/28 0000.
--- NOTE | 2020-06-28 01:00 | NUR ---
NURSE NOTES: PATIENT AWAKE, ORIENTED TO NAME ONLY, VERBALLY RESPONSIVE. WILL CONTINUE TO MONITOR FOR ANY CHANGES.
[2020-06-28 04:00] VITALS: BP 156/72
--- NOTE | 2020-06-28 05:03 | NUR ---
NURSE NOTES: S/W MIRIAN, FROM LAB, AND REQUESTED A BLOOD DRAW FOR PATIENT. ATTEMPTED TO DRAW LABS FROM PATIENT, BUT UNABLE TO SUCCESSFULLY DO SO- PATIENT IS EDEMATOUS. PER MIRIAN, SHE WILL LET INCOMING HEMSTITCHER KNOW.
[2020-06-28] MEDS: NovoLOG Insulin Flexpen SUBQ SCH ×4 (06:21→21:00)
--- NOTE | 2020-06-28 07:00 | NUR ---
NURSE HAND-OFF REPORT: Important Events on Shift: DIFFICULTY TO AROUSE, PENDING AM BLOOD DRAW Patient Status: STABLE Diet: CCHO MEDIUM, MECH. SOFT FINELY CHOPPED, NECTAR THICKENED LIQUIDS Pending Orders: VENOUS DUPLEX, MRI BRAIN W/O CONTRAST Pending Results/Labs: AM LABS Pending MD notification: N/A Latest Vital Signs: Temperature 97.0 , Pulse 70 , B/P 158 /90 , Respiratory Rate 20 , O2 SAT 99 , Nasal Cannula, O2 Flow Rate 3.0 . Vital Sign Comment: STABLE EKG Rhythm: Sinus Rhythm Rhythm change?: N MD Notified?: - MD Response: Latest Stone Fall Score: 60 Fall Risk: High Risk Safety Measures: Call light Within Reach, Bed Alarm Zone 2, Side Rails Side Rails x3, Bed position Low and Locked. Fall Precautions: Yellow Socks Yellow Gown Door Sign Patient Fall Education Report given to JAGDISH TRUJILLO. Addendum: 06/28/20 at 0734 by Tawanna Woods RN BLOOD CX: GRAM POSITIVE COCCI IN CLUSTERS- DR. DIAMOND MADE AWARE
--- NOTE | 2020-06-28 07:45 | NUR ---
NURSE NOTES: Received report from JAGDISH Stacy. Pt A/O x1 but not verbally responsive and resting in bed. Pt is on 3L via NC. No SOB or acute distress but lethargic. Pt has a L foot blister which is not open, and a scratch on the sacral going across. Pt is on seizure precautions which side rails padded and suction at bedside. Pt bed low and locked, call light in reach and bed alarm on. Pt verbalized understanding to call for help.
[2020-06-28 08:00] VITALS: BP 163/74
[2020-06-28] MEDS: cefTRIAXone 1 GM in D5W 55 ML IVPB SCH (08:17)
[2020-06-28] MEDS: Heparin 5000 units/ml inj SUBQ SCH ×2 (08:20→21:00)
[2020-06-28] MEDS: Azithromycin 500 MG in D5W 275 ML IV SCH (08:50)
[2020-06-28] MEDS: Aspirin Baby 81mg ORAL SCH (09:32)
--- NOTE | 2020-06-28 10:09 | Nephrology Progress Note ---
Assessment/Plan Problem List: (1) ALYCIA (acute kidney injury) (2) Hypoglycemia (3) Hematuria (4) Seizure disorder (5) Hypertension (6) Altered level of consciousness Assessment ALYCIA Altered level of consciousness, due to hyperglycemia COVID-19 pneumonia Hematuria microscopic Diabetes mellitus, presents with hypoglycemia History of hypertension History of seizure disorder History of schizophrenia History of pancreatitis Status post ORIF left hip Anemia Hepatitis B surface antigen positive, chronic in nature Plan June 28: Patient refused blood draw today. Clinically appears stable. Continue per psych management. Previously: Adjust blood pressure medication with parameters Blood sugar control Avoid nephrotoxic's Urine studies Anemia work-up Psychiatric med adjustments per psychiatrist Subjective ROS Limited/Unobtainable: No Constitutional: Reports: malaise Objective Objective Last 24 Hour Vital Signs Date Time Temp Pulse Resp B/P (MAP) Pulse Ox O2 Delivery O2 Flow Rate FiO2 06/28/20 08:18 59 156/77 06/28/20 05:38 158/90 06/28/20 04:00 97.0 70 20 156/72 (100) 99 06/28/20 04:00 74 06/28/20 00:00 62 06/28/20 00:00 97.0 61 20 150/76 (100) 99 06/27/20 21:06 144/75 06/27/20 21:00 Nasal Cannula 3.0 06/27/20 20:00 97.9 69 20 144/75 (98) 99 06/27/20 20:00 69 06/27/20 16:00 74 06/27/20 16:00 97.9 71 20 149/77 (101) 95 06/27/20 12:00 83 06/27/20 12:00 97.5 88 18 158/80 (106) 95 Intake and Output 06/27/20 06/28/20 19:00 07:00 Intake Total 405 ml 1250 ml Output Total 800 ml 650 ml Balance -395 ml 600 ml Intake Oral 180 ml 500 ml IV Total 225 ml 750 ml Output Urine Total 800 ml 650 ml Laboratory Tests 06/27/20 21:11: POC Whole Blood Glucose 227H Height (Feet): 5 Height (Inches): 11.00 Weight (Pounds): 180 General Appearance: no apparent distress Cardiovascular: normal rate Respiratory/Chest: decreased breath sounds Abdomen: soft Joo Contreras MD Jun 28, 2020 10:09
[2020-06-28 12:00] VITALS: BP 164/73
[2020-06-28] MEDS ORDERED: Heparin1,000 units/500ml Premix(Conc:2 units/ml) IV PRN (12:00)
[2020-06-28] MEDS ORDERED: Lidocaine 1% Plain 30 ml INJ PRN (12:00)
--- NOTE | 2020-06-28 12:22 | NUR ---
[employer] P[employer] SI; COVID 19 PNA T. 97.4 HR 71 RR 20 B/P 164/75 3L NC O2 SAT @ 98% IS: IVF NS @ 75ML/HR CEFTRIAXONE IV VANCO IV DECADRON TELE STATUS
[2020-06-28] MEDS: HydrALAZINE 25mg tab ORAL PRN (12:31)
--- NOTE | 2020-06-28 13:20 | General Progress Note ---
Subjective Constitutional: Reports: weakness Allergies: Coded Allergies: IBUPROFEN (Verified Allergy, Unknown, 10/22/19) PENICILLINS (Unverified Allergy, Unknown, 04/04/20) tolerated ceftriaxone Uncoded Allergies: PCN (Allergy, Unknown, 11/07/19) All Systems: reviewed and negative except above Subjective o2nc calm Objective Last 24 Hour Vital Signs Date Time Temp Pulse Resp B/P (MAP) Pulse Ox O2 Delivery O2 Flow Rate FiO2 06/28/20 12:31 164/73 06/28/20 12:00 71 06/28/20 12:00 97.4 82 20 164/73 (103) 97 06/28/20 09:00 Nasal Cannula 3.0 06/28/20 08:18 59 156/77 06/28/20 08:00 97.2 59 20 163/74 (103) 99 06/28/20 08:00 56 06/28/20 05:38 158/90 06/28/20 04:00 97.0 70 20 156/72 (100) 99 06/28/20 04:00 74 06/28/20 00:00 62 06/28/20 00:00 97.0 61 20 150/76 (100) 99 06/27/20 21:06 144/75 06/27/20 21:00 Nasal Cannula 3.0 06/27/20 20:00 97.9 69 20 144/75 (98) 99 06/27/20 20:00 69 06/27/20 16:00 74 06/27/20 16:00 97.9 71 20 149/77 (101) 95 Intake and Output 06/27/20 06/28/20 19:00 07:00 Intake Total 405 ml 1250 ml Output Total 800 ml 650 ml Balance -395 ml 600 ml Intake Oral 180 ml 500 ml IV Total 225 ml 750 ml Output Urine Total 800 ml 650 ml Laboratory Tests 06/27/20 21:11: POC Whole Blood Glucose 227H 06/28/20 06:00: White Blood Count [Pending], Red Blood Count [Pending], Hemoglobin [Pending], Hematocrit [Pending], Mean Corpuscular Volume [Pending], Mean Corpuscular Hemoglobin [Pending], Mean Corpuscular Hemoglobin Concent [Pending], Red Cell Distribution Width [Pending], Platelet Count [Pending], Mean Platelet Volume [Pending], Neutrophils (%) (Auto) [Pending], Lymphocytes (%) (Auto) [Pending], Monocytes (%) (Auto) [Pending], Eosinophils (%) (Auto) [Pending], Basophils (%) (Auto) [Pending] Height (Feet): 5 Height (Inches): 11.00 Weight (Pounds): 180 General Appearance: lethargic EENT: normal ENT inspection Neck: normal alignment Cardiovascular: normal peripheral pulses, normal rate, regular rhythm Respiratory/Chest: chest wall non-tender, lungs clear, normal breath sounds Abdomen: normal bowel sounds, non tender, soft Extremities: normal inspection Edema: no edema noted Arm (L), no edema noted Arm (R), no edema noted Leg (L), no edema noted Leg (R), no edema noted Pedal (L), no edema noted Pedal (R), no edema noted Generalized Neurologic: motor weakness Skin: normal pigmentation, warm/dry Assessment/Plan Problem List: (1) COPD (chronic obstructive pulmonary disease) ICD Codes: J44.9 - Chronic obstructive pulmonary disease, unspecified SNOMED: 87197484 (2) Anemia ICD Codes: D64.9 - Anemia, unspecified SNOMED: 075701971 (3) Seizure disorder ICD Codes: G40.909 - Epilepsy, unspecified, not intractable, without status epilepticus SNOMED: 804075036, 666268670 (4) Hypertension ICD Codes: I10 - Essential (primary) hypertension SNOMED: 79386219 (5) Pneumonia ICD Codes: J18.9 - Pneumonia, unspecified organism SNOMED: 369253617 (6) COVID-19 ICD Codes: U07.1 - COVID-19 SNOMED: 714021384 (7) Confused ICD Codes: R41.0 - Disorientation, unspecified SNOMED: 418374049 (8) Altered level of consciousness ICD Codes: R40.4 - Transient alteration of awareness SNOMED: 2054257 Status: unchanged Assessment/Plan: o2 pulm tx abx pt diet eval cbc bmp am Keyur Bronson DO Jun 28, 2020 13:20
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
[2020-06-28 16:00] VITALS: BP 146/77
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
--- NOTE | 2020-06-28 19:39 | NUR ---
NURSE HAND-OFF REPORT: Important Events on Shift: 2D echo shows 50-55% Patient Status: Stable Diet: CCHO Med Finely Chopped with NTL Pending Orders: Pending Results/Labs: Pending MD notification: Latest Vital Signs: Temperature 97.1 , Pulse 60 , B/P 146 /77 , Respiratory Rate 20 , O2 SAT 98 , Nasal Cannula, O2 Flow Rate 3.0 . Vital Sign Comment: EKG Rhythm: Sinus Rhythm Rhythm change?: N MD Notified?: N - MD Response: Latest Stone Fall Score: 60 Fall Risk: High Risk Safety Measures: Call light Within Reach, Bed Alarm Zone 2, Side Rails Side Rails x3, Bed position Low and Locked. Fall Precautions: Yellow Socks Yellow Gown Door Sign Patient Fall Education Report given to Raul.
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
[2020-06-28 20:00] VITALS: BP 147/77
[2020-06-28] MEDS: Dyna-Hex 2% Top Sol 2oz TOPIC SCH (20:00)
[2020-06-28] MEDS: TraZODone 50mg tab ORAL SCH (21:00)
[2020-06-28] MEDS: Tamsulosin 0.4mg cap ORAL SCH (21:00)
[2020-06-29] VITALS: BP 144/82
[2020-06-29] MEDS: Vancomycin 1 GM in NS 275 ML IVPB SCH (00:06)
[2020-06-29 04:00] VITALS: BP 160/81
[2020-06-29] MEDS: NovoLOG Insulin Flexpen SUBQ SCH ×4 (06:37→21:00)
--- NOTE | 2020-06-29 07:30 | NUR ---
NURSE HAND-OFF REPORT: Important Events on Shift:Pt refused labs and had medications continued Patient Status: Stable Diet: CCHO medium finely chopped Pending Orders: Pending Results/Labs:AM Labs Pending MD notification: Latest Vital Signs: Temperature 97.9 , Pulse 70 , B/P 161 /78 , Respiratory Rate 24 , O2 SAT 99 , Nasal Cannula, O2 Flow Rate 3.0 . Vital Sign Comment: VSS EKG Rhythm: Sinus Rhythm Rhythm change?: N MD Notified?: N - MD Response: Latest Stone Fall Score: 60 Fall Risk: High Risk Safety Measures: Call light Within Reach, Bed Alarm Zone 2, Side Rails Side Rails x3, Bed position Low and Locked. Fall Precautions: Yellow Socks Yellow Gown Door Sign Patient Fall Education Report given to JAGDISH Campbell.
--- NOTE | 2020-06-29 07:36 | NUR ---
NURSE NOTES: RECEIVED PATIENT FROM [facility] IN BED, DENIES ANY PAIN AT THIS TIME. PATIENT IS AAO X2 WITH EPISODE OF CONFUSION. PATIENT IS REFUSING BLOOD DRAW, BUT CONTINUE TO MAKE ATTEMPT, REFUSED VITAL SIGNS, WILL ALSO CONTINUE TO ATTEMPT. IV LEFT UPPER ARM IS INTACT AND PATENT RUNNING 1/2 NS @ 75CC/HR AND TOLERATING WELL. BED IS ON LOWEST LEVEL WITH BEDSIDE RAILS UP X3, BRAKES ENGAGED FOR SAFETY. CALL LIGHT IS WITHIN REACH. WILL CONTINUE WITH THE PLAN OF CARE.
[2020-06-29 08:00] VITALS: BP 143/67
[2020-06-29] MEDS: Aspirin Baby 81mg ORAL SCH (08:33)
[2020-06-29] MEDS: Azithromycin 500 MG in D5W 275 ML IV SCH (08:34)
[2020-06-29] MEDS: cefTRIAXone 1 GM in D5W 55 ML IVPB SCH (08:34)
[2020-06-29] MEDS: Heparin 5000 units/ml inj SUBQ SCH ×2 (08:36→21:00)
--- NOTE | 2020-06-29 09:15 | General Progress Note ---
Subjective Constitutional: Reports: weakness Allergies: Coded Allergies: IBUPROFEN (Verified Allergy, Unknown, 10/22/19) PENICILLINS (Unverified Allergy, Unknown, 04/04/20) tolerated ceftriaxone Uncoded Allergies: PCN (Allergy, Unknown, 11/07/19) All Systems: reviewed and negative except above Subjective calm in bed Objective Last 24 Hour Vital Signs Date Time Temp Pulse Resp B/P (MAP) Pulse Ox O2 Delivery O2 Flow Rate FiO2 06/29/20 08:33 61 143/67 06/29/20 08:00 98.7 61 20 143/67 (92) 97 06/29/20 06:00 161/78 06/29/20 04:00 97.9 70 24 160/81 (107) 99 06/29/20 04:00 61 06/29/20 00:00 96.4 67 24 144/82 (102) 99 06/29/20 00:00 65 06/28/20 21:56 147/77 06/28/20 21:00 Nasal Cannula 3.0 06/28/20 20:00 96.9 62 20 147/77 (100) 100 06/28/20 20:00 61 06/28/20 16:00 97.1 60 20 146/77 (100) 98 06/28/20 16:00 60 06/28/20 13:39 164/73 06/28/20 12:31 164/73 06/28/20 12:00 71 06/28/20 12:00 97.4 82 20 164/73 (103) 97 Intake and Output 06/28/20 06/29/20 19:00 07:00 Intake Total 1440 ml 1700 ml Output Total 600 ml 700 ml Balance 840 ml 1000 ml Intake Oral 1440 ml 1700 ml Output Urine Total 600 ml 700 ml Laboratory Tests 06/29/20 04:00: White Blood Count [Pending], Red Blood Count [Pending], Hemoglobin [Pending], Hematocrit [Pending], Mean Corpuscular Volume [Pending], Mean Corpuscular Hemoglobin [Pending], Mean Corpuscular Hemoglobin Concent [Pending], Red Cell Distribution Width [Pending], Platelet Count [Pending], Mean Platelet Volume [Pending], Neutrophils (%) (Auto) [Pending], Lymphocytes (%) (Auto) [Pending], Monocytes (%) (Auto) [Pending], Eosinophils (%) (Auto) [Pending], Basophils (%) (Auto) [Pending] Height (Feet): 5 Height (Inches): 11.00 Weight (Pounds): 180 General Appearance: lethargic EENT: normal ENT inspection Neck: normal alignment Cardiovascular: normal peripheral pulses, normal rate, regular rhythm Respiratory/Chest: chest wall non-tender, lungs clear, normal breath sounds Abdomen: normal bowel sounds, non tender, soft Extremities: normal inspection Edema: no edema noted Arm (L), no edema noted Arm (R), no edema noted Leg (L), no edema noted Leg (R), no edema noted Pedal (L), no edema noted Pedal (R), no edema noted Generalized Neurologic: motor weakness Skin: normal pigmentation, warm/dry Assessment/Plan Problem List: (1) COPD (chronic obstructive pulmonary disease) ICD Codes: J44.9 - Chronic obstructive pulmonary disease, unspecified SNOMED: 62341429 (2) Anemia ICD Codes: D64.9 - Anemia, unspecified SNOMED: 189598344 (3) Seizure disorder ICD Codes: G40.909 - Epilepsy, unspecified, not intractable, without status epilepticus SNOMED: 422744587, 826542804 (4) Hypertension ICD Codes: I10 - Essential (primary) hypertension SNOMED: 23816219 (5) COVID-19 ICD Codes: U07.1 - COVID-19 SNOMED: 097057579 (6) Altered level of consciousness ICD Codes: R40.4 - Transient alteration of awareness SNOMED: 1296610 Status: unchanged Assessment/Plan: o2 pulm tx abx pt diet eval cbc bmp am Keyur Bronson DO Jun 29, 2020 09:15
--- NOTE | 2020-06-29 10:00 | Consultation ---
DATE OF CONSULTATION: 06/28/2020 INITIAL PSYCHIATRIC EVALUATION HISTORY OF PRESENT ILLNESS: This is a patient who came to the hospital with altered level of consciousness and COVID pneumonia. The patient came from [facility] with altered level of consciousness. He is very confused. His cognition has declined significantly below his baseline, that is why his attending physician has requested daily psychiatric consultation. He has got overall mixed feelings of helplessness, hopelessness, low energy, poor appetite, and loss of interest in activities. I saw and assessed this patient at bedside. The patient is a very poor historian at bedside, so I had to obtain most of the information through chart review. MEDICAL HISTORY: The patient has a medical history of pancreatitis, hip pain, status post fall, hematuria, acute renal injury, hypoglycemia, pneumonia, COVID-19, COPD, hypertension, diabetes, and confusion with altered mental status that is why his attending has requested daily psychiatric consultation for this patient because cognition has declined significantly below baseline. Also medical problems as stated. ALLERGIES: Motrin, penicillin, . MEDICATIONS: Psychotropic medications on admission, per documentation the patient normally takes trazodone, Neurontin, Risperdal. The patient cannot confirm that with me. SOCIAL HISTORY: Lives in [facility]. Financially supported by [employer] and Medicare. No known legal problems. FAMILY INTERACTIONS AND RELATIONSHIPS: . PSYCHIATRIC HISTORY: History of paranoid schizophrenia, rule out depression with psychotic features, rule out dementia with psychosis. . STRENGTHS: He is motivated to get better and he has a place to live. WEAKNESSES: Impulsive, minimal support system. He has a previous diagnosis of paranoid schizophrenia as well. MENTAL STATUS EXAMINATION: This is a 70-year-old male. His appearance is disheveled. Attitude, irritable and agitated. Affect is flat. Intellect poor because he does not know current events, does not know last four presidents. Mood, depressed and anxious. Motor activity, psychomotor agitation. Attention span is poor because he cannot do serial sevens or spell world backwards. Orientation x1 person but not time, place, situation. Speech is nonsensical. Thought process, disorganized and illogical. Thought content, seems to have some paranoia. Perception is poor because of perceptual disturbances, paranoia. Abstract reasoning is poor because he does not understand proverbs and only has concrete thinking. Insight is poor because he does not recognize having a psychiatric condition. Judgment is poor because he cannot make medical decisions for himself. Short-term memory is 0/3 after 3-word recall, so poor short-term memory. Long-term memory is poor because he cannot recall long-term events in his life such as school that he went to and . No signs of any suicidal or homicidal thoughts. . DIAGNOSES: 1. Paranoid schizophrenia with acute exacerbation, rule out depression with psychotic features, rule out dementia with psychosis. 2. No secondary. 3. Medical includes pancreatitis, diabetes, acute renal injury, pneumonia, COVID-19, hypertension, altered level of consciousness, hip pain, hypoglycemia. 4. Psychosocial stressors, financial. 5. Function impairment is moderate. PLAN: I am going to continue to treat this patient with trazodone 50 mg at bedtime for insomnia, Neurontin 300 mg three times a day, Risperdal 0.5 mg twice a day for now. I am also going to continue on Ativan as needed of 2.5 mg every 6 hours p.r.n. anxiety and agitation. A 20 minutes of insight-oriented psychotherapy so he has better insight into psychiatric and physical condition. Seen and assessed at bedside. Twenty minutes of insight-oriented psychotherapy to help this patient to improve his understanding and recognition of his physical and psychiatric condition so he has less anxiety and depression, better impulse control. Chart reviewed. Discussed with staff. Seen and assessed at bedside. I would like to thank Dr. Keyur Bronson for the courtesy of this consultation. Ariela Venegas M.D. DR: Wong JOB#: [id number] CC:
--- NOTE | 2020-06-29 10:00 | Consultation ---
DATE OF CONSULTATION: 06/28/2020 PSYCHOTHERAPY CONSULTATION PROGRESS NOTE CONSULTING PHYSICIAN: Johnathan Devi PsyD TREATING ATTENDING PHYSICIAN: Keyur Bronson DO HISTORY OF PRESENT ILLNESS: This patient is a male patient. He was brought into the hospital for altered mental status. He is from a residential facility from [facility]. On assessment, the patient has weakness due to his altered mental status. The patient is COVID positive. He is in his room. The patient is confused and disorganized. He is able to say his name. The patient is able to communicate. He continues to state that he is in pain because of swelling, however, he is very fixated on this. He denies suicidal or homicidal thoughts or ideation. Denies any auditory or visual hallucinations. He is, however, confused. When asked where he lives, he states, "I live here." He was told that he is in the hospital; however, he is forgetful. He is confused and disorganized . However, with redirection, he becomes cooperative. Nursing staff states that he has been anxious and irritable, and restless and impulsive. PAST MEDICAL HISTORY: History of COPD, diabetes, hypertension, seizures. ALLERGIES: The patient has allergies to ibuprofen and penicillin. SUBSTANCE ABUSE HISTORY: There is no indication of alcohol use, illicit substance use, or smoking cigarettes. PSYCHIATRIC HISTORY: There is no significant information on psychiatric history at this time, although he has been confused, disorganized, and he is a poor historian. SOCIAL HISTORY: The patient is a 70-year-old male patient. He is from [facility]. Financially sustained through [facility]. MENTAL STATUS EXAMINATION: He is alert, oriented to person. His mood is restless. Affect is congruent. Thought process is disorganized. Thought content confused. He has poor attention and concentration. Poor insight, judgment, impulse control. DIAGNOSES: 1. Rule out major neurocognitive disorder, Alzheimer type with behavioral disturbances. 2. Chronic obstructive pulmonary disease, seizures, anemia, diabetes, sepsis, hypoglycemia. 3. Psychosocial stressors are moderate. The patient is from a residential facility altered mental status. I ASSESSED THIS PATIENT AND PROVIDED THE PATIENT WITH: 4. Reality orientation. Orientation to person, place, time, and situation. 5. Provided the patient with supportive psychotherapy encouraging the patient to have positive thought and positive communicate skills, working on increasing insight into mental illness mental health symptoms, redirecting the patient irritable, agitated . PLAN: To maintain medication compliance with the use of positive coping skills to stabilize mood, thoughts, and behavior. 45 minutes. This clinician has reviewed the patient's chart and discussed treatment with treatment team. Johnathan Devi PsyD. DR: AVERY JOB#: [id number] CC:
--- NOTE | 2020-06-29 10:08 | Psychiatry Consultation ---
Psychiatry Consultation Psychiatry Consultation Chief Complaint: Altered Level of Consciousness History of Present Illness: 70 yo male who continunes to be confused and disorganzed with no logical plan for self care. Patient will conmtinue to be followed by psych to reduce agitation per request of financial controller. Allergies: Coded Allergies: IBUPROFEN (Verified Allergy, Unknown, 10/22/19) PENICILLINS (Unverified Allergy, Unknown, 04/04/20) tolerated ceftriaxone Uncoded Allergies: PCN (Allergy, Unknown, 11/07/19) Medication History Scheduled Amlodipine Besylate* (Amlodipine Besylate*), 10 MG ORAL DAILY, (Reported) Aspirin (Aspirin), 81 MG PO DAILY, (Reported) Cephalexin* (Keflex*), 500 MG ORAL EVERY 12 HOURS Clonidine Hcl* (Catapres*), 0.1 MG ORAL BID, (Reported) Clonidine Hcl* (Catapres*), 0.1 MG ORAL EVERY 8 HOURS, (Reported) Docusate Sodium* (Colace*), 100 MG ORAL THREE TIMES A DAY, (Reported) Enoxaparin* (Lovenox*), 40 MG SUBQ DAILY, (Reported) Ferrous Sulfate* (Ferrous Sulfate*), 325 MG ORAL THREE TIMES A DAY, (Reported) Gabapentin* (Gabapentin*), 300 MG ORAL THREE TIMES A DAY, (Reported) Insulin Detemir (Levemir Flexpen), 12 SUBQ Q12HR, (Reported) Levetiracetam (Keppra), 500 MG ORAL EVERY 12 HOURS, (Reported) Lisinopril (Lisinopril*), 20 MG ORAL BID, (Reported) Pantoprazole* (Protonix*), 40 MG ORAL BID, (Reported) Phenytoin Sodium Extended* (Dilantin*), 300 MG ORAL BEDTIME, (Reported) Risperidone (Risperidone), 3 MG ORAL BEDTIME, (Reported) Tamsulosin HCl (Flomax), 0.4 MG ORAL BEDTIME, (Reported) Trazodone Hcl* (Desyrel*), 50 MG ORAL BEDTIME, (Reported) Trazodone Hcl* (Desyrel*), 50 MG ORAL BEDTIME, (Reported) Scheduled PRN Acetaminophen* (Acetaminophen 325MG Tablet*), 650 MG ORAL Q4H PRN for For Pain, (Reported) Acetaminophen* (Acetaminophen 325MG Tablet*), 650 MG ORAL Q4H PRN for Temp >100.5, (Reported) Acetaminophen* (Acetaminophen 325MG Tablet*), 650 MG ORAL Q4H PRN for MILD PAIN, (Reported) Hydralazine Hcl* (Hydralazine Hcl*), 25 MG ORAL Q6HR PRN for For High Blood Pressure, (Reported) Hydralazine Hcl* (Hydralazine Hcl*), 25 MG ORAL Q4HR PRN for For High Blood Pressure, (Reported) Hydrocodone Bit/Acetaminophen 5-325* ([place] 5-325 Tablet*), 1 TAB ORAL DAILY PRN for For Pain, (Reported) Hydrocodone Bit/Acetaminophen 7.5-325* ([place] 7.5-325*), 1 TAB ORAL Q6H PRN for Moderate Pain (Pain Scale 4-6), (Reported) Loperamide Hcl (Loperamide), 2 MG PO FOUR TIMES A DAY PRN for Diarrhea, (Reported) Lorazepam* (Ativan*), 1 MG ORAL EVERY 6 HOURS PRN for For Anxiety, (Reported) Magnesium Hydroxide* (Milk Of Magnesia*), 30 ML ORAL DAILY PRN for CONSTIPATION, (Reported) Tramadol Hcl (Ultram*), 50 MG ORAL Q4H PRN for Severe Pain (Pain Scale 7-10), (Reported) Miscellaneous Medications Glyburide (Glyburide), Unknown Dose PO, (Reported) Metformin Hcl* (Metformin Hcl*), Unknown Dose ORAL, (Reported) Phenytoin (Phenytoin), Unknown Dose BC, (Reported) Objective Data Height (Feet): 5 Height (Inches): 11.00 Weight (Pounds): 180 Appearance: disheveled Behavior Mannerisms: poor eye contact Mood: euthymic Speech: dysarthric Thought Process: disorganized Thought Content: delusions (specify), delusions of grandiosity Perceptual Disturbances: hallucinations, auditory Suicidal Ideation: not present Assessment/Plan Assessment/Plan: Conmtinue Risperidal and Ativan as needed. 20 minutes of Cognitive behavioral therapy provided to help reduce the patients automatic negative thoughts and help convert his negative thoughts to more postive thoughts to reduce depression anxiety and suicidality. Diagnosis [place] I: Major Depression with psychotic features Ariela Venegas MD Jun 29, 2020 10:08
--- NOTE | 2020-06-29 11:12 | Nephrology Progress Note ---
Assessment/Plan Problem List: (1) ALYCIA (acute kidney injury) (2) Hypoglycemia (3) Seizure disorder (4) Hypertension (5) Altered level of consciousness Assessment ALYCIA Altered level of consciousness, due to hyperglycemia COVID-19 pneumonia Hematuria microscopic Diabetes mellitus, presents with hypoglycemia History of hypertension History of seizure disorder History of schizophrenia History of pancreatitis Status post ORIF left hip Anemia Hepatitis B surface antigen positive, chronic in nature Plan June 29: Patient continues to refuse blood draw. Agitated and combative. Continue per psych management. June 28: Patient refused blood draw today. Clinically appears stable. Mark nue per psych management. Previously: Adjust blood pressure medication with parameters Blood sugar control Avoid nephrotoxic's Urine studies Anemia work-up Psychiatric med adjustments per psychiatrist Subjective ROS Limited/Unobtainable: No Constitutional: Reports: other - Vulgar and combative Objective Objective Last 24 Hour Vital Signs Date Time Temp Pulse Resp B/P (MAP) Pulse Ox O2 Delivery O2 Flow Rate FiO2 06/29/20 09:00 Nasal Cannula 3.0 06/29/20 08:33 61 143/67 06/29/20 08:00 70 06/29/20 08:00 98.7 61 20 143/67 (92) 97 06/29/20 06:00 161/78 06/29/20 04:00 97.9 70 24 160/81 (107) 99 06/29/20 04:00 61 06/29/20 00:00 96.4 67 24 144/82 (102) 99 06/29/20 00:00 65 06/28/20 21:56 147/77 06/28/20 21:00 Nasal Cannula 3.0 06/28/20 20:00 96.9 62 20 147/77 (100) 100 06/28/20 20:00 61 06/28/20 16:00 97.1 60 20 146/77 (100) 98 06/28/20 16:00 60 06/28/20 13:39 164/73 06/28/20 12:31 164/73 06/28/20 12:00 71 06/28/20 12:00 97.4 82 20 164/73 (103) 97 Intake and Output 06/28/20 06/29/20 19:00 07:00 Intake Total 1440 ml 1700 ml Output Total 600 ml 700 ml Balance 840 ml 1000 ml Intake Oral 1440 ml 1700 ml Output Urine Total 600 ml 700 ml Current Medications Medications (Trade) Dose Ordered Sig/Jennifer Route PRN Reason Start Time Stop Time Status Last Admin Dose Admin Acetaminophen (Tylenol) 650 mg Q4H PRN ORAL FEVER 06/26/20 10:30 07/26/20 10:29 Albuterol/ Ipratropium (Albuterol/ Ipratropium) 3 ml EVERY 4 HOURS PRN HHN Shortness of Breath 06/26/20 10:30 07/01/20 10:29 Amlodipine Besylate (Norvasc) 10 mg DAILY ORAL 06/27/20 09:00 07/27/20 08:59 06/29/20 08:33 Aspirin (ASA) 81 mg DAILY ORAL 06/27/20 09:00 08/11/20 08:59 06/29/20 08:33 Azithromycin 500 mg/Dextrose 275 ml @ 275 mls/hr DAILY IV 06/27/20 09:00 07/02/20 08:59 06/29/20 08:34 Barium Sulfate (Varibar Honey) 250 ml NOW PRN MC RAD 06/26/20 14:45 06/29/20 14:39 Barium Sulfate (Varibar [place]) 240 ml NOW PRN MC RAD 06/26/20 14:45 06/29/20 14:39 Barium Sulfate (Varibar Pudding) 230 ml NOW PRN MC RAD 06/26/20 14:45 06/29/20 14:39 Barium Sulfate (Varibar Thin Liquid powder) 148 gm NOW PRN MC RAD 06/26/20 14:45 06/29/20 14:39 Ceftriaxone Sodium 1 gm/ Dextrose 55 ml @ 110 mls/hr DAILY IVPB 06/27/20 09:00 07/04/20 08:59 06/29/20 08:34 Chlorhexidine Gluconate (Gracie-Hex 2%) 1 applic DAILY@2000 TOPIC 06/28/20 20:00 09/26/20 19:59 Clonidine HCl (Catapres Tab) 0.1 mg Q8HR ORAL 06/27/20 22:00 09/24/20 17:59 06/29/20 06:00 Dexamethasone (Decadron) 4 mg DAILY ORAL 06/27/20 09:00 07/06/20 11:00 06/29/20 08:33 Dextrose (Dextrose 50%) 25 ml Q30M PRN IV Hypoglycemia 06/26/20 10:30 09/24/20 10:29 Dextrose (Dextrose 50%) 50 ml Q30M PRN IV Hypoglycemia 06/26/20 10:30 09/24/20 10:29 Gabapentin (Neurontin) 300 mg THREE TIMES A DAY ORAL 06/28/20 13:00 07/28/20 12:59 06/29/20 08:34 Heparin Sodium (Porcine) (Heparin 5000 units/ml) 5,000 units EVERY 12 HOURS SUBQ 06/26/20 21:00 08/10/20 20:59 06/29/20 08:36 Heparin Sodium/ Sodium Chloride (Heparin 1000 units/500ml Premix) 1,000 unit ONCE PRN IV PICC LINE 06/28/20 12:00 06/30/20 11:59 Hydralazine HCl (Apresoline) 25 mg Q4H PRN ORAL For High Blood Pressure 06/26/20 10:15 09/24/20 10:14 06/28/20 12:31 Insulin Aspart (NovoLOG) BEFORE MEALS AND HS SUBQ 06/26/20 11:30 09/24/20 11:29 06/29/20 06:37 Levetiracetam (Keppra) 500 mg EVERY 12 HOURS ORAL 06/26/20 21:00 07/26/20 20:59 06/29/20 08:33 Lidocaine HCl (Xylocaine 1% 30ml) 30 ml ONCE PRN INJ PICC LINE 06/28/20 12:00 06/30/20 11:59 Ondansetron HCl (Zofran) 4 mg Q6H PRN IVP Nausea & Vomiting 06/26/20 10:30 07/26/20 10:29 Polyethylene Glycol (Miralax) 17 gm DAILYPRN PRN ORAL Constipation 06/26/20 10:30 07/26/20 10:29 Promethazine HCl/ Codeine (Phenergan with Codeine) 5 ml EVERY 6 HOURS PRN ORAL cough 06/26/20 10:30 07/26/20 10:29 06/27/20 10:16 Sodium Chloride 1,000 ml @ 75 mls/hr [id number] IV 06/27/20 16:00 07/27/20 15:59 06/29/20 08:37 Tamsulosin HCl (Flomax) 0.4 mg BEDTIME ORAL 06/26/20 21:00 07/26/20 20:59 06/28/20 21:00 Trazodone HCl (Desyrel) 50 mg BEDTIME ORAL 06/26/20 21:00 07/26/20 20:59 06/28/20 21:00 Vancomycin HCl (Vanco pharmacy to dose) 1 ea DAILY PRN MISC Per rx protocol 06/27/20 22:45 07/27/20 22:44 Vancomycin HCl 1 gm/Sodium Chloride 275 ml @ 183.708 mls/hr Q24H IVPB 06/27/20 00:00 07/02/20 00:00 06/29/20 00:06 Laboratory Tests 06/29/20 04:00: White Blood Count [Pending], Red Blood Count [Pending], Hemoglobin [Pending], Hematocrit [Pending], Mean Corpuscular Volume [Pending], Mean Corpuscular Hemoglobin [Pending], Mean Corpuscular Hemoglobin Concent [Pending], Red Cell Distribution Width [Pending], Platelet Count [Pending], Mean Platelet Volume [Pending], Neutrophils (%) (Auto) [Pending], Lymphocytes (%) (Auto) [Pending], Monocytes (%) (Auto) [Pending], Eosinophils (%) (Auto) [Pending], Basophils (%) (Auto) [Pending] Height (Feet): 5 Height (Inches): 11.00 Weight (Pounds): 180 General Appearance: agitated, combative Cardiovascular: normal rate Joo Contreras MD Jun 29, 2020 11:12
--- NOTE | 2020-06-29 11:30 | NUR ---
NURSE NOTES: NOTIFIED DR. DIAMOND OF PATIENT'S LABS, NO NEW ORDER. PATIENT REMAIN STABLE.
[2020-06-29 12:00] VITALS: BP 149/71
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
--- NOTE | 2020-06-29 13:32 | NUR ---
CASE MANAGEMENT:REVIEW 06/29/20 SI: COVID. COPD. ALYCIA BLOOD CX(+) 98.7 61 20 143/67 97% ON 3L/NC LABS PENDING IS: IV ROCEPHIN Q24 IV AZITHROMYCIN Q24 IV VANCOMYCIN Q24 DECADRON PO QD ASA PO QD NORVASC PO QD : TELEMETRY STATUS DCP: FROM [place] PLAN: VENOUS DUPLEX
[2020-06-29 16:00] VITALS: BP 145/61
--- NOTE | 2020-06-29 16:14 | NUR ---
NURSE NOTES: RADIOLOGY CAME TO INSERT PICCLINE. PATIENT IS VERY COMBATIVE. PATIENT REFUSED PICCLINE PLACEMENT.
--- NOTE | 2020-06-29 16:30 | NUR ---
NURSE NOTES: PATIENT REFUSED BLOOD SUGAR CHECK AND INSULIN. PATIENT IS IN STABLE CONDITION. WILL CONTINUE TO MONITOR.
[2020-06-29] MEDS ORDERED: MILK OF MA2400 MG/10 ORAL (17:23)
[2020-06-29] MEDS ORDERED: NICOTINE PATCH1 EAC5 TD (17:23)
[2020-06-29] MEDS ORDERED: VOLTAREN100 G1 TP (17:23)
[2020-06-29] MEDS ORDERED: LOVENOX10 M4 SUBQ (17:23)
[2020-06-29] MEDS ORDERED: DEPAKOTE250 MG PO (17:23)
--- NOTE | 2020-06-29 17:52 | NUR ---
NURSE HAND-OFF REPORT: Important Events on Shift:PATIENT REFUSED PICC LINE PLACEMENT Patient Status: Diet: Pending Orders: Pending Results/Labs: Pending MD notification: Latest Vital Signs: Temperature 97.7 , Pulse 63 , B/P 145 /61 , Respiratory Rate 19 , O2 SAT 97 , Nasal Cannula, O2 Flow Rate 3.0 . Vital Sign Comment: EKG Rhythm: Sinus Rhythm Rhythm change?: N MD Notified?: N - MD Response: Latest Stone Fall Score: 60 Fall Risk: High Risk Safety Measures: Call light Within Reach, Bed Alarm Zone 2, Side Rails Side Rails x3, Bed position Low and Locked. Fall Precautions: Yellow Socks Yellow Gown Door Sign Patient Fall Education Report given to . Addendum: 06/29/20 at 1929 by STEVE PLASCENCIA RN HAND OFF REPORT GIVEN TO ANASTASIA DUBON.
--- NOTE | 2020-06-29 19:15 | NUR ---
NURSE NOTES: Received report from Adrian DUBON. Pt A/O x2 responds verbally and resting in bed. Pt is verbally abusive and combative at times. Wants to be left alone and likes to refuse care. Pt is confused. Pt denies any pain or discomfort at this time. Pt is on 3L via NC but removes nasal cannula at times sating 98%. Pt has franco catheter draining to gravity patent and intact. Pt has R UA 20g w/ 1/2 NS@75 patent and intact. No SOB or acute distress lethargic. Pt has a L foot blister which is not open, and a scratch on the sacral. Pt is on seizure precautions side rails padded and suction at bedside. Pt bed low and locked, call light in reach and bed alarm on, bedside table within reach. Pt verbalized understanding to call for help. Continue to monitor. Addendum: 06/30/20 at 0159 by Rodolfo Fine RN Pt is COV+ on 06/26/2020
[2020-06-29 20:00] VITALS: BP 147/61
[2020-06-29] MEDS: Dyna-Hex 2% Top Sol 2oz TOPIC SCH (20:00)
[2020-06-29] MEDS: TraZODone 50mg tab ORAL SCH (21:00)
[2020-06-29] MEDS: Tamsulosin 0.4mg cap ORAL SCH (21:00)
[2020-06-30] VITALS: BP 149/83
[2020-06-30] MEDS: Vancomycin 1 GM in NS 275 ML IVPB SCH (00:19)
[2020-06-30 04:00] VITALS: BP 124/84
--- NOTE | 2020-06-30 06:00 | NUR ---
NURSE NOTES: Pt refusing care. Pt refusing meds, refusing blood sugar checks, refusing to be cleaned, refusing morning blood draw for labs. Pt very noncompliant, verbally abusive and combative. Pt in stable condition. Continue to monitor.
[2020-06-30] MEDS: NovoLOG Insulin Flexpen SUBQ SCH ×2 (06:19→11:46)
--- NOTE | 2020-06-30 07:10 | NUR ---
NURSE HAND-OFF REPORT: Important Events on Shift: Patient Status: STABLE Diet: SOFT MECH SOFT FINELY CHOPPED. NECTAR THICK LIQUIDS. CCHO MEDIUM Pending Orders: LABS AM Pending Results/Labs: Pending MD notification: Latest Vital Signs: Temperature 97.9 , Pulse 88 , B/P 124 /84 , Respiratory Rate 20 , O2 SAT 99 , Nasal Cannula, O2 Flow Rate 3.0 . Vital Sign Comment: EKG Rhythm: Sinus Rhythm Rhythm change?: N MD Notified?: N - MD Response: Latest Stone Fall Score: 60 Fall Risk: High Risk Safety Measures: Call light Within Reach, Bed Alarm Zone 2, Side Rails Side Rails x3, Bed position Low and Locked. Fall Precautions: Yellow Socks Yellow Gown Door Sign Patient Fall Education Report given to USHA DUBON.
--- NOTE | 2020-06-30 07:38 | NUR ---
NURSE NOTES: Received pt from Amor DUBON. Pt in bed sleeping. Bed low and locked. No distress or sob noted. Call light within reach. NS running at 75cc in right upper arm
[2020-06-30 08:00] VITALS: BP 161/80
--- NOTE | 2020-06-30 08:34 | NUR ---
RD ASSESSMENT & RECOMMENDATIONS SEE CARE ACTIVITY FOR COMPLETE ASSESSMENT DAILY ESTIMATED NEEDS: Needs based on Pulmonary, wound, DM/ 77.3kg 25-30 kcals/kg 4595-2786 total kcals 1.25-1.5 g protein/kg 97-116 g total protein 25-30 mL/kg 3882-5195 total fluid mLs NUTRITION DIAGNOSIS: * Altered nutrition related lab values R/T diabetes and clinical status as evidenced by elev POC glu (195-382), elev BG, elev K (5.2), elev BUN and creat. CURRENT DIET: Soft CCHO MED/ ms finely chopped, w/ NTL PO DIET RECOMMENDATIONS: CCHO MED, texture per [employer] ADDITIONAL RECOMMENDATIONS: * Obtain a calibrated bed scale wt * Updated labs as able. * Wound care: Add JOSE ENRIQUE BID + Vit C 250mg qdaily * Rec HgA1C for eval. * Texture per [employer], upgrade as able . .
[2020-06-30] MEDS: Aspirin Baby 81mg ORAL SCH (08:49)
[2020-06-30] MEDS: cefTRIAXone 1 GM in D5W 55 ML IVPB SCH (08:49)
[2020-06-30] MEDS: Heparin 5000 units/ml inj SUBQ SCH (09:04)
[2020-06-30] MEDS: Azithromycin 500 MG in D5W 275 ML IV SCH (10:32)
--- NOTE | 2020-06-30 11:07 | Psychiatry Consultation ---
Psychiatry Consultation Psychiatry Consultation Chief Complaint: Altered Level of Consciousness History of Present Illness: 70-year-old male patient confused disorganized altered mental status his cognition has declined below his baseline worsened by the stress of his medical illness as well as attending continues to request daily psychiatric consultation for this patient. Patient denies suicidal or homicidal thoughts but because his cognition has declined below his baseline his attending would like psychiatry to follow this patient to try to prevent any further decline in his cognition and reduce his agitation level Mental status examination: Appearance is disheveled agitated by stated affect labile intellect poor mood depressed anxious motor activity psychomotor agitation attention span is poor orientation x2 speech is nonsensical thought process disorganized and illogical Insight and judgment is poor Allergies: Coded Allergies: IBUPROFEN (Verified Allergy, Unknown, 10/22/19) PENICILLINS (Unverified Allergy, Unknown, 04/04/20) tolerated ceftriaxone Uncoded Allergies: PCN (Allergy, Unknown, 11/07/19) Medication History Scheduled Amlodipine Besylate* (Amlodipine Besylate*), 10 MG ORAL DAILY, (Reported) Diclofenac Sodium (Voltaren), 100 GM TP TWICE A DAY, (Reported) Divalproex Sodium* (Depakote*), 500 MG PO QHS, (Reported) Docusate Sodium* (Colace*), 100 MG ORAL DAILY IN THE EVENING, (Reported) Enoxaparin* (Lovenox*), 40 MG SUBQ DAILY, (Reported) Gabapentin* (Gabapentin*), 300 MG ORAL THREE TIMES A DAY, (Reported) Hydralazine Hcl* (Hydralazine Hcl*), 25 MG ORAL Q6HR, (Reported) Hydrocodone Bit/Acetaminophen 5-325* ([place] 5-325 Tablet*), 1 TAB ORAL DAILY, (Reported) Levetiracetam (Keppra), 500 MG ORAL EVERY 12 HOURS, (Reported) Lisinopril (Lisinopril*), 20 MG ORAL DAILY IN THE AFTERNOON, (Reported) Magnesium Hydroxide* (Milk Of Magnesia*), 30 ML ORAL DAILY, (Reported) Risperidone (Risperidone), 3 MG ORAL BEDTIME, (Reported) Tamsulosin HCl (Flomax), 0.4 MG ORAL BEDTIME, (Reported) Scheduled PRN Acetaminophen* (Acetaminophen 325MG Tablet*), 650 MG ORAL Q4H PRN for Mild Pain (Pain Scale 1-3), (Reported) Clonidine Hcl* (Catapres*), 0.1 MG ORAL EVERY 8 HOURS PRN for For High Blood Pressure, (Reported) Miscellaneous Medications Nicotine (Nicotine Patch), 21 MG TD, (Reported) Discontinued Medications Acetaminophen* (Acetaminophen 325MG Tablet*), 650 MG ORAL Q4H PRN for For Pain, (Reported) Discontinued Reason: Therapy completed Acetaminophen* (Acetaminophen 325MG Tablet*), 650 MG ORAL Q4H PRN for Temp >100.5, (Reported) Discontinued Reason: Therapy completed Aspirin (Aspirin), 81 MG PO DAILY, (Reported) Discontinued Reason: Therapy completed Cephalexin* (Keflex*), 500 MG ORAL EVERY 12 HOURS Discontinued Reason: Therapy completed Clonidine Hcl* (Catapres*), 0.1 MG ORAL BID, (Reported) Discontinued Reason: Therapy completed Enoxaparin* (Lovenox*), 40 MG SUBQ DAILY, (Reported) Discontinued Reason: Pt had allergic rxn Ferrous Sulfate* (Ferrous Sulfate*), 325 MG ORAL THREE TIMES A DAY, (Reported) Discontinued Reason: Therapy completed Glyburide (Glyburide), Unknown Dose PO, (Reported) Discontinued Reason: Therapy completed Hydralazine Hcl* (Hydralazine Hcl*), 25 MG ORAL Q4HR PRN for For High Blood Pressure, (Reported) Discontinued Reason: Therapy completed Hydrocodone Bit/Acetaminophen 7.5-325* ([place] 7.5-325*), 1 TAB ORAL Q6H PRN for Moderate Pain (Pain Scale 4-6), (Reported) Discontinued Reason: Therapy completed Insulin Detemir (Levemir Flexpen), 12 SUBQ Q12HR, (Reported) Discontinued Reason: Therapy completed Loperamide Hcl (Loperamide), 2 MG PO FOUR TIMES A DAY PRN for Diarrhea, (Reported) Discontinued Reason: Therapy completed Lorazepam* (Ativan*), 1 MG ORAL EVERY 6 HOURS PRN for For Anxiety, (Reported) Discontinued Reason: Therapy completed Magnesium Hydroxide* (Milk Of Magnesia*), 30 ML ORAL DAILY PRN for CONSTIPATION, (Reported) Discontinued Reason: Prescription changed Metformin Hcl* (Metformin Hcl*), Unknown Dose ORAL, (Reported) Discontinued Reason: Therapy completed Pantoprazole* (Protonix*), 40 MG ORAL BID, (Reported) Discontinued Reason: Therapy completed Phenytoin (Phenytoin), Unknown Dose BC, (Reported) Discontinued Reason: Therapy completed Phenytoin Sodium Extended* (Dilantin*), 300 MG ORAL BEDTIME, (Reported) Discontinued Reason: Therapy completed Tramadol Hcl (Ultram*), 50 MG ORAL Q4H PRN for Severe Pain (Pain Scale 7-10), (Reported) Discontinued Reason: Therapy completed Trazodone Hcl* (Desyrel*), 50 MG ORAL BEDTIME, (Reported) Discontinued Reason: Therapy completed Trazodone Hcl* (Desyrel*), 50 MG ORAL BEDTIME, (Reported) Discontinued Reason: Therapy completed Objective Data Height (Feet): 5 Height (Inches): 11.00 Weight (Pounds): 180 Assessment/Plan Assessment/Plan: Conmtinue Risperidal and Ativan as needed. 20 minutes of Cognitive behavioral therapy provided to help reduce the patients automatic negative thoughts and help convert his negative thoughts to more postive thoughts to reduce depression anxiety and suicidality. 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
--- NOTE | 2020-06-30 11:08 | Nephrology Progress Note ---
Assessment/Plan Problem List: (1) ALYCIA (acute kidney injury) (2) Hypoglycemia (3) Seizure disorder (4) Hypertension (5) Altered level of consciousness Assessment ALYCIA Altered level of consciousness, due to hyperglycemia COVID-19 pneumonia Hematuria microscopic Diabetes mellitus, presents with hypoglycemia History of hypertension History of seizure disorder History of schizophrenia History of pancreatitis Status post ORIF left hip Anemia Hepatitis B surface antigen positive, chronic in nature Plan June 30: Patient refuses blood draw. Continue per psych. Clinically not in any distress. June 29: Patient continues to refuse blood draw. Agitated and combative. Continue per psych management. June 28: Patient refused blood draw today. Clinically appears stable. Continue per psych management. Previously: Adjust blood pressure medication with parameters Blood sugar control Avoid nephrotoxic's Urine studies Anemia work-up Psychiatric med adjustments per psychiatrist Subjective ROS Limited/Unobtainable: No Constitutional: Reports: malaise, other - Angry Objective Objective Last 24 Hour Vital Signs Date Time Temp Pulse Resp B/P (MAP) Pulse Ox O2 Delivery O2 Flow Rate FiO2 06/30/20 08:49 61 161/80 06/30/20 08:00 95 06/30/20 08:00 97.0 61 21 161/80 (107) 96 06/30/20 06:00 124/84 06/30/20 04:00 76 06/30/20 04:00 97.9 88 20 124/84 (97) 99 06/30/20 00:00 74 06/30/20 00:00 98.2 75 20 149/83 (105) 98 06/29/20 22:00 147/61 06/29/20 21:00 Nasal Cannula 3.0 06/29/20 20:00 64 06/29/20 20:00 99.0 76 20 147/61 (89) 98 06/29/20 16:00 97.7 63 19 145/61 (89) 97 06/29/20 16:00 63 06/29/20 13:49 149/71 06/29/20 12:00 98.6 84 20 149/71 (97) 96 06/29/20 12:00 84 Intake and Output 06/29/20 06/30/20 19:00 07:00 Intake Total 140 ml Output Total 800 ml 900 ml Balance -660 ml -900 ml Intake Oral 140 ml Output Urine Total 800 ml 900 ml # Voids 3 Refuses blood draw Laboratory Tests 06/29/20 11:46: POC Whole Blood Glucose [Pending] Height (Feet): 5 Height (Inches): 11.00 Weight (Pounds): 180 General Appearance: no apparent distress, agitated, combative Joo Contreras MD Jun 30, 2020 11:08
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
[2020-06-30 12:00] VITALS: BP 164/87
--- NOTE | 2020-06-30 12:09 | NUR ---
NURSE NOTES: Notified Dr. Bronson that I got clearance for DC from dr Wick and Dr Landrum per his nursing order.
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
--- NOTE | 2020-06-30 13:34 | General Progress Note ---
Subjective Constitutional: Reports: weakness Allergies: Coded Allergies: IBUPROFEN (Verified Allergy, Unknown, 10/22/19) PENICILLINS (Unverified Allergy, Unknown, 04/04/20) tolerated ceftriaxone Uncoded Allergies: PCN (Allergy, Unknown, 11/07/19) All Systems: reviewed and negative except above Subjective calm in bed Objective Last 24 Hour Vital Signs Date Time Temp Pulse Resp B/P (MAP) Pulse Ox O2 Delivery O2 Flow Rate FiO2 06/30/20 12:00 75 06/30/20 12:00 98.8 67 19 164/87 (112) 96 06/30/20 09:00 Room Air 06/30/20 08:49 61 161/80 06/30/20 08:00 95 06/30/20 08:00 97.0 61 21 161/80 (107) 96 06/30/20 06:00 124/84 06/30/20 04:00 76 06/30/20 04:00 97.9 88 20 124/84 (97) 99 06/30/20 00:00 74 06/30/20 00:00 98.2 75 20 149/83 (105) 98 06/29/20 22:00 147/61 06/29/20 21:00 Nasal Cannula 3.0 06/29/20 20:00 64 06/29/20 20:00 99.0 76 20 147/61 (89) 98 06/29/20 16:00 97.7 63 19 145/61 (89) 97 06/29/20 16:00 63 06/29/20 13:49 149/71 Intake and Output 06/29/20 06/30/20 19:00 07:00 Intake Total 140 ml Output Total 800 ml 900 ml Balance -660 ml -900 ml Intake Oral 140 ml Output Urine Total 800 ml 900 ml # Voids 3 Height (Feet): 5 Height (Inches): 11.00 Weight (Pounds): 180 General Appearance: lethargic EENT: normal ENT inspection Neck: normal alignment Cardiovascular: normal peripheral pulses, normal rate, regular rhythm Respiratory/Chest: chest wall non-tender, lungs clear, normal breath sounds Abdomen: normal bowel sounds, non tender, soft Extremities: normal inspection Edema: no edema noted Arm (L), no edema noted Arm (R), no edema noted Leg (L), no edema noted Leg (R), no edema noted Pedal (L), no edema noted Pedal (R), no edema noted Generalized Neurologic: motor weakness Skin: normal pigmentation, warm/dry Assessment/Plan Problem List: (1) COPD (chronic obstructive pulmonary disease) ICD Codes: J44.9 - Chronic obstructive pulmonary disease, unspecified SNOMED: 18373287 (2) Anemia ICD Codes: D64.9 - Anemia, unspecified SNOMED: 193036765 (3) Seizure disorder ICD Codes: G40.909 - Epilepsy, unspecified, not intractable, without status epilepticus SNOMED: 074899008, 152720389 (4) Hypertension ICD Codes: I10 - Essential (primary) hypertension SNOMED: 17767831 (5) COVID-19 ICD Codes: U07.1 - COVID-19 SNOMED: 365937727 (6) Altered level of consciousness ICD Codes: R40.4 - Transient alteration of awareness SNOMED: 4136207 Status: stable, progressing Assessment/Plan: o2 pulm tx abx pt diet eval cbc bmp am dc to snf if clear Keyur Bronson DO Jun 30, 2020 13:34
[2020-06-30 13:43] VITALS: BP 169/72
--- NOTE | 2020-06-30 15:13 | NUR ---
NURSE NOTES: Report given to JAGDISH Connolly at [facility]. Given pt will be on IV vanco next 4 days, will keep IV in place. RN also requests to not remove. Informed that he will be coming with a franco cath that was placed prior to the admission here. Informed of behavioral disturbances and that he has no belongings besides a pair of socks and a shirt.
[2020-06-30] MEDS ORDERED: VANCOMYCIN1.5 GM/300 IV (15:32)
--- NOTE | 2020-06-30 15:45 | NUR ---
NURSE NOTES: Pt picked up by [facility]. He is stable on RA no distress or pain. BP in 140's (this pt is always high). Tele box removed. Iv in place (RN at SNF is aware), Padilla kept in place. Wrist band cut off. Pt belongings (including $29) given to transport team.
[2020-06-30] MEDS ORDERED: NS 275ml ONE ×2 (15:52)
[2020-06-30] MEDS ORDERED: 1/2 NS 1000ml IV ONE ×2 (15:52)
[2020-06-30] MEDS ORDERED: Tubing IV Secondary IV ONE ×2 (15:52)
[2020-07-01] MEDS ORDERED: Azithromycin 250mg tab ORAL SCH (09:00)
--- NOTE | 2020-07-03 12:29 | NUR ---
CASE MANAGEMENT: Faxed clinical info (face sheet /DC instructions/ progress notes 06-30) to [facility] @ [phone]. REF# [id number].
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
== END 2020-06-30 15:53 | DRG 720 ==
LOC: EDBD 07:01 → EDBEDREQ 07:08 → EMR 07:22 → EDBEDREQ 10:28 → 2E 10:33
DX: A41.89 Other specified sepsis (principal); U07.1 COVID-19; J12.89 Other viral pneumonia; E43 Unspecified severe protein-calorie malnutrition; G93.49 Other encephalopathy; I12.9 Hypertensive chronic kidney disease with stage 1 through stage 4 chronic kidney disease, or unspecified chronic kidney disease; N18.9 Chronic kidney disease, unspecified; N17.9 Acute kidney failure, unspecified; Z88.6 Allergy status to analgesic agent; Z88.0 Allergy status to penicillin; J44.9 Chronic obstructive pulmonary disease, unspecified; E11.649 Type 2 diabetes mellitus with hypoglycemia without coma; Z79.82 Long term (current) use of aspirin; Z79.4 Long term (current) use of insulin; F20.0 Paranoid schizophrenia; K85.90 Acute pancreatitis without necrosis or infection, unspecified; F33.3 Major depressive disorder, recurrent, severe with psychotic symptoms; D64.9 Anemia, unspecified; G40.909 Epilepsy, unspecified, not intractable, without status epilepticus; W34.00XS Accidental discharge from unspecified firearms or gun, sequela; Z86.73 Personal history of transient ischemic attack (TIA), and cerebral infarction without residual deficits; E11.22 Type 2 diabetes mellitus with diabetic chronic kidney disease; B18.1 Chronic viral hepatitis B without delta-agent
CPT/HCPCS: 36415; 70450; 71045; 80048; 80053; 80061; 80069; 80307; 81003; 82550; 82728; 82803; 82962; 83605; 83615; 83690; 83735; 83880; 84100; 84484; 85007; 85025; 85379; 85610; 85730; 86140; 87040; 87081; 87181; 93005; 93306; 96365; 96368; 96375; 99291; G0480; J1815; J7030; U0002

== ENCOUNTER 2020-07-10 00:07 | Inpatient (IN) | payer MEDICARE, OTHER ==
[2020-07-10] VITALS (9 sets, daily range): BP systolic 142–176; BP diastolic 68–101
[~2020-07-10] VITALS: Ht 190.5 cm; Wt 79.4 kg
[~2020-07-10 00:07] MED LIST changes: +DEPAKOTE250 MG PO; +MILK OF MA2400 MG/10 ORAL; +NICOTINE PATCH1 EAC5 TD; +NORCO 5-325 TA1 EAC1 ORAL; +RISPERIDONE3 MG ORAL; +VANCOMYCIN1.5 GM/300 IV; +VOLTAREN100 G1 TP
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
--- NOTE | 2020-07-10 00:26 | Emergency Room Report ---
History of Present Illness General Chief Complaint: Headache Source: Patient, Medical Record, EMS Present Illness HPI This is a 70-year-old male from assisted. He has a history of COPD, diabetes, hypertension, schizophrenia. He was admitted here about 2 weeks ago for Covid pneumonia. He also has chronic headache. He presents with chief complaint of headache and weakness. No fever or chills. Decreased appetite. No nausea vomiting or diarrhea. Pain is 7 out of 10. Nothing made it better. Nothing made it worse. No focal deficit. Similar symptoms in the past. Allergies: Coded Allergies: IBUPROFEN (Verified Allergy, Unknown, 10/22/19) PENICILLINS (Unverified Allergy, Unknown, 04/04/20) tolerated ceftriaxone Uncoded Allergies: PCN (Allergy, Unknown, 11/07/19) COVID-19 Screening Contact w/high risk pt: Yes Recent Travel to affected area: No Experienced COVID-19 symptoms?: Yes COVID-19 Testing performed ART DIRECTOR: Yes COVID-19 Screening: Positive COVID-19 COVID-19 Testing Source: FACILITY Patient History Past Medical History: see triage record, old chart reviewed, DM, seizures, psych hx Past Surgical History: other Pertinent Family History: none Social History: Denies: smoking Immunizations: other Reviewed Nursing Documentation: PMH: Agreed; PSxH: Agreed Nursing Documentation-PMH Hx Cardiac Problems: Yes Hx Hypertension: Yes Hx COPD: Yes Hx Diabetes: Yes Hx Cancer: No Hx Gastrointestinal Problems: Yes Hx Neurological Problems: Yes Hx Dementia: Yes Hx Seizures: Yes Review of Systems Constitutional: Reports: weakness Eye: Denies: eye pain, blurred vision ENT: Denies: ear pain, nose congestion, throat swelling Respiratory: Denies: cough, shortness of breath Cardiovascular: Denies: chest pain, palpitations Gastrointestinal: Denies: abdominal pain, diarrhea, nausea, vomiting Musculoskeletal: Denies: back pain, joint pain Skin: Denies: rash Neurological: Reports: headache; Denies: numbness Endocrine: Denies: increased thirst, increased urine Hematologic/Lymphatic: Denies: easy bruising All Other Systems: negative except mentioned in HPI Physical Exam Vital Signs Date Time Temp Pulse Resp B/P (MAP) Pulse Ox O2 Delivery O2 Flow Rate FiO2 07/10/20 00:00 100.2 100 18 176/100 (125) 97 Room Air Vitals with high blood pressure. Sp02 EP Interpretation: reviewed, normal General Appearance: no apparent distress, alert, Chronically Ill Head: normocephalic, atraumatic Eyes: bilateral eye PERRL, bilateral eye EOMI ENT: hearing grossly normal, normal pharynx Neck: full range of motion, supple, no meningismus Respiratory: chest non-tender, lungs clear, normal breath sounds Cardiovascular #1: regular rate, rhythm, no murmur Gastrointestinal: normal bowel sounds, non tender, no mass, no organomegaly, no bruit, non-distended Musculoskeletal: back normal, normal range of motion Neurologic: alert Psychiatric: depressed affect Procedures Critical Care Time Critical Care Time Critical care is mandated in this patient who presented with sepsis. Patient require my urgent intervention to attenuate the risks of metabolic collapse which may lead to cardiovascular collapse and . Critical care time is 35 minutes excluding any reportable procedure. Critical care time included evaluation, multiple reevaluation, looking at old charts, interpreting laboratory and diagnostic data, discussing case with patient and family and consultants, and charting. Medical Decision Making Diagnostic Impression: Primary Impression: Sepsis Qualified Codes: A41.9 - Sepsis, unspecified organism Additional Impressions: UTI (urinary tract infection) Qualified Codes: N30.00 - Acute cystitis without hematuria Acute metabolic encephalopathy Hyponatremia Hypertension Qualified Codes: I10 - Essential (primary) hypertension ER Course Patient presents with altered mental status. No fever however. He is septic secondary to UTI. I gave him meropenem because he grew out ESBL Proteus in April. On last admission last month he also had positive blood culture with staph epi. For this I gave him vancomycin. Covid is now negative. Will admit for IV antibiotics. I contacted Dr. Bronson for admission. EKG Diagnostic Results Troponin ordered: Yes Rate: normal, tachycardiac Rhythm: NSR ST Segments: other - NSST changes Rhythm Strip Diag. Results EP Interpretation: yes Rate: 110 Rhythm: NSR, no PVC's, no ectopy Chest X-Ray Diagnostic Results Chest X-Ray Diagnostic Results : Chest X-Ray Ordered: Yes # of Views/Limited/Complete: 1 View Indication: Other EP Interpretation: Yes Interpretation: no consolidation, no effusion, no pneumothorax, other - elevated rt diaphragm. no change Impression: Other - NAD Electronically Signed by: William Carroll MD Last Vital Signs Date Time Temp Pulse Resp B/P (MAP) Pulse Ox O2 Delivery O2 Flow Rate FiO2 07/10/20 00:00 100.2 100 18 176/100 (125) 97 Room Air Status: improved Disposition: ADMITTED INPATIENT Condition: Serious William Carroll MD Jul 10, 2020 00:26
--- NOTE | 2020-07-10 00:30 | NUR ---
ED Nurse Note: iv access established. blood , initial lactic, blood cultures, urine, mrsa cre vre covid swab collected; sent down to lab. ekg and imaging completed at bedside.
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
[2020-07-10 01:23] LABS: APPEARANCE,URINE SLIGHTLY CLOUDY; BILIRUBIN, URINE NEGATIVE (NEGATIVE); GLUCOSE, URINE (UA) NEGATIVE (NEGATIVE); KETONES,URINE NEGATIVE (NEGATIVE); LEUKOCYTE ESTERASE ,URINE 2+ (NEGATIVE); NITRITE,URINE NEGATIVE (NEGATIVE); PH,URINE 6.5 (4.5-8.0); PROTEIN,URINE 4+ (NEGATIVE); UROBILINOGEN,URINE 1 MG/DL (0.0-1.0)
[2020-07-10 01:24] LABS: HEMATOCRIT 36.1 % (42.0-52.0); HEMOGLOBIN 11.8 G/DL (14.2-18.0); MEAN CORPUSCULAR VOLUME 92 FL (80-99); PLATELET COUNT 224 K/UL (150-450); RED BLOOD COUNT 3.93 M/UL (4.70-6.10); RED CELL DISTRIBUTION WIDTH 15.9 % (11.6-14.8)
[2020-07-10 01:29] LABS: WHITE BLOOD COUNT 34.2 K/UL (4.8-10.8)
[2020-07-10 01:30] LABS: COLOR,URINE PALE YELLOW
[2020-07-10 01:37] LABS: CALCIUM 8.2 MG/DL (8.5-10.1); CREATININE 1.8 MG/DL (0.55-1.30); POTASSIUM 3.8 MMOL/L (3.5-5.1)
[2020-07-10 01:44] LABS: INR 1.1 (0.9-1.1)
[2020-07-10 01:53] LABS: ALBUMIN 1.9 G/DL (3.4-5.0); ALBUMIN/GLOBULIN RATIO 0.3 (1.0-2.7); BILIRUBIN,TOTAL 0.3 MG/DL (0.2-1.0); CKMB 1.8 NG/ML (0.0-3.6)
[2020-07-10] MEDS ORDERED: Vancomycin 1.5gm vial IVPB ONE (02:29)
[2020-07-10] MEDS ORDERED: Meropenem 1 GM in NS 55 ML IVPB ONE (02:30)
[2020-07-10] MEDS ORDERED: Labetalol 5mg/ml 20ml vial IV ONE (02:30)
[2020-07-10] MEDS ORDERED: Vancomycin 1.5 GM in NS 275 ML IVPB ONE (02:30)
--- NOTE | 2020-07-10 02:32 | Emergency Room Report ---
Sepsis Event Note Evaluation Current Stage of Sepsis: Sepsis Possible Source: Genitourinary Focused Exam Allergies: Coded Allergies: IBUPROFEN (Verified Allergy, Unknown, 10/22/19) PENICILLINS (Unverified Allergy, Unknown, 04/04/20) tolerated ceftriaxone Uncoded Allergies: PCN (Allergy, Unknown, 11/07/19) Date Exam Occurred: Jul 10, 2020 Time Exam Occurred: 02:32 Laboratory Studies Laboratory Tests Test 07/10/20 00:30 White Blood Count 34.2 K/UL (4.8-10.8) *H Red Blood Count 3.93 M/UL (4.70-6.10) L Hemoglobin 11.8 G/DL (14.2-18.0) L Hematocrit 36.1 % (42.0-52.0) L Mean Corpuscular Volume 92 FL (80-99) Mean Corpuscular Hemoglobin 29.9 PG (27.0-31.0) Mean Corpuscular Hemoglobin Concent 32.7 G/DL (32.0-36.0) Red Cell Distribution Width 15.9 % (11.6-14.8) H Platelet Count 224 K/UL (150-450) Mean Platelet Volume 10.4 FL (6.5-10.1) H Neutrophils (%) (Auto) % (45.0-75.0) Lymphocytes (%) (Auto) % (20.0-45.0) Monocytes (%) (Auto) % (1.0-10.0) Eosinophils (%) (Auto) % (0.0-3.0) Basophils (%) (Auto) % (0.0-2.0) Differential Total Cells Counted 100 Neutrophils % (Manual) 66 % (45-75) Lymphocytes % (Manual) 14 % (20-45) L Monocytes % (Manual) 20 % (1-10) H Eosinophils % (Manual) 0 % (0-3) Basophils % (Manual) 0 % (0-2) Band Neutrophils 0 % (0-8) Platelet Estimate Adequate Platelet Morphology Normal Anisocytosis 1+ Prothrombin Time 12.1 SEC (9.30-11.50) H Prothromb Time International Ratio 1.1 (0.9-1.1) Activated Partial Thromboplast Time 24 SEC (23-33) D-Dimer 3.51 mg/L FEU (0.00-0.49) H Urine Color Pale yellow Urine Appearance Slightly cloudy Urine pH 6.5 (4.5-8.0) Urine Specific [place] 1.010 (1.005-1.035) Urine Protein 4+ (NEGATIVE) H Urine Glucose (UA) Negative (NEGATIVE) Urine Ketones Negative (NEGATIVE) Urine Blood 4+ (NEGATIVE) H Urine Nitrite Negative (NEGATIVE) Urine Bilirubin Negative (NEGATIVE) Urine Urobilinogen 1 MG/DL (0.0-1.0) H Urine Leukocyte Esterase 2+ (NEGATIVE) H Urine RBC 2-4 /HPF (0 - 0) H Urine WBC Tntc /HPF (0 - 0) H Urine Squamous Epithelial Cells Occasional /LPF Urine Bacteria Few /HPF (NONE) Sodium Level 129 MMOL/L (136-145) L Potassium Level 3.8 MMOL/L (3.5-5.1) Chloride Level 102 MMOL/L (98-107) Carbon Dioxide Level 30 MMOL/L (21-32) Anion Gap 0 mmol/L (5-15) L Blood Urea Nitrogen 19 mg/dL (7-18) H Creatinine 1.8 MG/DL (0.55-1.30) H Estimat Glomerular Filtration Rate 45.6 mL/min (>60) Glucose Level 130 MG/DL (74-106) H Lactic Acid Level 1.10 mmol/L (0.4-2.0) Calcium Level 8.2 MG/DL (8.5-10.1) L Ferritin 131 NG/ML (8-388) Total Bilirubin 0.3 MG/DL (0.2-1.0) Aspartate Amino Transf (AST/SGOT) 35 U/L (15-37) Alanine Aminotransferase (ALT/SGPT) 36 U/L (12-78) Alkaline Phosphatase 116 U/L (46-116) Lactate Dehydrogenase 278 U/L (81-234) H Total Creatine Kinase 262 U/L (26-308) Creatine Kinase MB 1.8 NG/ML (0.0-3.6) Creatine Kinase MB Relative Index 0.6 Troponin I 0.060 ng/mL (0.000-0.056) C-Reactive Protein, Quantitative 9.0 mg/dL (0.00-0.90) H Pro-B-Type Natriuretic Peptide 9435 pg/mL (0-125) H Total Protein 7.7 G/DL (6.4-8.2) Albumin 1.9 G/DL (3.4-5.0) L Globulin 5.8 g/dL Albumin/Globulin Ratio 0.3 (1.0-2.7) L Lipase 74 U/L (73-393) Vital Signs Last 24 Hour Vital Signs Date Time Temp Pulse Resp B/P (MAP) Pulse Ox O2 Delivery O2 Flow Rate FiO2 07/10/20 01:55 98.9 98 26 170/86 97 Room Air 07/10/20 01:03 98.9 07/10/20 00:30 100 18 Room Air 07/10/20 00:30 100.2 103 18 176/100 97 Room Air 07/10/20 00:00 100.2 100 18 176/100 (125) 97 Room Air Respiratory Exam: Clear Cardiovascular Exam: RRR Capillary Refill: Less Than 2 Seconds Peripheral Pulse: Strong Pulse Location: Radial Skin Exam: Normal Turgor William Carroll MD Jul 10, 2020 02:32
--- NOTE | 2020-07-10 02:44 | NUR ---
ED Nurse Note: patient aao4; verbalizes needs. provided patient with water and pillow.
[2020-07-10] MEDS ORDERED: Zolpidem 5mg tab ORAL PRN (03:45)
[2020-07-10] MEDS ORDERED: Miralax 17gm pkt ORAL PRN (03:45)
--- NOTE | 2020-07-10 04:00 | NUR ---
TRANSFER TO FLOOR: Patient transferred to med surg 406-1 as ordered, per reny bhatt. Report given to ginger ulloa. patient stable for transport. [facility] belongings and admission packet sent with patient.
--- NOTE | 2020-07-10 04:00 | NUR ---
NURSE NOTES: Received patient per saul accompanied by er staff. patient is alert, able to express self. on room air, no sob. with iv line on the left hand 18 g, saline lock. denies any pain or discomfort. covid rapid swab done in the ED- negative. multiple skin issues; pictures taken, charge nurse is aware. dr. ram put in admission orders. reiterated to call and ask for assistance to prevent fall or injury. call light and light button within easy reach. bed alarm on. will continue plan of care.
[2020-07-10] MEDS: HydrALAZINE 25mg tab ORAL SCH ×3 (06:01→17:08)
[2020-07-10] MEDS: NovoLOG Insulin Flexpen SUBQ SCH ×4 (06:09→21:00)
--- NOTE | 2020-07-10 06:41 | NUR ---
NURSE HAND-OFF: Important Events on Shift:ADMISSION; BLOOD SUGAR MONITORING Patient Status: STABLE Diet:CCHO Pending Orders: Pending Results/Labs: Pending MD notification: Latest Vital Signs: Temperature 98.9 , Pulse 102 , B/P 162 /75 , Respiratory Rate 23 , O2 SAT 96 , Room Air, O2 Flow Rate . Vital Sign Comment: Latest Stone Fall Score: 50 Fall Risk: High Risk Safety Measures: Call light Within Reach, Bed Alarm Zone 1, Side Rails Side Rails x2, Bed position Low and Locked. Fall Precautions: Yellow Socks Yellow Gown Door Sign Patient Fall Education
--- NOTE | 2020-07-10 07:45 | NUR ---
NURSE NOTES: Received report from JAGDISH Kruse. Patient seen in bed eating breakfast, patient is alert, able to express self. on room air, no sob. with iv line on the left hand 18 g, saline lock. denies any pain or discomfort. . multiple skin issues noted RN instructed patient to use call light to call and ask for assistance to prevent fall or injury. call light and light button within easy reach. bed alarm on. will continue plan of care.
--- NOTE | 2020-07-10 07:50 | NUR ---
HAND-OFF: Report given to artemio ramires.
[2020-07-10] MEDS: Heparin 5000 units/ml inj SUBQ SCH ×2 (09:00→21:00)
--- NOTE | 2020-07-10 09:02 | NUR ---
NURSE NOTES: DYE EXPERT made RN aware that patient refused morning VS. RN went to patients room and asked if patient wants to take morning medication. Patient became angry and said "i dont want my medications! i dont need it" Patient became visibly upset and told RN to leave room
--- NOTE | 2020-07-10 09:30 | History and Physical Report ---
DATE OF ADMISSION: 07/10/2020 APPROXIMATE TIME: 8 a.m. CONSULTANTS: 1. Beatrice Wick MD. 2. Barrie Van MD CHIEF COMPLAINT: UTI, sepsis. BRIEF HISTORY: This is a 70-year-old male from [facility] presents to [facility] last night with increased weakness and lethargy, was found to have UTI and sepsis, and admitted to medical floor. Currently, sleeping in bed, not talking much. REVIEW OF SYSTEMS: Unavailable. PAST MEDICAL HISTORY: Includes COPD, diabetes, weakness, altered mental status, seizure, schizophrenia, COVID, and ALYCIA. PAST SURGICAL HISTORY: Cranial surgery. MEDICATIONS: , divalproex, levetiracetam, insulin, hydralazine, zolpidem, vancomycin, labetalol, meropenem. ALLERGIES: Ibuprofen and penicillin. SOCIAL HISTORY: Unable to obtain secondary to the patient's lethargy. OBJECTIVE: GENERAL: Lethargic, sleeping in bed, not talking much. VITAL SIGNS: Temperature is 98 degrees, pulse 102, respiratory rate 23, blood pressure 162/75. CARDIOVASCULAR: No murmur. LUNGS: Poor exchange. ABDOMEN: Bowel sounds distant. EXTREMITIES: No cyanosis, clubbing, or edema. NEUROLOGIC: The patient is moving all extremities, slightly weak. LABORATORY AND DIAGNOSTIC DATA: White count 34, hemoglobin and hematocrit 11 and 36, platelets 224. BMP shows sodium 129, BUN and creatinine 19 and 1.8, glucose 130. Troponin elevated 0.06. Albumin 1.9. INR is 1.1. Urinalysis show 2+ leukocyte esterase. ASSESSMENT: 1. UTI. 2. Sepsis. 3. Altered mental status. 4. Malnutrition. 5. COPD. 6. Diabetes. 7. Hypertension. 8. Weakness. 9. ALYCIA. 10. Seizure. 11. Schizophrenia. 12. History of COVID. PLAN: 1. O2 and pulmonary treatment as needed. 2. Antibiotics per Infectious diseases. 3. Blood pressure, blood sugar, seizure and pain control. 4. Dietary followup. 5. IV fluid. 6. We will add Cardiology, Dr. Salmon and Nephrology Dr. Contreras evaluation. 7. CBC and BMP in the morning. 8. PT and dietary evaluation. Keyur Bronson D.O. DR: Oz JOB#: [id number] CC:
--- NOTE | 2020-07-10 11:05 | NUR ---
NURSE NOTES: RN was on rounds and felt that patient was warm, upon assessment, patient was shaking. RN took VS and temperature was 102.2. Gave PRN tylenol and contacted Dr. Bronson and Rehan Addendum: 07/10/20 at 1139 by William Yanes RN DR. Bronson ordered cooling measures. Rn put ice packs on bilateral armpits and at [facility]
--- NOTE | 2020-07-10 11:35 | NUR ---
NURSE NOTES: RN took temperature after administering tylenol. Patients temp went down to 98.8. RN contacted Audie Castro and made aware
--- NOTE | 2020-07-10 12:23 | Consultation ---
Consult Note Consult Note I am asked to evaluate the patient at the request of Dr. Bronson for renal failure Patient known to me from his previous admission Patient was very uncooperative in previous admission refusing blood work This is a 70-year-old male [facility]. He has a history of COPD, diabetes, hypertension, schizophrenia. He was admitted here about 2 weeks ago for Covid pneumonia. He also has chronic headache. He presents with chief complaint of headache and weakness. No fever or chills. Decreased appetite. No nausea vomiting or diarrhea. Pain is 7 out of 10. Nothing made it better. Nothing made it worse. No focal deficit. Similar symptoms in the past. 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 General Appearance: no apparent distress, cachetic - chronically ill male , other Lines, tubes and drains: peripheral HEENT: normocephalic, atraumatic, anicteric Neck: supple Respiratory/Chest: lungs clear - with moderate air exchange Cardiovascular/Chest: normal rate Abdomen: normal bowel sounds, non tender, soft Neurologic: abnormal gait, other - poorly responsive Musculoskeletal: atrophy - BLE . Assessment/Plan 70-year-old male admitted with a diagnosis of sepsis and UTI ALYCIA (acute kidney injury) Hyponatremia Seizure disorder Hypertension Altered level of consciousness, encephalopathy History of COVID-19 pneumonia Diabetes mellitus, History of schizophrenia History of pancreatitis Status post ORIF left hip Anemia Hepatitis B surface antigen positive, chronic in nature Suggestion: 3% saline 500 mL once Adjust blood pressure medication Monitor electrolytes and renal parameters Per consultants Joo Contreras MD Jul 10, 2020 12:23
[2020-07-10] MEDS: Tamsulosin 0.4mg cap ORAL SCH ×2 (12:42→17:08)
--- NOTE | 2020-07-10 12:49 | Consultation ---
History of Present Illness General Date patient seen: Jul 10, 2020 Time patient seen: 11:00 Chief Complaint: Fever Referring physician: Dr Palacio Reason for Consultation: sepsis Present Illness HPI 70 years old male, resident of group home facility, with past medical history of COPD, diabetes, hypertension, seizure disorder, chronic hepatitis B infection schizophrenia, was admitted here 2 weeks ago for Covid pneumonia, presented with generalized weakness. No fever or chills . Noted decreased appetite No nausea, vomiting or diarrhea. Upon evaluation patient had fever , blood pressure was elevated 176/100. Laboratory work-up revealed significant leukocytosis WBC 34.2, hemoglobin 11.8 , hematocrit 36.1. Sodium 129. BUN 19 creatinine 1.8 Lactic acid 1.1. Troponin 0.06 , EKG revealed sinus rhythm , no acute ischemic changes , pro BNP 9435 Albumin 1.9 Urinalysis revealed evidence of probable UTI. Chest x-ray revealed no acute cardiopulmonary pathology Rapid COVID-19 was negative. In the emergency department patient pancultured , received fluid bolus, empiric antibiotics , treated for hypertensive urgency and admitted to [facility] S[facility] floor for further management. Allergies: Coded Allergies: IBUPROFEN (Verified Allergy, Unknown, 10/22/19) PENICILLINS (Unverified Allergy, Unknown, 04/04/20) tolerated ceftriaxone Uncoded Allergies: PCN (Allergy, Unknown, 11/07/19) Medication History Scheduled Amlodipine Besylate* (Amlodipine Besylate*), 10 MG ORAL DAILY, (Reported) Diclofenac Sodium (Voltaren), 100 GM TP TWICE A DAY, (Reported) Divalproex Sodium* (Depakote*), 500 MG PO QHS, (Reported) Docusate Sodium* (Colace*), 100 MG ORAL DAILY IN THE EVENING, (Reported) Enoxaparin* (Lovenox*), 40 MG SUBQ DAILY, (Reported) Gabapentin* (Gabapentin*), 300 MG ORAL THREE TIMES A DAY, (Reported) Hydralazine Hcl* (Hydralazine Hcl*), 25 MG ORAL Q6HR, (Reported) Hydrocodone Bit/Acetaminophen 5-325* ([place] 5-325 Tablet*), 1 TAB ORAL DAILY, (Reported) Levetiracetam (Keppra), 500 MG ORAL EVERY 12 HOURS, (Reported) Lisinopril (Lisinopril*), 20 MG ORAL DAILY IN THE AFTERNOON, (Reported) Magnesium Hydroxide* (Milk Of Magnesia*), 30 ML ORAL DAILY, (Reported) Risperidone (Risperidone), 3 MG ORAL BEDTIME, (Reported) Tamsulosin HCl (Flomax), 0.4 MG ORAL BEDTIME, (Reported) Vancomycin/Water For Inj (Vancomycin 1.5 Gram/300 ml Bag), 1 GM IV every 24hrs., (Reported) Scheduled PRN Acetaminophen* (Acetaminophen 325MG Tablet*), 650 MG ORAL Q4H PRN for Mild Pain (Pain Scale 1-3), (Reported) Clonidine Hcl* (Catapres*), 0.1 MG ORAL EVERY 8 HOURS PRN for For High Blood Pressure, (Reported) Miscellaneous Medications Nicotine (Nicotine Patch), 21 MG TD, (Reported) Patient History Healthcare decision maker Resuscitation status Advanced Directive on File Review of Systems ROS Narrative not available due to AMS Physical Exam General Appearance: no apparent distress, cachetic - chronically ill male , other Lines, tubes and drains: peripheral HEENT: normocephalic, atraumatic, anicteric Neck: supple Respiratory/Chest: lungs clear - with moderate air exchange Cardiovascular/Chest: normal rate Abdomen: normal bowel sounds, non tender, soft Neurologic: abnormal gait, other - poorly responsive Musculoskeletal: atrophy - BLE Last 24 Hour Vital Signs Date Time Temp Pulse Resp B/P (MAP) Pulse Ox O2 Delivery O2 Flow Rate FiO2 07/10/20 11:56 98.6 80 155/70 (98) 97 07/10/20 11:35 98.8 82 153/68 (96) 98 07/10/20 11:35 98.8 07/10/20 11:04 160/75 07/10/20 11:00 102.2 76 160/74 (102) 07/10/20 09:00 Room Air 07/10/20 09:00 Room Air 07/10/20 06:01 162/75 07/10/20 04:31 Room Air 07/10/20 04:01 98.9 102 23 145/73 96 Room Air 07/10/20 03:30 98.9 101 22 142/71 96 Room Air 07/10/20 02:31 108 161/69 07/10/20 01:55 98.9 98 26 170/86 97 Room Air 07/10/20 01:03 98.9 07/10/20 00:30 100 18 Room Air 07/10/20 00:30 100.2 103 18 176/100 97 Room Air 07/10/20 00:00 100.2 100 18 176/100 (125) 97 Room Air Intake and Output 07/09/20 07/10/20 19:00 07:00 Intake Total 250 ml Output Total 500 ml Balance -250 ml Intake Oral 250 ml Output Urine Total 500 ml Laboratory Tests Test 07/10/20 00:30 07/10/20 11:27 White Blood Count 34.2 K/UL (4.8-10.8) *H Red Blood Count 3.93 M/UL (4.70-6.10) L Hemoglobin 11.8 G/DL (14.2-18.0) L Hematocrit 36.1 % (42.0-52.0) L Mean Corpuscular Volume 92 FL (80-99) Mean Corpuscular Hemoglobin 29.9 PG (27.0-31.0) Mean Corpuscular Hemoglobin Concent 32.7 G/DL (32.0-36.0) Red Cell Distribution Width 15.9 % (11.6-14.8) H Platelet Count 224 K/UL (150-450) Mean Platelet Volume 10.4 FL (6.5-10.1) H Neutrophils (%) (Auto) % (45.0-75.0) Lymphocytes (%) (Auto) % (20.0-45.0) Monocytes (%) (Auto) % (1.0-10.0) Eosinophils (%) (Auto) % (0.0-3.0) Basophils (%) (Auto) % (0.0-2.0) Differential Total Cells Counted 100 Neutrophils % (Manual) 66 % (45-75) Lymphocytes % (Manual) 14 % (20-45) L Monocytes % (Manual) 20 % (1-10) H Eosinophils % (Manual) 0 % (0-3) Basophils % (Manual) 0 % (0-2) Band Neutrophils 0 % (0-8) Platelet Estimate Adequate Platelet Morphology Normal Anisocytosis 1+ Prothrombin Time 12.1 SEC (9.30-11.50) H Prothromb Time International Ratio 1.1 (0.9-1.1) Activated Partial Thromboplast Time 24 SEC (23-33) D-Dimer 3.51 mg/L FEU (0.00-0.49) H Urine Color Pale yellow Urine Appearance Slightly cloudy Urine pH 6.5 (4.5-8.0) Urine Specific [place] 1.010 (1.005-1.035) Urine Protein 4+ (NEGATIVE) H Urine Glucose (UA) Negative (NEGATIVE) Urine Ketones Negative (NEGATIVE) Urine Blood 4+ (NEGATIVE) H Urine Nitrite Negative (NEGATIVE) Urine Bilirubin Negative (NEGATIVE) Urine Urobilinogen 1 MG/DL (0.0-1.0) H Urine Leukocyte Esterase 2+ (NEGATIVE) H Urine RBC 2-4 /HPF (0 - 0) H Urine WBC Tntc /HPF (0 - 0) H Urine Squamous Epithelial Cells Occasional /LPF Urine Bacteria Few /HPF (NONE) Sodium Level 129 MMOL/L (136-145) L Potassium Level 3.8 MMOL/L (3.5-5.1) Chloride Level 102 MMOL/L (98-107) Carbon Dioxide Level 30 MMOL/L (21-32) Anion Gap 0 mmol/L (5-15) L Blood Urea Nitrogen 19 mg/dL (7-18) H Creatinine 1.8 MG/DL (0.55-1.30) H Estimat Glomerular Filtration Rate 45.6 mL/min (>60) Glucose Level 130 MG/DL (74-106) H Lactic Acid Level 1.10 mmol/L (0.4-2.0) Calcium Level 8.2 MG/DL (8.5-10.1) L Ferritin 131 NG/ML (8-388) Total Bilirubin 0.3 MG/DL (0.2-1.0) Aspartate Amino Transf (AST/SGOT) 35 U/L (15-37) Alanine Aminotransferase (ALT/SGPT) 36 U/L (12-78) Alkaline Phosphatase 116 U/L (46-116) Lactate Dehydrogenase 278 U/L (81-234) H Total Creatine Kinase 262 U/L (26-308) Creatine Kinase MB 1.8 NG/ML (0.0-3.6) Creatine Kinase MB Relative Index 0.6 Troponin I 0.060 ng/mL (0.000-0.056) C-Reactive Protein, Quantitative 9.0 mg/dL (0.00-0.90) H Pro-B-Type Natriuretic Peptide 9435 pg/mL (0-125) H Total Protein 7.7 G/DL (6.4-8.2) Albumin 1.9 G/DL (3.4-5.0) L Globulin 5.8 g/dL Albumin/Globulin Ratio 0.3 (1.0-2.7) L Lipase 74 U/L (73-393) POC Whole Blood Glucose 281 MG/DL (74-106) H Microbiology Date/Time Source Procedure Growth Status 07/10/20 00:30 Nasopharynx SARS-CoV-2 RdRp Gene Assay - Final Complete Height (Feet): 6 Height (Inches): 3.00 Weight (Pounds): 175 Medications Current Medications Medications (Trade) Dose Ordered Sig/Jennifer Route PRN Reason Start Time Stop Time Status Last Admin Dose Admin Acetaminophen (Tylenol) 650 mg Q4H PRN ORAL fever 07/10/20 03:45 08/09/20 03:44 07/10/20 11:05 Amlodipine Besylate (Norvasc) 10 mg DAILY ORAL 07/10/20 09:00 08/09/20 08:59 Dextrose (Dextrose 50%) 25 ml Q30M PRN IV Hypoglycemia 07/10/20 03:45 2 03:44 Dextrose (Dextrose 50%) 50 ml Q30M PRN IV Hypoglycemia 07/10/20 03:45 10/08/20 03:44 Divalproex Sodium (Depakote) 500 mg QHS ORAL 07/10/20 21:00 08/09/20 20:59 Heparin Sodium (Porcine) (Heparin 5000 units/ml) 5,000 units EVERY 12 HOURS SUBQ 07/10/20 09:00 08/24/20 08:59 Hydralazine HCl (Apresoline) 25 mg Q6HR ORAL 07/10/20 06:00 10/08/20 05:59 07/10/20 11:04 Insulin Aspart (NovoLOG) BEFORE MEALS AND HS SUBQ 07/10/20 06:30 10/08/20 06:29 07/10/20 11:30 Levetiracetam (Keppra) 500 mg EVERY 12 HOURS ORAL 07/10/20 09:00 08/09/20 08:59 Ondansetron HCl (Zofran) 4 mg Q6H PRN IVP Nausea & Vomiting 07/10/20 03:45 08/09/20 03:44 Polyethylene Glycol (Miralax) 17 gm HSPRN PRN ORAL Constipation 07/10/20 03:45 08/09/20 03:44 Sodium Chloride 500 ml @ 30 mls/hr ONCE ONCE IV 07/10/20 13:30 07/11/20 06:09 Tamsulosin HCl (Flomax) 0.4 mg BID ORAL 07/10/20 12:30 08/09/20 20:59 Zolpidem Tartrate (Ambien) 5 mg HSPRN PRN ORAL Insomnia 07/10/20 03:45 07/17/20 03:44 Assessment/Plan Assessment/Plan: ASSESSMENT Probably sepsis UTI Hypertension with initial hypertensive urgency COPD ALYCIA Hyponatremia Recent Covid infection Encephalopathy Seizure disorder Protein calorie malnutrition Chronic hepatitis B infection Anemia Schizophrenia PLAN OF CARE MS floor O2 titrate to keep sat > 92, pulm toilet rapid COVID NGT CXR stable aspiration precautions DVT prophayxlis abx , based on prior UCX follow-up with cx ID consult pending hypo Na w/up as per nephro, 3% NaCl monitor renal paramerts, correct lytes, avoid nephrotoxic BP management monitor HH with goal to keep Hgb >7 BSSE asp precautions 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
[2020-07-10] MEDS ORDERED: NaCl 3% 500ml 500 ML IV ONE (13:30)
--- NOTE | 2020-07-10 14:37 | NUR ---
NURSE NOTES: RN made Dr. Landrum aware of patients spike of fever and WBC result today. gave orders for vancomycin (pharmacy to dose), meropenem 1g Q12, influenza swab, and BCx2. RN put in order
[2020-07-10] MEDS ORDERED: Varibar Honey 250ml MC PRN (14:45)
[2020-07-10] MEDS ORDERED: Varibar Pudding 230ml MC PRN (14:45)
[2020-07-10] MEDS ORDERED: LORazepam 1mg tab ORAL PRN (14:45)
[2020-07-10] MEDS ORDERED: Varibar Thin Liquid powder 148gm MC PRN (14:45)
[2020-07-10] MEDS ORDERED: Varibar Nectar 240ml MC PRN (14:45)
--- NOTE | 2020-07-10 16:21 | NUR ---
PT Note Attempted to see patient for eval/tx but was advised by RN to defer PT today due to fever. Will check again in AM.
--- NOTE | 2020-07-10 16:57 | Cardiac Electrophysiology PN ---
Subjective Subjective [id number] Objective Last 24 Hour Vital Signs Date Time Temp Pulse Resp B/P (MAP) Pulse Ox O2 Delivery O2 Flow Rate FiO2 07/10/20 16:00 98.6 76 19 165/96 (119) 99 07/10/20 11:56 98.6 80 155/70 (98) 97 07/10/20 11:35 98.8 82 153/68 (96) 98 07/10/20 11:35 98.8 07/10/20 11:04 160/75 07/10/20 11:00 102.2 76 160/74 (102) 07/10/20 09:00 Room Air 07/10/20 09:00 Room Air 07/10/20 06:01 162/75 07/10/20 04:31 Room Air 07/10/20 04:01 98.9 102 23 145/73 96 Room Air 07/10/20 03:30 98.9 101 22 142/71 96 Room Air 07/10/20 02:31 108 161/69 07/10/20 01:55 98.9 98 26 170/86 97 Room Air 07/10/20 01:03 98.9 07/10/20 00:30 100 18 Room Air 07/10/20 00:30 100.2 103 18 176/100 97 Room Air 07/10/20 00:00 100.2 100 18 176/100 (125) 97 Room Air Intake and Output 07/09/20 07/10/20 19:00 07:00 Intake Total 250 ml Output Total 500 ml Balance -250 ml Intake Oral 250 ml Output Urine Total 500 ml Laboratory Tests Test 07/10/20 00:30 07/10/20 11:27 07/10/20 12:53 07/10/20 16:25 White Blood Count 34.2 K/UL (4.8-10.8) *H Red Blood Count 3.93 M/UL (4.70-6.10) L Hemoglobin 11.8 G/DL (14.2-18.0) L Hematocrit 36.1 % (42.0-52.0) L Mean Corpuscular Volume 92 FL (80-99) Mean Corpuscular Hemoglobin 29.9 PG (27.0-31.0) Mean Corpuscular Hemoglobin Concent 32.7 G/DL (32.0-36.0) Red Cell Distribution Width 15.9 % (11.6-14.8) H Platelet Count 224 K/UL (150-450) Mean Platelet Volume 10.4 FL (6.5-10.1) H Neutrophils (%) (Auto) % (45.0-75.0) Lymphocytes (%) (Auto) % (20.0-45.0) Monocytes (%) (Auto) % (1.0-10.0) Eosinophils (%) (Auto) % (0.0-3.0) Basophils (%) (Auto) % (0.0-2.0) Differential Total Cells Counted 100 Neutrophils % (Manual) 66 % (45-75) Lymphocytes % (Manual) 14 % (20-45) L Monocytes % (Manual) 20 % (1-10) H Eosinophils % (Manual) 0 % (0-3) Basophils % (Manual) 0 % (0-2) Band Neutrophils 0 % (0-8) Platelet Estimate Adequate Platelet Morphology Normal Anisocytosis 1+ Prothrombin Time 12.1 SEC (9.30-11.50) H Prothromb Time International Ratio 1.1 (0.9-1.1) Activated Partial Thromboplast Time 24 SEC (23-33) D-Dimer 3.51 mg/L FEU (0.00-0.49) H Urine Color Pale yellow Urine Appearance Slightly cloudy Urine pH 6.5 (4.5-8.0) Urine Specific [place] 1.010 (1.005-1.035) Urine Protein 4+ (NEGATIVE) H Urine Glucose (UA) Negative (NEGATIVE) Urine Ketones Negative (NEGATIVE) Urine Blood 4+ (NEGATIVE) H Urine Nitrite Negative (NEGATIVE) Urine Bilirubin Negative (NEGATIVE) Urine Urobilinogen 1 MG/DL (0.0-1.0) H Urine Leukocyte Esterase 2+ (NEGATIVE) H Urine RBC 2-4 /HPF (0 - 0) H Urine WBC Tntc /HPF (0 - 0) H Urine Squamous Epithelial Cells Occasional /LPF Urine Bacteria Few /HPF (NONE) Sodium Level 129 MMOL/L (136-145) L Potassium Level 3.8 MMOL/L (3.5-5.1) Chloride Level 102 MMOL/L (98-107) Carbon Dioxide Level 30 MMOL/L (21-32) Anion Gap 0 mmol/L (5-15) L Blood Urea Nitrogen 19 mg/dL (7-18) H Creatinine 1.8 MG/DL (0.55-1.30) H Estimat Glomerular Filtration Rate 45.6 mL/min (>60) Glucose Level 130 MG/DL (74-106) H Lactic Acid Level 1.10 mmol/L (0.4-2.0) Calcium Level 8.2 MG/DL (8.5-10.1) L Ferritin 131 NG/ML (8-388) Total Bilirubin 0.3 MG/DL (0.2-1.0) Aspartate Amino Transf (AST/SGOT) 35 U/L (15-37) Alanine Aminotransferase (ALT/SGPT) 36 U/L (12-78) Alkaline Phosphatase 116 U/L (46-116) Lactate Dehydrogenase 278 U/L (81-234) H Total Creatine Kinase 262 U/L (26-308) Creatine Kinase MB 1.8 NG/ML (0.0-3.6) Creatine Kinase MB Relative Index 0.6 Troponin I 0.060 ng/mL (0.000-0.056) C-Reactive Protein, Quantitative 9.0 mg/dL (0.00-0.90) H Pro-B-Type Natriuretic Peptide 9435 pg/mL (0-125) H Total Protein 7.7 G/DL (6.4-8.2) Albumin 1.9 G/DL (3.4-5.0) L Globulin 5.8 g/dL Albumin/Globulin Ratio 0.3 (1.0-2.7) L Lipase 74 U/L (73-393) POC Whole Blood Glucose 281 MG/DL (74-106) H 263 MG/DL (74-106) H Urine Random Sodium 91 mmol/L (20-110) Microbiology Date/Time Source Procedure Growth Status 07/10/20 00:30 Nasopharynx SARS-CoV-2 RdRp Gene Assay - Final Complete Jose Angel Salmon MD Jul 10, 2020 16:57
--- NOTE | 2020-07-10 18:29 | NUR ---
NURSE NOTES: RN transferred patient to tele per Dr. Farr order. RN gave report to JAGDISH Lynne. Patient transferred in stable condition, AAOx3/4, able to make needs known. Patient was hypertensive throughout the day RN made Guera aware. Patient also spiked a fever of 102.2. RN made received nurse aware of swabs and cultures pending. Skin issue was endorsed to RN. Patient had no belongings. Patient was safely transferred to telemetry
--- NOTE | 2020-07-10 18:30 | NUR ---
NURSE NOTES: Recived hand-off report from William Yanes RN (Christina). Patient was transferred to room [facility] safely. No patient belongings were brought and patient belongings list signed. secured entrance monitor applied, vital signs: BP - 176/101, temp: 102.2, spO2 - 96%, respirations 16. Bed in lowest and locked position, bed alarm on, call light within reach. Addendum: 07/10/20 at 1842 by Lyly Gallegos RN sodium 3% running at 30mL/h.
--- NOTE | 2020-07-10 19:15 | NUR ---
NURSE HAND-OFF REPORT: Important Events on Shift: Temperature 102.2 and SBP 176, clonidine and tylenol given Patient Status: full code, stable condition, responsive to verbal and tactile stimuli Diet: CCHO medium Pending Orders: [] Pending Results/Labs:[] Pending MD notification:[] Latest Vital Signs: Temperature 102.2 , Pulse 96 , B/P 176 /101 , Respiratory Rate 16 , O2 SAT 96 , Room Air, O2 Flow Rate . Vital Sign Comment: [] EKG Rhythm: Sinus Rhythm Rhythm change?: N MD Notified?: - MD Response: Latest Stone Fall Score: 50 Fall Risk: High Risk Safety Measures: Call light Within Reach, Bed Alarm Zone 1, Side Rails Side Rails x3, Bed position Low and Locked. Fall Precautions: Yellow Socks Yellow Gown Patient Fall Education Report given to JAGDISH Ozuna.
--- NOTE | 2020-07-10 19:52 | NUR ---
NURSE NOTES: Received patient from JAGDISH Lynne. Patient AOx3, able to verbalize needs. Currently asleep, but easily arousable. IV site on left hand, IVF running at a prescribed rate. IV bag only to be given one time, IV bag to be consumed. Wound care on sacral stage II and l heel unstageable, bilateral feet DTI. Would follow wound care as planned. Padilla catheter inserted prior to transfer to floor, patent and draining to gravity. Bed in lowest position, brakes engaged and bed alarm on. Call light placed within reach. Will continue to monitor.
[2020-07-10] MEDS ORDERED: Tamsulosin 0.4mg cap ORAL SCH (21:00)
--- NOTE | 2020-07-10 21:30 | Consultation ---
DATE OF CONSULTATION: 07/10/2020 CONSULTING PHYSICIAN: Ariela Venegas MD REFERRING PHYSICIAN: Keyur Bronson DO HISTORY OF PRESENT ILLNESS: This is a 70-year-old male patient who came in with sepsis and urinary tract infection. The patient also has overlying diagnosis of schizoaffective, bipolar type and has some mood lability, confusion, and decline in cognition below his baseline, worsened by stress of his medical illness, and that is why his attending has requested daily psychiatric consultation at this time. PAST MEDICAL HISTORY: This patient has a medical history significant for COPD, diabetes, generalized weakness, altered mental status, seizure disorder, COVID pneumonia, and acute renal disorder. ALLERGIES: Motrin and penicillin. PSYCHOTROPIC MEDICATIONS ON ADMISSION: Per chart, he takes a combination of Depakote 500 mg p.o. nightly and Risperdal 3 mg mg p.o. nightly that cannot be confirmed. Last time when he was here in the hospital he was on 0.5 twice a day. SUBSTANCE ABUSE HISTORY: Patient cannot answer that question because he is confused. PAIN ASSESSMENT: 11/09 pain. DEVELOPMENTAL PROBLEMS: Denies. FAMILY PSYCHIATRIC HISTORY: Unknown. SOCIAL HISTORY: Patient lives in [facility] [place] [place]. Financially supported by [employer] and Medicare. LEGAL PROBLEMS: No legal problems. STRENGTHS: He is motivated to get better and has a place to live. WEAKNESSES: Impulsive, minimal support system. MENTAL STATUS EXAMINATION: This is a 70-year-old male. His appearance is disheveled. His attitude is irritable and agitated. His affect is guarded and restricted. Intellect is poor because he has no current events and does not know last four presidents. Mood, depressed and anxious. Motor activity, psychomotor agitation. Attention span is poor because he cannot do serial sevens or spell world backwards. He is oriented to person and place, not to time or situation. Speech is nonsensical. Thought process, disorganized and illogical. Thought content, auditory hallucinations and paranoid delusions. Perception is poor due to perceptual disturbance such as auditory hallucinations and paranoid delusions. Abstract reasoning is poor because he does not understand proverbs and only has concrete thinking. Insight is poor because he does not recognize having a psych disorder. Judgment is poor because he cannot make his own medical decisions. DIAGNOSES: 1. He has major depressive disorder, severe, recurrent with psychotic features, rule out schizoaffective, bipolar type. 2. No secondary. 3. Medical: COPD, diabetes, weakness, COVID pneumonia, acute renal disease, and seizure disorder. 4. Psychosocial stressors, financial. 5. Functional impairment, mild. PLAN: We will start this patient on a psychotropic medication regimen. Risperdal at a dose of 0.5 mg twice a day, Ativan 1 mg every 6 hours p.r.n. anxiety and agitation. Continue Depakote 500 mg nightly. Twenty minutes of insight-oriented psychotherapy was provided to help this patient to improve his understanding of his physical and psychiatric condition so he has less depression, anxiety, and better impulse control. Chart was reviewed and discussed with staff. Seen and assessed at bedside. I would like to thank Dr. Keyur Bronson for the courtesy of this consultation. Ariela Venegas M.D. DR: Carlito JOB#: [id number] CC:
[2020-07-10] MEDS: Meropenem 1 GM in NS 55 ML IVPB SCH (21:58)
--- NOTE | 2020-07-10 23:45 | Consultation ---
DATE OF CONSULTATION: 07/10/2020 CARDIOLOGY CONSULTATION CONSULTING PHYSICIAN: Jose Angel Salmon M.D. REFERRING PHYSICIAN: Keyur Bronson D.O. REASON FOR CONSULTATION: Management of hypertension and shortness of breath as well as congestive heart failure. HISTORY OF PRESENT ILLNESS: The patient is a 70-year-old gentleman with history of hypertension, diabetes, COPD, seizure disorder as well as schizophrenia, and chronic hepatitis B infection, who was admitted here 2 weeks ago for COVID pneumonia. The patient was brought in from senior living facility for generalized weakness the patient does not have any fever or chills or nausea or vomiting. The patient's blood pressure was 176/100 and white count was 34,000. A cardiology consultation was requested for further evaluation and management. REVIEW OF SYSTEMS: Negative other than what is mentioned in the history of present illness. PAST MEDICAL HISTORY: As mentioned above. FAMILY HISTORY: Noncontributory. SOCIAL HISTORY: He lives in a fpc. MEDICATIONS: Per reconciliation. PHYSICAL EXAMINATION: VITAL SIGNS: Show blood pressure of 165/96, pulse 76, respirations 18, and temperature 98.6. HEAD AND NECK: Shows no JVD. LUNGS: Coarse rhonchi. CARDIOVASCULAR: Shows regular S1 and S2 with no gallop. ABDOMEN: Soft. EXTREMITIES: Atrophic with bilateral lower extremities. LABORATORY DATA: His labs show white count of 34,000, hemoglobin 11.8, hematocrit 36.1, platelet count of 224. Sodium 129, potassium 3.8, BUN of 19, creatinine 1.8, and glucose of 130. Troponin is elevated at 0.06. ASSESSMENT AND PLAN: 1. Elevated troponin. We will completely rule out VT protocol and repeat EKG and get an echocardiogram for further evaluation and transfer the patient on telemetry and evaluate troponin. In the meantime, add beta-ranjan to his medical regimen. 2. Hypertension, on amlodipine 10 mg daily. Add metoprolol 25 mg b.i.d. The patient is also on hydralazine 25 mg every 6 hours and p.r.n. clonidine. 3. Sepsis. White count 34,000, on broad-spectrum IV antibiotics. 4. History of seizures, on Depakote. 5. Schizophrenia, on Risperdal. 6. Recent COVID infection. 7. Chronic hepatitis B infection. Thank you very much, Dr. Bronson, for allowing me to participate in the care of this patient. Please do not hesitate to contact me if you have any questions regarding my evaluation. Sincerely, Jose Angel Salmon M.D. DR: SATHISH JOB#: [id number] CC:
[2020-07-11] VITALS: BP 157/88
[2020-07-11] MEDS: HydrALAZINE 25mg tab ORAL SCH ×2 (00:25→06:00)
[2020-07-11 04:00] VITALS: BP 177/87
[2020-07-11] MEDS: NovoLOG Insulin Flexpen SUBQ SCH ×4 (06:15→21:00)
--- NOTE | 2020-07-11 07:20 | NUR ---
NURSE NOTES: Pt received from Saida DUBON. Pt in bed eating breakfast. No distress noted. bed low and locked. Call light within reach.
--- NOTE | 2020-07-11 07:45 | NUR ---
NURSE NOTES: Pt noted with having hx of seizures. side rails promptly padded.
--- NOTE | 2020-07-11 07:45 | NUR ---
NURSE HAND-OFF REPORT: Important Events on Shift:[Pt refusing medication. Was hypertensive during the shift, but refused hydralazine] Patient Status: [FC] Diet: [CCHO medium] Pending Orders: [] Pending Results/Labs:[] Pending MD notification:[] Latest Vital Signs: Temperature 99.0 , Pulse 84 , B/P 177 /87 , Respiratory Rate 20 , O2 SAT 96 , Room Air, O2 Flow Rate . Vital Sign Comment: [] EKG Rhythm: Sinus Rhythm Rhythm change?: N MD Notified?: - MD Response: Latest Stone Fall Score: 50 Fall Risk: High Risk Safety Measures: Call light Within Reach, Bed Alarm Zone 1, Side Rails Side Rails x3, Bed position Low and Locked. Fall Precautions: Yellow Socks Yellow Gown Patient Fall Education Report given to [JAGDISH Valles].
[2020-07-11 08:00] VITALS: BP 160/77
[2020-07-11] MEDS: Tamsulosin 0.4mg cap ORAL SCH ×2 (08:28→17:33)
[2020-07-11] MEDS: Meropenem 1 GM in NS 55 ML IVPB SCH ×2 (08:28→21:29)
[2020-07-11] MEDS: Heparin 5000 units/ml inj SUBQ SCH ×2 (08:30→21:00)
--- NOTE | 2020-07-11 08:32 | NUR ---
PJusticeT Note: P.T attempted however patient is irritable and uncooperative due to not having something to eat secondary to NPO for test/procedure. Pt became verbally combative upon further attempt to encourage to participate. RN notified/aware. Addendum: 07/11/20 at 0837 by ALBA BENJAMIN PT P.T Note: correction: The above MiltonT notes is a wrong entry. Please disregard. Thank you.
--- NOTE | 2020-07-11 08:37 | NUR ---
P.T Note: P.T Note: P.T evaluation attempted however patient is irritable and uncooperative . Pt became verbally combative upon further attempt to encourage to participate. Will reattempt when patient cooperates. RN notified/aware.
--- NOTE | 2020-07-11 09:49 | General Progress Note ---
Subjective Constitutional: Reports: weakness Allergies: Coded Allergies: IBUPROFEN (Verified Allergy, Unknown, 10/22/19) PENICILLINS (Unverified Allergy, Unknown, 04/04/20) tolerated ceftriaxone Uncoded Allergies: PCN (Allergy, Unknown, 11/07/19) All Systems: reviewed and negative except above Subjective sleepy calm Objective Last 24 Hour Vital Signs Date Time Temp Pulse Resp B/P (MAP) Pulse Ox O2 Delivery O2 Flow Rate FiO2 07/11/20 09:00 Room Air 07/11/20 08:29 86 160/77 07/11/20 08:28 86 160/77 07/11/20 08:00 97.9 86 20 160/77 (104) 95 07/11/20 08:00 85 07/11/20 04:00 99.0 84 20 177/87 (117) 96 07/11/20 04:00 85 07/11/20 00:25 157/88 07/11/20 00:00 99.1 71 20 157/88 (111) 95 07/11/20 00:00 71 07/10/20 21:32 84 164/93 07/10/20 21:00 Room Air 07/10/20 20:00 99.1 84 16 164/93 (116) 96 07/10/20 20:00 80 07/10/20 19:17 99.1 07/10/20 18:47 176/101 07/10/20 18:30 102.2 96 16 176/101 (126) 96 07/10/20 18:28 87 07/10/20 17:08 165/96 07/10/20 16:00 98.6 76 19 165/96 (119) 99 07/10/20 11:56 98.6 80 155/70 (98) 97 07/10/20 11:35 98.8 82 153/68 (96) 98 07/10/20 11:35 98.8 07/10/20 11:04 160/75 07/10/20 11:00 102.2 76 160/74 (102) Intake and Output 07/10/20 07/11/20 19:00 07:00 Intake Total 1050 ml 120 ml Output Total 300 ml 700 ml Balance 750 ml -580 ml Intake Oral 960 ml 120 ml IV Total 90 ml Output Urine Total 300 ml 700 ml Laboratory Tests 07/10/20 11:27: POC Whole Blood Glucose 281H 07/10/20 12:53: Urine Random Sodium 91 07/10/20 16:25: POC Whole Blood Glucose 263H 07/11/20 06:00: Urine Eosinophils None seen Height (Feet): 6 Height (Inches): 3.00 Weight (Pounds): 175 General Appearance: lethargic EENT: normal ENT inspection Neck: normal alignment Cardiovascular: normal peripheral pulses, normal rate, regular rhythm Respiratory/Chest: chest wall non-tender, lungs clear, normal breath sounds Abdomen: normal bowel sounds, non tender, soft Extremities: normal inspection Edema: no edema noted Arm (L), no edema noted Arm (R), no edema noted Leg (L), no edema noted Leg (R), no edema noted Pedal (L), no edema noted Pedal (R), no edema noted Generalized Neurologic: motor weakness Skin: normal pigmentation, warm/dry Assessment/Plan Problem List: (1) Sepsis ICD Codes: A41.9 - Sepsis, unspecified organism SNOMED: 87455769, 678576502 Qualifiers: Qualified Codes: A41.9 - Sepsis, unspecified organism (2) UTI (urinary tract infection) ICD Codes: N39.0 - Urinary tract infection, site not specified SNOMED: 68652040 Qualifiers: Qualified Codes: N30.00 - Acute cystitis without hematuria (3) COVID-19 ICD Codes: U07.1 - COVID-19 SNOMED: 902656328 (4) COPD (chronic obstructive pulmonary disease) ICD Codes: J44.9 - Chronic obstructive pulmonary disease, unspecified SNOMED: 13056413 (5) Anemia ICD Codes: D64.9 - Anemia, unspecified SNOMED: 641903028 (6) Seizure disorder ICD Codes: G40.909 - Epilepsy, unspecified, not intractable, without status epilepticus SNOMED: 976218312, 209714022 (7) Hypertension ICD Codes: I10 - Essential (primary) hypertension SNOMED: 28463467 Qualifiers: Qualified Codes: I10 - Essential (primary) hypertension (8) ALYCIA (acute kidney injury) ICD Codes: N17.9 - Acute kidney failure, unspecified SNOMED: 8089885, 57788688 Status: unchanged Assessment/Plan: pt diet abc cbc bmp am Keyur Bronson DO Jul 11, 2020 09:49
--- NOTE | 2020-07-11 10:00 | Psychiatry Consultation ---
Psychiatry Consultation Psychiatry Consultation Chief Complaint: Fever History of Present Illness: 70yo male who is confused and disorganzed and has no logical plan for his own self care. Patient has a significant decline in cognition below his baseline. Allergies: Coded Allergies: IBUPROFEN (Verified Allergy, Unknown, 10/22/19) PENICILLINS (Unverified Allergy, Unknown, 04/04/20) tolerated ceftriaxone Uncoded Allergies: PCN (Allergy, Unknown, 11/07/19) Medication History Scheduled Amlodipine Besylate* (Amlodipine Besylate*), 10 MG ORAL DAILY, (Reported) Diclofenac Sodium (Voltaren), 100 GM TP TWICE A DAY, (Reported) Divalproex Sodium* (Depakote*), 500 MG PO QHS, (Reported) Docusate Sodium* (Colace*), 100 MG ORAL DAILY IN THE EVENING, (Reported) Enoxaparin* (Lovenox*), 40 MG SUBQ DAILY, (Reported) Gabapentin* (Gabapentin*), 300 MG ORAL THREE TIMES A DAY, (Reported) Hydralazine Hcl* (Hydralazine Hcl*), 25 MG ORAL Q6HR, (Reported) Hydrocodone Bit/Acetaminophen 5-325* ([place] 5-325 Tablet*), 1 TAB ORAL DAILY, (Reported) Levetiracetam (Keppra), 500 MG ORAL EVERY 12 HOURS, (Reported) Lisinopril (Lisinopril*), 20 MG ORAL DAILY IN THE AFTERNOON, (Reported) Magnesium Hydroxide* (Milk Of Magnesia*), 30 ML ORAL DAILY, (Reported) Risperidone (Risperidone), 3 MG ORAL BEDTIME, (Reported) Tamsulosin HCl (Flomax), 0.4 MG ORAL BEDTIME, (Reported) Vancomycin/Water For Inj (Vancomycin 1.5 Gram/300 ml Bag), 1 GM IV every 24hrs., (Reported) Scheduled PRN Acetaminophen* (Acetaminophen 325MG Tablet*), 650 MG ORAL Q4H PRN for Mild Pain (Pain Scale 1-3), (Reported) Clonidine Hcl* (Catapres*), 0.1 MG ORAL EVERY 8 HOURS PRN for For High Blood Pressure, (Reported) Miscellaneous Medications Nicotine (Nicotine Patch), 21 MG TD, (Reported) Objective Data Height (Feet): 6 Height (Inches): 3.00 Weight (Pounds): 175 Appearance: disheveled Behavior Mannerisms: poor eye contact Affect: constricted Mood: depressed, irritable Speech: slurred Thought Process: disorganized Thought Content: delusions (specify) Perceptual Disturbances: other Suicidal Ideation: no plan Cognition: abnormalities (specify) Additional Comments: confused ansd AMS Assessment/Plan Assessment/Plan: continue Risperdal 0.5 mg PO BID, Ativan 1 q6h prn anxiety, Depakote 500mg PO qhs and 20minutes of Insight oriented psychotherapy provided whereas I help him recognize his psychiatric and medical conditon and its severity to reduce depression anxiety and have him have better impulse control. Diagnosis [place] I: Schizo affective Bipolar typr Ariela Venegas MD Jul 11, 2020 10:00
[2020-07-11 10:26] LABS: HEMATOCRIT 32.8 % (42.0-52.0); HEMOGLOBIN 10.3 G/DL (14.2-18.0); MEAN CORPUSCULAR VOLUME 95 FL (80-99); PLATELET COUNT 161 K/UL (150-450); RED BLOOD COUNT 3.46 M/UL (4.70-6.10); RED CELL DISTRIBUTION WIDTH 16.8 % (11.6-14.8); WHITE BLOOD COUNT 32.1 K/UL (4.8-10.8)
--- NOTE | 2020-07-11 10:30 | NUR ---
NURSE NOTES: Informed Dr. Landrum of critical lab, wbc 32.1.
[2020-07-11 10:54] LABS: % IRON SATURATION 33 % (15-50); IRON 51 ug/dL (50-175); TOTAL IRON BINDING CAPACITY 156 ug/dL (250-450)
[2020-07-11 11:00] LABS: CREATINE KINASE 124 U/L (26-308); GAMMA GLUTAMYL TRANSPEPTIDASE 59 U/L (5-85); PHOSPHORUS 3.2 MG/DL (2.5-4.9)
[2020-07-11 11:12] LABS: ALANINE AMINOTRANSFERASE 24 U/L (12-78); ALBUMIN 1.4 G/DL (3.4-5.0); ALBUMIN/GLOBULIN RATIO 0.3 (1.0-2.7); ALKALINE PHOSPHATASE 105 U/L (46-116); ANION GAP 6 mmol/L (5-15); ASPARTATE AMINO TRANSFERASE 25 U/L (15-37); BILIRUBIN,TOTAL 0.4 MG/DL (0.2-1.0); BLOOD UREA NITROGEN 19 mg/dL (7-18); CALCIUM 7.2 MG/DL (8.5-10.1); CARBON DIOXIDE 25 MMOL/L (21-32); CHLORIDE 103 MMOL/L (98-107); CHOLESTEROL 133 MG/DL (< 200); CREATININE 1.6 MG/DL (0.55-1.30); HDL CHOLESTEROL 47 MG/DL (40-60); POTASSIUM 3.7 MMOL/L (3.5-5.1); SODIUM 133 MMOL/L (136-145); TRIGLYCERIDES 81 MG/DL (30-150)
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
[2020-07-11 12:00] VITALS: BP 143/85
[2020-07-11] MEDS: HydrALAZINE 50mg tab ORAL SCH ×2 (12:12→17:33)
[2020-07-11 12:15] LABS: AMMONIA 27 umol/L (11-32)
[2020-07-11] MEDS ORDERED: Vancomycin 1.25gm Premix q24h IVPB SCH (13:00)
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
--- NOTE | 2020-07-11 14:12 | NUR ---
*-*DISCHARGE PLANNING*-* PATIENT HAS BEEN REFERRED TO: JUSTIN OLVERA P: [phone]
--- NOTE | 2020-07-11 14:24 | Cardiac Electrophysiology PN ---
Subjective Subjective In SR bp 160s Objective Last 24 Hour Vital Signs Date Time Temp Pulse Resp B/P (MAP) Pulse Ox O2 Delivery O2 Flow Rate FiO2 07/11/20 12:12 143/85 07/11/20 12:00 97.5 72 18 143/85 (104) 96 07/11/20 12:00 69 07/11/20 09:00 Room Air 07/11/20 08:29 86 160/77 07/11/20 08:28 86 160/77 07/11/20 08:00 97.9 86 20 160/77 (104) 95 07/11/20 08:00 85 07/11/20 04:00 99.0 84 20 177/87 (117) 96 07/11/20 04:00 85 07/11/20 00:25 157/88 07/11/20 00:00 99.1 71 20 157/88 (111) 95 07/11/20 00:00 71 07/10/20 21:32 84 164/93 07/10/20 21:00 Room Air 07/10/20 20:00 99.1 84 16 164/93 (116) 96 07/10/20 20:00 80 07/10/20 19:17 99.1 07/10/20 18:47 176/101 07/10/20 18:30 102.2 96 16 176/101 (126) 96 07/10/20 18:28 87 07/10/20 17:08 165/96 07/10/20 16:00 98.6 76 19 165/96 (119) 99 Intake and Output 07/10/20 07/11/20 19:00 07:00 Intake Total 1050 ml 120 ml Output Total 300 ml 700 ml Balance 750 ml -580 ml Intake Oral 960 ml 120 ml IV Total 90 ml Output Urine Total 300 ml 700 ml Laboratory Tests Test 07/10/20 16:25 07/11/20 06:00 07/11/20 10:00 POC Whole Blood Glucose 263 MG/DL (74-106) H Urine Eosinophils None seen (NONE SEEN) White Blood Count 32.1 K/UL (4.8-10.8) *H Red Blood Count 3.46 M/UL (4.70-6.10) L Hemoglobin 10.3 G/DL (14.2-18.0) L Hematocrit 32.8 % (42.0-52.0) L Mean Corpuscular Volume 95 FL (80-99) Mean Corpuscular Hemoglobin 29.9 PG (27.0-31.0) Mean Corpuscular Hemoglobin Concent 31.5 G/DL (32.0-36.0) L Red Cell Distribution Width 16.8 % (11.6-14.8) H Platelet Count 161 K/UL (150-450) Mean Platelet Volume 9.9 FL (6.5-10.1) Neutrophils (%) (Auto) % (45.0-75.0) Lymphocytes (%) (Auto) % (20.0-45.0) Monocytes (%) (Auto) % (1.0-10.0) Eosinophils (%) (Auto) % (0.0-3.0) Basophils (%) (Auto) % (0.0-2.0) Differential Total Cells Counted 100 Neutrophils % (Manual) 86 % (45-75) H Lymphocytes % (Manual) 3 % (20-45) L Monocytes % (Manual) 9 % (1-10) Eosinophils % (Manual) 0 % (0-3) Basophils % (Manual) 0 % (0-2) Band Neutrophils 2 % (0-8) Platelet Estimate Adequate Platelet Morphology Giant Platelets Occasional Polychromasia 1+ Hypochromasia 1+ Anisocytosis 1+ Sodium Level 133 MMOL/L (136-145) L Potassium Level 3.7 MMOL/L (3.5-5.1) Chloride Level 103 MMOL/L (98-107) Carbon Dioxide Level 25 MMOL/L (21-32) Anion Gap 6 mmol/L (5-15) Blood Urea Nitrogen 19 mg/dL (7-18) H Creatinine 1.6 MG/DL (0.55-1.30) H Estimat Glomerular Filtration Rate 52.2 mL/min (>60) Glucose Level 314 MG/DL (74-106) #H Hemoglobin A1c 9.9 % (4.3-6.0) H Uric Acid 3.8 MG/DL (2.6-7.2) Calcium Level 7.2 MG/DL (8.5-10.1) L Phosphorus Level 3.2 MG/DL (2.5-4.9) Magnesium Level 1.7 MG/DL (1.8-2.4) L Iron Level 51 ug/dL (50-175) Total Iron Binding Capacity 156 ug/dL (250-450) L Percent Iron Saturation 33 % (15-50) Unsaturated Iron Binding 105 ug/dL (112-346) L Total Bilirubin 0.4 MG/DL (0.2-1.0) Gamma Glutamyl Transpeptidase 59 U/L (5-85) Aspartate Amino Transf (AST/SGOT) 25 U/L (15-37) Alanine Aminotransferase (ALT/SGPT) 24 U/L (12-78) Alkaline Phosphatase 105 U/L (46-116) Ammonia 27 umol/L (11-32) Total Creatine Kinase 124 U/L (26-308) Troponin I 0.053 ng/mL (0.000-0.056) C-Reactive Protein, Quantitative 14.3 mg/dL (0.00-0.90) H Pro-B-Type Natriuretic Peptide 01070 pg/mL (0-125) H Total Protein 6.5 G/DL (6.4-8.2) Albumin 1.4 G/DL (3.4-5.0) L Globulin 5.1 g/dL Albumin/Globulin Ratio 0.3 (1.0-2.7) L Triglycerides Level 81 MG/DL (30-150) Cholesterol Level 133 MG/DL (< 200) LDL Cholesterol 62 mg/dL (<100) HDL Cholesterol 47 MG/DL (40-60) Cholesterol/HDL Ratio 2.8 (3.3-4.4) L Lipase 151 U/L (73-393) Vitamin B12 Level > 2000 PG/ML (193-986) H Folate 14.8 NG/ML (8.6-58.9) Thyroid Stimulating Hormone (TSH) 0.547 uiU/mL (0.358-3.740) Random Vancomycin Level 6.2 ug/mL Microbiology Date/Time Source Procedure Growth Status 07/10/20 17:50 Nasal Nares Right - Final Complete 07/10/20 17:50 Nasal Nares Right - Final Complete 07/10/20 00:30 Nasopharynx SARS-CoV-2 RdRp Gene Assay - Final Complete Objective 1. Elevated troponin. We will completely rule out ND protocol and repeat EKG and get an echocardiogram for further evaluation and transfer the patient on telemetry and evaluate troponin. 2. Hypertension, on amlodipine 10 mg daily, metoprolol 25 mg b.i.d. hydralazine 25 mg qid and p.r.n. clonidine. 3. Sepsis. White count 34,000, on broad-spectrum IV antibiotics. 4. History of seizures, on Depakote. 5. Schizophrenia, on Risperdal. 6. Recent COVID infection. 7. Chronic hepatitis B infection. Jose Angel Hernandez RN, MD Jul 11, 2020 14:24
--- NOTE | 2020-07-11 15:11 | NUR ---
CASE MANAGEMENT:REVIEW 70 YR OLD MALE BIBA FROM [facility] CC; FEVER. RESP DISTRESS SI: SEPSIS. UTI. HYPONATREMIA. ACUTE METABOLIC ENCEPHALOPATHY 100.3 100 18 176/100 97% ON RA WBC+34.2 IS: 1L NS BOLUS X2 IV MEROPENEM IV VANCOMYCIN IV LABETALOL URINE CX CXR : TO TELEMETRY DCP: FROM [facility]
[2020-07-11 16:00] VITALS: BP 156/87
--- NOTE | 2020-07-11 16:00 | NUR ---
NURSE HAND-OFF REPORT: Important Events on Shift:[WBC still elevated, vanco added by Dr. Landrum. Otherwise same] Patient Status: [stable] Diet: [CCHO M] Pending Orders: [] Pending Results/Labs:[] Pending MD notification:[] Latest Vital Signs: Temperature 97.5 , Pulse 69 , B/P 143 /85 , Respiratory Rate 18 , O2 SAT 96 , Room Air, O2 Flow Rate . Vital Sign Comment: [Bp elevated, hydralazine brought down ] EKG Rhythm: Sinus Rhythm Rhythm change?: N MD Notified?: - MD Response: Latest Stone Fall Score: 50 Fall Risk: High Risk Safety Measures: Call light Within Reach, Bed Alarm Zone 1, Side Rails Side Rails x3, Bed position Low and Locked. Fall Precautions: Yellow Socks Yellow Gown Patient Fall Education Report given to [Pending Rn assignment]. Addendum: 07/11/20 at 1927 by Reena Acharya RN Report given to Lula DUBON
--- NOTE | 2020-07-11 16:45 | NUR ---
NURSE NOTES: Pt refused wound care, angry shouting profanities.
--- NOTE | 2020-07-11 17:30 | NUR ---
NURSE NOTES: Explained importance of medication especially hydralazine for elevated BP. Explained risk of stroke and heart attack. Aggressively says "NO" refuses meds. Starts yelling profanities. Continues to refuse blood sugar check. WIll endorse to saleem DUBON.
--- NOTE | 2020-07-11 17:32 | NUR ---
NURSE NOTES: Informed Dr. Bronson that pt refused 4:30 blood sugar check and all 6pm meds. Informed him of 156/87 bp.
[2020-07-11] MEDS: Magnesium Oxide 400mg tab ORAL SCH (17:33)
--- NOTE | 2020-07-11 17:56 | NUR ---
Speech Pathology Note (Bedside Dysphagia Evaluation) Previous Hospitalization: 06/26/2020~07/04/2020 Hospital Course: COVID 19. pneumonia Previous Bedside Dysphagia evaluation: 06/27/2020 -Ordered diet: Mechanical soft diet and [place] thick liquid -Discharged to SNF diet: Mechanical soft diet and [place] thick Liquid diet Brief Note: Mr. Powers is a 70 year old male re-admitted from [facility] on 07/10/2020 due to UTI sepsis. He was found to be leukocytosis 34,2k with fever 100.2. The COVID screen was negative at this time. The most recent CXR 07/10/2020 is stable without any acute cardiopulmonary disease. He is know to have history of aspiration pneumonia in the past. The current labs are stable with leukocytosis at 32.1k, and VSS and saturation is 96% ORA. Findings: Mr. Powers was alert. He appeared to be comfortable. His speech is dysfluent with stuttering. His voice is wet. This findings were very similar to the last time I saw him here at [place]. Pt received his meal consists with Rice, chicken, coffee, custard and water. He does not have denture. Given him rice he tolerated, given him chopped chicken, he tolerated, given him coffee via spoon he did tolerate. However he is know to have history of micro aspiration and does better and safer with mechanical soft diet and nectar thick liquid. Interpretation: 1. oropharyngeal dysphagia with aspiration risk 2. Possible intermittent micro aspiration Plan: 1. Mechanical soft and chopped meat with nectar thick liqudi 2. Aspiration precaution Alice Huff
--- NOTE | 2020-07-11 19:30 | NUR ---
NURSE NOTES: Received pt and report from JAGDISH Valles. Observed pt resting in bed with both eyes open and watching television. Pt is A/Ox2. monitoring analyst is in placed; pt is NSR. IV site intact, asymptomatic, and patent. Bed is in the lowest position and locked. Call light and bedside table is within reach. No signs/symptoms of acute distress noted. Will continue plan or care.
[2020-07-11 20:00] VITALS: BP 155/83
--- NOTE | 2020-07-11 21:49 | NUR ---
NURSE NOTES: Pt refused 2100 PO, subQ medications, and BS check. Pt is shouting profanities to RN. Explained all risks and benefits to pt, but pt continued to refuse everything while shouting at RN. Dr. Salmon notified that pt refused medications and has elevated BP of 155/83, HR 91 bpm. Pt is asymptomatic. No orders at this time. Will monitor pt closely.
[2020-07-12] VITALS: BP 175/84
[2020-07-12] MEDS: HydrALAZINE 50mg tab ORAL SCH ×4 (00:30→18:03)
[2020-07-12 04:00] VITALS: BP 153/79
[2020-07-12] MEDS: NovoLOG Insulin Flexpen SUBQ SCH ×4 (06:04→21:04)
--- NOTE | 2020-07-12 07:29 | NUR ---
NURSE HAND-OFF REPORT: Important Events on Shift: Pt refused 2100 subQ and PO medications, and blood sugar checks. Dr. Salmon made aware. Patient Status: Stable Diet: CCHO (M); mechanical soft chopped/nectar thick liquids Pending Orders: N Pending Results/Labs: AM Labs Pending MD notification: N Latest Vital Signs: Temperature 98.3 , Pulse 82 , B/P 166 /82 , Respiratory Rate 19 , O2 SAT 96 , Room Air, O2 Flow Rate . EKG Rhythm: Sinus Rhythm Rhythm change?: N Latest Stone Fall Score: 50 Fall Risk: High Risk Safety Measures: Call light Within Reach, Bed Alarm Zone 1, Side Rails Side Rails x3, Bed position Low and Locked. Fall Precautions: Yellow Socks Yellow Gown Door Sign Patient Fall Education Report given to JAGDISH Arteaga.
[2020-07-12 07:45] LABS: HEMOGLOBIN 11.2 G/DL (14.2-18.0); MEAN CORPUSCULAR VOLUME 93 FL (80-99); PLATELET COUNT 175 K/UL (150-450); RED BLOOD COUNT 3.78 M/UL (4.70-6.10); RED CELL DISTRIBUTION WIDTH 15.9 % (11.6-14.8); WHITE BLOOD COUNT 19.4 K/UL (4.8-10.8)
--- NOTE | 2020-07-12 07:48 | Psychiatry Consultation ---
Psychiatry Consultation Psychiatry Consultation Chief Complaint: Fever History of Present Illness: 70-year-old male patient with sepsis and respiratory deficiency and he has a decline in cognition below his baseline is got altered mental status confusion and declining cognition plus baseline with mood lability as why he requires daily psychiatric consultation especially because his cognition has declined below his baseline for his daily psychiatric consultation requested to try to prevent any further decline in his cognition. Mental status examination: 70-year-old male appearance is disheveled attitude irritable agitated affect labile intellect poor mood depressed anxious motor activity psychomotor agitation attention span is poor orientation x2 which is nonsensical thought process disorganized logical thought content not hallucinations present delusions Insight judgment is poor Allergies: Coded Allergies: IBUPROFEN (Verified Allergy, Unknown, 10/22/19) PENICILLINS (Unverified Allergy, Unknown, 04/04/20) tolerated ceftriaxone Uncoded Allergies: PCN (Allergy, Unknown, 11/07/19) Medication History Scheduled Amlodipine Besylate* (Amlodipine Besylate*), 10 MG ORAL DAILY, (Reported) Diclofenac Sodium (Voltaren), 100 GM TP TWICE A DAY, (Reported) Divalproex Sodium* (Depakote*), 500 MG PO QHS, (Reported) Docusate Sodium* (Colace*), 100 MG ORAL DAILY IN THE EVENING, (Reported) Enoxaparin* (Lovenox*), 40 MG SUBQ DAILY, (Reported) Gabapentin* (Gabapentin*), 300 MG ORAL THREE TIMES A DAY, (Reported) Hydralazine Hcl* (Hydralazine Hcl*), 25 MG ORAL Q6HR, (Reported) Hydrocodone Bit/Acetaminophen 5-325* ([place] 5-325 Tablet*), 1 TAB ORAL DAILY, (Reported) Levetiracetam (Keppra), 500 MG ORAL EVERY 12 HOURS, (Reported) Lisinopril (Lisinopril*), 20 MG ORAL DAILY IN THE AFTERNOON, (Reported) Magnesium Hydroxide* (Milk Of Magnesia*), 30 ML ORAL DAILY, (Reported) Risperidone (Risperidone), 3 MG ORAL BEDTIME, (Reported) Tamsulosin HCl (Flomax), 0.4 MG ORAL BEDTIME, (Reported) Vancomycin/Water For Inj (Vancomycin 1.5 Gram/300 ml Bag), 1 GM IV every 24hrs., (Reported) Scheduled PRN Acetaminophen* (Acetaminophen 325MG Tablet*), 650 MG ORAL Q4H PRN for Mild Pain (Pain Scale 1-3), (Reported) Clonidine Hcl* (Catapres*), 0.1 MG ORAL EVERY 8 HOURS PRN for For High Blood Pressure, (Reported) Miscellaneous Medications Nicotine (Nicotine Patch), 21 MG TD, (Reported) Objective Data Height (Feet): 6 Height (Inches): 3.00 Weight (Pounds): 175 Assessment/Plan Assessment/Plan: continue Risperdal 0.5 mg PO BID, Ativan 1 q6h prn anxiety, Depakote 500mg PO qhs and 20minutes of Insight oriented psychotherapy provided whereas I help him recognize his psychiatric and medical conditon and its severity to reduce depression anxiety and have him have better impulse control. Diagnosis [place]: Schizoaffective bipolar type Ariela Venegas MD Jul 12, 2020 07:48
[2020-07-12 07:54] LABS: ALBUMIN 1.4 G/DL (3.4-5.0); ALBUMIN/GLOBULIN RATIO 0.2 (1.0-2.7); BILIRUBIN,TOTAL 0.4 MG/DL (0.2-1.0); CALCIUM 7.7 MG/DL (8.5-10.1); CREATININE 1.5 MG/DL (0.55-1.30); POTASSIUM 3.5 MMOL/L (3.5-5.1)
[2020-07-12 08:13] VITALS: BP 146/65
[2020-07-12 08:23] LABS: PHOSPHORUS 2.8 MG/DL (2.5-4.9)
[2020-07-12] MEDS: Meropenem 1 GM in NS 55 ML IVPB SCH ×2 (09:00→20:54)
[2020-07-12] MEDS: Tamsulosin 0.4mg cap ORAL SCH ×2 (09:58→18:03)
[2020-07-12] MEDS: Magnesium Oxide 400mg tab ORAL SCH ×3 (09:59→18:03)
[2020-07-12] MEDS: Heparin 5000 units/ml inj SUBQ SCH ×2 (10:40→20:55)
--- NOTE | 2020-07-12 11:31 | Cardiac Electrophysiology PN ---
Assessment/Plan Assessment/Plan 1. Elevated troponin. Second troponin is negative Echocardiogram EF 45% 2. Hypertension, on amlodipine 10 mg daily, metoprolol 25 mg b.i.d. hydralazine 50 mg qid and p.r.n. clonidine. 3. Sepsis. White count 34,000, on broad-spectrum IV antibiotics. 4. History of seizures, on Depakote. 5. Schizophrenia, on Risperdal. 6. Recent COVID infection. 7. Chronic hepatitis B infection. AMADOR RN Subjective Subjective In SR. Refused meds yesterday. On Seizure precautions. No CP or SOB Objective Last 24 Hour Vital Signs Date Time Temp Pulse Resp B/P (MAP) Pulse Ox O2 Delivery O2 Flow Rate FiO2 07/12/20 09:59 75 146/65 07/12/20 09:59 75 146/65 07/12/20 08:13 98.4 75 20 146/65 (92) 97 07/12/20 06:01 166/82 07/12/20 04:00 98.3 82 19 153/79 (103) 96 07/12/20 04:00 85 07/12/20 00:30 175/84 07/12/20 00:00 108 07/12/20 00:00 98.4 103 17 175/84 (114) 96 07/11/20 21:00 Room Air 07/11/20 20:00 98.6 91 17 155/83 (107) 96 07/11/20 20:00 93 07/11/20 17:33 156/87 07/11/20 16:00 73 20 156/87 (110) 96 07/11/20 16:00 81 07/11/20 12:12 143/85 07/11/20 12:00 97.5 72 18 143/85 (104) 96 07/11/20 12:00 69 Intake and Output0 07/11/20 07/12/20 19:00 07:00 Intake Total 480 ml 780 ml Output Total 450 ml 1400 ml Balance 30 ml -620 ml Intake Oral 480 ml 780 ml Output Urine Total 450 ml 1400 ml # Voids 2 Laboratory Tests Test 07/12/20 01:35 07/12/20 05:56 07/12/20 06:23 07/12/20 11:05 Urine Eosinophils None seen (NONE SEEN) POC Whole Blood Glucose 258 MG/DL (74-106) H 191 MG/DL (74-106) H White Blood Count 19.4 K/UL (4.8-10.8) H Red Blood Count 3.78 M/UL (4.70-6.10) L Hemoglobin 11.2 G/DL (14.2-18.0) L Hematocrit 35.0 % (42.0-52.0) L Mean Corpuscular Volume 93 FL (80-99) Mean Corpuscular Hemoglobin 29.6 PG (27.0-31.0) Mean Corpuscular Hemoglobin Concent 32.0 G/DL (32.0-36.0) Red Cell Distribution Width 15.9 % (11.6-14.8) H Platelet Count 175 K/UL (150-450) Mean Platelet Volume 9.3 FL (6.5-10.1) Neutrophils (%) (Auto) % (45.0-75.0) Lymphocytes (%) (Auto) % (20.0-45.0) Monocytes (%) (Auto) % (1.0-10.0) Eosinophils (%) (Auto) % (0.0-3.0) Basophils (%) (Auto) % (0.0-2.0) Differential Total Cells Counted 100 Neutrophils % (Manual) 80 % (45-75) H Lymphocytes % (Manual) 9 % (20-45) L Monocytes % (Manual) 11 % (1-10) H Eosinophils % (Manual) 0 % (0-3) Basophils % (Manual) 0 % (0-2) Band Neutrophils 0 % (0-8) Platelet Estimate Adequate Platelet Morphology Normal Anisocytosis 1+ Erythrocyte Sedimentation Rate 82 MM/HR (0-20) H Sodium Level 135 MMOL/L (136-145) L Potassium Level 3.5 MMOL/L (3.5-5.1) Chloride Level 104 MMOL/L (98-107) Carbon Dioxide Level 23 MMOL/L (21-32) Anion Gap 8 mmol/L (5-15) Blood Urea Nitrogen 21 mg/dL (7-18) H Creatinine 1.5 MG/DL (0.55-1.30) H Estimat Glomerular Filtration Rate 56.2 mL/min (>60) Glucose Level 268 MG/DL (74-106) H Calcium Level 7.7 MG/DL (8.5-10.1) L Phosphorus Level 2.8 MG/DL (2.5-4.9) Magnesium Level 1.9 MG/DL (1.8-2.4) Total Bilirubin 0.4 MG/DL (0.2-1.0) Aspartate Amino Transf (AST/SGOT) 26 U/L (15-37) Alanine Aminotransferase (ALT/SGPT) 23 U/L (12-78) Alkaline Phosphatase 116 U/L (46-116) C-Reactive Protein, Quantitative 11.1 mg/dL (0.00-0.90) H Total Protein 7.0 G/DL (6.4-8.2) Albumin 1.4 G/DL (3.4-5.0) L Globulin 5.6 g/dL Albumin/Globulin Ratio 0.2 (1.0-2.7) L Random Vancomycin Level 12.9 ug/mL Microbiology Date/Time Source Procedure Growth Status 07/10/20 17:50 Nasal Nares Right - Final Complete 07/10/20 17:50 Nasal Nares Right - Final Complete 07/10/20 00:30 Rectum - Final NO CARBAPENEM-RESISTANT ENTEROBACTERI... Complete 07/10/20 00:30 Rectum VRE Culture - Final NO VANCOMYCIN RESISTANT ENTEROCOCCUS ... Complete 07/10/20 00:30 Urine,Clean Catch Urine Culture - Preliminary Gram Negative Miller Resulted 07/10/20 00:30 Nasopharynx SARS-CoV-2 RdRp Gene Assay - Final Complete Objective HEAD AND NECK: Shows no JVD. LUNGS: Coarse rhonchi. CARDIOVASCULAR: Shows regular S1 and S2 with no gallop. ABDOMEN: Soft. EXTREMITIES: Atrophic with bilateral lower extremities. Jose Angel Salmon MD Jul 12, 2020 11:31
--- NOTE | 2020-07-12 11:33 | NUR ---
P.T Note: P.T evaluation attempted however pt refused despite encouragement. Will reattempt.
[2020-07-12 12:00] VITALS: BP 147/85
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
[2020-07-12] MEDS ORDERED: HydrALAZINE 50mg tab ORAL SCH (12:45)
[2020-07-12] MEDS ORDERED: Vancomycin 1.5 GM in NS 275 ML IVPB SCH (13:00)
--- NOTE | 2020-07-12 13:16 | General Progress Note ---
Subjective Constitutional: Reports: weakness Allergies: Coded Allergies: IBUPROFEN (Verified Allergy, Unknown, 10/22/19) PENICILLINS (Unverified Allergy, Unknown, 04/04/20) tolerated ceftriaxone Uncoded Allergies: PCN (Allergy, Unknown, 11/07/19) All Systems: reviewed and negative except above Subjective sleepy calm Objective Last 24 Hour Vital Signs Date Time Temp Pulse Resp B/P (MAP) Pulse Ox O2 Delivery O2 Flow Rate FiO2 07/12/20 12:04 146/65 07/12/20 09:59 75 146/65 07/12/20 09:59 75 146/65 07/12/20 08:13 98.4 75 20 146/65 (92) 97 07/12/20 08:00 Room Air 07/12/20 08:00 95 07/12/20 06:01 166/82 07/12/20 04:00 98.3 82 19 153/79 (103) 96 07/12/20 04:00 85 07/12/20 00:30 175/84 07/12/20 00:00 108 07/12/20 00:00 98.4 103 17 175/84 (114) 96 07/11/20 21:00 Room Air 07/11/20 20:00 98.6 91 17 155/83 (107) 96 07/11/20 20:00 93 07/11/20 17:33 156/87 07/11/20 16:00 73 20 156/87 (110) 96 07/11/20 16:00 81 Intake and Output 07/11/20 07/12/20 19:00 07:00 Intake Total 480 ml 780 ml Output Total 450 ml 1400 ml Balance 30 ml -620 ml Intake Oral 480 ml 780 ml Output Urine Total 450 ml 1400 ml # Voids 2 Laboratory Tests 07/12/20 01:35: Urine Eosinophils None seen 07/12/20 05:56: POC Whole Blood Glucose 258H 07/12/20 06:23: White Blood Count 19.4H, Red Blood Count 3.78L, Hemoglobin 11.2L, Hematocrit 35.0L, Mean Corpuscular Volume 93, Mean Corpuscular Hemoglobin 29.6, Mean Corpuscular Hemoglobin Concent 32.0, Red Cell Distribution Width 15.9H, Platelet Count 175, Mean Platelet Volume 9.3, Neutrophils (%) (Auto) , Lymphocytes (%) (Auto) , Monocytes (%) (Auto) , Eosinophils (%) (Auto) , Basophils (%) (Auto) , Differential Total Cells Counted 100, Neutrophils % (Manual) 80H, Lymphocytes % (Manual) 9L, Monocytes % (Manual) 11H, Eosinophils % (Manual) 0, Basophils % (Manual) 0, Band Neutrophils 0, Platelet Estimate Adequate, Platelet Morphology Normal, Anisocytosis 1+, Erythrocyte Sedimentation Rate 82H, Sodium Level 135L, Potassium Level 3.5, Chloride Level 104, Carbon Dioxide Level 23, Anion Gap 8, Blood Urea Nitrogen 21H, Creatinine 1.5H, Estimat Glomerular Filtration Rate 56.2, Glucose Level 268H, Calcium Level 7.7L, Phosphorus Level 2.8, Magnesium Level 1.9, Total Bilirubin 0.4, Aspartate Amino Transf (AST/SGOT) 26, Alanine A minotransferase (ALT/SGPT) 23, Alkaline Phosphatase 116, C-Reactive Protein, Quantitative 11.1H, Total Protein 7.0, Albumin 1.4L, Globulin 5.6, Albumin/Globulin Ratio 0.2L, Random Vancomycin Level 12.9 07/12/20 11:05: POC Whole Blood Glucose 191H Height (Feet): 6 Height (Inches): 3.00 Weight (Pounds): 175 General Appearance: lethargic EENT: normal ENT inspection Neck: normal alignment Cardiovascular: normal peripheral pulses, normal rate, regular rhythm Respiratory/Chest: chest wall non-tender, lungs clear, normal breath sounds Abdomen: normal bowel sounds, non tender, soft Extremities: normal inspection Edema: no edema noted Arm (L), no edema noted Arm (R), no edema noted Leg (L), no edema noted Leg (R), no edema noted Pedal (L), no edema noted Pedal (R), no edema noted Generalized Neurologic: motor weakness Skin: normal pigmentation, warm/dry Assessment/Plan Problem List: (1) Sepsis ICD Codes: A41.9 - Sepsis, unspecified organism SNOMED: 62302557, 774415788 Qualifiers: Qualified Codes: A41.9 - Sepsis, unspecified organism (2) UTI (urinary tract infection) ICD Codes: N39.0 - Urinary tract infection, site not specified SNOMED: 53665593 Qualifiers: Qualified Codes: N30.00 - Acute cystitis without hematuria (3) COVID-19 ICD Codes: U07.1 - COVID-19 SNOMED: 998541219 (4) COPD (chronic obstructive pulmonary disease) ICD Codes: J44.9 - Chronic obstructive pulmonary disease, unspecified SNOMED: 85529995 (5) Anemia ICD Codes: D64.9 - Anemia, unspecified SNOMED: 123254354 (6) Seizure disorder ICD Codes: G40.909 - Epilepsy, unspecified, not intractable, without status epilepticus SNOMED: 866064618, 648184738 (7) Hypertension ICD Codes: I10 - Essential (primary) hypertension SNOMED: 69395653 Qualifiers: Qualified Codes: I10 - Essential (primary) hypertension (8) ALYCIA (acute kidney injury) ICD Codes: N17.9 - Acute kidney failure, unspecified SNOMED: 0194599, 74494401 Status: unchanged Assessment/Plan: pt diet abc cbc bmp am aru Keyur Carrera DO Jul 12, 2020 13:16
--- NOTE | 2020-07-12 14:06 | Nephrology Progress Note ---
Assessment/Plan Problem List: (1) ALYCIA (acute kidney injury) (2) Sepsis (3) Hyponatremia (4) Anemia Assessment 70-year-old male admitted with a diagnosis of sepsis and UTI ALYCIA (acute kidney injury) Hyponatremia Seizure disorder Hypertension Altered level of consciousness, encephalopathy History of COVID-19 pneumonia Diabetes mellitus, History of schizophrenia History of pancreatitis Status post ORIF left hip Anemia Hepatitis B surface antigen positive, chronic in nature Plan July 12: Leukocytosis improving. Serum creatinine lower to 1.5. Electrolyt es within normal range. Continue per consultants. July 11: Cr lower- Leukocytosis persists. Electrolyte abnormalities addre ssed. Suggest ID workup. July 10: as follow 3% saline 500 mL once Adjust blood pressure medication Monitor electrolytes and renal parameters Per consultants Subjective ROS Limited/Unobtainable: No Constitutional: Reports: malaise Objective Objective Last 24 Hour Vital Signs Date Time Temp Pulse Resp B/P (MAP) Pulse Ox O2 Delivery O2 Flow Rate FiO2 07/12/20 12:45 146/65 07/12/20 12:04 146/65 07/12/20 12:00 73 07/12/20 09:59 75 146/65 07/12/20 09:59 75 146/65 07/12/20 08:13 98.4 75 20 146/65 (92) 97 07/12/20 08:00 Room Air 07/12/20 08:00 95 07/12/20 06:01 166/82 07/12/20 04:00 98.3 82 19 153/79 (103) 96 07/12/20 04:00 85 07/12/20 00:30 175/84 07/12/20 00:00 108 07/12/20 00:00 98.4 103 17 175/84 (114) 96 07/11/20 21:00 Room Air 07/11/20 20:00 98.6 91 17 155/83 (107) 96 07/11/20 20:00 93 07/11/20 17:33 156/87 07/11/20 16:00 73 20 156/87 (110) 96 07/11/20 16:00 81 Intake and Output 07/11/20 07/12/20 19:00 07:00 Intake Total 480 ml 780 ml Output Total 450 ml 1400 ml Balance 30 ml -620 ml Intake Oral 480 ml 780 ml Output Urine Total 450 ml 1400 ml # Voids 2 Current Medications Medications (Trade) Dose Ordered Sig/Jennifer Route PRN Reason Start Time Stop Time Status Last Admin Dose Admin Acetaminophen (Tylenol) 650 mg Q4H PRN ORAL fever 07/10/20 03:45 08/09/20 03:44 07/10/20 18:47 Amlodipine Besylate (Norvasc) 10 mg DAILY ORAL 07/10/20 09:00 08/09/20 08:59 07/12/20 09:59 Barium Sulfate (Varibar Honey) 250 ml NOW PRN RAD 07/10/20 14:45 07/13/20 14:34 Barium Sulfate (Varibar [place]) 240 ml NOW PRN RAD 07/10/20 14:45 07/13/20 14:34 Barium Sulfate (Varibar Pudding) 230 ml NOW PRN RAD 07/10/20 14:45 07/13/20 14:34 Barium Sulfate (Varibar Thin Liquid powder) 148 gm NOW PRN RAD 07/10/20 14:45 07/13/20 14:34 Clonidine HCl (Catapres Tab) 0.1 mg Q4H PRN ORAL sbp>160 07/10/20 17:00 10/08/20 16:59 07/10/20 18:47 Dextrose (Dextrose 50%) 25 ml Q30M PRN IV Hypoglycemia 07/10/20 03:45 10/08/20 03:44 Dextrose (Dextrose 50%) 50 ml Q30M PRN IV Hypoglycemia 07/10/20 03:45 10/08/20 03:44 Divalproex Sodium (Depakote) 500 mg QHS ORAL 07/10/20 21:00 08/09/20 20:59 07/10/20 21:32 Heparin Sodium (Porcine) (Heparin 5000 units/ml) 5,000 units EVERY 12 HOURS SUBQ 07/10/20 09:00 08/24/20 08:59 07/12/20 10:40 Hydralazine HCl (Apresoline) 100 mg Q6HR ORAL 07/12/20 18:00 10/08/20 17:59 Insulin Aspart (NovoLOG) BEFORE MEALS AND HS SUBQ 07/10/20 06:30 10/08/20 06:29 07/12/20 12:04 Levetiracetam (Keppra) 500 mg EVERY 12 HOURS ORAL 07/10/20 09:00 08/09/20 08:59 07/12/20 10:10 Lorazepam (Ativan) 1 mg Q6H PRN ORAL For Anxiety 07/10/20 14:45 07/17/20 14:44 Magnesium Oxide (Mag-Ox 400mg) 400 mg THREE TIMES A DAY ORAL 07/11/20 18:00 08/10/20 17:59 07/12/20 13:26 Meropenem 1 gm/ Sodium Chloride 55 ml @ 110 mls/hr Q12HR IVPB 07/10/20 21:00 07/15/20 20:59 07/12/20 09:00 Metoprolol Tartrate (Lopressor) 25 mg Q12HR ORAL 07/10/20 21:00 10/08/20 20:59 07/12/20 09:59 Ondansetron HCl (Zofran) 4 mg Q6H PRN IVP Nausea & Vomiting 07/10/20 03:45 08/09/20 03:44 Polyethylene Glycol (Miralax) 17 gm HSPRN PRN ORAL Constipation 07/10/20 03:45 08/09/20 03:44 Risperidone (RisperDAL) 0.5 mg BID ORAL 07/10/20 18:00 08/24/20 17:59 07/12/20 09:59 Tamsulosin HCl (Flomax) 0.4 mg BID ORAL 07/10/20 12:30 08/09/20 20:59 07/12/20 09:58 Vancomycin HCl ([facility] pharmacy to dose) 1 ea DAILY PRN MISC Per rx protocol 07/10/20 14:15 08/09/20 14:14 Vancomycin HCl 1.5 gm/Sodium Chloride 275 ml @ 137.5 mls/ hr Q24H IVPB 07/12/20 13:00 07/17/20 12:59 07/12/20 13:26 Zolpidem Tartrate (Ambien) 5 mg HSPRN PRN ORAL Insomnia 07/10/20 03:45 07/17/20 03:44 Laboratory Tests 07/12/20 01:35: Urine Eosinophils None seen 07/12/20 05:56: POC Whole Blood Glucose 258H 07/12/20 06:23: White Blood Count 19.4H, Red Blood Count 3.78L, Hemoglobin 11.2L, Hematocrit 35.0L, Mean Corpuscular Volume 93, Mean Corpuscular Hemoglobin 29.6, Mean Corpuscular Hemoglobin Concent 32.0, Red Cell Distribution Width 15.9H, Platelet Count 175, Mean Platelet Volume 9.3, Neutrophils (%) (Auto) , Lymphocytes (%) (Auto) , Monocytes (%) (Auto) , Eosinophils (%) (Auto) , Basophils (%) (Auto) , Differential Total Cells Counted 100, Neutrophils % (Manual) 80H, Lymphocytes % (Manual) 9L, Monocytes % (Manual) 11H, Eosinophils % (Manual) 0, Basophils % (Manual) 0, Band Neutrophils 0, Platelet Estimate Adequate, Platelet Morphology Normal, Anisocytosis 1+, Erythrocyte Sedimentation Rate 82H, Sodium Level 135L, Potassium Level 3.5, Chloride Level 104, Carbon Dioxide Level 23, Anion Gap 8, Blood Urea Nitrogen 21H, Creatinine 1.5H, Estimat Glomerular Filtration Rate 56.2, Glucose Level 268H, Calcium Level 7.7L, Phosphorus Level 2.8, Magnesium Level 1.9, Total Bilirubin 0.4, Aspartate Amino Transf (AST/SGOT) 26, Alanine Aminotransferase (ALT/SGPT) 23, Alkaline Phosphatase 116, C-Reactive Protein, Quantitative 11.1H, Total Protein 7.0, Albumin 1.4L, Globulin 5.6, Albumin/Globulin Ratio 0.2L, Random Vancomycin Level 12.9 07/12/20 11:05: POC Whole Blood Glucose 191H Height (Feet): 6 Height (Inches): 3.00 Weight (Pounds): 175 General Appearance: no apparent distress Cardiovascular: normal rate Respiratory/Chest: decreased breath sounds Abdomen: soft Joo Contreras MD Jul 12, 2020 14:06
--- NOTE | 2020-07-12 15:02 | NUR ---
CASE MANAGEMENT:REVIEW 07/12/20 SI:SEPSIS D/T UTI 98.4 75 20 146/65 97% ON RA WBC+19.4 BUN+21 CR+1.5 IS: IV VANCOMYCIN Q24 IV MEROPENEM Q12 HEPARIN SQ Q12 : TELEMETRY STATUS DCP: [facility]
--- NOTE | 2020-07-12 15:14 | NUR ---
INSURANCE CLINCALS AND REVIEW FAXED TO [facility] T: [phone] F: [phone]
--- NOTE | 2020-07-12 15:16 | NUR ---
NURSE NOTES:Skin/Wound assessment Left Heel pressure ulcer UTD 3.6x4.3x0.2 90% hard yellow brown slough 10% pink granulation ,macerated edges and moderate amount serosanguineous drainage Thera honey and Optifoam applied.Left lateral foot DTI 1.8x2.0x0.0 dark purple in color firm to touch Optifoam applied.Heels offloaded with pillow.Sacral pressure ulcer stage 2 0.8x0.8x0.2 pink tissue wound bed with dry skin periwound ,scant drainage ,Calazime and Optifoam applied.Recommend Physician wound consult for left heel .Discussed with RN taking care of the patient.
[2020-07-12 16:00] VITALS: BP 149/75
--- NOTE | 2020-07-12 19:15 | NUR ---
NURSE NOTES: Received pt and report from Rich DUBON. Pt resting in bed comfortably watching television no distress or discomfort noted. Pt is A+Ox2-3. front desk monitor on pt running NSR. Pt has IV site L hand 18g intact, asymptomatic, and patent. Pt on room air sating 97% no SOB noted. Bed is in the lowest position and locked. Call light and bedside table is within reach. No s/s of distress noted. Will continue plan or care.
--- NOTE | 2020-07-12 19:19 | Cardiology Report ---
APPROVED REPORT EKG Measurement Heart [id number] <Conclusion> Normal sinus rhythm Nonspecific T wave abnormality Abnormal ECG
[2020-07-12 20:00] VITALS: BP 172/90
[2020-07-13] VITALS: BP 159/84
[2020-07-13 04:00] VITALS: BP 152/84
[2020-07-13] MEDS: HydrALAZINE 50mg tab ORAL SCH ×4 (05:36→18:01)
[2020-07-13] MEDS: NovoLOG Insulin Flexpen SUBQ SCH ×4 (05:40→21:00)
--- NOTE | 2020-07-13 07:15 | NUR ---
NURSE HAND-OFF REPORT: Important Events on Shift: Patient Status: STABLE Diet: CARB MED. SOFT NECTAR THICK Pending Orders: Pending Results/Labs: Pending MD notification: Latest Vital Signs: Temperature 97.4 , Pulse 80 , B/P 152 /84 , Respiratory Rate 20 , O2 SAT 95 , Room Air, O2 Flow Rate . Vital Sign Comment: EKG Rhythm: Sinus Rhythm Rhythm change?: N MD Notified?: - MD Response: Latest Stone Fall Score: 50 Fall Risk: High Risk Safety Measures: Call light Within Reach, Bed Alarm Zone 1, Side Rails Side Rails x3, Bed position Low and Locked. Fall Precautions: Yellow Socks Yellow Gown Door Sign Patient Fall Education Report given to ALIZA DUBON.
--- NOTE | 2020-07-13 07:25 | Psychiatry Consultation ---
Psychiatry Consultation Psychiatry Consultation Chief Complaint: Fever History of Present Illness: ALS is a 70-year-old male patient still depressed review suicidality mental status and psychosis worsened by the stress of his medical illness his cognition has declined below his baseline worsened by the stress of his medical illness as well as attending has requested daily psychiatric consultation Mental status examination: 70-year-old male appearance is disheveled at irritable agitated affect guarded restricted intellect poor mood depressed anxious motor activity psychomotor agitation attention span is poor orientation x3 speech is nonsensical thought process disorganized logical insight judgment is poor Allergies: Coded Allergies: IBUPROFEN (Verified Allergy, Unknown, 10/22/19) PENICILLINS (Unverified Allergy, Unknown, 04/04/20) tolerated ceftriaxone Uncoded Allergies: PCN (Allergy, Unknown, 11/07/19) Medication History Scheduled Amlodipine Besylate* (Amlodipine Besylate*), 10 MG ORAL DAILY, (Reported) Diclofenac Sodium (Voltaren), 100 GM TP TWICE A DAY, (Reported) Divalproex Sodium* (Depakote*), 500 MG PO QHS, (Reported) Docusate Sodium* (Colace*), 100 MG ORAL DAILY IN THE EVENING, (Reported) Enoxaparin* (Lovenox*), 40 MG SUBQ DAILY, (Reported) Gabapentin* (Gabapentin*), 300 MG ORAL THREE TIMES A DAY, (Reported) Hydralazine Hcl* (Hydralazine Hcl*), 25 MG ORAL Q6HR, (Reported) Hydrocodone Bit/Acetaminophen 5-325* ([place] 5-325 Tablet*), 1 TAB ORAL DAILY, (Reported) Levetiracetam (Keppra), 500 MG ORAL EVERY 12 HOURS, (Reported) Lisinopril (Lisinopril*), 20 MG ORAL DAILY IN THE AFTERNOON, (Reported) Magnesium Hydroxide* (Milk Of Magnesia*), 30 ML ORAL DAILY, (Reported) Risperidone (Risperidone), 3 MG ORAL BEDTIME, (Reported) Tamsulosin HCl (Flomax), 0.4 MG ORAL BEDTIME, (Reported) Vancomycin/Water For Inj (Vancomycin 1.5 Gram/300 ml Bag), 1 GM IV every 24hrs., (Reported) Scheduled PRN Acetaminophen* (Acetaminophen 325MG Tablet*), 650 MG ORAL Q4H PRN for Mild Pain (Pain Scale 1-3), (Reported) Clonidine Hcl* (Catapres*), 0.1 MG ORAL EVERY 8 HOURS PRN for For High Blood Pressure, (Reported) Miscellaneous Medications Nicotine (Nicotine Patch), 21 MG TD, (Reported) Objective Data Height (Feet): 6 Height (Inches): 3.00 Weight (Pounds): 175 Assessment/Plan Assessment/Plan: continue Risperdal 0.5 mg PO BID, Ativan 1 q6h prn anxiety, Depakote 500mg PO qhs and 20minutes of Insight oriented psychotherapy provided whereas I help him recognize his psychiatric and medical conditon and its severity to reduce depression anxiety and have him have better impulse control. Diagnosis [place] I: Schizoaffective bipolar type Ariela Venegas MD Jul 13, 2020 07:25
[2020-07-13 07:40] LABS: ALBUMIN 1.3 G/DL (3.4-5.0); ALBUMIN/GLOBULIN RATIO 0.2 (1.0-2.7); BILIRUBIN,TOTAL 0.3 MG/DL (0.2-1.0); CALCIUM 7.7 MG/DL (8.5-10.1); CREATININE 1.5 MG/DL (0.55-1.30); PHOSPHORUS 2.6 MG/DL (2.5-4.9); POTASSIUM 3.7 MMOL/L (3.5-5.1)
--- NOTE | 2020-07-13 07:47 | NUR ---
NURSE NOTES:Handoff received from JAGDISH Reynolds. Patient received awake and alert eating breakfast in bed, patien tis on room air with no signs of distress noted. Patient is on fall precautions with bed in the low and locked position with call light within reach, bed alarm on. patient is on contact precautions for ESBL urine. Patient is also on bed, rest, informed him to call if he needs assistance, seizure precautions implemented with side rails padded. L hand IV site is clean dry and intact saline locked, will continue to follow plan of care.
[2020-07-13 07:55] LABS: BASOPHILS % (AUTO) 1.2 % (0.0-2.0); EOSINOPHILS % (AUTO) 0.3 % (0.0-3.0); HEMATOCRIT 33.9 % (42.0-52.0); HEMOGLOBIN 10.6 G/DL (14.2-18.0); LYMPHOCYTES % (AUTO) 31.5 % (20.0-45.0); MEAN CORPUSCULAR VOLUME 92 FL (80-99); NEUTROPHILS % (AUTO) 57.1 % (45.0-75.0); PLATELET COUNT 197 K/UL (150-450); RED BLOOD COUNT 3.68 M/UL (4.70-6.10); RED CELL DISTRIBUTION WIDTH 15.6 % (11.6-14.8); WHITE BLOOD COUNT 9.7 K/UL (4.8-10.8)
[2020-07-13 08:00] VITALS: BP 154/73
--- NOTE | 2020-07-13 08:27 | Cardiology Report ---
APPROVED REPORT EXAM: Two-dimensional and M-mode echocardiogram with Doppler and color Doppler. INDICATION CAD M-Mode DIMENSIONS IVSd1.0 (0.7-1.1cm)Left Atrium (MM)4.4 (1.6-4.0cm) LVDd4.3 (3.5-5.6cm)Aortic Root3.6 (2.0-3.7cm) PWd0.9 (0.7-1.1cm)Aortic Cusp Exc.1.8 (1.5-2.0cm) IVSs1.1 cm LVDs2.8 (2.5-4.0cm) PWs0.9 cm <Conclusion> Normal left ventricular chamber size. Borderline normal LV systolic function and wall motion. Left ventricular ejection fraction estimated to be 50 %. Mild left ventricular hypertrophy by 2-D. No evidence of pericardial effusion. Mild left atrial enlargement. Right cardiac chamber sizes are within normal limits. Calcification of aortic valve with adequate cusp excursion. Thickened mitral valve leaflets with normal excursion. Mitral annulus and aortic root calcification. Pulmonic valve not well visualized. Normal tricuspid valve structure. IVC at normal size with physiologic collapse. A color flow and spectral Doppler study was performed and revealed: No aortic insufficiency. Trace mitral regurgitation. Mitral diastolic velocities suggest reduced left ventricular relaxation c/w mild LV diastolic dysfunction (Grade I ). Trace tricuspid regurgitation. Tricuspid systolic velocities suggests peak right ventricular systolic pressure of 9 mmHg.
[2020-07-13] MEDS: Magnesium Oxide 400mg tab ORAL SCH ×3 (09:00→18:01)
[2020-07-13] MEDS: Tamsulosin 0.4mg cap ORAL SCH ×2 (09:00→18:00)
--- NOTE | 2020-07-13 09:02 | Nephrology Progress Note ---
Assessment/Plan Problem List: (1) ALYCIA (acute kidney injury) (2) Sepsis (3) Hyponatremia (4) Anemia Assessment 70-year-old male admitted with a diagnosis of sepsis and UTI ALYCIA (acute kidney injury) Hyponatremia Seizure disorder Hypertension Altered level of consciousness, encephalopathy History of COVID-19 pneumonia Diabetes mellitus, History of schizophrenia History of pancreatitis Status post ORIF left hip Anemia Hepatitis B surface antigen positive, chronic in nature Plan July 13: Leukocytosis resolved. Serum creatinine remains unchanged at 1.5 somewhat improvement from the day of admission. Continue per consultants. July 12: Leukocytosis improving. Serum creatinine lower to 1.5. Electrolytes within normal range. Continue per consultants. July 11: Cr lower- Leukocytosis persists. Electrolyte abnormalities addressed. Suggest ID workup. July 10: as follow 3% saline 500 mL once Adjust blood pressure medication Monitor electrolytes and renal parameters Per consultants Subjective ROS Limited/Unobtainable: No Constitutional: Reports: malaise Objective Objective Last 24 Hour Vital Signs Date Time Temp Pulse Resp B/P (MAP) Pulse Ox O2 Delivery O2 Flow Rate FiO2 07/13/20 08:00 96.8 87 18 154/73 (100) 96 07/13/20 05:36 152/84 07/13/20 05:20 80 20 150/80 95 07/13/20 04:49 83 20 152/84 95 07/13/20 04:00 74 07/13/20 04:00 97.4 83 20 152/84 (106) 95 07/13/20 00:00 71 07/13/20 00:00 157/83 07/13/20 00:00 97.7 68 20 159/84 (109) 95 07/12/20 21:00 Room Air 07/12/20 20:55 89 172/90 07/12/20 20:00 97.8 89 20 172/90 (117) 97 07/12/20 18:03 146/65 07/12/20 16:00 98.1 76 19 149/75 (99) 99 07/12/20 16:00 82 07/12/20 12:45 146/65 07/12/20 12:04 146/65 07/12/20 12:00 97.5 73 18 147/85 (105) 96 07/12/20 12:00 73 07/12/20 09:59 75 146/65 07/12/20 09:59 75 146/65 Intake and Output 07/12/20 07/13/20 19:00 07:00 Intake Total 360 ml Output Total 600 ml 1150 ml Balance -240 ml -1150 ml Intake Oral 360 ml Output Urine Total 600 ml 1150 ml Current Medications Medications (Trade) Dose Ordered Sig/Jennifer Route PRN Reason Start Time Stop Time Status Last Admin Dose Admin Acetaminophen (Tylenol) 650 mg Q4H PRN ORAL fever 07/10/20 03:45 08/09/20 03:44 07/10/20 18:47 Amlodipine Besylate (Norvasc) 10 mg DAILY ORAL 07/10/20 09:00 08/09/20 08:59 07/12/20 09:59 Barium Sulfate (Varibar Honey) 250 ml NOW PRN RAD 07/10/20 14:45 07/13/20 14:34 Barium Sulfate (Varibar [place]) 240 ml NOW PRN RAD 07/10/20 14:45 07/13/20 14:34 Barium Sulfate (Varibar Pudding) 230 ml NOW PRN RAD 07/10/20 14:45 07/13/20 14:34 Barium Sulfate (Varibar Thin Liquid powder) 148 gm NOW PRN RAD 07/10/20 14:45 07/13/20 14:34 Clonidine HCl (Catapres Tab) 0.1 mg Q4H PRN ORAL sbp>160 07/10/20 17:00 10/08/20 16:59 07/10/20 18:47 Dextrose (Dextrose 50%) 25 ml Q30M PRN IV Hypoglycemia 07/10/20 03:45 10/08/20 03:44 Dextrose (Dextrose 50%) 50 ml Q30M PRN IV Hypoglycemia 07/10/20 03:45 10/08/20 03:44 Divalproex Sodium (Depakote) 500 mg QHS ORAL 07/10/20 21:00 08/09/20 20:59 07/12/20 20:54 Heparin Sodium (Porcine) (Heparin 5000 units/ml) 5,000 units EVERY 12 HOURS SUBQ 07/10/20 09:00 08/24/20 08:59 07/12/20 20:55 Hydralazine HCl (Apresoline) 100 mg Q6HR ORAL 07/12/20 18:00 10/08/20 17:59 07/13/20 05:36 Insulin Aspart (NovoLOG) BEFORE MEALS AND HS SUBQ 07/10/20 06:30 10/08/20 06:29 07/13/20 05:40 Levetiracetam (Keppra) 500 mg EVERY 12 HOURS ORAL 07/10/20 09:00 08/09/20 08:59 07/12/20 20:56 Lorazepam (Ativan) 1 mg Q6H PRN ORAL For Anxiety 07/10/20 14:45 07/17/20 14:44 07/13/20 04:49 Magnesium Oxide (Mag-Ox 400mg) 400 mg THREE TIMES A DAY ORAL 07/11/20 18:00 08/10/20 17:59 07/12/20 18:03 Meropenem 1 gm/ Sodium Chloride 55 ml @ 110 mls/hr Q12HR IVPB 07/10/20 21:00 07/15/20 20:59 07/12/20 20:54 Metoprolol Tartrate (Lopressor) 25 mg Q12HR ORAL 07/10/20 21:00 10/08/20 20:59 07/12/20 20:55 Ondansetron HCl (Zofran) 4 mg Q6H PRN IVP Nausea & Vomiting 07/10/20 03:45 08/09/20 03:44 Polyethylene Glycol (Miralax) 17 gm HSPRN PRN ORAL Constipation 07/10/20 03:45 08/09/20 03:44 Risperidone (RisperDAL) 0.5 mg BID ORAL 07/10/20 18:00 08/24/20 17:59 07/12/20 18:03 Tamsulosin HCl (Flomax) 0.4 mg BID ORAL 07/10/20 12:30 08/09/20 20:59 07/12/20 18:03 Vancomycin HCl (Vanco pharmacy to dose) 1 ea DAILY PRN MISC Per rx protocol 07/10/20 14:15 08/09/20 14:14 Vancomycin HCl 1.5 gm/Sodium Chloride 275 ml @ 137.5 mls/ hr Q24H IVPB 07/12/20 13:00 07/17/20 12:59 07/12/20 13:26 Zolpidem Tartrate (Ambien) 5 mg HSPRN PRN ORAL Insomnia 07/10/20 03:45 07/17/20 03:44 Laboratory Tests 07/12/20 11:05: POC Whole Blood Glucose 191H 07/13/20 06:43: White Blood Count 9.7, Red Blood Count 3.68L, Hemoglobin 10.6L, Hematocrit 33.9L , Mean Corpuscular Volume 92, Mean Corpuscular Hemoglobin 28.9, Mean Corpuscular Hemoglobin Concent 31.4L, Red Cell Distribution Width 15.6H, Platelet Count 197, Mean Platelet Volume 10.1, Neutrophils (%) (Auto) 57.1, Lymphocytes (%) (Auto) 31.5, Monocytes (%) (Auto) 10.0, Eosinophils (%) (Auto) 0.3, Basophils (%) (Auto) 1.2, Sodium Level 133L, Potassium Level 3.7, Chloride Level 101, Carbon Dioxide Level 25, Anion Gap 7, Blood Urea Nitrogen 18, Creatinine 1.5H, Estimat Glomerular Filtration Rate 56.2, Glucose Level 250H, Calcium Level 7.7L, Phosphorus Level 2.6, Magnesium Level 1.8, Total Bilirubin 0.3, Aspartate Amino Transf (AST/SGOT) 26, Alanine Aminotransferase (ALT/SGPT) 20, Alkaline Phosphatase 102, Total Protein 6.6, Albumin 1.3L, Globulin 5.3, Albumin/Globulin Ratio 0.2L Height (Feet): 6 Height (Inches): 3.00 Weight (Pounds): 175 General Appearance: no apparent distress Objective No change Joo Contreras MD Jul 13, 2020 09:02
--- NOTE | 2020-07-13 09:16 | General Progress Note ---
Subjective Constitutional: Reports: weakness Allergies: Coded Allergies: IBUPROFEN (Verified Allergy, Unknown, 10/22/19) PENICILLINS (Unverified Allergy, Unknown, 04/04/20) tolerated ceftriaxone Uncoded Allergies: PCN (Allergy, Unknown, 11/07/19) All Systems: reviewed and negative except above Subjective sleepy calm Objective Last 24 Hour Vital Signs Date Time Temp Pulse Resp B/P (MAP) Pulse Ox O2 Delivery O2 Flow Rate FiO2 07/13/20 08:58 Room Air 07/13/20 08:00 96.8 87 18 154/73 (100) 96 07/13/20 05:36 152/84 07/13/20 05:20 80 20 150/80 95 07/13/20 04:49 83 20 152/84 95 07/13/20 04:00 74 07/13/20 04:00 97.4 83 20 152/84 (106) 95 07/13/20 00:00 71 07/13/20 00:00 157/83 07/13/20 00:00 97.7 68 20 159/84 (109) 95 07/12/20 21:00 Room Air 07/12/20 20:55 89 172/90 07/12/20 20:00 97.8 89 20 172/90 (117) 97 07/12/20 18:03 146/65 07/12/20 16:00 98.1 76 19 149/75 (99) 99 07/12/20 16:00 82 07/12/20 12:45 146/65 07/12/20 12:04 146/65 07/12/20 12:00 97.5 73 18 147/85 (105) 96 07/12/20 12:00 73 07/12/20 09:59 75 146/65 07/12/20 09:59 75 146/65 Intake and Output 07/12/20 07/13/20 19:00 07:00 Intake Total 360 ml Output Total 600 ml 1150 ml Balance -240 ml -1150 ml Intake Oral 360 ml Output Urine Total 600 ml 1150 ml Laboratory Tests 07/12/20 11:05: POC Whole Blood Glucose 191H 07/13/20 06:43: White Blood Count 9.7, Red Blood Count 3.68L, Hemoglobin 10.6L, Hematocrit 33.9L , Mean Corpuscular Volume 92, Mean Corpuscular Hemoglobin 28.9, Mean Corpuscular Hemoglobin Concent 31.4L, Red Cell Distribution Width 15.6H, Platelet Count 197, Mean Platelet Volume 10.1, Neutrophils (%) (Auto) 57.1, Lymphocytes (%) (Auto) 31.5, Monocytes (%) (Auto) 10.0, Eosinophils (%) (Auto) 0.3, Basophils (%) (Auto) 1.2, Sodium Level 133L, Potassium Level 3.7, Chloride Level 101, Carbon Dioxide Level 25, Anion Gap 7, Blood Urea Nitrogen 18, Creatinine 1.5H, Estimat Glomerular Filtration Rate 56.2, Glucose Level 250H, Calcium Level 7.7L, Phosphorus Level 2.6, Magnesium Level 1.8, Total Bilirubin 0.3, Aspartate Amino Transf (AST/SGOT) 26, Alanine Aminotransferase (ALT/SGPT) 20, Alkaline Phosphatase 102, Total Protein 6.6, Albumin 1.3L, Globulin 5.3, Albumin/Globulin Ratio 0.2L Height (Feet): 6 Height (Inches): 3.00 Weight (Pounds): 175 General Appearance: lethargic EENT: normal ENT inspection Neck: normal alignment Cardiovascular: normal peripheral pulses, normal rate, regular rhythm Respiratory/Chest: chest wall non-tender, lungs clear, normal breath sounds Abdomen: normal bowel sounds, non tender, soft Extremities: normal inspection Edema: no edema noted Arm (L), no edema noted Arm (R), no edema noted Leg (L), no edema noted Leg (R), no edema noted Pedal (L), no edema noted Pedal (R), no edema noted Generalized Neurologic: motor weakness Skin: normal pigmentation, warm/dry Assessment/Plan Problem List: (1) Sepsis ICD Codes: A41.9 - Sepsis, unspecified organism SNOMED: 69050545, 191006647 Qualifiers: Qualified Codes: A41.9 - Sepsis, unspecified organism (2) UTI (urinary tract infection) ICD Codes: N39.0 - Urinary tract infection, site not specified SNOMED: 78640388 Qualifiers: Qualified Codes: N30.00 - Acute cystitis without hematuria (3) COVID-19 ICD Codes: U07.1 - COVID-19 SNOMED: 344824533 (4) COPD (chronic obstructive pulmonary disease) ICD Codes: J44.9 - Chronic obstructive pulmonary disease, unspecified SNOMED: 21372232 (5) Anemia ICD Codes: D64.9 - Anemia, unspecified SNOMED: 801375601 (6) Seizure disorder ICD Codes: G40.909 - Epilepsy, unspecified, not intractable, without status epilepticus SNOMED: 823064471, 781386549 (7) Hypertension ICD Codes: I10 - Essential (primary) hypertension SNOMED: 10023114 Qualifiers: Qualified Codes: I10 - Essential (primary) hypertension (8) ALYCIA (acute kidney injury) ICD Codes: N17.9 - Acute kidney failure, unspecified SNOMED: 8772793, 76189198 Status: unchanged Assessment/Plan: pt diet abc cbc bmp am caseyu Keyur Carrera DO Jul 13, 2020 09:16
--- NOTE | 2020-07-13 09:20 | NUR ---
NURSE NOTES:Meds wasted as patient refused to take. attempted to give them whole and then crushed in apple sauce. patient stated " I am not taking that shit" unable to convince patient to take meds.
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
[2020-07-13] MEDS: Meropenem 1 GM in NS 55 ML IVPB SCH ×2 (09:29→21:00)
[2020-07-13] MEDS: Heparin 5000 units/ml inj SUBQ SCH ×2 (09:32→21:14)
--- NOTE | 2020-07-13 09:35 | NUR ---
NURSE NOTES:Attempted to give Heparin to patient, patient refused and then pulled arm away and started getting combative, agitated and shouting " get that shit away from me man, I am not taking that shit, you take it" unable to administer.
[2020-07-13] MEDS ORDERED: NOVOLOG100 UNITS1 SUBQ (10:22)
[2020-07-13] MEDS ORDERED: NEURONTIN300 MG ORAL (10:22)
--- NOTE | 2020-07-13 10:53 | NUR ---
NURSE NOTES:Dr Bronson aware that patient refused his 0900 medications.
--- NOTE | 2020-07-13 11:05 | NUR ---
NURSE NOTES:Dr Salmon aware of patient refusing morning medications.
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
[2020-07-13] MEDS ORDERED: MEROPENEM1 GM IV (11:29)
[2020-07-13 11:32] VITALS: BP 146/83
--- NOTE | 2020-07-13 12:09 | NUR ---
NURSE NOTES:called and left a message for Dr Venegas per Dr Bronson who stated to notify Dr Venegas that patient refused his meds.
--- NOTE | 2020-07-13 12:11 | NUR ---
NURSE NOTES:had another RN, Maida, try and successfully give patients 1200 and 1300 medications and insulin.
--- NOTE | 2020-07-13 12:27 | Cardiac Electrophysiology PN ---
Assessment/Plan Assessment/Plan 1. Elevated troponin. Second troponin is negative Echocardiogram EF 45%. No CP and noncompliant and refusing meds 2. Hypertension, on amlodipine 10 mg daily, metoprolol 25 mg b.i.d. hydralazine 50 mg qid and p.r.n. clonidine. 3. Sepsis. White count 34,000, on broad-spectrum IV antibiotics. WBC down to 9.7 4. History of seizures, on Depakote. 5. Schizophrenia, on Risperdal. 6. Recent COVID infection. 7. Chronic hepatitis B infection. AMADOR RN Subjective Subjective In SR. Refusing meds . On Seizure precautions. No CP or SOB Placement pending Objective Last 24 Hour Vital Signs Date Time Temp Pulse Resp B/P (MAP) Pulse Ox O2 Delivery O2 Flow Rate FiO2 07/13/20 11:50 146/83 07/13/20 11:32 97.3 78 20 146/83 (104) 98 07/13/20 09:00 87 154/73 07/13/20 09:00 87 154/73 07/13/20 08:58 Room Air 07/13/20 08:00 85 07/13/20 08:00 96.8 87 18 154/73 (100) 96 07/13/20 05:36 152/84 07/13/20 05:20 80 20 150/80 95 07/13/20 04:49 83 20 152/84 95 07/13/20 04:00 74 07/13/20 04:00 97.4 83 20 152/84 (106) 95 07/13/20 00:00 71 07/13/20 00:00 157/83 07/13/20 00:00 97.7 68 20 159/84 (109) 95 07/12/20 21:00 Room Air 07/12/20 20:55 89 172/90 07/12/20 20:00 97.8 89 20 172/90 (117) 97 07/12/20 18:03 146/65 07/12/20 16:00 98.1 76 19 149/75 (99) 99 07/12/20 16:00 82 07/12/20 12:45 146/65 Intake and Output 07/12/20 07/13/20 19:00 07:00 Intake Total 360 ml Output Total 600 ml 1150 ml Balance -240 ml -1150 ml Intake Oral 360 ml Output Urine Total 600 ml 1150 ml Laboratory Tests Test 07/13/20 06:43 07/13/20 11:49 White Blood Count 9.7 K/UL (4.8-10.8) Red Blood Count 3.68 M/UL (4.70-6.10) L Hemoglobin 10.6 G/DL (14.2-18.0) L Hematocrit 33.9 % (42.0-52.0) L Mean Corpuscular Volume 92 FL (80-99) Mean Corpuscular Hemoglobin 28.9 PG (27.0-31.0) Mean Corpuscular Hemoglobin Concent 31.4 G/DL (32.0-36.0) L Red Cell Distribution Width 15.6 % (11.6-14.8) H Platelet Count 197 K/UL (150-450) Mean Platelet Volume 10.1 FL (6.5-10.1) Neutrophils (%) (Auto) 57.1 % (45.0-75.0) Lymphocytes (%) (Auto) 31.5 % (20.0-45.0) Monocytes (%) (Auto) 10.0 % (1.0-10.0) Eosinophils (%) (Auto) 0.3 % (0.0-3.0) Basophils (%) (Auto) 1.2 % (0.0-2.0) Sodium Level 133 MMOL/L (136-145) L Potassium Level 3.7 MMOL/L (3.5-5.1) Chloride Level 101 MMOL/L (98-107) Carbon Dioxide Level 25 MMOL/L (21-32) Anion Gap 7 mmol/L (5-15) Blood Urea Nitrogen 18 mg/dL (7-18) Creatinine 1.5 MG/DL (0.55-1.30) H Estimat Glomerular Filtration Rate 56.2 mL/min (>60) Glucose Level 250 MG/DL (74-106) H Calcium Level 7.7 MG/DL (8.5-10.1) L Phosphorus Level 2.6 MG/DL (2.5-4.9) Magnesium Level 1.8 MG/DL (1.8-2.4) Total Bilirubin 0.3 MG/DL (0.2-1.0) Aspartate Amino Transf (AST/SGOT) 26 U/L (15-37) Alanine Aminotransferase (ALT/SGPT) 20 U/L (12-78) Alkaline Phosphatase 102 U/L (46-116) Total Protein 6.6 G/DL (6.4-8.2) Albumin 1.3 G/DL (3.4-5.0) L Globulin 5.3 g/dL Albumin/Globulin Ratio 0.2 (1.0-2.7) L POC Whole Blood Glucose 236 MG/DL (74-106) H Microbiology Date/Time Source Procedure Growth Status 07/10/20 17:50 Nasal Nares Right - Final Complete 07/10/20 17:50 Nasal Nares Right - Final Complete Objective HEAD AND NECK: Shows no JVD. LUNGS: Coarse rhonchi. CARDIOVASCULAR: Shows regular S1 and S2 with no gallop. ABDOMEN: Soft. EXTREMITIES: Atrophic bilateral lower extremities.S/P Left big toe amputation Jose Angel Salmon MD Jul 13, 2020 12:27
--- NOTE | 2020-07-13 13:10 | NUR ---
*-*DISCHARGE PLANNED*-* PATIENT HAS BEEN ACCEPTED AND WILL BE DISCHARGED BACK TO: [facility] P: [phone] FOR NURSE TO NURSE REPORT ROOM# 10.[facility] TRANSPORTATION SET FOR 2:30PM S/W [facility] [id number]. PLACED A CALL TO PATIENTS DAUGHTER TYRON HERNANDEZ, NO ANSWER, UNABLE TO LEAVE VOICE MESSAGE.
--- NOTE | 2020-07-13 13:55 | NUR ---
NURSE NOTES:Patient pulled out IV line and is refusing placement of another IV.
--- NOTE | 2020-07-13 14:10 | NUR ---
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
--- NOTE | 2020-07-13 14:16 | NUR ---
NURSE NOTES:Left a message for Dr Bronson as patient is being discharged and has a Padilla with no discontinuation order.
--- NOTE | 2020-07-13 14:55 | NUR ---
NURSE NOTES:Called consuelo arcos and stated to give report, but the woman on the phone refused to continue receiving report as the patient does not have IV access. She stated that if IV access cannot be obtained, to request the doctor change the antibiotics to PO. multiple attempts made to gain IV access but patient is now refusing an IV. Called case management to notify them.
--- NOTE | 2020-07-13 14:59 | NUR ---
P.T Note: P.T evaluation attempted however pt refused to participate . Will reattempt tomorrow.
--- NOTE | 2020-07-13 15:29 | NUR ---
NURSE NOTES:Paged Dr Wick to find out if the Meropenem can be changed to PO as patient is refusing Iv access and SNF are refusing to take report.
[2020-07-13 15:31] VITALS: BP 140/79
--- NOTE | 2020-07-13 15:46 | NUR ---
NURSE NOTES:called and spoke to Dr Wick as the facility refused to take the patient without IV access, as they were concerned that they would not be able to administer the IV antibiotics. Dr Wick gave TO/RB to cancel the discharge as the antibiotic has to be IV. Notified case management that patient is no longer being discharged.
--- NOTE | 2020-07-13 16:15 | NUR ---
*-*DISCHARGE PLANNED*-* PATIENT HAS BEEN ACCEPTED AND WILL BE DISCHARGED BACK TO: [facility] P: [phone] FOR NURSE TO NURSE REPORT ROOM# 10.[facility] SET FOR WILL CALL [id number]. PLACED A CALL TO PATIENTS DAUGHTER TYRON HERNANDEZ, NO ANSWER, UNABLE TO LEAVE VOICE MESSAGE.
--- NOTE | 2020-07-13 19:15 | NUR ---
NURSE NOTES: Report given by Compa DUBON. Patient is awake alert and oriented x1 to 2. Patient has periods of confusion. No SOB or distress. Bed alarm activated lowest position locked with side rails up. Call light within reach. color television console monitor intact. Will continue with plan of care.
--- NOTE | 2020-07-13 19:51 | NUR ---
NURSE HAND-OFF REPORT: Important Events on Shift: Patient refused 0900 medications, MD Salmon and Audie aware. Patient Status: stable Diet: CCHO (M) soft chopped nectar thick liquids. Pending Orders: Pending Results/Labs: Pending MD notification: Latest Vital Signs: Temperature 97.5 , Pulse 82 , B/P 140 /79 , Respiratory Rate 20 , O2 SAT 98 , Room Air, O2 Flow Rate . Vital Sign Comment: EKG Rhythm: Sinus Rhythm Rhythm change?: N MD Notified?: - MD Response: Latest Stone Fall Score: 50 Fall Risk: High Risk Safety Measures: Call light Within Reach, Bed Alarm Zone 1, Side Rails Side Rails x3, Bed position Low and Locked. Fall Precautions: Yellow Socks Yellow Gown Door Sign Patient Fall Education Report given to JAGDISH Serrano.
[2020-07-13 20:00] VITALS: BP 149/93
[2020-07-13] MEDS ORDERED: Tubing IV Secondary IV ONE (21:47)
[2020-07-13] MEDS ORDERED: NS 275ml ONE (21:47)
[2020-07-14] VITALS: BP 155/89
[2020-07-14 04:00] VITALS: BP 144/79
[2020-07-14] MEDS: HydrALAZINE 50mg tab ORAL SCH ×4 (06:00→19:06)
[2020-07-14] MEDS: NovoLOG Insulin Flexpen SUBQ SCH ×3 (06:58→16:30)
--- NOTE | 2020-07-14 07:20 | NUR ---
HAND-OFF: Report given to JAGDISH Valles. Patient non compliant to care. Refused 6 am Hydralazine x3. Tried with another nurse but refused as well. IV site intact.
--- NOTE | 2020-07-14 07:31 | NUR ---
NURSE NOTES: Pt received from Maggie DUBON, pt in bed sleeping, breakfast tray at bedside. No sign of SOB or distres. Bed low and locked, call light within reach.
[2020-07-14 08:00] VITALS: BP 129/62
--- NOTE | 2020-07-14 08:55 | NUR ---
PT NOTE Attempted to see patient for PT evaluation. Patient declined to participate with PT, states "I've got something to do." Patient has refused to participate with PT for multiple days, will discharge from PT at this time. Reena RN notified.
--- NOTE | 2020-07-14 09:05 | Nephrology Progress Note ---
Assessment/Plan Problem List: (1) ALYCIA (acute kidney injury) (2) Sepsis (3) Hyponatremia (4) Anemia Assessment 70-year-old male admitted with a diagnosis of sepsis and UTI ALYCIA (acute kidney injury) Hyponatremia Seizure disorder Hypertension Altered level of consciousness, encephalopathy History of COVID-19 pneumonia Diabetes mellitus, History of schizophrenia History of pancreatitis Status post ORIF left hip Anemia Hepatitis B surface antigen positive, chronic in nature Plan July 14: No labs drawn today. Will order blood work for tomorrow. Continue per consultants. July 13: Leukocytosis resolved. Serum creatinine remains unchanged at 1.5 somewhat improvement from the day of admission. Continue per consultants. July 12: Leukocytosis improving. Serum creatinine lower to 1.5. Electrolytes within normal range. Continue per consultants. July 11: Cr lower- Leukocytosis persists. Electrolyte abnormalities addressed. Suggest ID workup. July 10: as follow 3% saline 500 mL once Adjust blood pressure medication Monitor electrolytes and renal parameters Per consultants Subjective ROS Limited/Unobtainable: No Constitutional: Reports: malaise Objective Objective Last 24 Hour Vital Signs Date Time Temp Pulse Resp B/P (MAP) Pulse Ox O2 Delivery O2 Flow Rate FiO2 07/14/20 08:00 97.9 78 20 129/62 (84) 96 07/14/20 06:00 154/85 07/14/20 04:00 74 07/14/20 04:00 97.7 97 22 144/79 (100) 96 07/14/20 00:00 97.7 100 24 155/89 (111) 98 07/14/20 00:00 129/70 07/14/20 00:00 70 07/13/20 21:12 100 149/93 07/13/20 21:00 Room Air 07/13/20 20:00 97.9 102 24 149/93 (111) 98 07/13/20 20:00 102 07/13/20 18:01 140/79 07/13/20 16:00 82 07/13/20 15:31 97.5 80 20 140/79 (99) 98 07/13/20 12:00 72 07/13/20 11:50 146/83 07/13/20 11:32 97.3 78 20 146/83 (104) 98 Intake and Output 07/13/20 07/14/20 19:00 07:00 Intake Total 560 ml 500 ml Output Total 500 ml 600 ml Balance 60 ml -100 ml Intake Oral 560 ml 500 ml Output Urine Total 500 ml 600 ml No can panel drawn today laboratory Tests 07/13/20 11:49: POC Whole Blood Glucose 236H 07/13/20 17:58: POC Whole Blood Glucose 380H 07/13/20 21:07: POC Whole Blood Glucose [Pending] 07/14/20 06:30: POC Whole Blood Glucose 201H Height (Feet): 6 Height (Inches): 3.00 Weight (Pounds): 175 General Appearance: no apparent distress Respiratory/Chest: decreased breath sounds Abdomen: soft, distended Objective No change Joo Contreras MD Jul 14, 2020 09:05
[2020-07-14] MEDS: Tamsulosin 0.4mg cap ORAL SCH ×2 (09:27→18:24)
[2020-07-14] MEDS: Magnesium Oxide 400mg tab ORAL SCH ×3 (09:27→18:24)
[2020-07-14] MEDS: Heparin 5000 units/ml inj SUBQ SCH (09:28)
[2020-07-14] MEDS: Meropenem 1 GM in NS 55 ML IVPB SCH (09:28)
--- NOTE | 2020-07-14 09:36 | Psychiatry Consultation ---
Psychiatry Consultation Psychiatry Consultation Chief Complaint: Fever History of Present Illness: He has been is a 70-year-old male still has altered mental status confusion declining cognition plus baseline as well as attending has aggressive daily psychiatric agitation got overwhelming feelings of disturbances poor insight low appetite loss of adjusting activity is got declining cognition below his baseline as well as attending has requested daily psychiatric consultation Mental status examination: This is a 70-year-old male who is appearance disheveled his attitude irritable agitated affect labile intellect poor mood depressed anxious moderately psychomotor agitation attention is poor orientation x2 speech is low volume slurred thought processes organized logical thought judgment is poor Allergies: Coded Allergies: IBUPROFEN (Verified Allergy, Unknown, 10/22/19) PENICILLINS (Unverified Allergy, Unknown, 04/04/20) tolerated ceftriaxone Uncoded Allergies: PCN (Allergy, Unknown, 11/07/19) Medication History Scheduled Amlodipine Besylate* (Amlodipine Besylate*), 10 MG ORAL DAILY, (Reported) Diclofenac Sodium (Voltaren), 100 GM TP TWICE A DAY, (Reported) Divalproex Sodium* (Depakote*), 500 MG PO QHS, (Reported) Docusate Sodium* (Colace*), 100 MG ORAL DAILY IN THE EVENING, (Reported) Enoxaparin* (Lovenox*), 40 MG SUBQ DAILY, (Reported) Gabapentin (Neurontin), 300 MG ORAL THREE TIMES A DAY, (Reported) Hydralazine Hcl* (Hydralazine Hcl*), 25 MG ORAL Q6HR, (Reported) Hydrocodone Bit/Acetaminophen 5-325* (Thorofare 5-325 Tablet*), 1 TAB ORAL DAILY, (Reported) Insulin Aspart (Novolog Flexpen), 0 SUBQ AC+HS, (Reported) Levetiracetam (Keppra), 500 MG ORAL EVERY 12 HOURS, (Reported) Magnesium Hydroxide* (Milk Of Magnesia*), 30 ML ORAL DAILY, (Reported) Meropenem (Meropenem), 1 GM IV EVERY 12 HOURS Risperidone (Risperidone), 3 MG ORAL BEDTIME, (Reported) Tamsulosin HCl (Flomax), 0.4 MG ORAL BEDTIME, (Reported) Scheduled PRN Acetaminophen* (Acetaminophen 325MG Tablet*), 650 MG ORAL Q4H PRN for Mild Pain (Pain Scale 1-3), (Reported) Clonidine Hcl* (Catapres*), 0.1 MG ORAL EVERY 8 HOURS PRN for For High Blood Pressure, (Reported) Miscellaneous Medications Nicotine (Nicotine Patch), 21 MG TD, (Reported) Discontinued Medications Gabapentin* (Gabapentin*), 300 MG ORAL THREE TIMES A DAY, (Reported) Discontinued Reason: Prescription changed Lisinopril (Lisinopril*), 20 MG ORAL DAILY IN THE AFTERNOON, (Reported) Discontinued Reason: MD discontinued med Vancomycin/Water For Inj (Vancomycin 1.5 Gram/300 ml Bag), 1 GM IV every 24hrs., (Reported) Discontinued Reason: Therapy completed Objective Data Height (Feet): 6 Height (Inches): 3.00 Weight (Pounds): 175 Assessment/Plan Assessment/Plan: continue Risperdal 0.5 mg PO BID, Ativan 1 q6h prn anxiety, Depakote 500mg PO qhs and 20minutes of Insight oriented psychotherapy provided whereas I help him recognize his psychiatric and medical conditon and its severity to reduce depression anxiety and have him have better impulse control. Diagnosis [place] I: Schizoaffective bipolar type Ariela Venegas MD Jul 14, 2020 09:36
--- NOTE | 2020-07-14 10:26 | Cardiac Electrophysiology PN ---
Assessment/Plan Assessment/Plan 1. Elevated troponin. Second troponin is negative Echocardiogram EF 45%. No CP and noncompliant and refusing meds 2. Hypertension, on amlodipine 10 mg daily, metoprolol 25 mg b.i.d. hydralazine 50 mg qid and p.r.n. clonidine. 3. Sepsis. White count 34,000, on broad-spectrum IV antibiotics. WBC down to 9.7 4. History of seizures, on Depakote. 5. Schizophrenia, on Risperdal. 6. Recent COVID infection. 7. Chronic hepatitis B infection. AMADOR RN Subjective Subjective In SR. On Seizure precautions. No CP or SOB Placement pending Objective Last 24 Hour Vital Signs Date Time Temp Pulse Resp B/P (MAP) Pulse Ox O2 Delivery O2 Flow Rate FiO2 07/14/20 09:27 78 129/62 07/14/20 09:27 78 129/62 07/14/20 09:00 Room Air 07/14/20 08:00 97.9 78 20 129/62 (84) 96 07/14/20 08:00 70 07/14/20 06:00 154/85 07/14/20 04:00 74 07/14/20 04:00 97.7 97 22 144/79 (100) 96 07/14/20 00:00 97.7 100 24 155/89 (111) 98 07/14/20 00:00 129/70 07/14/20 00:00 70 07/13/20 21:12 100 149/93 07/13/20 21:00 Room Air 07/13/20 20:00 97.9 102 24 149/93 (111) 98 07/13/20 20:00 102 07/13/20 18:01 140/79 07/13/20 16:00 82 07/13/20 15:31 97.5 80 20 140/79 (99) 98 07/13/20 12:00 72 07/13/20 11:50 146/83 07/13/20 11:32 97.3 78 20 146/83 (104) 98 Intake and Output 07/13/20 07/14/20 19:00 07:00 Intake Total 560 ml 500 ml Output Total 500 ml 600 ml Balance 60 ml -100 ml Intake Oral 560 ml 500 ml Output Urine Total 500 ml 600 ml Laboratory Tests Test 07/13/20 11:49 07/13/20 17:58 07/13/20 21:07 07/14/20 06:30 POC Whole Blood Glucose 236 MG/DL (74-106) H 380 MG/DL (74-106) H Pending 201 MG/DL (74-106) H Objective HEAD AND NECK: Shows no JVD. LUNGS: Coarse rhonchi. CARDIOVASCULAR: Shows regular S1 and S2 with no gallop. ABDOMEN: Soft. EXTREMITIES: Atrophic bilateral lower extremities.S/P Left big toe amputation Jose Angel Salmon MD Jul 14, 2020 10:26
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
[2020-07-14 12:00] VITALS: BP 157/70
--- NOTE | 2020-07-14 12:07 | NUR ---
DISCHARGE PLANNED [facility] ALEXANDER P: [phone] FOR NURSE TO NURSE REPORT ROOM# 10.A [facility] HAS BEEN ARRANGED FOR 1330 PRODUCT TRAINER
--- NOTE | 2020-07-14 13:22 | General Progress Note ---
Subjective Constitutional: Reports: weakness Allergies: Coded Allergies: IBUPROFEN (Verified Allergy, Unknown, 10/22/19) PENICILLINS (Unverified Allergy, Unknown, 04/04/20) tolerated ceftriaxone Uncoded Allergies: PCN (Allergy, Unknown, 11/07/19) All Systems: reviewed and negative except above Subjective sleepy calm Objective Last 24 Hour Vital Signs Date Time Temp Pulse Resp B/P (MAP) Pulse Ox O2 Delivery O2 Flow Rate FiO2 07/14/20 12:56 157/70 07/14/20 12:00 97.9 68 20 157/70 (99) 96 07/14/20 09:27 78 129/62 07/14/20 09:27 78 129/62 07/14/20 09:00 Room Air 07/14/20 08:00 97.9 78 20 129/62 (84) 96 07/14/20 08:00 70 07/14/20 06:00 154/85 07/14/20 04:00 74 07/14/20 04:00 97.7 97 22 144/79 (100) 96 07/14/20 00:00 97.7 100 24 155/89 (111) 98 07/14/20 00:00 129/70 07/14/20 00:00 70 07/13/20 21:12 100 149/93 07/13/20 21:00 Room Air 07/13/20 20:00 97.9 102 24 149/93 (111) 98 07/13/20 20:00 102 07/13/20 18:01 140/79 07/13/20 16:00 82 07/13/20 15:31 97.5 80 20 140/79 (99) 98 Intake and Output 07/13/20 07/14/20 19:00 07:00 Intake Total 560 ml 500 ml Output Total 500 ml 600 ml Balance 60 ml -100 ml Intake Oral 560 ml 500 ml Output Urine Total 500 ml 600 ml Laboratory Tests 07/13/20 17:58: POC Whole Blood Glucose 380H 07/13/20 21:07: POC Whole Blood Glucose [Pending] 07/14/20 06:30: POC Whole Blood Glucose 201H Height (Feet): 6 Height (Inches): 3.00 Weight (Pounds): 175 General Appearance: lethargic EENT: normal ENT inspection Neck: normal alignment Cardiovascular: normal peripheral pulses, normal rate, regular rhythm Respiratory/Chest: chest wall non-tender, lungs clear, normal breath sounds Abdomen: normal bowel sounds, non tender, soft Extremities: normal inspection Edema: no edema noted Arm (L), no edema noted Arm (R), no edema noted Leg (L), no edema noted Leg (R), no edema noted Pedal (L), no edema noted Pedal (R), no edema noted Generalized Neurologic: motor weakness Skin: normal pigmentation, warm/dry Assessment/Plan Problem List: (1) Sepsis ICD Codes: A41.9 - Sepsis, unspecified organism SNOMED: 54875114, 049033365 Qualifiers: Qualified Codes: A41.9 - Sepsis, unspecified organism (2) UTI (urinary tract infection) ICD Codes: N39.0 - Urinary tract infection, site not specified SNOMED: 35734634 Qualifiers: Qualified Codes: N30.00 - Acute cystitis without hematuria (3) COVID-19 ICD Codes: U07.1 - COVID-19 SNOMED: 481429995 (4) COPD (chronic obstructive pulmonary disease) ICD Codes: J44.9 - Chronic obstructive pulmonary disease, unspecified SNOMED: 71678021 (5) Anemia ICD Codes: D64.9 - Anemia, unspecified SNOMED: 978962805 (6) Seizure disorder ICD Codes: G40.909 - Epilepsy, unspecified, not intractable, without status epilepticus SNOMED: 126290527, 341673384 (7) Hypertension ICD Codes: I10 - Essential (primary) hypertension SNOMED: 45601973 Qualifiers: Qualified Codes: I10 - Essential (primary) hypertension (8) ALYCIA (acute kidney injury) ICD Codes: N17.9 - Acute kidney failure, unspecified SNOMED: 4265483, 84392254 Status: unchanged Assessment/Plan: pt diet abc cbc bmp am dc plan Keyur Bronson DO Jul 14, 2020 13:22
--- NOTE | 2020-07-14 15:04 | NUR ---
OUTREACH NURSE NOTES SPOKE WITH NI FROM [facility], PT TO RETURN TO ROOM 128 BED B. NURSE TO CALL REPORT TO [phone]. [facility] TO TRANSPORT PT WITH AN ETA OF [phone].
--- NOTE | 2020-07-14 15:30 | Consultation ---
DATE OF CONSULTATION: 07/12/2020 PSYCHOTHERAPY CONSULTATION CONSULTING PHYSICIAN: Johnathan Devi PsyD TREATING ATTENDING PHYSICIAN: Keyur Bronson D.O. HISTORY OF PRESENT ILLNESS: The patient is a 70-year-old male patient. The patient was brought into the hospital for suspected urinary tract infection. Apparently, the patient has a history of schizoaffective disorder as well. He has been refusing some of his treatment. The patient has been labile and anxious . The patient is irritable and . The patient has been anxious, states that he does not need medications. hospital. The patient is irritable and continues to remain agitated. having difficulty with concentration and and has very poor insight. PAST MEDICAL HISTORY: He has history of seizures, diabetes, generalized weakness. ALLERGIES: He is allergic to penicillin and Motrin. SUBSTANCE ABUSE HISTORY: There is no indication of alcohol use or illicit substance use . PSYCHIATRIC HISTORY: History of schizoaffective disorder and has been treated with psychotropic medications in the past. SOCIAL HISTORY: The patient is a 70-year-old single male patient from a custodial facility, financially sustained by [employer]. MENTAL STATUS EXAMINATION: He is alert, oriented to person and place. Mood is irritable. Affect is labile. Thought process disorganized. Thought content, the patient has poor attention and concentration. Poor insight, judgment, and impulse control. STRENGTH: The patient is from a custodial facility. WEAKNESSES: The patient is disorganized, hopeless, as well as agitated. DIAGNOSES: 1. Major depressive disorder, recurrent, severe, with psychotic features. 2. COPD, COVID, seizures, diabetes. 3. Psychosocial stressors are moderate. PLAN: I assessed this patient and provided him with: 1. Reality orientation. Orientation of patient to person, place, time, and situation. 2. Supportive psychotherapy encouraging him to process thoughts and feelings utilizing positive communication skills discussing rational and reality-based thoughts medication regimen. Plan is to make him medication compliant with positive coping skills and stabilizing thoughts and behaviors. Psychotherapy service provided for this patient was 45 minutes. This clinician has reviewed the patient's chart and discussed treatment with treatment team. Johnathan Devi PsyD. DR: RYAN JOB#: [id number] CC:
--- NOTE | 2020-07-14 15:59 | NUR ---
NURSE NOTES: Report given to Devika DUBON at [facility].
[2020-07-14 16:00] VITALS: BP 151/81
--- NOTE | 2020-07-14 17:01 | NUR ---
NURSE NOTES: Pt become extremely aggressive shouting profanities, physically aggressive as well, refusing to have blood sugar checked.
[2020-07-14 19:06] VITALS: BP 168/78
--- NOTE | 2020-07-14 19:06 | NUR ---
NURSE NOTES: Pt picked up by [facility]. Pt left with IV in place for continued IV antibiotics. Tele box removed. Wrist band cut. Pt stable awake and alert.
--- NOTE | 2020-07-15 00:56 | CDS Physician Query ---
Clarification is required for compliance, coding accuracy, and to reflect severity of illness for this patient Dear Dr.Jimmy Audie D.O. Date: 07/14/20 CDI/ CDS Name:Chauncey Calderón Clinical Documentation States: 70-year-old male from [facility] presents to [place] ER last night with increased weakness and lethargy, was found to have UTI and sepsis, and admitted to medical floor. Currently, sleeping in bed, not talking much. ASSESSMENT: UTI, Sepsis, Altered mental status, Malnutrition, COPD, Diabetes, Hypertension. Weakness, ALYCIA, Seizure, Schizophrenia, History of COVID. Nutrition Monitoring & Evaluation * Wt stable/gain/loss * Wound Healing * PO intake adequacy * Tolerate intake/delivery * Blood Glucose Control * Na/Fluid status * Renal labs * Phos,Magnesium,K+ Clinical Finding Show: BMI: 21.9kg/m2 LAB (07/10) : Chem: Albumin 1.9 [3.4-5.0] Please select the most appropriate option: [] Protein/Calorie Malnutrition [] Mild [] Moderate [] Severe [] Hypoalbuminemia [] Cachexia [] Underweight [] Intestinal malabsorption [] Other [] Unable to determine [] Not Applicable Present on Admission: [] Yes [] No [] Clinically Undetermined Physician signature Date Please also document in your Progress Notes and/or Discharge Summary and indicate if the condition was present on admission. MTDD
--- NOTE | 2020-07-18 12:54 | Discharge Summary ---
Discharge Summary Discharge Summary _ DATE OF ADMISSION: 07/10/2020 DATE OF DISCHARGE: 07/14/2020 DISCHARGED BY: Dr. Bronson REASON FOR ADMISSION: 70 years old male, [facility] of [facility] facility, with past medical history of COPD, diabetes, hypertension, seizure disorder, chronic hepatitis B infection, schizophrenia, was admitted 2 weeks ago for Covid pneumonia, presented with generalized weakness. No fever or chills . Noted decreased appetite No nausea, vomiting or diarrhea. Upon evaluation patient had fever , blood pressure was elevated 176/100. Laboratory work-up revealed significant leukocytosis with WBC 34.2, hemoglobin 11.8 , hematocrit 36.1. Sodium 129. BUN 19, creatinine 1.8 Lactic acid 1.1. Troponin 0.06 , EKG revealed sinus rhythm , no acute ischemic changes , pro BNP 9435 Albumin 1.9 Urinalysis revealed evidence of probable UTI. Chest x-ray revealed no acute cardiopulmonary pathology Rapid COVID-19 was negative. In the emergency department patient pancultured , received fluid bolus, empiric antibiotics , treated for hypertensive urgency and admitted for further management. CONSULTANTS: press feeder broomcorn Dr. Gibbs pulmonary Dr. Wick ID specialist Dr. Landrum child day care provider Dr. Contreras psychiatrist Dr. Venegas [facility] COURSE: Patient admitted to medical surgical floor. Patient started on IV fluids and empiric antibiotics. Supplemental oxygen titrated to keep pulse oximetry above 92%. Pulmonary toilet provided as needed. Rapid COVID-19 was negative. Chest x-ray was stable. Aspiration precaution maintained. DVT prophylaxis provided. Blood culture came back negative. Urine culture revealed Proteus ESBL Influenza screen test was negative. Repeated rapid COVID-19 prior to transfer was negative. Patient was on meropenem for ESBL UTI. Patient will need to continue antibiotic upon discharge to complete the course as per ID specialist recommendation. Leukocytosis and fevers fevers resolved. Senior Media Planner followed for initial elevated troponin Second troponin was negative. Echocardiogram revealed borderline normal LV systolic function and wall motion. Left ventricular ejection fraction estimated to be 50%. Patient denied any chest pain . Patient was noncompliant and refused medication. Antihypertensive regimen optimized and consistent with multiple antihypertensive, including calcium channel ranjan, beta-ranjan, hydralazine and clonidine as needed for blood pressure spikes. Blood pressure improved. Antiplatelet therapy with aspirin and beta-blockade provided. EKG revealed no acute ischemic changes, telemetry showed sinus rhythm Seizure precaution maintained. Keppra continued. No seizure activity while in the hospital. Blood sugar was managed with sliding scale of insulin. Hemoglobin A1c 9.9. Patient need further optimization of antiglycemic regimen as outpatient. Address Change Clerk followed. Renal parameters and electrolytes weare closely monitored, electrolytes corrected as needed, and nephrotoxic were avoided. Hyponatremia work-up was done. Sodium up to 133. Creatinine from 1.8 down to 1.5 . Per psychiatrist patient had schizoaffective bipolar disorder. Psychiatric medication regimen optimized. Insight oriented psychotherapy provided. Supportive care provided. Patient clinically stabilized and was ready for [facility] to the jail facility for continuation of care FINAL DIAGNOSES: Severe sepsis UTI with Proteus ESBL Hypertension with initial hypertensive urgency COPD ALYCIA on chronic kidney disease Hyponatremia Recent Covid infection Acute metabolic encephalopathy Seizure disorder Elevated troponin Protein calorie malnutrition Chronic hepatitis B infection Diabetes mellitus Anemia Schizoaffective bipolar disorder DISCHARGE MEDICATIONS: See Medication Reconciliation list. DISCHARGE INSTRUCTIONS: Patient was discharged to the jail facility. Follow up with medical doctor at the facility. I have been assigned to dictate discharge summary for this account. Adriana Schilling NP Jul 18, 2020 12:54
== END 2020-07-14 18:45 | DRG 720 ==
LOC: EDBD 00:07 → EMR 00:26 → 4E 03:00 → EDBEDREQ 03:42 → 2E 18:15
DX: A41.9 Sepsis, unspecified organism (principal); N39.0 Urinary tract infection, site not specified; G93.41 Metabolic encephalopathy; I13.0 Hypertensive heart and chronic kidney disease with heart failure and stage 1 through stage 4 chronic kidney disease, or unspecified chronic kidney disease; R65.20 Severe sepsis without septic shock; I16.0 Hypertensive urgency; E43 Unspecified severe protein-calorie malnutrition; J44.9 Chronic obstructive pulmonary disease, unspecified; N17.9 Acute kidney failure, unspecified; E87.1 Hypo-osmolality and hyponatremia; F25.0 Schizoaffective disorder, bipolar type; B19.10 Unspecified viral hepatitis B without hepatic coma; D64.9 Anemia, unspecified; G40.909 Epilepsy, unspecified, not intractable, without status epilepticus; Z88.6 Allergy status to analgesic agent; Z88.0 Allergy status to penicillin; Z79.4 Long term (current) use of insulin; F33.3 Major depressive disorder, recurrent, severe with psychotic symptoms; W34.00XS Accidental discharge from unspecified firearms or gun, sequela; B96.4 Proteus (mirabilis) (morganii) as the cause of diseases classified elsewhere; Z16.12 Extended spectrum beta lactamase (ESBL) resistance; I12.9 Hypertensive chronic kidney disease with stage 1 through stage 4 chronic kidney disease, or unspecified chronic kidney disease; N18.9 Chronic kidney disease, unspecified; E11.22 Type 2 diabetes mellitus with diabetic chronic kidney disease; Z86.19 Personal history of other infectious and parasitic diseases
CPT/HCPCS: 36415; 71045; 80053; 80061; 80202; 81003; 82140; 82550; 82553; 82607; 82728; 82746; 82962; 82977; 83036; 83540; 83550; 83605; 83615; 83690; 83735; 83880; 84100; 84300; 84443; 84484; 84550; 85007; 85025; 85379; 85610; 85651; 85730; 86140; 86710; 87040; 87081; 87086; 87181; 89050; 93005; 93306; 96361; 96374; 99291; J1815; J7030; U0002